=== PATIENT | female | born 1960 | race Hispanic/Latino ===

== ENCOUNTER 2018-08-28 02:51 | Inpatient (IN) | payer OTHER ==
[2018-08-28] MEDS ORDERED: ALBUTEROL 2.5 MG/3 ML NEB SOL ONE (03:34)
[2018-08-28] MEDS ORDERED: IPRATROPIUM BROM 0.5MG/2.5ML ONE (03:51)
[2018-08-28 04:18] LABS: Protime INR 1.06
[2018-08-28 04:19] LABS: MPV 10.3 fL (7.6-11.3); RBC Red Blood Cell Count 3.94 M/uL (3.86-4.86)
[2018-08-28 04:25] LABS: Absolute Lymphocytes (CBC) 2.1 K/uL (0.7-4.9); Absolute Monocytes 0.5 K/uL (0.1-1.3); Absolute Neutrophil 7.3 K/uL (1.8-8.0); Basophils % 0.9 % (0-1.3); Eosinophils % 4.1 % (0-4.4); Hematocrit 34.6 % (36.0-45.0); Lymphocytes % 19.7 % (15.3-44.8); MCV 87.8 fL (80-100); Monocytes % 4.9 % (3.3-12.3)
[2018-08-28 04:41] LABS: Albumin 3.3 g/dL (3.4-5.0); Bilirubin Direct 0.1 mg/dL (0-0.2); Bilirubin Total 0.3 mg/dL (0.2-1.0); Potassium 4.4 mmol/L (3.5-5.1); Protein, Total 7.2 g/dL (6.4-8.2)
[2018-08-28 04:43] LABS: Troponin (Emerg Dept Use Only) 0.92 ng/mL (0.0-0.045)
--- NOTE | 2018-08-28 05:37 | ER ---
Nurse's Notes [facility] Name: Rhonda Omalley Age: 58 yrs Sex: Female : 1960 Arrival Date: 08/28/2018 Time: 02:55 Bed 5 Private MD: Mike Christian Diagnosis: Systolic (congestive) heart failure;Unstable angina Presentation: 08/28 03:06 Presenting complaint: Patient states: cough and SOB x 2 days and reports she now has aa1 pain in her chest from her cough. Transition of care: patient was not received from another setting of care. Onset of symptoms was August 26, 2018. Risk Assessment: Do you want to hurt yourself or someone else? Patient reports no desire to harm self or others. Initial Sepsis Screen: Does the patient meet any 2 criteria? No. Patient's initial sepsis screen is negative. Does the patient have a suspected source of infection? Yes: Productive cough/pneumonia. Care prior to arrival: None. 03:06 Method Of Arrival: Ambulatory aa1 03:06 Acuity: FRANCIS 3 aa1 Triage Assessment: 03:12 General: Appears in no apparent distress. comfortable, Behavior is calm, cooperative, aa1 appropriate for age. 03:15 Respiratory: the patient has mild shortness of breath. aa1 Historical: - Allergies: 03:12 Latex, Natural Rubber; aa1 03:12 PENICILLINS; aa1 - Home Meds: 03:12 Novolin 70/30 [place] 30 units Sub-Q nightly [Active]; aa1 - PMHx: 03:12 Diabetes - IDDM; neuropathy; CVA; aa1 - PSHx: 03:12 Cholecystectomy; Hysterectomy; Gastric Bypass; cataract repair; aa1 - Immunization history:: Flu vaccine is not up to date. - Social history:: Smoking status: Patient/guardian denies using tobacco. - Ebola Screening: : Patient denies exposure to infectious person Patient denies travel to an Ebola-affected area in the 21 days before illness onset. Screenin:30 Abuse screen: Denies threats or abuse. Denies injuries from another. Nutritional rr5 screening: No deficits noted. Tuberculosis screening: No symptoms or risk factors identified. Fall Risk IV access (20 points). Total [place] Fall Scale indicates No Risk (0-24 pts). Assessment: 03:20 General: Appears in no apparent distress. uncomfortable, Behavior is calm, cooperative, rr5 appropriate for age. Pain: Complains of pain in chest Pain does not radiate. Pain currently is 2 out of 10 on a pain scale. Quality of pain is described as discomfort Pain began gradually. Neuro: Level of Consciousness is awake, alert, obeys commands, Oriented to person, place, time. Cardiovascular: Capillary refill < 3 seconds Patient's skin is warm and dry. Rhythm is regular. Respiratory: Airway is patent Respiratory effort is even, with nasal flaring, Respiratory pattern is tachypnea. 03:20 GI: Abdomen is round. : Reports incontinence, since stress incontinence since 2003. rr5 EENT: No signs and/or symptoms were reported regarding the EENT system. Derm: No signs and/or symptoms reported regarding the dermatologic system. Musculoskeletal: No signs and/or symptoms reported regarding the musculoskeletal system. 03:20 Respiratory: Breath sounds are clear. rr5 04:07 Reassessment: Patient appears in no apparent distress at this time. the pain went away rr5 as verbalized. Patient states feeling better. Patient states symptoms have improved. Pain: Denies pain. 04:44 Reassessment: Patient appears in no apparent distress at this time. asleep on bed rr5 comfortably. 05:30 Reassessment: laboratory report came out. explained by the ED provider that she is for rr5 admission. 06:50 Reassessment: second troponin extracted. aa1 07:31 Reassessment: Attempted to call report to floor, per unit marco Layton, receiving nurse dylon Curiel unavailable at this time. 07:40 Reassessment: Dr. Christian notified trop 1.89, repeat EKG ordered. Pt reports chest hb tightness 2-3/10, VSS. Vital Signs: 03:12 BP 139 / 73; Pulse 92; Resp 20; Temp 98.8; Pulse Ox 95% on R/A; Weight 90.72 kg (R); aa1 Height 5 ft. 2 in. (157.48 cm); Pain 2/10; 03:30 BP 139 / 73; Pulse 88; Resp 21; Pulse Ox 94% on 2 lpm NC; Pain 2/10; rr5 04:08 BP 116 / 62; Pulse 92; Resp 19; Pulse Ox 98% on 2 lpm NC; rr5 05:00 BP 127 / 79; Pulse 94; Resp 18; Pulse Ox 99% on 2 lpm NC; rr5 06:00 BP 135 / 75; Pulse 88; Resp 17; Pulse Ox 99% on 2 lpm NC; rr5 06:54 BP 132 / 78; Pulse 84; Resp 17; Pulse Ox 98% on 2 lpm NC; rr5 07:30 BP 123 / 76; Pulse 89; Resp 17; Pulse Ox 99% on 2 lpm NC; Pain 2/10; hb 03:12 Body Mass Index 36.58 (90.72 kg, 157.48 cm) aa1 ED Course: 02:55 Patient arrived in ED. es 02:56 Mike Christian MD is Private Physician. es 03:08 Triage completed. aa1 03:12 Arm band placed on right wrist. Patient placed. aa1 03:14 Yariel Marte, CASANDRA is Primary Nurse. rr5 03:16 Harrison Todd MD is Attending Physician. gs 03:30 Patient has correct armband on for positive identification. Bed in low position. Call rr5 light in reach. Side rails up X 1. residential monitor on. Pulse ox on. NIBP on. 03:30 Inserted saline lock: 20 gauge in right forearm, using aseptic technique. Blood rr5 collected. 03:33 X-ray completed. Portable x-ray completed in exam room. Patient tolerated procedure kw well. 03:34 XRAY Chest (1 view) In Process Unspecified. EDMS 04:43 Notified ED physician of a critical lab result(s). trop 0.92. ak1 05:36 Mike Christian MD is Hospitalizing Provider. gs 06:51 No provider procedures requiring assistance completed. Patient admitted, IV remains in aa1 place. intact. 07:28 Notified ED physician of a critical lab result(s). Troponin 1.89. sg 07:54 EKG done, by animal husbandry technician. reviewed by Gildardo Frank MD. at1 Administered Medications: 03:48 Drug: AtroVENT Aerosol 0.5 mg Route: Inhalation; rr5 05:49 Follow up: Response: No adverse reaction; Marked relief of symptoms rr5 03:48 Drug: Albuterol 2.5 mg Route: Inhalation; rr5 05:49 Follow up: Response: No adverse reaction; Marked relief of symptoms rr5 05:40 Drug: Lasix 20 mg Route: IVP; Site: right forearm; rr5 06:52 Follow up: Response: No adverse reaction rr5 07:30 Drug: Coreg 6.25 mg Route: PO; hb 07:30 Drug: Lasix 40 mg Route: IVP; Site: right forearm; hb Intake: 06:40 post lasix rr5 Output: 06:40 Urine: 200ml (Voided); Total: 200ml. rr5 06:40 post lasix rr5 Outcome: 05:37 Decision to Hospitalize by Provider. 08:17 Patient left the ED. hb Signatures: Dispatcher [employer] EDAren Mccord RN RN sg Belia Bruce RN RN aa1 Violet Molina Kimberlee kw Gonzales, Amanda, credit control clerk EKG Tat1 Linn Dukes RN RN ak1 Tyra Ashby RN RN Harrison Todd MD MD Yariel Marte RN RN rr5
--- NOTE | 2018-08-28 05:37 | EDPHYS ---
Physician Documentation [facility] Name: Rhonda Omalley Age: 58 yrs Sex: Female : 1960 Arrival Date: 08/28/2018 Time: 02:55 Bed 5 Private MD: Mike Christian ED Physician Harrison Todd HPI: 08/28 05:30 This 58 yrs old Female presents to ER via Ambulatory with complaints of Chest gs Congestion, Breathing Difficulty, Chest Pain, Cough. 05:30 The patient has shortness of breath at rest. Onset: The symptoms/episode began/occurred gs 2 day(s) ago, and became persistent. Duration: The symptoms are continuous. The patient's shortness of breath is aggravated by exertion. Associated signs and symptoms: Pertinent positives: chest pain, non-productive cough. Severity of symptoms: At their worst the symptoms were moderate in the emergency department the symptoms are unchanged. The patient has not experienced similar symptoms in the past. The patient has not recently seen a physician. Historical: - Allergies: 03:12 Latex, Natural Rubber; aa1 03:12 PENICILLINS; aa1 - Home Meds: 03:12 Novolin 70/30 [place] 30 units Sub-Q nightly [Active]; aa1 - PMHx: 03:12 Diabetes - IDDM; neuropathy; CVA; aa1 - PSHx: 03:12 Cholecystectomy; Hysterectomy; Gastric Bypass; cataract repair; aa1 - Immunization history:: Flu vaccine is not up to date. - Social history:: Smoking status: Patient/guardian denies using tobacco. - Ebola Screening: : Patient denies exposure to infectious person Patient denies travel to an Ebola-affected area in the 21 days before illness onset. ROS: 05:30 All other systems are negative. gs Exam: 05:30 Head/Face: Normocephalic, atraumatic. Eyes: Pupils equal round and reactive to light, gs extra-ocular motions intact. Lids and lashes normal. Conjunctiva and sclera are non-icteric and not injected. Cornea within normal limits. Periorbital areas with no swelling, redness, or edema. ENT: Nares patent. No nasal discharge, no septal abnormalities noted. Tympanic membranes are normal and external auditory canals are clear. Oropharynx with no redness, swelling, or masses, exudates, or evidence of obstruction, uvula midline. Mucous membranes moist. Neck: Trachea midline, no thyromegaly or masses palpated, and no cervical lymphadenopathy. Supple, full range of motion without nuchal rigidity, or vertebral point tenderness. No Meningismus. Chest/axilla: Normal chest wall appearance and motion. Nontender with no deformity. No lesions are appreciated. 05:30 Abdomen/GI: Soft, non-tender, with normal bowel sounds. No distension or tympany. No guarding or rebound. No evidence of tenderness throughout. Back: No spinal tenderness. No costovertebral tenderness. Full range of motion. Skin: Warm, dry with normal turgor. Normal color with no rashes, no lesions, and no evidence of cellulitis. MS/ Extremity: Pulses equal, no cyanosis. Neurovascular intact. Full, normal range of motion. Neuro: Awake and alert, GCS 15, oriented to person, place, time, and situation. Cranial nerves II-XII grossly intact. Motor strength 5/5 in all extremities. Sensory grossly intact. Cerebellar exam normal. Normal gait. 05:30 Constitutional: The patient appears alert, awake. 05:30 Constitutional: The patient appears uncomfortable. 05:30 Cardiovascular: Rate: normal, Rhythm: regular, Pulses: no pulse deficits are appreciated. 05:30 ECG was reviewed by the Attending Physician. 05:30 Respiratory: the patient does not display signs of respiratory distress, Respirations: tachypnea, Breath sounds: rales, are located in both bases. Vital Signs: 03:12 BP 139 / 73; Pulse 92; Resp 20; Temp 98.8; Pulse Ox 95% on R/A; Weight 90.72 kg (R); aa1 Height 5 ft. 2 in. (157.48 cm); Pain 2/10; 03:30 BP 139 / 73; Pulse 88; Resp 21; Pulse Ox 94% on 2 lpm NC; Pain 2/10; rr5 04:08 BP 116 / 62; Pulse 92; Resp 19; Pulse Ox 98% on 2 lpm NC; rr5 05:00 BP 127 / 79; Pulse 94; Resp 18; Pulse Ox 99% on 2 lpm NC; rr5 06:00 BP 135 / 75; Pulse 88; Resp 17; Pulse Ox 99% on 2 lpm NC; rr5 06:54 BP 132 / 78; Pulse 84; Resp 17; Pulse Ox 98% on 2 lpm NC; rr5 07:30 BP 123 / 76; Pulse 89; Resp 17; Pulse Ox 99% on 2 lpm NC; Pain 2/10; hb 03:12 Body Mass Index 36.58 (90.72 kg, 157.48 cm) aa1 MDM: 03:27 Patient medically screened. 05:30 Differential diagnosis: CHF exacerbation, Chronic Obstructive Pulmonary Disease gs Myocardial Infarction pneumonia. Data reviewed: vital signs, nurses notes. Counseling: I had a detailed discussion with the patient and/or guardian regarding: the historical points, exam findings, and any diagnostic results supporting the discharge/admit diagnosis, the need for further work-up and treatment in the hospital. 08/28 03:16 Order name: Basic Metabolic Panel; Complete Time: 04:58 08/28 03:16 Order name: CBC with Diff; Complete Time: 04:40 08/28 03:16 Order name: LFT's; Complete Time: 04:58 08/28 03:16 Order name: Magnesium; Complete Time: 04:58 08/28 03:16 Order name: NT PRO-BNP; Complete Time: 04:58 08/28 03:16 Order name: PT-INR; Complete Time: 04:40 08/28 03:16 Order name: Troponin (emerg Dept Use Only); Complete Time: 04:58 08/28 03:16 Order name: Flu; Complete Time: 04:58 08/28 05:47 Order name: Basic Metabolic Panel EDAZ 08/28 05:47 Order name: Basic Metabolic Panel EDAZ 08/28 05:47 Order name: NT PRO-BNP EDAZ 08/28 05:47 Order name: NT PRO-BNP EDAZ 08/28 05:47 Order name: Troponin I EDAZ 08/28 05:47 Order name: Troponin I; Complete Time: 07:44 EDAZ 08/28 03:16 Order name: XRAY Chest (1 view) 08/28 03:16 Order name: EKG; Complete Time: 03:18 08/28 03:16 Order name: Cardiac monitoring; Complete Time: 03:48 08/28 03:16 Order name: EKG - Nurse/Tech; Complete Time: 03:48 08/28 05:47 Order name: Consistent Carb (ADA) 1800 Teofilo EDAZ 08/28 05:47 Order name: Echo with Doppler EDMS 08/28 05:47 Order name: Troponin I EDMS 08/28 05:48 Order name: CBC with Automated Diff EDMS 08/28 05:48 Order name: CBC with Automated Diff EDMS 08/28 06:48 Order name: Urine Dipstick--Ancillary (enter results) ar5 08/28 07:14 Order name: Urine Dipstick-Ancillary; Complete Time: 07:44 EDMS 08/28 03:16 Order name: IV Saline Lock; Complete Time: 03:48 gs 08/28 03:16 Order name: Labs collected and sent; Complete Time: 03:48 gs 08/28 03:16 Order name: O2 Per Protocol; Complete Time: 03:48 gs 08/28 03:16 Order name: O2 Sat Monitoring; Complete Time: 03:49 gs EC:30 Rate is 91 beats/min. Rhythm is regular. AR interval is normal. QRS interval is normal. gs T waves are Inverted. Clinical impression: NSR w/ Non-specific ST/T Changes. Interpreted by me. Administered Medications: 03:48 Drug: AtroVENT Aerosol 0.5 mg Route: Inhalation; rr5 05:49 Follow up: Response: No adverse reaction; Marked relief of symptoms rr5 03:48 Drug: Albuterol 2.5 mg Route: Inhalation; rr5 05:49 Follow up: Response: No adverse reaction; Marked relief of symptoms rr5 05:40 Drug: Lasix 20 mg Route: IVP; Site: right forearm; rr5 06:52 Follow up: Response: No adverse reaction rr5 07:30 Drug: Coreg 6.25 mg Route: PO; hb 07:30 Drug: Lasix 40 mg Route: IVP; Site: right forearm; hb Disposition: 05:30 Critical Care:. gs Disposition: 08/28/18 05:37 Hospitalization ordered by Mike Christian for Inpatient Admission. Preliminary diagnosis are Systolic (congestive) heart failure, Unstable angina. - Bed requested for Telemetry/MedSurg (Inpatient). - Status is Inpatient Admission. hb - Condition is Stable. - Problem is new. - Symptoms have improved. UTI on Admission? No Critical care time excluding procedures: 05:30 Critical care time: Bedside Care: 10 minutes, Consultation: 10 minutes, Family gs Intervention: 10 minutes. Total time: 30 minutes Signatures: Dispatcher [employer] EDMS Jennifer Lee RN CASANDRA Belia Bruce, RN RN aa1 Gildardo Frank MD MD [facility] Tyra Ashby RN RN Harrison Todd MD MD Yariel Marte RN RN rr5 Corrections: (The following items were deleted from the chart) 06:14 05:37 Hospitalization Ordered by Mike Christian MD for Inpatient Admission. Preliminary diagnosis is Systolic (congestive) heart failure; Unstable angina. Bed requested for Telemetry/MedSurg (Inpatient). Status is Inpatient Admission. Condition is Stable. Problem is new. Symptoms have improved. UTI on Admission? No. gs 08:17 06:14 08/28/2018 05:37 Hospitalization Ordered by Mike Christian MD for Inpatient Admission. Preliminary diagnosis is Systolic (congestive) heart failure; Unstable angina. Bed requested for Telemetry/MedSurg (Inpatient). Status is Inpatient Admission. Condition is Stable. Problem is new. Symptoms have improved. UTI on Admission? No.
[2018-08-28] MEDS ORDERED: FUROSEMIDE 20 MG/ 2ML VIAL ONE (05:40)
[2018-08-28] MEDS ORDERED: IPRATROPIUM BROM 0.5MG/2.5ML NEB PRN (05:42)
[2018-08-28] MEDS ORDERED: ACETAMINOPHEN 500 MG TAB PO PRN (05:42)
[2018-08-28] MEDS ORDERED: ALBUTEROL 2.5 MG/3 ML NEB SOL NEB PRN (05:42)
[2018-08-28] MEDS ORDERED: D50W 25 GM/50 ML SYRINGE IV PRN (05:43)
[2018-08-28] MEDS ORDERED: GLUCAGON 1 MG/VIAL IM PRN (05:43)
[2018-08-28 07:14] LABS: Urine Blood NEGATIVE (NEG); Urine Glucose TRACE (NEG); Urine Protein NEGATIVE (NEG); Urine Specific Gravity 1.015 (1.005-1.030)
[2018-08-28] MEDS ORDERED: CARVEDILOL 6.25 MG TAB ONE (07:33)
[2018-08-28] MEDS ORDERED: FUROSEMIDE 40 MG/4 ML VIAL ONE (07:33)
--- NOTE | 2018-08-28 08:16 | RAD REPORT ---
EXAM DESCRIPTION: RAD - Chest Single View - 08/28/2018 3:36 am CLINICAL HISTORY: SOB Chest pain. COMPARISON: Chest Single View dated 04/29/2016 FINDINGS: Portable technique limits examination quality. Mild to moderate bilateral pulmonary opacities are present most likely representing pulmonary edema o r interstitial pneumonia. The heart is upper limit normal size. No displaced fractures.
--- NOTE | 2018-08-28 08:27 | EKG ---
Test Date: 2018-08-28 Test Time: 03:08:45 Tenter Frame Operator: CARLI MEASUREMENT RESULTS: Intervals: Rate: 91 MD: 158 QRSD: 66 QT: 362 QTc: 445 [place]: P: 42 MD: 158 QRS: 16 T: 55 INTERPRETIVE STATEMENTS: Normal sinus rhythm Low voltage QRS Cannot rule out Anterior infarct, age undetermined Non specific T abnormality Abnormal ECG Compared to ECG 04/29/2016 23:54:48 Low QRS voltage now present Myocardial infarct finding now present Electronically Signed On 08-28-18 08:27:06 ZOOLOGY PROFESSOR by Hadley Vera
--- NOTE | 2018-08-28 08:27 | EKG ---
Test Date: 2018-08-28 Test Time: 07:52:43 Blast Furnace Supervisor: DIANE MEASUREMENT RESULTS: Intervals: Rate: 88 TN: 164 QRSD: 66 QT: 352 QTc: 425 [place]: P: 49 TN: 164 QRS: 24 T: 76 INTERPRETIVE STATEMENTS: Normal sinus rhythm Possible Left atrial enlargement Low voltage QRS Cannot rule out Anterior infarct, age undetermined Non specific T abnormality Abnormal ECG Compared to ECG 08/28/2018 03:08:45 No significant changes Electronically Signed On 08-28-18 08:26:38 PRODUCT APPLICATIONS ENGINEER by Hadley Vera
[2018-08-28] MEDS: FUROSEMIDE 20 MG/ 2ML VIAL IV SCH ×2 (09:30→17:15)
[2018-08-28] MEDS: ENOXAPARIN 100 MG/ML SYR SQ SCH ×2 (09:31→22:01)
[2018-08-28] MEDS: ASPIRIN EC 81 MG TAB PO SCH (09:31)
[2018-08-28] MEDS: INSULIN -REGULAR HUMAN 50 UNIT/0.5 ML ML SQ SCH ×5 (09:31→22:02)
[2018-08-28 12:42] VITALS: BMI 36.6
[2018-08-28] MEDS ORDERED: INFLUENZA VACCINE (for 3y+) 0.5 ML DOSE IMVAC ONE (13:00)
--- NOTE | 2018-08-28 13:46 | CON ---
Date of Consultation: 08/28/2018 Reason For Consultation: New onset congestive heart failure and [id number] myocardial infarcti on. History Of Present Illness: Ms. Omalley is a 58-year-old [place] woman who has a history o f diabetes, gastric bypass, noncompliant; had a TIA in 2016, was seen by Dr. eBrnabe then. She had at that time aortic sclerosis on her echocardiography. She had a negative carotid Doppler. She come s in with some nonspecific ST-T wave changes, minor T-wave inversion laterally, questionable ST eleva tion in lead F. Troponin was 0.92. BNP of 879, was complaining of chest pressure and had been cough ing for about for about 4 or 5 days. Had PND, orthopnea, pedal edema. No palpitation and no syncope . She is feeling better from the chest pain standpoint, but still cannot lie flat secondary to short ness of breath. Her present Lasix dose is 20 mg IV twice a day. Past Medical History: As stated above. Allergies: SHE IS ALLERGIC TO PENICILLIN AND LATEX. Review of Systems: Negative. Social History: Negative for tobacco, drugs, or alcohol. Family History: Positive for heart disease. Medications: At home include aspirin, multiple vitamins, and insulin. Physical Examination: Vital Signs: Stable. She was in a sinus rhythm. She had 97% O2 saturations on nasal cannula. HEENT: Negative. Neck: Supple without any lymphadenopathy or thyromegaly. She had 3 cm JVD to the angle of the jaw. Chest: Revealed bilateral rales. No wheezing. Cardiac Exam: Revealed a regular rhythm and rate with S4 gallops. No murmurs or rubs. Abdomen: Benign. Extremities: Revealed 2+ edema. Diagnostic Data: As stated earlier. Impression And Plan: 1.New-onset congestive heart failure, most likely diastolic. 2.Jrs-AH-rknxalkng myocardial infarction. 3.Diabetes. 4.Family history. 5.History of obesity status post gastric bypass. 6.History of transient ischemic attack in the past. 7.Noncompliance. The patient needs to be on inhalers. I will increase her IV Lasix to 40 b.i.d. Continue Lovenox. S tart carvedilol. Get an echocardiogram today. Diurese her more aggressively. When she is able to l ie flat, we will perform a heart catheterization on her. This was discussed with her and her mom, an d Dr. Christian and the nurses and . The patient was still in the emergency room and she is to be transferred to the fourth floor soon. CLAUDIO Voice ID: [id number] Report ID: [id number]
--- NOTE | 2018-08-28 16:25 | ECHO ---
HEIGHT: 5 ft 2 in WEIGHT: 200 lb 0.054 oz DATE OF STUDY: 08/28/[address]: Harrison Todd MD 2-DIMENSIONAL: YES M.MODE: YES DOPPLER: YES COLOR FLOW: YES TDS: NO PORTABLE: NO DEFINITY: NO BUBBLE STUDY: NO DIAGNOSIS: CONGESTIVE HEART FAILURE CARDIAC HISTORY: CATHERIZATION: NO SURGERY: NO PROSTHETIC VALVE: NO PACEMAKER: NO MEASUREMENTS (cm) DIASTOLIC (NORMALS) SYSTOLIC (NORMALS) IVSd 1.0 (0.6-1.2) LA Diam 3.6 (1.9-4.0) LVEF 52% LVIDd 4.4 (3.5-5.7) LVIDs 3.3 (2.0-3.5) %FS 27% LVPWd 1.1 (0.6-1.2) Ao Diam 3.2 (2.0-3.7) 2 DIMENSIONAL ASSESSMENT: RIGHT ATRIUM: NORMAL LEFT ATRIUM: NORMAL RIGHT VENTRICLE: NORMAL LEFT VENTRICLE: NORMAL TRICUSPID VALVE: NORMAL MITRAL VALVE: NORMAL PULMONIC VALVE: NORMAL AORTIC VALVE: SCLEROSIS PERICARDIAL EFFUSION: NONE AORTIC ROOT: NORMAL LEFT VENTRICULAR WALL MOTION: NORMAL EJECTION FRACTION. DECREASED LEFT VENTRICULAR COMPLIANCE. DOPPLER/COLOR FLOW: NORMAL. COMMENTS: NORMAL LEFT VENTRICULAR SIZE AND FUNCTION. DECREASED LEFT VENTRICULAR COMPLIANCE. AORTIC SCLEROSIS. NO EFFUSION. TECHNOLOGIST: SOLA BOBBY
[2018-08-28] MEDS: TRAMADOL HCL 50 MG TAB PO PRN (17:15)
[2018-08-28 19:41] LABS: Urine Appearance CLEAR; Urine Bilirubin NEGATIVE (NEG); Urine Blood NEGATIVE (NEG); Urine Color YELLOW; Urine Glucose TRACE (NEG); Urine Protein NEGATIVE (NEG)
[2018-08-28 19:58] LABS: Urine Microscopic Reflex NO UMIC
[2018-08-29 05:30] LABS: Absolute Lymphocytes (CBC) 2.2 K/uL (0.7-4.9); Absolute Monocytes 0.6 K/uL (0.1-1.3); Absolute Neutrophil 4.6 K/uL (1.8-8.0); Basophils % 0.8 % (0-1.3); Eosinophils % 6.2 % (0-4.4); Hematocrit 33.3 % (36.0-45.0); Lymphocytes % 27.6 % (15.3-44.8); MCH 30.6 pg (27.0-35.0); MCV 87.2 fL (80-100); MPV 9.9 fL (7.6-11.3); Monocytes % 7.4 % (3.3-12.3); RBC Red Blood Cell Count 3.82 M/uL (3.86-4.86)
[2018-08-29] MEDS: INSULIN -REGULAR HUMAN 50 UNIT/0.5 ML ML SQ SCH ×4 (09:18→21:26)
[2018-08-29] MEDS: ASPIRIN EC 81 MG TAB PO SCH (09:20)
[2018-08-29] MEDS: ENOXAPARIN 100 MG/ML SYR SQ SCH ×2 (09:20→21:27)
[2018-08-29] MEDS: FUROSEMIDE 20 MG/ 2ML VIAL IV SCH ×2 (09:20→17:36)
--- NOTE | 2018-08-29 17:36 | PN ---
Date of Progress Note: 08/28/2018 The patient states she is still short of breath, perhaps not as much as she stated when she came in. Chest discomfort is no longer present. An echo did reveal normal ejection fraction. Cardiology dis cussed the case and probable combination of CHF and an anginal symptoms, and plan is to do a catheter ization in a few days. HR/MODL Voice ID: [id number] Report ID: [id number]
--- NOTE | 2018-08-29 19:15 | PN ---
Date of Progress Note: 08/29/2018 The patient states she feels better. She had been up walking around. However, she still does feel s hort of breath. Discussion of DNR was held. The possibility of DNI was also discussed since this wi ll let us know as the decision at a later time, stability as such, she probably will be catheterized on Friday. HR/MODL Voice ID: [id number] Report ID: [id number]
--- NOTE | 2018-08-30 02:16 | HP ---
Date of Admission: 08/28/2018 Chief Complaint: Chest pain. History Of Present Illness: Patient dates her illness back approximately 3 weeks when she thought sh e had sinus and bronchial infection. This improved somewhat until the day of admission when she noti isaias some increasing shortness of breath, associated with some chest pain, which had some radiation in to her arm. She presented to the emergency room at this time, the possibility of CHF and CAD were co nsidered, and she was admitted for further care. Past Medical History: Patient has a long history of insulin-dependent diabetes under fair control. Patient is not very diet compliant nor exercise compliant. Family History: Diabetes, CAD. Social History: Nonsmoker and nondrinker. Physical Examination: General: Patient is a moderately obese elderly female, in mild respiratory distress. Vital Signs: Stable vital signs. HEENT: Normocephalic. Pupils are equal and reactive to light and accommodation. Fundi negative. E NT negative. Neck: Trachea midline. Thyroid not palpable. Chest: Bilateral rales, adequate air entry and movement bilaterally. No use of accessory muscles to breathe. Cardiovascular: PMI in midclavicular line. Heart sounds normal. Peripheral pulses present and equa l bilaterally. Abdomen: No organomegaly. Bowel sounds present. Extremities: +1 pitting edema bilaterally. Good tone and movement bilaterally. Reflexes physiologi c. Rectal: Deferred. Pelvic: Deferred. Impression: Congestive heart failure; chest pain; possible angina; noninsulin-dependent diabetes, fa ir control. Plan: Patient will be admitted, to be diuresed. Cardiological evaluation will be done. Depending o n the results, may require catheterization. HR/MODL Voice ID: [id number]
[2018-08-30] MEDS: ASPIRIN EC 81 MG TAB PO SCH (08:19)
[2018-08-30] MEDS: INSULIN -REGULAR HUMAN 50 UNIT/0.5 ML ML SQ SCH ×4 (08:19→21:19)
[2018-08-30] MEDS: FUROSEMIDE 20 MG/ 2ML VIAL IV SCH ×2 (08:20→18:06)
[2018-08-30] MEDS: ENOXAPARIN 100 MG/ML SYR SQ SCH (08:20)
[2018-08-31] MEDS ORDERED: NA CHLORIDE 0.9% 1,000 ML ONE (05:30)
--- NOTE | 2018-08-31 05:59 | PN ---
Date of Progress Note: 08/29/2018 Ms. Omalley was admitted to Dr. Christian's service on 08/28/2018 with new-onset congestive heart fa ilure, elevated troponin, chest tightness, and dyspnea on exertion. Echocardiography showed a normal ejection fraction with decreased left ventricular compliance. The patient is not having any more ch est pain, but she has dyspnea on minimal exertion. Telemetry has not shown any significant arrhythmi as. Her chest sounds clear. Her cough is resolved. We will plan a heart catheterization for 2017 to define her coronary anatomy. She understands the risks and the benefits of the procedure and she agrees to proceed. DAYANARA/BRIANNA Voice ID: [id number] Report ID: [id number]
--- NOTE | 2018-08-31 06:11 | PN ---
Date of Progress Note: 08/30/2018 Ms. Omalley came in approximately 48 hours ago with new-onset chest pain, dyspnea on exertion, eleni vated troponin, cough. Her cough has resolved. Remains dyspneic with minimal exertion. Echocardiog dayana showed decreased left ventricular compliance with normal ejection fraction. Telemetry has show n occasional PVCs. The plan is for a heart catheterization on 08/31/2018. She understands the risk and the benefits of the procedure and agreed to proceed. Ms. Omalley needs to be on aspirin, low- dose beta-charisse, statin in addition to her Lasix and ARABELLA inhibitors. DAYANARA/BRIANNA Voice ID: [id number] Report ID: [id number]
[2018-08-31] MEDS: ASPIRIN EC 81 MG TAB PO SCH (06:22)
[2018-08-31] MEDS: INSULIN -REGULAR HUMAN 50 UNIT/0.5 ML ML SQ SCH ×4 (07:30→21:57)
[2018-08-31] MEDS: FUROSEMIDE 20 MG/ 2ML VIAL IV SCH (08:35)
[2018-08-31] MEDS ORDERED: HEPA 1000U/500MLS 2,000 UNIT/1,000 ML BAG IV ONE (08:36)
[2018-08-31] MEDS ORDERED: HEPARIN 5000 UNIT/ML 1 ML VIAL ONE (12:21)
[2018-08-31] MEDS ORDERED: FENTANYL CITR 100 MCG/2 ML ONE ×2 (12:21→12:59)
[2018-08-31] MEDS ORDERED: MIDAZOLAM HCL 2 MG/2 ML INJ ONE ×2 (12:21→12:35)
[2018-08-31] MEDS ORDERED: ATROPINE SULF 1 MG/10 ML SYR IV ONE (12:22)
[2018-08-31] MEDS ORDERED: NITROGLYCERIN 100 MCG/ML SYR (for cath lab use only) IV ONE (12:22)
[2018-08-31] MEDS ORDERED: NICARDIPINE HCL 25 MG/10 ML IV ONE (12:22)
[2018-08-31] MEDS ORDERED: NA CHLORIDE 0.9% 50 ML ONE ×2 (12:22→13:44)
[2018-08-31] MEDS ORDERED: FLUMAZENIL 0.1 MG/ML (5 mL VIAL) IV ONE (12:36)
[2018-08-31] MEDS ORDERED: PRASUGREL (EFFIENT) 10 MG TAB PO ONE ×2 (15:00)
[2018-08-31] MEDS ORDERED: ACETAMINOPHEN 325 MG TABLET PO PRN (15:06)
[2018-08-31] MEDS ORDERED: NITROGLYCERIN 0.4 MG/TAB SL PRN (15:10)
[2018-08-31] MEDS ORDERED: NA CHLORIDE 0.9% 1,000 ML IV SCH (16:00)
[2018-08-31] MEDS ORDERED: INSULIN -REGULAR HUMAN 50 UNIT/0.5 ML ML ONE (16:55)
[2018-08-31] MEDS: TRAMADOL HCL 50 MG TAB PO PRN (21:53)
--- NOTE | 2018-09-01 01:29 | OP ---
Surgeon: Hadley Vera MD Procedures: Left heart catheterization; coronary angiography; percutaneous coronary intervention of a mid left anterior descending artery and obtuse marginal coronary arteries, both were successful. Procedure Findings: The patient's ejection fraction is depressed with what looks like an old anteroa pical KY. EF in the 30s. The LAD had a 99% stenosis in the midportion. Obtuse marginal was subtota lly occluded. There were thrombus and dissection and heavily calcified lesion. After stenting, the LAD lesion had 0% stenosis and the circumflex lesion had about a 10% stenosis. Her stent was probabl y slightly proximal to the most severe portion. We could not advance a stent beyond where we did and we found it acceptable. Acceptable angiographic result. Balloon angioplasty was done of the most s evere lesion just distal to the stent and there was 10% residual stenosis. She was free of chest shane n the whole time we did the procedure. Procedure In Detail: The patient had evidence of a non-ST elevation KY. She was brought to the [facility] catheterization laboratory technician in a fasting state, sedated with Versed and fentanyl, and prepared and draped. Right ra dial approach was used. We anesthetized the skin over the artery with 1% lidocaine, entered it with a 21-gauge needle, threaded a 0.021 inch guidewire into the artery and place a 6-Polish Terumo sheath . We used a TIG catheter to angiogram the arteries and left ventricle. We then used an exchange wir e and placed an Ikari 3.5, left with side holes as a guide catheter. It gave adequate support. The LAD was pre-dilated with a 2.5 x 15 Emerge balloon, stented with a 3.0 x 16 Synergy stent to 14 atmos pheres. The obtuse marginal artery was cannulated with a Kojo wire balloon with a 2.0 x 15 Emerge balloon. We placed a 2.5 x 16 stent as far as we could go, balloon just distal to it. Had an adequa te angiographic result. We attempted to place a stent just beyond the first stent. It was unsuccess ful, but the angiographic result was good. At the end of the procedure, the arteriotomy was closed w ith a TR band. The patient had Angiomax during the procedure. During the angiogram, she received a radial cocktail consisting of nicardipine, heparin, nitroglycerin. We withdrew the guide catheter ov er a J-wire to keep it straight and minimize trauma. She had mild symptoms of radial and brachial ar rojas spasm. At the end of the procedure, no complications. Estimated Blood Loss: 100 cc. Braiding Operator: Marce Boucher. FELISA/BRIANNA Voice ID: [id number] Report ID: [id number]
[2018-09-01 04:07] LABS: Hematocrit 31.2 % (36.0-45.0); MCH 29.8 pg (27.0-35.0); MCV 86.3 fL (80-100); MPV 9.4 fL (7.6-11.3); RBC Red Blood Cell Count 3.62 M/uL (3.86-4.86)
[2018-09-01] MEDS: INSULIN -REGULAR HUMAN 50 UNIT/0.5 ML ML SQ SCH ×3 (08:09→16:30)
[2018-09-01] MEDS: ASPIRIN EC 81 MG TAB PO SCH (08:10)
[2018-09-01] MEDS ORDERED: ONDANSETRON 4 MG/2 ML VIAL IV PRN (08:29)
[2018-09-01] MEDS ORDERED: CLOPIDOGREL 75 MG TABLET PO SCH (09:00)
--- NOTE | 2018-09-01 16:27 | PN ---
Date of Progress Note: 08/31/2018 Progress note on 08/31. The patient states she feels considerably better. She now walks without being short of breath. Medina mike, the catheterization showed significant blockage 99% LAD with a stent insertion and the patient's symptoms were secondary to this with resulting myocardial infarct. Sugars are also difficult to con trol; however, this may be a stress response Progress note on 09/01. The patient states she is nauseated, thinking possibly was after the medication. However, the Zofran improved her symptoms. [place] well enough to be discharged. Continue on her cardiac medicine with th e addition of Zofran. To follow up with me in 1 week and Cardiology in 2. HR/MODL Voice ID: [id number] Report ID: [id number]
[2018-09-01 17:41] VITALS: O2SAT 96
[2018-09-01 18:20] VITALS: BP 112/62; TEMP 98.5
--- NOTE | 2018-09-02 12:49 | PN ---
Date of Progress Note: 09/01/2018 Ms. Omalley had come in with a subendocardial MO and new-onset congestive heart failure. It was t hought she had decreased left ventricular compliance on echocardiography with a normal ejection fract ion. Heart catheterization was done yesterday. Dr. Vera thought the anteroapical wall was rather hypokinetic. She underwent a stent of the LAD and OM. This was uneventful. No blood loss. No comp lications. Overnight, her entry site appeared to be normal. No hematoma. She did not have any more chest pain or telemetry changes. She can go home today. She will need another echocardiogram in 3 months. We will probably recheck a Lexiscan in a year. She needs a carotid Doppler done soon as an outpatient. She needs to be on aspirin, Plavix, Lasix, metoprolol, Lipitor, and an ARABELLA inhibitor. I will discuss the case further with Dr. Christian. DAYANARA/BRIANNA Voice ID: [id number] Report ID: [id number]
== END 2018-09-01 17:45 | disposition home or self-care (01) | DRG 246 ==
LOC: ER 02:51 → ERHOLD 05:41 → 4TH 07:57
PROVIDERS: ADMIT Family Medicine; ATTEND Family Medicine
PROC: 027135Z Dilation of Coronary Artery, Two Arteries with Two Drug-eluting Intraluminal Devices, Percutaneous Approach (ICD-10-PCS; principal; 2018-08-31)
PROC: 4A023N7 Measurement of Cardiac Sampling and Pressure, Left Heart, Percutaneous Approach (ICD-10-PCS; 2018-08-31)
PROC: B211YZZ Fluoroscopy of Multiple Coronary Arteries using Other Contrast (ICD-10-PCS; 2018-08-31)
PROC: B215YZZ Fluoroscopy of Left Heart using Other Contrast (ICD-10-PCS; 2018-08-31)
DX: I21.4 Non-ST elevation (NSTEMI) myocardial infarction (principal); I50.31 Acute diastolic (congestive) heart failure; Z88.0 Allergy status to penicillin; Z91.040 Latex allergy status; E11.9 Type 2 diabetes mellitus without complications; Z98.84 Bariatric surgery status; Z86.73 Personal history of transient ischemic attack (TIA), and cerebral infarction without residual deficits; Z91.11 Patient's noncompliance with dietary regimen; Z79.4 Long term (current) use of insulin
CPT/HCPCS: 36415; 71045; 80048; 80076; 81003; 82962; 83735; 83880; 84484; 85025; 85027; 85347; 85610; 87070; 87205; 87804; 92928; 93005; 93306; 93458; 96374; 99285; C1725; C1893; J0583; J1644; J1650; J1940; J2250; J2405; J3010; J7030

== ENCOUNTER 2019-06-27 13:03 | Emergency (ER) | payer BC, OTHER ==
[2019-06-27] MEDS ORDERED: dexAMETHasone 10 MG/ML VIAL ONE (13:39)
[2019-06-27] MEDS ORDERED: MEPERIDINE HCL 25 MG/0.5 ML ONE (13:39)
[2019-06-27] MEDS ORDERED: NA CHLORIDE 0.9% 1,000 ML ONE (13:39)
[2019-06-27] MEDS ORDERED: ONDANSETRON 4 MG/2 ML VIAL ONE (13:39)
[2019-06-27 13:58] LABS: Absolute Lymphocytes (CBC) 1.7 K/uL (0.7-4.9); Basophils % 0.9 % (0-1.3); Hematocrit 34.3 % (36.0-45.0); Lymphocytes % 17.8 % (15.3-44.8); MPV 9.3 fL (7.6-11.3); RBC Red Blood Cell Count 4.28 M/uL (3.86-4.86)
[2019-06-27 14:08] LABS: Potassium 4.2 mmol/L (3.5-5.1)
--- NOTE | 2019-06-27 14:25 | RAD REPORT ---
EXAM DESCRIPTION: CT - Head Brain Wo Cont - 06/27/2019 1:54 pm CLINICAL HISTORY: Headache COMPARISON: April 2016 CT head TECHNIQUE: Axial 5 mm thick images of the head were obtained without IV contrast. All CT scans are performed using dose optimization technique as appropriate and may include automated exposure control or mA/KV adjustment according to patient size. FINDINGS: No intracranial hemorrhage, mass, edema or shift of mid-line structures. No acute infarcti on changes seen. No abnormal extra-axial fluid collections. Ventricles are normal. Mastoid air cells and visualized portions of the paranasal sinuses are clear. No acute bony findings. IMPRESSION: Negative non-contrast CT head examination. No significant change from comparison.
--- NOTE | 2019-06-27 15:09 | RAD REPORT ---
EXAM DESCRIPTION: CT - Head angio - 06/27/2019 2:45 pm CLINICAL HISTORY: HEADACHE TECHNIQUE: During dynamic enhancement using nonionic IV contrast, axial 1 millimeter thick images of the head were obtained. Sagittal and axial reconstruction images were generated using MIP technique and reviewed. All CT scans are performed using dose optimization technique as appropriate and may include automated exposure control or mA/KV adjustment according to patient size. COMPARISON: CT head June 27 FINDINGS: No aneurysm or vascular malformation identified. Major venous sinuses are patent. No named branch occlusion seen. Atherosclerotic calcifications narrow the distal aspect of each inter nal carotid artery and the petrous portion of the right internal carotid artery. Left M1 MCA branch s hows long segment luminal narrowing. No vasculitis findings. IMPRESSION: No aneurysm or vascular malformation. Atherosclerotic changes are present without named branch occlusion or significant degree of luminal n arrowing identified.
--- NOTE | 2019-06-27 16:33 | ER ---
Nurse's Notes [facility] Name: Rhonda Omalley Age: 59 yrs Sex: Female : 1960 Arrival Date: 06/27/2019 Time: 13:05 Bed 27 Private MD: Mike Christian Diagnosis: Headache Presentation: 06/27 13:12 Presenting complaint: Patient states: Headache that started at 12:30, along with aj1 nausea. States the headache is worse if she moves her head. Denies history of migraines. Transition of care: patient was not received from another setting of care. Onset of symptoms was June 27, 2019 at 12:30. Risk Assessment: Do you want to hurt yourself or someone else? Patient reports no desire to harm self or others. Initial Sepsis Screen: Does the patient meet any 2 criteria? No. Patient's initial sepsis screen is negative. Does the patient have a suspected source of infection? No. Patient's initial sepsis screen is negative. Care prior to arrival: None. 13:12 Method Of Arrival: Wheelchair aj1 13:12 Acuity: FRANCIS 3 aj1 Triage Assessment: 13:17 General: Appears in no apparent distress. uncomfortable, Behavior is calm, cooperative, aj1 appropriate for age. Pain: Complains of pain in top of head and right eye Pain currently is 10 out of 10 on a pain scale. Neuro: Level of Consciousness is awake, alert, obeys commands. Cardiovascular: Patient's skin is warm and dry. Respiratory: Airway is patent Respiratory effort is even, unlabored, Respiratory pattern is regular, symmetrical. GI: Reports nausea, vomiting. Historical: - Allergies: 13:17 Latex, Natural Rubber; aj1 13:17 PENICILLINS; aj1 - Home Meds: 13:17 Novolin 70/30 [place] 30 units Sub-Q nightly [Active]; aj1 - PMHx: 13:17 CVA; Diabetes - IDDM; neuropathy; Myocardial infarction; aj1 - Immunization history:: Flu vaccine is not up to date. - Social history:: Smoking status: Patient/guardian denies using tobacco. - Ebola Screening: : Patient denies travel to an Ebola-affected area in the 21 days before illness onset. - Family history:: not pertinent. - Hospitalizations: : No recent hospitalization is reported. Screenin:33 Abuse screen: Denies threats or abuse. Denies injuries from another. Nutritional mg2 screening: No deficits noted. Tuberculosis screening: No symptoms or risk factors identified. Fall Risk IV access (20 points). Gait- Weak (10 pts.). Assessment: 13:35 General: Appears in no apparent distress. uncomfortable, Behavior is calm, cooperative. mg2 Pain: Complains of pain in right jainism Pain does not radiate. Pain currently is 8 out of 10 on a pain scale. Quality of pain is described as aching, Pain began gradually, Is intermittent. Neuro: Level of Consciousness is awake, alert, obeys commands, Oriented to person, place, time, situation. Neuro: Reports headache in right temporal area and back of the neck. Cardiovascular: Capillary refill < 3 seconds Patient's skin is warm and dry. Respiratory: Airway is patent Respiratory effort is even, unlabored, Respiratory pattern is regular, symmetrical. GI: Reports nausea. : No signs and/or symptoms were reported regarding the genitourinary system. EENT: Reports blurred vision. Derm: Skin is intact, is healthy with good turgor, Skin is pink, warm \T\ dry. normal. Musculoskeletal: Circulation, motion, and sensation intact. Capillary refill < 3 seconds. 13:54 Reassessment: patient sent to ct via stretcher. mg2 14:38 Reassessment: patient sent to ct scan . mg2 15:32 Reassessment: Patient appears in no apparent distress at this time. Patient states mg2 feeling better. Vital Signs: 13:17 BP 147 / 72; Pulse 79; Resp 18; Temp 97.0; Pulse Ox 100% on R/A; Weight 86.18 kg (R); aj1 Height 5 ft. 2 in. (157.48 cm) (R); Pain 10/10; 13:37 BP 164 / 86; Pulse 74; Resp 18; Pulse Ox 97% on R/A; mg2 15:33 BP 143 / 74; Pulse 78; Resp 18; Pulse Ox 100% on R/A; mg2 16:40 BP 144 / 70; Pulse 75; Resp 18; Temp 98.0; Pulse Ox 100% on R/A; Pain 0/10; mg2 13:17 Body Mass Index 34.75 (86.18 kg, 157.48 cm) aj1 Clarence Coma Score: 16:25 Eye Response: spontaneous(4). Verbal Response: oriented(5). Motor Response: obeys rn commands(6). Total: 15. ED Course: 13:05 Patient arrived in ED. ag5 13:06 Mike Christian MD is Private Physician. ag5 13:16 Triage completed. aj1 13:17 Arm band placed on Patient placed in an exam room. aj1 13:22 David Driver, RN is Primary Nurse. mg2 13:25 Braxton Wilkerson MD is Attending Physician. rn 13:33 No provider procedures requiring assistance completed. Inserted saline lock: 20 gauge mg2 in right antecubital area, using aseptic technique. Blood collected. 13:36 Patient has correct armband on for positive identification. Pulse ox on. NIBP on. Door mg2 closed. 13:54 CT completed. Patient tolerated procedure well. Patient moved back from CT. mw3 13:54 CT Head Brain wo Cont In Process Unspecified. EDMS 14:45 CT Head Angio In Process Unspecified. EDMS 14:45 CT completed. Patient tolerated procedure well. Patient moved back from CT. bq 16:31 Mary Can MD is Referral Physician. rn 16:31 Francois Bernabe MD is Referral Physician. rn 16:41 IV discontinued, intact, bleeding controlled, No redness/swelling at site. Pressure mg2 dressing applied. Administered Medications: 13:48 Drug: Demerol 25 mg Route: IVP; Site: right antecubital; mg2 15:33 Follow up: Response: No adverse reaction; Marked relief of symptoms mg2 13:48 Drug: Zofran 4 mg Route: IVP; Site: right antecubital; mg2 15:32 Follow up: Response: No adverse reaction; Marked relief of symptoms mg2 13:48 Drug: NS 0.9% 1000 ml Route: IV; Rate: 1000 ml; Site: right antecubital; mg2 15:32 Follow up: Response: No adverse reaction; IV Status: Completed infusion; IV Intake: mg2 1000ml 13:48 Drug: Decadron - Dexamethasone 10 mg Route: IVP; Site: right antecubital; mg2 15:32 Follow up: Response: No adverse reaction; Marked relief of symptoms mg2 Intake: 15:32 IV: 1000ml; Total: 1000ml. mg2 Outcome: 16:32 Discharge ordered by . rn 16:41 Discharged to home ambulatory, with family. mg2 16:41 Condition: stable 16:41 Discharge instructions given to patient, family, Instructed on discharge instructions, follow up and referral plans. medication usage, Demonstrated understanding of instructions, follow-up care, medications, Prescriptions given X 4. 16:48 Patient left the ED. mg2 Signatures: Dispatcher [employer] EDKaycee Neumann RN RN aj1 [place] Quick Roman, MD MD rn Gardose, Michele, RN RN mg2 [place] mw3 Roxana Fernandez 5
--- NOTE | 2019-06-27 16:33 | EDPHYS ---
Physician Documentation [facility] Name: Rhonda Omalley Age: 59 yrs Sex: Female : 1960 Arrival Date: 06/27/2019 Time: 13:05 Bed 27 Private MD: Mike Christian ED Physician Braxton Wilkerson HPI: 06/27 15:49 This 59 yrs old Female presents to ER via Wheelchair with complaints of rn Nausea/Vomiting, Headache, Blurred Vision. 15:49 The patient complains of pain to the top of head and neck. The patient describes the rn headache as aching, throbbing. Onset: The symptoms/episode began/occurred just prior to arrival. Associated signs and symptoms: Pertinent positives: nausea, blurred vision, Pertinent negatives: altered mental status, fever, neck stiffness, rash. Severity of symptoms: At its worst the pain was moderate, in the emergency department the pain is unchanged. The symptoms are alleviated by nothing. the symptoms are aggravated by nothing. The patient has not experienced similar symptoms in the past. Reports at latter day, sudden onset of headache, no hx of migraines, no trauma. 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 Reports pain in neck and top of head, assoc with intermittent blurred vision, light sensitivity, and nausea. Reports head hurts more when moves head/neck. No fever. Reports poor vision at baseline and sees Dr. Can. Has appt with Dr. Can coming up.. Historical: - Allergies: 13:17 Latex, Natural Rubber; aj1 13:17 PENICILLINS; aj1 - Home Meds: 13:17 Novolin 70/30 [place] 30 units Sub-Q nightly [Active]; aj1 - PMHx: 13:17 CVA; Diabetes - IDDM; neuropathy; Myocardial infarction; aj1 - Immunization history:: Flu vaccine is not up to date. - Social history:: Smoking status: Patient/guardian denies using tobacco. - Ebola Screening: : Patient denies travel to an Ebola-affected area in the 21 days before illness onset. - Family history:: not pertinent. - Hospitalizations: : No recent hospitalization is reported. ROS: 15:49 Constitutional: Negative for fever, chills, and weight loss, Eyes: Negative for injury, rn pain, redness, and discharge, + blurred vision Neck: Negative for injury, and swelling, Cardiovascular: Negative for chest pain, palpitations, and edema, Respiratory: Negative for shortness of breath, cough, wheezing, and pleuritic chest pain, Abdomen/GI: Negative for abdominal pain, diarrhea, and constipation, MS/Extremity: Negative for injury and deformity, Skin: Negative for injury, rash, and discoloration, Neuro: Negative for weakness, numbness, tingling, and seizure. Exam: 15:49 Constitutional: This is a well developed, well nourished patient who is awake, alert, rn and in no acute distress. Wearing sunglasses Head/Face: Normocephalic, atraumatic. Eyes: Pupils reactive and equal, + light sensitivity ENT: MMM Neck: Trachea midline, no cervical LAD, + increased pain with movement of head Cardiovascular: Regular rate and rhythm. No pulse deficits. Respiratory: No increased work of breathing, no retractions or nasal flaring. Abdomen/GI: soft, non-tender Skin: Warm, dry, no rashes MS/ Extremity: Pulses equal, no cyanosis. Neurovascular intact. Full, normal range of motion. Equal circumference. Neuro: Awake and alert, GCS 15, oriented to person, place, time, and situation. Cranial nerves II-XII grossly intact. Motor strength 5/5 in all extremities. Sensory grossly intact. Cerebellar exam normal. Vital Signs: 13:17 BP 147 / 72; Pulse 79; Resp 18; Temp 97.0; Pulse Ox 100% on R/A; Weight 86.18 kg (R); aj1 Height 5 ft. 2 in. (157.48 cm) (R); Pain 10/10; 13:37 BP 164 / 86; Pulse 74; Resp 18; Pulse Ox 97% on R/A; mg2 15:33 BP 143 / 74; Pulse 78; Resp 18; Pulse Ox 100% on R/A; mg2 16:40 BP 144 / 70; Pulse 75; Resp 18; Temp 98.0; Pulse Ox 100% on R/A; Pain 0/10; mg2 13:17 Body Mass Index 34.75 (86.18 kg, 157.48 cm) aj1 [place] Coma Score: 16:25 Eye Response: spontaneous(4). Verbal Response: oriented(5). Motor Response: obeys rn commands(6). Total: 15. MDM: 13:25 Patient medically screened. rn 16:25 Differential diagnosis: hypertensive headache, intracerebral hemorrhage, migraine, rn neoplasm, subarachnoid bleed, temporal arteritis, tension headache, vasomotor headache. Data reviewed: vital signs, nurses notes, lab test result(s), radiologic studies, CT scan, and as a result, I will discharge patient. Counseling: I had a detailed discussion with the patient and/or guardian regarding: the historical points, exam findings, and any diagnostic results supporting the discharge/admit diagnosis, lab results, radiology results, the need for outpatient follow up, to return to the emergency department if symptoms worsen or persist or if there are any questions or concerns that arise at home. Response to treatment: the patient's symptoms have markedly improved after treatment, and as a result, I will discharge patient. Special discussion: I discussed with the patient/guardian in detail that at this point there is no indication for admission to the hospital. It is understood, however, that if the symptoms persist or worsen the patient needs to return immediately for re-evaluation. Based on the history and exam findings, there is no indication for further emergent testing or inpatient evaluation. I discussed with the patient/guardian the need to see the neurologist for further evaluation of the symptoms. I discussed with the patient/guardian the need to see the opthamologist for further evaluation of the symptoms. ED course: ESR with mild elevation, CT head and CTA no acute findings and no signs of vasculitis. IMproved symptoms, normal neuro exam. After pain meds, patient reports resolution of blurred vision and photosensitivity, reports majority of pain located at base of skull and hurts with movement. Told her needs to f/u with ophthalmology given intermittent blurred vision, as well as neurology for new onset headaches. Will prescribe pain meds, steroids, and muscle relaxer. Urged patient to f/u with specialists within the week and return precautions given and understood. . 06/27 13:35 Order name: CBC with Diff; Complete Time: 14:12 rn 06/27 13:35 Order name: Basic Metabolic Panel; Complete Time: 14:12 rn 06/27 13:35 Order name: CT Head Brain wo Cont; Complete Time: 14:47 rn 06/27 13:35 Order name: ESR; Complete Time: 14:12 rn 06/27 14:14 Order name: CT Head Angio; Complete Time: 15:12 rn 06/27 13:35 Order name: IV Start; Complete Time: 13:37 rn Administered Medications: 13:48 Drug: Demerol 25 mg Route: IVP; Site: right antecubital; mg2 15:33 Follow up: Response: No adverse reaction; Marked relief of symptoms mg2 13:48 Drug: Zofran 4 mg Route: IVP; Site: right antecubital; mg2 15:32 Follow up: Response: No adverse reaction; Marked relief of symptoms mg2 13:48 Drug: NS 0.9% 1000 ml Route: IV; Rate: 1000 ml; Site: right antecubital; mg2 15:32 Follow up: Response: No adverse reaction; IV Status: Completed infusion; IV Intake: mg2 1000ml 13:48 Drug: Decadron - Dexamethasone 10 mg Route: IVP; Site: right antecubital; mg2 15:32 Follow up: Response: No adverse reaction; Marked relief of symptoms mg2 Disposition: 06/27/19 16:32 Discharged to Home. Impression: Headache. - Condition is Stable. - Discharge Instructions: General Headache Without Cause, Hypertension. - Prescriptions for Prednisone 20 mg Oral Tablet - take 3 tablet by ORAL route once daily for 5 days; 15 tablet. Tylenol- Codeine #3 300-30 mg Oral Tablet - take 2 tablets by ORAL route every 6 hours As needed; 15 tablet. Cyclobenzaprine 10 mg Oral Tablet - take 1 tablet by ORAL route every 8 hours As needed; 15 tablet. Zofran ODT 4 mg Oral tablet,disintegrating - place 1 tablet by TRANSLINGUAL route every 8 hours; 20 tablet. - Medication Reconciliation Form, Thank You Letter, Antibiotic Education, Prescription Opioid Use form. - Follow up: Mary Can MD; When: 2 - 3 days; Reason: Further diagnostic work-up, Recheck today's complaints, Re-evaluation by your physician. Follow up: Francois Bernabe MD; When: 2 - 3 days; Reason: Recheck today's complaints, Re-evaluation by your physician. - Problem is new. - Symptoms have improved. Signatures: Dispatcher [employer] EDKaycee Neumann RN RN aj1 Braxton Wilkerson MD MD rn Gardose, Michele, RN RN mg2 Corrections: (The following items were deleted from the chart) 16:48 16:32 06/27/2019 16:32 Discharged to Home. Impression: Headache. Condition is Stable. mg2 Forms are Medication Reconciliation Form, Thank You Letter, Antibiotic Education, Prescription Opioid Use. Follow up: Mary Can; When: 2 - 3 days; Reason: Further diagnostic work-up, Recheck today's complaints, Re-evaluation by your physician. Follow up: Francois Bernabe; When: 2 - 3 days; Reason: Recheck today's complaints, Re-evaluation by your physician. Problem is new. Symptoms have improved. rn
[2019-06-27 18:02] VITALS: O2SAT 100
[2019-06-27 18:04] VITALS: BP 144/70; TEMP 98
== END 2019-06-27 16:48 | disposition home or self-care (01) ==
LOC: ER 13:03
DX: R51 Headache (principal); E11.40 Type 2 diabetes mellitus with diabetic neuropathy, unspecified; I25.2 Old myocardial infarction; Z79.4 Long term (current) use of insulin; Z88.0 Allergy status to penicillin; Z91.040 Latex allergy status; Z91.048 Other nonmedicinal substance allergy status
CPT/HCPCS: 96361; 85025; 80048; 36415; 85652; 70450; 70496; 96375; 96374; 99284; Q9967; J1100; J2175; J7030; J2405

== ENCOUNTER 2024-08-27 12:10 | Day surgery (SDC) | payer OTHER ==
[2024-08-25 09:17] LABS: Absolute Basophils 0.1 K/uL (0-0.5); Absolute Eosinophils 0.3 K/uL (0-0.5); Absolute Lymphocytes (CBC) 1.3 K/uL (0.7-4.9); Absolute Monocytes 0.4 K/uL (0.1-1.3); Absolute Neutrophil 7.5 K/uL (1.8-8.0); Basophils % 0.6 % (0-1.3); Eosinophils % 2.9 % (0-4.4); Hematocrit 28.9 % (36.0-45.0); Hemoglobin 9.4 g/dL (12.0-15.0); Lymphocytes % 13.3 % (15.3-44.8); MCH 24.4 pg (27.0-35.0); MCHC 32.6 g/dL (32.0-36.0); MCV 74.9 fL (80-100); MPV 8.2 fL (7.6-11.3); Monocytes % 3.8 % (3.3-12.3); Neutrophils % 79.4 % (41.7-73.7); Nucleated Red Blood Cells % 0.1 % (0-0); Platelets 513 thou/uL (152-406); RBC Red Blood Cell Count 3.87 M/uL (3.86-4.86); Red Cell Distribution Width 16.3 % (12.1-15.2)
[2024-08-25 09:28] LABS: Anion Gap 6.3 mEq/L (5.0-15.0); Potassium 4.3 mEq/L (3.5-5.1)
[2024-08-25 09:54] LABS: PT Prothrombin Time 12.5 SECONDS (9.4-12.5); PTT, Activated Partial Thromb 30.2 SECONDS (24.3-36.9); Protime INR 1.12
[2024-08-27] MEDS ORDERED: NA CHLORIDE 0.9% 500 ML ONE (12:16)
[2024-08-27] MEDS ORDERED: VERAPAMIL HCL 10 MG/4 ML VIAL IV ONE (13:44)
[2024-08-27] MEDS ORDERED: HEPARIN 10,000 UNIT/10 ML VIAL IV ONE (13:44)
[2024-08-27] MEDS ORDERED: LIDOCAINE 1% 20 ML MDV ONE (13:44)
[2024-08-27] MEDS ORDERED: MIDAZOLAM HCL 2 MG/2 ML INJ ONE (13:44)
[2024-08-27] MEDS ORDERED: HEPA 1000U/500MLS 2,000 UNIT/1,000 ML BAG IV ONE (13:44)
[2024-08-27] MEDS ORDERED: CLOPIDOGREL 75 MG TABLET ONE (13:45)
[2024-08-27] MEDS ORDERED: ATROPINE SULF 1 MG/10 ML SYR IV ONE (13:45)
[2024-08-27] MEDS ORDERED: FENTANYL CITR 100 MCG/2 ML ONE (13:45)
[2024-08-27] MEDS ORDERED: TICAGRELOR 90 MG TABLET PO ONE (13:45)
[2024-08-27] MEDS ORDERED: ASPIRIN 325 MG TAB ONE (13:45)
[2024-08-27] MEDS ORDERED: HEPARIN 5000 UNIT/ML 1 ML VIAL ONE (13:45)
[2024-08-27 15:55] VITALS: TEMP 97.2
[2024-08-27] MEDS ORDERED: ACETAMINOPHEN 500 MG TAB ONE (16:42)
[2024-08-27 18:05] VITALS: BP 140/64; O2SAT 95
--- NOTE | 2024-08-28 01:31 | OP ---
Date of Procedure: 08/27/2024 Surgeon: YAMILKA CRISTINA Procedure Performed: 1.Coronary angiogram. 2.Left heart catheterization. 3.Right heart catheterization. Indication: Evaluation of aortic valve stenosis and unstable angina. Access: 1.Right radial artery 6-H[place]ian closed with TR band. 2.Right IJ 7-Haitian closed with manual pressure. Complications: None. Bleeding: Less than 50 mL. Anesthesia: Total sedation time was 1 hour. Description Of Procedure: After risks, benefits, and alternatives were explained, the patient agreed to procedure and signed informed consent. The patient was brought into cardiac catheterization [facility], prepped and draped in sterile fashion, then I accessed right radial artery using pediatric mi cropuncture kit and placed 6-H[place]ian slender sheath and then I accessed right IJ using micropuncture k it and ultrasound guidance, and placed a 7-H[place]ian [place] sheath and then took a 7-[place]aitian balloon-ti pped [place] catheter through the IJ access into the right atrium, right ventricle, pulmonary artery and wedge. We obtained waveform and pressures and then obtained cardiac output by thermodilution method . Subsequently removed the [place] catheter and then took a [place] catheter aortic root across the ao rtic valve and did simultaneous pressure measurements between the LV and the aorta and pullback did n ot record any gradient, then exchanged for a 5-[place]ian [place] 4 catheter, engaged left main, took stand cesar views and then the RCA, took standard views and removed the catheter and the sheath, placed TR ba nd with good hemostasis. The IJ sheath was removed. Manual pressure was used for closure with good hemostasis. Findings: 1.Left main is normal. 2.LAD; proximal diffuse 70% and then there is focal 95% stenosis before the stent. Then, the LAD be comes normal. 3.Left circumflex has proximal 20%, then distal 50% stenosis. 4.RCA has distal 90% stenosis before the bifurcation. The PDA has 80% and the PLB has 70% stenosis. The LVEDP was 35 mmHg. Right Heart Catheterization Numbers: RA pressure was 21/19, mean of 16. RV pressure 60/9, mean of 1 9. PA pressure was 64/28, mean of 43. Pulmonary wedge pressure was 29 and the cardiac catheter outp ut average was 4.15 L/minute. Mean gradient across aortic valve was 29 mmHg and aortic valve area wa s 0.77 cm2. Conclusion: 1.Severe multivessel coronary artery disease. 2.Severe low-flow low gradient aortic valve stenosis. Recommendation: Transfer for a bypass surgery plus aortic valve replacement. SR/MODL Voice ID: [id number] Report ID: [id number]
--- NOTE | 2024-09-03 16:28 | EKG ---
Test Date: 2024-08-25 Test Time: 09:43:33 Small Package And Bundle Sorter Clerk: YADY MEASUREMENT RESULTS: Intervals: Rate: 87 NH: 168 QRSD: 80 QT: 382 QTc: 459 [place]: P: 58 NH: 168 QRS: 43 T: 113 INTERPRETIVE STATEMENTS: Normal sinus rhythm Cannot rule out Anterior infarct, age undetermined Abnormal ECG Compared to ECG 08/28/2018 07:52:43 T-wave abnormality no longer present Myocardial infarct finding still present Electronically Signed On 09-03-24 16:11:30 [employer] by Edu Olivo
== END 2024-08-27 18:07 | disposition short-term general hospital (02) ==
LOC: CCL 12:10
PROVIDERS: ATTEND Internal Medicine
DX: I25.110 Atherosclerotic heart disease of native coronary artery with unstable angina pectoris (principal); I35.0 Nonrheumatic aortic (valve) stenosis; I73.9 Peripheral vascular disease, unspecified; E11.9 Type 2 diabetes mellitus without complications; Z95.5 Presence of coronary angioplasty implant and graft; Z87.891 Personal history of nicotine dependence; Z79.4 Long term (current) use of insulin; Z79.899 Other long term (current) drug therapy; Z88.0 Allergy status to penicillin; Z91.040 Latex allergy status; Z82.49 Family history of ischemic heart disease and other diseases of the circulatory system
CPT/HCPCS: 36415; 76937; 80048; 82947; 85025; 85610; 85730; 93005; 93460; 99152; C1893; J0461; J1644; J2003; J2250; J3010; J7040; Q9966

== ENCOUNTER 2024-09-10 16:31 | Inpatient (IN) | payer OTHER ==
--- OUTSIDE RECORDS SUMMARY | 2024-09-11 09:58 | XMS REPORT | Continuity of Care Document ---
Author Name Unknown Address [address] [facility]. [address] [place] [address] [facility] thconnect Address [address] [facility] [address] [place] [address] Care Team Providers Care Lead Teacher Name Role Phone Mike Christian MD Primary Care Physician Poppy Hernandez Attending Clinician BOBBI Frazier Attending Clinician Bobbi Rolle DPM Attending Clinician [phone] Lis Cardona MA Attending Clinician Clinton Diaz MD Attending Clinician [facility] WOLF Attending Clinician Unavailable Poppy Hernandez Admitting Clinician Obey lopez Payers Payer Name Policy Type Policy Number Effective Date Expirati on Date Source [employer] MEDICARE ADVANTAGE Medicare [id number] 2023 00:00:00 Problems Condition Name Condition Details Condition Category Status Onset Date Resolution Date Last Treatment Date Treating Clinician Comments Source No known active problems No known active problems Disease [facility] Allergies, Adverse Reactions, Alerts Allergy Name Allergy Type Status Severity Reaction(s) Onset Date Inactive Date Treating Clinician Comments Source Penicill ins DA Active SV HIVES 2023-09 00:00: 00 [facility] latex DA Active MO DERMATITIS HIVES 2023-09 2 00:00: 00 [facility] Latex Propensi ty to adverse reaction s Active 2023-09 0 00:00: 00 Lorri Javed Epic Penicill in G Propensi ty to adverse reaction s Active 2023-09 0 00:00: 00 Lorri Javed Epic Latex Propensi ty to adverse reaction s Active Hives 2020-09 0 00:00: 00 [facility] Penicill ins Propensi ty to adverse reaction s Active Hives 2020-09 00:00: 00 [facility] PENICILL INS Drug Class Active Hives 2020-09 00:00: 00 [facility] LATEX DRUG INGREDI Active Hives 2020-09 00:00: 00 [facility] NO KNOWN ALLERGIE S Drug Class Active [facility] Social History Social Habit Start Date Stop Date Quantity Comments Source [facility]ION [facility] Gender identity Olu rose Javed [facility] Sexual orientation [facility] Exposure to SARS-CoV-2 (event) Not sure [facility] Sex Assigned At 1960 00:00:00 1960 00:00:00 [facility] Smoking Status Start Date Stop Date Source Tobacco smoking consumption unknown [facility] Medications Ordered Medication Name Filled Medication Name Start Date Stop Date Current Medication? Ordering Clinician Indication Dosage Frequency Signature (SIG) Comments Components Source HYDROcodone -acetaminop hen (NORCO) 10-325 mg tablet 1 tablet 2020-09 10:45: 00 07-22 09:45 :00 No 1{tbl} 1 tablet, Oral, ONCE NOW, 1 dose, On 07/22/21 at 0545, Routine [facility] doxycycline hyclate 100 mg capsule 2020-09 00:00: 00 Yes [id number] 100mg Take 1 capsule by mouth 2 (two) times daily. [facility] HYDROcodone -acetaminop hen (NORCO) 10-325 mg tablet 2020-09 00:00: 00 07-30 05:59 :00 No [id number] 1{tbl} Take 1 tablet by mouth every 6 (six) hours as needed for Pain (scale 7-10) for up to 7 days. Indication s: acute pain [facility] Vital Signs Vital Name Observation Time Observation Value Comments S ource Systolic blood pressure 2021-07-22 10:00:00 154 mm[Hg] [facility] Diastolic blood pressure 2021-07-22 10:00:00 78 mm[Hg] [facility] Heart rate 2021-07-22 10:00:00 73 /min [facility] Respiratory rate 2021-07-22 10:00:00 18 /min [facility] Oxygen saturation in Arterial blood by Pulse oximetry 2021-07-22 10:00:00 94 /min [facility] Body temperature 2021-07-22 08:31:[address] 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 NOTICE OF PRIVACY PRACTICES 2021-07-22 08:43:23 Doctor Unassigned, [place] [facility] CONSENT/REFUSAL FOR DIAGNOSIS AND TREATMENT 2021-07-22 08:22:55 Doctor Unassigned, [place] [facility] Encounters Start Date/Time End Date/Time Encounter Type Admission Type Attending [facility] Facility Care Department Encounter ID Source 2024-08-27 19:35:00 2024-09-10 19:30:00 Inpatient EM Poppy Hernandez [facility]ACL INTE [id number] [facility] 2024-08-04 10:07:45 2024-08-04 10:52:29 Outpatient Elective SELBOBBI BOO EOUT [id number] [facility] 2024-08-04 09:50:00 2024-08-04 10:52:29 Office Visit Bobbi [facility] 1..840.114 [id number] [facility] 2024-07-07 00:00:00 2024-07-07 14:48:56 Telephone Lis Cardona Natalie [facility] 1..840.114 [id number] [facility] 2024-07-07 10:09:32 2024-07-07 10:58:16 Outpatient Elective BOBBI MARTINEZ EOUT [id number] [facility] 2024-07-07 10:00:00 2024-07-07 10:58:16 Consult Bobbi [facility] 1..840.114 [id number] Lorri Yung 2021-07-22 03:27:00 2021-07-22 05:43:00 Emergency Clinton Wolf [facility] [id number] [facility] 2021-07-22 03:27:00 2021-07-22 05:43:00 Emergency X CL[facility]ON WOLF [facility] ERT [id number] [facility] Results Test Description Test Time Test Comments Results Result Co mments Source GLUCOSE [id number] 12:24:00* Test Item Value Reference Range Interpretation Comme nts GLUCOSE BEDSIDE (test code = GLUBED) 139 MG/DL 70-110 H Performed by cer tified cinder crusher operator at [facility] GLUCOSE [id number] 10:13:00* Test Item Value Reference Range Interpretation Comme nts GLUCOSE BEDSIDE (test code = GLUBED) 169 MG/DL 70-110 H Performed by cer tified cinder crusher operator at [facility] GLUCOSE [id number] 07:52:00* Test Item Value Reference Range Interpretation Comme nts GLUCOSE BEDSIDE (test code = GLUBED) 90 MG/DL 70-110 N Performed by cer tified cinder crusher operator at [facility] BASIC METABOLIC [id number] 07:47:00* Test Item Value Reference Range Interpretation Comme nts SODIUM (test code = NA) 135 mEq/L 134-147 N POTASSIUM (test code = K) 4.2 mEq/L 3.4-5.0 N CHLORIDE (test code = CL) 103 mEq/L 100-108 N CARBON DIOXIDE (test code = CO2) 26 mEq/l 21-33 N ANION GAP (test code = GAP) 10 0-20 N GLUCOSE (test code = GLU) 91 mg/dL 77-141 BLOOD UREA NITROGEN (test code = BUN) 16 mg/dL 7-25 N GLOMERULAR FILTRATION RATE (test code = GFR) 72.3 80-90 L The Glomerular Filtration Rate is a calculated parameterbased on serum Creatinine, patient age and sex. GFR valuesless than 60 mL/min/1.73 square meters are indicative ofChronic Kidney Disease. Values less than 15 mL/min/1.73square meters indicate Kidney failure. The calculation forGFR is based on the CKD-EPI (202) calculation. This formulais race indifferent and is the recommended formula for GFRby the National Kidney Foundation for Adults.The GFR will not calculate if the sex is unknown or if thepatient's age is <18 years. CREATININE (test code = CREAT) 0.9 mg/dL 0.6-1.3 N CALCIUM (test code = CA) 8.2 mg/dL 8.0-10.5 N [id number] 07:47:00* Test Item Value Reference Range Interpretation Comme nts MAGNESIUM (test code = MAG) 2.49 mg/dL 1.6-2.6 N CBC W/AUTO [id number] 07:29:00* Test Item Value Reference Range Interpretation Comme nts WHITE BLOOD CELL (test code = WBC) 9.6 x10 3/uL 4.5-11.0 N RED BLOOD CELL (test code = RBC) 3.39 x10 6/uL 3.54-5.02 L HEMOGLOBIN (test code = HGB) 8.0 g/dL 11.0-15.0 L HEMATOCRIT (test code = HCT) 27.6 % 33.0-45.0 L MEAN CELL VOLUME (test code = MCV) 81.4 fL 81.0-99.0 MEAN CELL HGB (test code = MCH) 23.6 pg 27.0-33.0 L MEAN CELL HGB CONCETRATION (test code = MCHC) 29.0 g/dL 33.0-37.0 L RED CELL DISTRIBUTION WIDTH CV (test code = RDW) 17.5 % 11.5-14.5 H RED CELL DISTRIBUTION WIDTH SD (test code = RDW-SD) 51.2 fL 37.0-54.0 N PLATELET COUNT (test code = PLT) 762 x10 3/uL 150-400 H MEAN PLATELET VOLUME (test c ode = MPV) 8.9 fL 7.0-9.0 N NEUTROPHIL % (test code = NT%) 69.0 % 56.0-77.0 N IMMATURE GRANULOCYTE % (test code = IG%) 0.2 % 0.0-2.0 N LYMPHOCYTE % (test code = LY%) 15.4 % 14.0-32.0 N MONOCYTE % (test code = MO%) 5.9 % 4.8-9.0 N EOSINOPHIL % (test code = EO%) 8.8 % 0.3-3.7 H BASOPHIL % (test code = BA%) 0.7 % 0.0-2.0 N NUCLEATED RBC % (test code = NRBC%) 0.2 % 0-0 H NEUTROPHIL # (test code = NT#) 6.62 x10 3/uL 2.0-7.6 N IMMATURE GRANULOCYTE # (test code = IG#) 0.02 x10 3/uL 0.00-0.03 N LYMPHOCYTE # (test code = LY#) 1.48 x10 3/uL 1.0-3.8 N MONOCYTE # (test code = MO#) 0.57 x10 3/uL 0.1-0.8 N EOSINOPHIL # (test code = EO#) 0.85 x10 3/uL 0.0-0.2 H BASOPHIL # (test code = BA#) 0.07 x10 3/uL 0.0-0.2 N NUCLEATED RBC # (test code = NRBC#) 0.02 x10 3/uL 0.0-0.1 N GLUCOSE [id number] 20:18:00* Test Item Value Reference Range Interpretation Comme nts GLUCOSE BEDSIDE (test code = GLUBED) 180 MG/DL 70-110 H Performed by cer tified cinder crusher operator at [facility] GLUCOSE [id number] 17:42:00* Test Item Value Reference Range Interpretation Comme nts GLUCOSE BEDSIDE (test code = GLUBED) 145 MG/DL 70-110 H Performed by cer tified cinder crusher operator at [facility] GLUCOSE [id number] 11:47:00* Test Item Value Reference Range Interpretation Comme nts GLUCOSE BEDSIDE (test code = GLUBED) 132 MG/DL 70-110 H Performed by cer tified cinder crusher operator at [facility] BASIC METABOLIC [id number] 03:43:00* Test Item Value Reference Range Interpretation Comme nts SODIUM (test code = NA) 136 mEq/L 134-147 N POTASSIUM (test code = K) 4.2 mEq/L 3.4-5.0 N CHLORIDE (test code = CL) 100 mEq/L 100-108 N CARBON DIOXIDE (test code = CO2) 27 mEq/l 21-33 N ANION GAP (test code = GAP) 13 0-20 N GLUCOSE (test code = GLU) 159 mg/dL 77-141 H BLOOD UREA NITROGEN (test code = BUN) 21 mg/dL 7-25 N GLOMERULAR FILTRATION RATE (test code = GFR) 72.3 80-90 L The Glomerular Filtration Rate is a calculated parameterbased on serum Creatinine, patient age and sex. GFR valuesless than 60 mL/min/1.73 square meters are indicative ofChronic Kidney Disease. Values less than 15 mL/min/1.73square meters indicate Kidney failure. The calculation forGFR is based on the CKD-EPI (202) calculation. This formulais race indifferent and is the recommended formula for GFRby the National Kidney Foundation for Adults.The GFR will not calculate if the sex is unknown or if thepatient's age is <18 years. CREATININE (test code = CREAT) 0.9 mg/dL 0.6-1.3 N CALCIUM (test code = CA) 8.1 mg/dL 8.0-10.5 N [id number] 03:43:00* Test Item Value Reference Range Interpretation Comme nts MAGNESIUM (test code = MAG) 2.53 mg/dL 1.6-2.6 N CBC W/AUTO [id number] 03:26:00* Test Item Value Reference Range Interpretation Comme nts WHITE BLOOD CELL (test code = WBC) 9.7 x10 3/uL 4.5-11.0 N RED BLOOD CELL (test code = RBC) 3.24 x10 6/uL 3.54-5.02 L HEMOGLOBIN (test code = HGB) 7.7 g/dL 11.0-15.0 L HEMATOCRIT (test code = HCT) 25.3 % 33.0-45.0 L MEAN CELL VOLUME (test code = MCV) 78.1 fL 81.0-99.0 L MEAN CELL HGB (test code = MCH) 23.8 pg 27.0-33.0 L MEAN CELL HGB CONCETRATION (test code = MCHC) 30.4 g/dL 33.0-37.0 L RED CELL DISTRIBUTION WIDTH CV (test code = RDW) 17.3 % 11.5-14.5 H RED CELL DISTRIBUTION WIDTH SD (test code = RDW-SD) 48.3 fL 37.0-54.0 N PLATELET COUNT (test code = PLT) 731 x10 3/uL 150-400 H MEAN PLATELET VOLUME (test c ode = MPV) 8.8 fL 7.0-9.0 N NEUTROPHIL % (test code = NT%) 67.5 % 56.0-77.0 N IMMATURE GRANULOCYTE % (test code = IG%) 0.5 % 0.0-2.0 N LYMPHOCYTE % (test code = LY%) 14.4 % 14.0-32.0 N MONOCYTE % (test code = MO%) 7.1 % 4.8-9.0 N EOSINOPHIL % (test code = EO%) 9.9 % 0.3-3.7 H BASOPHIL % (test code = BA%) 0.6 % 0.0-2.0 N NUCLEATED RBC % (test code = NRBC%) 0.3 % 0-0 H NEUTROPHIL # (test code = NT#) 6.52 x10 3/uL 2.0-7.6 N IMMATURE GRANULOCYTE # (test code = IG#) 0.05 x10 3/uL 0.00-0.03 H LYMPHOCYTE # (test code = LY#) 1.39 x10 3/uL 1.0-3.8 N MONOCYTE # (test code = MO#) 0.69 x10 3/uL 0.1-0.8 N EOSINOPHIL # (test code = EO#) 0.96 x10 3/uL 0.0-0.2 H BASOPHIL # (test code = BA#) 0.06 x10 3/uL 0.0-0.2 N NUCLEATED RBC # (test code = NRBC#) 0.03 x10 3/uL 0.0-0.1 N GLUCOSE [id number] 20:56:00* Test Item Value Reference Range Interpretation Comme [facility] GLUCOSE BEDSIDE (test code = GLUBED) 176 MG/DL 70-110 H Performed by cer tified cinder crusher operator at [facility] GLUCOSE [id number] 16:42:00* Test Item Value Reference Range Interpretation Comme nts GLUCOSE BEDSIDE (test code = GLUBED) 175 MG/DL 70-110 H Performed by cer tified cinder crusher operator at [facility] GLUCOSE [id number] 12:34:00* Test Item Value Reference Range Interpretation Comme nts GLUCOSE BEDSIDE (test code = GLUBED) 155 MG/DL 70-110 H Performed by cer tified cinder crusher operator at [facility] GLUCOSE [id number] 08:36:00* Test Item Value Reference Range Interpretation Comme nts GLUCOSE BEDSIDE (test code = GLUBED) 84 MG/DL 70-110 N Performed by [facility] tified cinder crusher operator at [facility] BASIC METABOLIC [id number] 02:51:00* Test Item Value Reference Range Interpretation Comme nts SODIUM (test code = NA) 136 mEq/L 134-147 N POTASSIUM (test code = K) 3.8 mEq/L 3.4-5.0 N CHLORIDE (test code = CL) 101 mEq/L 100-108 N CARBON DIOXIDE (test code = CO2) 30 mEq/l 21-33 N ANION GAP (test code = GAP) 9 0-20 N GLUCOSE (test code = GLU) 104 mg/dL 77-141 N BLOOD UREA NITROGEN (test code = BUN) 24 mg/dL 7-25 N GLOMERULAR FILTRATION RATE (test code = GFR) 72.3 80-90 L The Glomerular Filtration Rate is a calculated parameterbased on serum Creatinine, patient age and sex. GFR valuesless than 60 mL/min/1.73 square meters are indicative ofChronic Kidney Disease. Values less than 15 mL/min/1.73square meters indicate Kidney failure. The calculation forGFR is based on the CKD-EPI (202) calculation. This formulais race indifferent and is the recommended formula for GFRby the National Kidney Foundation for Adults.The GFR will not calculate if the sex is unknown or if thepatient's age is <18 years. CREATININE (test code = CREAT) 0.9 mg/dL 0.6-1.3 N CALCIUM (test code = CA) 8.3 mg/dL 8.0-10.5 N [id number] 02:51:00* Test Item Value Reference Range Interpretation Comme nts MAGNESIUM (test code = MAG) 2.17 mg/dL 1.6-2.6 N CBC W/AUTO [id number] 02:40:00* Test Item Value Reference Range Interpretation Comme nts WHITE BLOOD CELL (test code = WBC) 10.7 x10 3/uL 4.5-11.0 N RED BLOOD CELL (test code = RBC) 3.17 x10 6/uL 3.54-5.02 L HEMOGLOBIN (test code = HGB) 7.6 g/dL 11.0-15.0 L HEMATOCRIT (test code = HCT) 24.9 % 33.0-45.0 L MEAN CELL VOLUME (test code = MCV) 78.5 fL 81.0-99.0 L MEAN CELL HGB (test code = MCH) 24.0 pg 27.0-33.0 L MEAN CELL HGB CONCETRATION (test code = MCHC) 30.5 g/dL 33.0-37.0 L RED CELL DISTRIBUTION WIDTH CV (test code = RDW) 17.2 % 11.5-14.5 H RED CELL DISTRIBUTION WIDTH SD (test code = RDW-SD) 48.4 fL 37.0-54.0 N PLATELET COUNT (test code = PLT) 680 x10 3/uL 150-400 H MEAN PLATELET VOLUME (test c ode = MPV) 8.9 fL 7.0-9.0 N NEUTROPHIL % (test code = NT%) 74.0 % 56.0-77.0 N IMMATURE GRANULOCYTE % (test code = IG%) 0.8 % 0.0-2.0 N LYMPHOCYTE % (test code = LY%) 11.0 % 14.0-32.0 L MONOCYTE % (test code = MO%) 5.1 % 4.8-9.0 N EOSINOPHIL % (test code = EO%) 8.6 % 0.3-3.7 H BASOPHIL % (test code = BA%) 0.5 % 0.0-2.0 N NUCLEATED RBC % (test code = NRBC%) 0.3 % 0-0 H NEUTROPHIL # (test code = NT#) 7.90 x10 3/uL 2.0-7.6 H IMMATURE GRANULOCYTE # (test code = IG#) 0.09 x10 3/uL 0.00-0.03 H LYMPHOCYTE # (test code = LY#) 1.18 x10 3/uL 1.0-3.8 N MONOCYTE # (test code = MO#) 0.55 x10 3/uL 0.1-0.8 N EOSINOPHIL # (test code = EO#) 0.92 x10 3/uL 0.0-0.2 H BASOPHIL # (test code = BA#) 0.05 x10 3/uL 0.0-0.2 N NUCLEATED RBC # (test code = NRBC#) 0.03 x10 3/uL 0.0-0.1 N GLUCOSE [id number] 20:07:00* Test Item Value Reference Range Interpretation Comme nts GLUCOSE BEDSIDE (test code = GLUBED) 211 MG/DL 70-110 H Performed by cer tified cinder crusher operator at [facility] GLUCOSE [id number] 16:52:00* Test Item Value Reference Range Interpretation Comme nts GLUCOSE BEDSIDE (test code = GLUBED) 179 MG/DL 70-110 H Performed by cer tified cinder crusher operator at [facility] GLUCOSE [id number] 12:33:00* Test Item Value Reference Range Interpretation Comme nts GLUCOSE BEDSIDE (test code = GLUBED) 150 MG/DL 70-110 H Performed by cer tified cinder crusher operator at [facility] GLUCOSE [id number] 09:29:00* Test Item Value Reference Range Interpretation Comme nts GLUCOSE BEDSIDE (test code = GLUBED) 196 MG/DL 70-110 H Performed by cer tified cinder crusher operator at [facility] GLUCOSE [id number] 07:51:00* Test Item Value Reference Range Interpretation Comme nts GLUCOSE BEDSIDE (test code = GLUBED) 98 MG/DL 70-110 N Performed by cer tified cinder crusher operator at [facility] BASIC METABOLIC [id number] 03:19:00* Test Item Value Reference Range Interpretation Comme nts SODIUM (test code = NA) 137 mEq/L 134-147 N POTASSIUM (test code = K) 4.0 mEq/L 3.4-5.0 N CHLORIDE (test code = CL) 100 mEq/L 100-108 N CARBON DIOXIDE (test code = CO2) 30 mEq/l 21-33 N ANION GAP (test code = GAP) 11 0-20 N GLUCOSE (test code = GLU) 110 mg/dL 77-141 BLOOD UREA NITROGEN (test code = BUN) 26 mg/dL 7-25 H GLOMERULAR FILTRATION RATE (test code = GFR) 72.3 80-90 L The Glomerular Filtration Rate is a calculated parameterbased on serum Creatinine, patient age and sex. GFR valuesless than 60 mL/min/1.73 square meters are indicative ofChronic Kidney Disease. Values less than 15 mL/min/1.73square meters indicate Kidney failure. The calculation forGFR is based on the CKD-EPI (202) calculation. This formulais race indifferent and is the recommended formula for GFRby the National Kidney Foundation for Adults.The GFR will not calculate if the sex is unknown or if thepatient's age is <18 years. CREATININE (test code = CREAT) 0.9 mg/dL 0.6-1.3 N CALCIUM (test code = CA) 7.9 mg/dL 8.0-10.5 L [id number] 03:19:00* Test Item Value Reference Range Interpretation Comme nts MAGNESIUM (test code = MAG) 2.20 mg/dL 1.6-2.6 N CBC W/AUTO [id number] 02:58:00* Test Item Value Reference Range Interpretation Comme nts WHITE BLOOD CELL (test code = WBC) 13.6 x10 3/uL 4.5-11.0 H RED BLOOD CELL (test code = RBC) 3.39 x10 6/uL 3.54-5.02 L HEMOGLOBIN (test code = HGB) 8.1 g/dL 11.0-15.0 L HEMATOCRIT (test code = HCT) 27.5 % 33.0-45.0 L MEAN CELL VOLUME (test code = MCV) 81.1 fL 81.0-99.0 N MEAN CELL HGB (test code = MCH) 23.9 pg 27.0-33.0 L MEAN CELL HGB CONCETRATION (test code = MCHC) 29.5 g/dL 33.0-37.0 L RED CELL DISTRIBUTION WIDTH CV (test code = RDW) 16.9 % 11.5-14.5 H RED CELL DISTRIBUTION WIDTH SD (test code = RDW-SD) 48.7 fL 37.0-54.0 N PLATELET COUNT (test code = PLT) 679 x10 3/uL 150-400 H MEAN PLATELET VOLUME (test c ode = MPV) 9.2 fL 7.0-9.0 H NEUTROPHIL % (test code = NT%) 72.3 % 56.0-77.0 N IMMATURE GRANULOCYTE % (test code = IG%) 0.8 % 0.0-2.0 N LYMPHOCYTE % (test code = LY%) 11.9 % 14.0-32.0 L MONOCYTE % (test code = MO%) 7.0 % 4.8-9.0 N EOSINOPHIL % (test code = EO%) 7.7 % 0.3-3.7 H BASOPHIL % (test code = BA%) 0.3 % 0.0-2.0 N NUCLEATED RBC % (test code = NRBC%) 0.4 % 0-0 H NEUTROPHIL # (test code = NT#) 9.86 x10 3/uL 2.0-7.6 H IMMATURE GRANULOCYTE # (test code = IG#) 0.11 x10 3/uL 0.00-0.03 H LYMPHOCYTE # (test code = LY#) 1.62 x10 3/uL 1.0-3.8 N MONOCYTE # (test code = MO#) 0.96 x10 3/uL 0.1-0.8 H EOSINOPHIL # (test code = EO#) 1.05 x10 3/uL 0.0-0.2 H BASOPHIL # (test code = BA#) 0.04 x10 3/uL 0.0-0.2 N NUCLEATED RBC # (test code = NRBC#) 0.06 x10 3/uL 0.0-0.1 N GLUCOSE [id number] 20:05:00* Test Item Value Reference Range Interpretation Comme nts GLUCOSE BEDSIDE (test code = GLUBED) 193 MG/DL 70-110 H Performed by cer tified cinder crusher operator at [facility] BASIC METABOLIC [id number] 18:40:00* Test Item Value Reference Range Interpretation Comme nts SODIUM (test code = NA) 135 mEq/L 134-147 N POTASSIUM (test code = K) 4.4 mEq/L 3.4-5.0 N CHLORIDE (test code = CL) 99 mEq/L 100-108 L CARBON DIOXIDE (test code = CO2) 29 mEq/l 21-33 N ANION GAP (test code = GAP) 11 0-20 N GLUCOSE (test code = GLU) 210 mg/dL 77-141 H BLOOD UREA NITROGEN (test code = BUN) 30 mg/dL 7-25 H GLOMERULAR FILTRATION RATE (test code = GFR) 63.7 80-90 L The Glomerular Filtration Rate is a calculated parameterbased on serum Creatinine, patient age and sex. GFR valuesless than 60 mL/min/1.73 square meters are indicative ofChronic Kidney Disease. Values less than 15 mL/min/1.73square meters indicate Kidney failure. The calculation forGFR is based on the CKD-EPI (2020) calculation. This formulais race indifferent and is the recommended formula for GFRby the National Kidney Foundation for Adults.The GFR will not calculate if the sex is unknown or if thepatient's age is <18 years. CREATININE (test code = CREAT) 1.0 mg/dL 0.6-1.3 N CALCIUM (test code = CA) 8.1 mg/dL 8.0-10.5 N [id number] 18:40:00* Test Item Value Reference Range Interpretation Comme [facility] MAGNESIUM (test code = MAG) 2.16 mg/dL 1.6-2.6 GLUCOSE [id number] 17:11:00* Test Item Value Reference Range Interpretation Comme [facility] GLUCOSE BEDSIDE (test code = GLUBED) 191 MG/DL 70-110 H Performed by cer [employer] cinder crusher operator at [facility] GLUCOSE [id number] 11:56:00* Test Item Value Reference Range Interpretation Comme nts GLUCOSE BEDSIDE (test code = GLUBED) 177 MG/DL 70-110 H Performed by [employer] cinder crusher operator at [facility] GLUCOSE [id number] 07:30:00* Test Item Value Reference Range Interpretation Comme [facility] GLUCOSE BEDSIDE (test code = GLUBED) 117 MG/DL 70-110 H Performed by [employer] cinder crusher operator at [facility] BASIC METABOLIC [id number] 04:11:00* Test Item Value Reference Range Interpretation Comme nts SODIUM (test code = NA) 136 mEq/L 134-147 N POTASSIUM (test code = K) 3.8 mEq/L 3.4-5.0 N CHLORIDE (test code = CL) 100 mEq/L 100-108 N CARBON DIOXIDE (test code = CO2) 30 mEq/l 21-33 N ANION GAP (test code = GAP) 10 0-20 N GLUCOSE (test code = GLU) 155 mg/dL 77-141 H BLOOD UREA NITROGEN (test code = BUN) 29 mg/dL 7-25 H GLOMERULAR FILTRATION RATE (test code = GFR) 72.3 80-90 L The Glomerular Filtration Rate is a calculated parameterbased on serum Creatinine, patient age and sex. GFR valuesless than 60 mL/min/1.73 square meters are indicative ofChronic Kidney Disease. Values less than 15 mL/min/1.73square meters indicate Kidney failure. The calculation forGFR is based on the CKD-EPI (2020) calculation. This formulais race indifferent and is the recommended formula for GFRby the National Kidney Foundation for Adults.The GFR will not calculate if the sex is unknown or if thepatient's age is <18 years. CREATININE (test code = CREAT) 0.9 mg/dL 0.6-1.3 N CALCIUM (test code = CA) 8.1 mg/dL 8.0-10.5 N [id number] 04:11:00* Test Item Value Reference Range Interpretation Comme nts MAGNESIUM (test code = MAG) 3.51 mg/dL 1.6-2.6 H CBC W/AUTO [id number] 03:47:00* Test Item Value Reference Range Interpretation Comme nts WHITE BLOOD CELL (test code = WBC) 13.9 x10 3/uL 4.5-11.0 H RED BLOOD CELL (test code = RBC) 3.23 x10 6/uL 3.54-5.02 L HEMOGLOBIN (test code = HGB) 7.6 g/dL 11.0-15.0 L HEMATOCRIT (test code = HCT) 26.2 % 33.0-45.0 L MEAN CELL VOLUME (test code = MCV) 81.1 fL 81.0-99.0 MEAN CELL HGB (test code = MCH) 23.5 pg 27.0-33.0 L MEAN CELL HGB CONCETRATION (test code = MCHC) 29.0 g/dL 33.0-37.0 L RED CELL DISTRIBUTION WIDTH CV (test code = RDW) 16.8 % 11.5-14.5 H RED CELL DISTRIBUTION WIDTH SD (test code = RDW-SD) 48.5 fL 37.0-54.0 N PLATELET COUNT (test code = PLT) 585 x10 3/uL 150-400 H MEAN PLATELET VOLUME (test code = MPV) 9.5 fL 7.0-9.0 H NEUTROPHIL % (test code = NT%) 74.0 % 56.0-77.0 N IMMATURE GRANULOCYTE % (test code = IG%) 1.2 % 0.0-2.0 N LYMPHOCYTE % (test code = LY%) 12.1 % 14.0-32.0 L MONOCYTE % (test code = MO%) 5.6 % 4.8-9.0 N EOSINOPHIL % (test code = EO%) 6.7 % 0.3-3.7 H BASOPHIL % (test code = BA%) 0.4 % 0.0-2.0 N NUCLEATED RBC % (test code = NRBC%) 0.4 % 0-0 H NEUTROPHIL # (test code = NT#) 10.30 x10 3/uL 2.0-7.6 H IMMATURE GRANULOCYTE # (test code = IG#) 0.16 x10 3/uL 0.00-0.03 H LYMPHOCYTE # (test code = LY#) 1.68 x10 3/uL 1.0-3.8 N MONOCYTE # (test code = MO#) 0.78 x10 3/uL 0.1-0.8 N EOSINOPHIL # (test code = EO#) 0.93 x10 3/uL 0.0-0.2 H BASOPHIL # (test code = BA#) 0.06 x10 3/uL 0.0-0.2 N NUCLEATED RBC # (test code = NRBC#) 0.05 x10 3/uL 0.0-0.1 N GLUCOSE [id number] 20:32:00* Test Item Value Reference Range Interpretation Comme nts GLUCOSE BEDSIDE (test code = GLUBED) 234 MG/DL 70-110 H Performed by cer emekaied cinder crusher operator at [facility] BASIC METABOLIC [id number] 16:43:00* Test Item Value Reference Range Interpretation Comme nts SODIUM (test code = NA) 135 mEq/L 134-147 N POTASSIUM (test code = K) 3.9 mEq/L 3.4-5.0 N CHLORIDE (test code = CL) 99 mEq/L 100-108 L CARBON DIOXIDE (test code = CO2) 29 mEq/l 21-33 N ANION GAP (test code = GAP) 11 0-20 N GLUCOSE (test code = GLU) 170 mg/dL 77-141 H BLOOD UREA NITROGEN (test code = BUN) 33 mg/dL 7-25 H GLOMERULAR FILTRATION RATE (test code = GFR) 56.8 80-90 L The Glomerular Filtration Rate is a calculated parameterbased on serum Creatinine, patient age and sex. GFR valuesless than 60 mL/min/1.73 square meters are indicative ofChronic Kidney Disease. Values less than 15 mL/min/1.73square meters indicate Kidney failure. The calculation forGFR is based on the CKD-EPI (2020) calculation. This formulais race indifferent and is the recommended formula for GFRby the National Kidney Foundation for Adults.The GFR will not calculate if the sex is unknown or if thepatient's age is <18 years. CREATININE (test code = CREAT) 1.1 mg/dL 0.6-1.3 N CALCIUM (test code = CA) 8.0 mg/dL 8.0-10.5 N [id number] 16:43:00* Test Item Value Reference Range Interpretation Comme nts MAGNESIUM (test code = MAG) 2.29 mg/dL 1.6-2.6 N GLUCOSE [id number] 16:42:00* Test Item Value Reference Range Interpretation Comme nts GLUCOSE BEDSIDE (test code = GLUBED) 159 MG/DL 70-110 H Performed by cer tified cinder crusher operator at [facility] GLUCOSE [id number] 11:59:00* Test Item Value Reference Range Interpretation Comme nts GLUCOSE BEDSIDE (test code = GLUBED) 151 MG/DL 70-110 H Performed by mChron cinder crusher operator at [facility] GLUCOSE [id number] 08:16:00* Test Item Value Reference Range Interpretation Comme nts GLUCOSE BEDSIDE (test code = GLUBED) 106 MG/DL 70-110 N Performed by New Net Technologiesied cinder crusher operator at [facility] GLUCOSE [id number] 07:00:00* Test Item Value Reference Range Interpretation Comme nts GLUCOSE BEDSIDE (test code = GLUBED) 95 MG/DL 70-110 N Performed by mChron cinder crusher operator at [facility] BASIC METABOLIC [id number] 04:34:00* Test Item Value Reference Range Interpretation Comme nts SODIUM (test code = NA) 135 mEq/L 134-147 N POTASSIUM (test code = K) 4.0 mEq/L 3.4-5.0 N CHLORIDE (test code = CL) 101 mEq/L 100-108 N CARBON DIOXIDE (test code = CO2) 25 mEq/l 21-33 N ANION GAP (test code = GAP) 13 0-20 N GLUCOSE (test code = GLU) 103 mg/dL 77-141 BLOOD UREA NITROGEN (test code = BUN) 34 mg/dL 7-25 H GLOMERULAR FILTRATION RATE (test code = GFR) 63.7 80-90 L The Glomerular Filtration Rate is a calculated parameterbased on serum Creatinine, patient age and sex. GFR valuesless than 60 mL/min/1.73 square meters are indicative ofChronic Kidney Disease. Values less than 15 mL/min/1.73square meters indicate Kidney failure. The calculation forGFR is based on the CKD-EPI (2020) calculation. This formulais race indifferent and is the recommended formula for GFRby the National Kidney Foundation for Adults.The GFR will not calculate if the sex is unknown or if thepatient's age is <18 years. CREATININE (test code = CREAT) 1.0 mg/dL 0.6-1.3 N CALCIUM (test code = CA) 8.3 mg/dL 8.0-10.5 N [id number] 04:34:00* Test Item Value Reference Range Interpretation Comme nts MAGNESIUM (test code = MAG) 2.45 mg/dL 1.6-2.6 N CBC W/AUTO [id number] 04:13:00* Test Item Value Reference Range Interpretation Comme nts WHITE BLOOD CELL (test code = WBC) 11.4 x10 3/uL 4.5-11.0 H RED BLOOD CELL (test code = RBC) 3.09 x10 6/uL 3.54-5.02 L HEMOGLOBIN (test code = HGB) 7.3 g/dL 11.0-15.0 L HEMATOCRIT (test code = HCT) 24.1 % 33.0-45.0 L MEAN CELL VOLUME (test code = MCV) 78.0 fL 81.0-99.0 L MEAN CELL HGB (test code = MCH) 23.6 pg 27.0-33.0 L MEAN CELL HGB CONCETRATION (test code = MCHC) 30.3 g/dL 33.0-37.0 L RED CELL DISTRIBUTION WIDTH CV (test code = RDW) 16.8 % 11.5-14.5 H RED CELL DISTRIBUTION WIDTH SD (test code = RDW-SD) 47.3 fL 37.0-54.0 N PLATELET COUNT (test code = PLT) 479 x10 3/uL 150-400 H MEAN PLATELET VOLUME (test c ode = MPV) 9.5 fL 7.0-9.0 H NEUTROPHIL % (test code = NT%) 72.3 % 56.0-77.0 N IMMATURE GRANULOCYTE % (test code = IG%) 0.8 % 0.0-2.0 N LYMPHOCYTE % (test code = LY%) 13.8 % 14.0-32.0 L MONOCYTE % (test code = MO%) 7.1 % 4.8-9.0 N EOSINOPHIL % (test code = EO%) 5.5 % 0.3-3.7 H BASOPHIL % (test code = BA%) 0.5 % 0.0-2.0 N NUCLEATED RBC % (test code = NRBC%) 1.0 % 0-0 H NEUTROPHIL # (test code = NT#) 8.27 x10 3/uL 2.0-7.6 H IMMATURE GRANULOCYTE # (test code = IG#) 0.09 x10 3/uL 0.00-0.03 H LYMPHOCYTE # (test code = LY#) 1.58 x10 3/uL 1.0-3.8 N MONOCYTE # (test code = MO#) 0.81 x10 3/uL 0.1-0.8 H EOSINOPHIL # (test code = EO#) 0.63 x10 3/uL 0.0-0.2 H BASOPHIL # (test code = BA#) 0.06 x10 3/uL 0.0-0.2 N NUCLEATED RBC # (test code = NRBC#) 0.11 x10 3/uL 0.0-0.1 H GLUCOSE [id number] 00:14:00* Test Item Value Reference Range Interpretation Comme nts GLUCOSE BEDSIDE (test code = GLUBED) 123 MG/DL 70-110 H Performed by patience garces cinder crusher operator at [facility] BASIC METABOLIC [id number] 19:02:00* Test Item Value Reference Range Interpretation Comme nts SODIUM (test code = NA) 135 mEq/L 134-147 N POTASSIUM (test code = K) 3.7 mEq/L 3.4-5.0 N CHLORIDE (test code = CL) 99 mEq/L 100-108 L CARBON DIOXIDE (test code = CO2) 26 mEq/l 21-33 N ANION GAP (test code = GAP) 14 0-20 N GLUCOSE (test code = GLU) 149 mg/dL 77-141 H BLOOD UREA NITROGEN (test code = BUN) 37 mg/dL 7-25 H GLOMERULAR FILTRATION RATE (test code = GFR) 56.8 80-90 L The Glomerular Filtration Rate is a calculated parameterbased on serum Creatinine, patient age and sex. GFR valuesless than 60 mL/min/1.73 square meters are indicative ofChronic Kidney Disease. Values less than 15 mL/min/1.73square meters indicate Kidney failure. The calculation forGFR is based on the CKD-EPI (2020) calculation. This formulais race indifferent and is the recommended formula for GFRby the National Kidney Foundation for Adults.The GFR will not calculate if the sex is unknown or if thepatient's age is <18 years. CREATININE (test code = CREAT) 1.1 mg/dL 0.6-1.3 N CALCIUM (test code = CA) 8.2 mg/dL 8.0-10.5 N [id number] 19:02:00* Test Item Value Reference Range Interpretation Comme nts MAGNESIUM (test code = MAG) 2.33 mg/dL 1.6-2.6 N GLUCOSE [id number] 17:32:00* Test Item Value Reference Range Interpretation Comme nts GLUCOSE BEDSIDE (test code = GLUBED) 147 MG/DL 70-110 H Performed by cer tified cinder crusher operator at [facility] GLUCOSE [id number] 14:31:00* Test Item Value Reference Range Interpretation Comme nts GLUCOSE BEDSIDE (test code = GLUBED) 231 MG/DL 70-110 H Performed by cer tified cinder crusher operator at [facility] GLUCOSE [id number] 08:01:00* Test Item Value Reference Range Interpretation Comme nts GLUCOSE BEDSIDE (test code = GLUBED) 97 MG/DL 70-110 N Performed by cer tified cinder crusher operator at [facility] BASIC METABOLIC [id number] 07:17:00* Test Item Value Reference Range Interpretation Comme nts SODIUM (test code = NA/ABG) 136 mmol/L 134-147 N POTASSIUM (test code = K/ABG) 4.1 mmol/L 3.4-5.0 N CHLORIDE (test code = CL/ABG) 101 mmol/L 100-108 N CREATININE ABG (test code = CREAABG) 1.1 mg/dL 0.6-1.3 N POC IONIZED CALCIUM (test co de = POCCA) 1.16 MMOL/L 1.12-1.32 N POC GLUCOSE (test code = POCGLU) 102 MG/DL 70-110 N HEMOGLOBIN [id number] 07:17:00* Test Item Value Reference Range Interpretation Comme nts HEMOGLOBIN ABG (test code = HGB/ABG) 9.2 G/DL 11.0-15.0 L [id number] 07:17:00* Test Item Value Reference Range Interpretation Comme nts HEMATOCRIT (test code = HCT/ABG) 27 % 33-45 L POC LACTIC [id number] 07:17:00* Test Item Value Reference Range Interpretation Comme nts POC LACTIC ACID (test code = POCLAC) 0.7 mmol/l 0.9-1.7 L POC VENOUS BLOOD [id number] 07:17:00* Test Item Value Reference Range Interpretation Comme nts YESSY'S TEST (test code = ALLENS) N/A POC VENOUS BLOOD GAS PH (test code = POCPHV) 7.415 7.33-7.45 N POC VENOUS BLOOD GAS PCO2 (test code = VGACHS0X) 40.2 mmHg 43-47 L POC VENOUS BLOOD GAS PO2 (test code = KCAPO0P) 22.3 mmHG 10-50 N POC TCO2 VENOUS (test code = VBDQFU4K) 27.0 22-29 N POC HCO3 VENOUS (test code = XZZPTJ4R) 25.7 MMOL/L 22-27 N POC BASE EXCESS VENOUS (test code = POCBEV) 1.2 MMOL/L See_Comment N [Automated MobiTV[employer] ge] The system which generated this result transmitted reference range: 0-+/-4. The reference range was not used to interpret this result as normal/abnormal. POC O2 SATURATION VENOUS (test code = UHRH0ZY) 39.0 % 60-80 L VENOUS BLOOD GAS DELIVERY (test code = DELV) Room Air VENOUS BLOOD GAS TEMP (test code = TEMPV) 98 F VENOUS BLOOD GAS SITE (test code = SITEV) PA BASIC METABOLIC [id number] 03:23:00* Test Item Value Reference Range Interpretation Comme nts SODIUM (test code = NA) 135 mEq/L 134-147 N POTASSIUM (test code = K) 4.0 mEq/L 3.4-5.0 N CHLORIDE (test code = CL) 101 mEq/L 100-108 N CARBON DIOXIDE (test code = CO2) 24 mEq/l 21-33 N ANION GAP (test code = GAP) 14 0-20 N GLUCOSE (test code = GLU) 103 mg/dL 77-141 BLOOD UREA NITROGEN (test code = BUN) 33 mg/dL 7-25 H GLOMERULAR FILTRATION RATE (test code = GFR) 63.7 80-90 L The Glomerular Filtration Rate is a calculated parameterbased on serum Creatinine, patient age and sex. GFR valuesless than 60 mL/min/1.73 square meters are indicative ofChronic Kidney Disease. Values less than 15 mL/min/1.73square meters indicate Kidney failure. The calculation forGFR is based on the CKD-EPI (2020) calculation. This formulais race indifferent and is the recommended formula for GFRby the National Kidney Foundation for Adults.The GFR will not calculate if the sex is unknown or if thepatient's age is <18 years. CREATININE (test code = CREAT) 1.0 mg/dL 0.6-1.3 N CALCIUM (test code = CA) 8.3 mg/dL 8.0-10.5 N [id number] 03:23:00* Test Item Value Reference Range Interpretation Comme nts MAGNESIUM (test code = MAG) 2.42 mg/dL 1.6-2.6 N CBC W/AUTO [id number] 03:18:00* Test Item Value Reference Range Interpretation Comme nts WHITE BLOOD CELL (test code = WBC) 12.4 x10 3/uL 4.5-11.0 H RED BLOOD CELL (test code = RBC) 3.11 x10 6/uL 3.54-5.02 L HEMOGLOBIN (test code = HGB) 7.5 g/dL 11.0-15.0 L HEMATOCRIT (test code = HCT) 25.0 % 33.0-45.0 L MEAN CELL VOLUME (test code = MCV) 80.4 fL 81.0-99.0 L MEAN CELL HGB (test code = MCH) 24.1 pg 27.0-33.0 L MEAN CELL HGB CONCETRATION (test code = MCHC) 30.0 g/dL 33.0-37.0 L RED CELL DISTRIBUTION WIDTH CV (test code = RDW) 16.7 % 11.5-14.5 H RED CELL DISTRIBUTION WIDTH SD (test code = RDW-SD) 48.0 fL 37.0-54.0 N PLATELET COUNT (test code = PLT) 411 x10 3/uL 150-400 H MEAN PLATELET VOLUME (test c ode = MPV) 9.8 fL 7.0-9.0 H NEUTROPHIL % (test code = NT%) 70.4 % 56.0-77.0 N IMMATURE GRANULOCYTE % (test code = IG%) 0.8 % 0.0-2.0 N LYMPHOCYTE % (test code = LY%) 15.4 % 14.0-32.0 N MONOCYTE % (test code = MO%) 8.5 % 4.8-9.0 N EOSINOPHIL % (test code = EO%) 4.5 % 0.3-3.7 H BASOPHIL % (test code = BA%) 0.4 % 0.0-2.0 N NUCLEATED RBC % (test code = NRBC%) 1.0 % 0-0 H NEUTROPHIL # (test code = NT#) 8.74 x10 3/uL 2.0-7.6 H IMMATURE GRANULOCYTE # (test code = IG#) 0.10 x10 3/uL 0.00-0.03 H LYMPHOCYTE # (test code = LY#) 1.91 x10 3/uL 1.0-3.8 N MONOCYTE # (test code = MO#) 1.06 x10 3/uL 0.1-0.8 H EOSINOPHIL # (test code = EO#) 0.56 x10 3/uL 0.0-0.2 H BASOPHIL # (test code = BA#) 0.05 x10 3/uL 0.0-0.2 N NUCLEATED RBC # (test code = NRBC#) 0.13 x10 3/uL 0.0-0.1 H GLUCOSE [id number] 02:06:00* Test Item Value Reference Range Interpretation Comme nts GLUCOSE BEDSIDE (test code = GLUBED) 55 MG/DL 70-110 L Performed by cer tified cinder crusher operator at [facility] GLUCOSE [id number] 20:11:00* Test Item Value Reference Range Interpretation Comme nts GLUCOSE BEDSIDE (test code = GLUBED) 131 MG/DL 70-110 H Performed by cer tified cinder crusher operator at [facility] GLUCOSE [id number] 18:28:00* Test Item Value Reference Range Interpretation Comme nts GLUCOSE BEDSIDE (test code = GLUBED) 156 MG/DL 70-110 H Performed by cer tified cinder crusher operator at [facility] BASIC METABOLIC [id number] 12:52:00* Test Item Value Reference Range Interpretation Comme nts SODIUM (test code = NA) 135 mEq/L 134-147 N POTASSIUM (test code = K) 3.8 mEq/L 3.4-5.0 N CHLORIDE (test code = CL) 100 mEq/L 100-108 N CARBON DIOXIDE (test code = CO2) 26 mEq/l 21-33 N ANION GAP (test code = GAP) 13 0-20 N GLUCOSE (test code = GLU) 166 mg/dL 77-141 H BLOOD UREA NITROGEN (test code = BUN) 35 mg/dL 7-25 H GLOMERULAR FILTRATION RATE (test code = GFR) 63.7 80-90 L The Glomerular Filtration Rate is a calculated parameterbased on serum Creatinine, patient age and sex. GFR valuesless than 60 mL/min/1.73 square meters are indicative ofChronic Kidney Disease. Values less than 15 mL/min/1.73square meters indicate Kidney failure. The calculation forGFR is based on the CKD-EPI (202) calculation. This formulais race indifferent and is the recommended formula for GFRby the National Kidney Foundation for Adults.The GFR will not calculate if the sex is unknown or if thepatient's age is <18 years. CREATININE (test code = CREAT) 1.0 mg/dL 0.6-1.3 N CALCIUM (test code = CA) 7.8 mg/dL 8.0-10.5 L [id number] 12:52:00* Test Item Value Reference Range Interpretation Comme nts MAGNESIUM (test code = MAG) 2.37 mg/dL 1.6-2.6 N [id number] 12:49:00* Test Item Value Reference Range Interpretation Comme nts SURGICAL (test code = SR) -----RUN DATE: 09/03/24 [facility] - LAB PAGE 1 RUN TIME: 1249 Specimen Inquiry RUN USER: INTERFACE -----PATIENT: RAYSA GILLIAM LOC: [facility] U #: [id number] AGE/SX: 64/F ROOM: [facility] [place] RE08/27/24REG DR: Poppy Hernandez MD : 64 BED: 1 DIS: STATUS: ADM IN TLOC: ----- SPEC #: [id number] RECD: 08/31/24 STATUS: CASEY REQ #: [id number] DWAINE: 08/30/24- SUBM DR: Poppy Hernandez MD ENTERED: 08/31/24-1044 SP TYPE: SURGICAL OTHR DR: Rosa Covington MD, Nehme X MD Hyder, Shahistha MDORDERED: [id number], [id number], [id number], ANATOMIC SPEC COPIES TO: Rosa Covington MD [address] [id number] Rachna Hall MD [address] [place] [address] Poppy Hernandez MD [address] [place] [address] Brooke Gonzáles MD PROCEDURES: [id number] (09/03/24-1231) [id number] (08/31/24-1044) [id number] (08/31/24) TISSUES: A. ATRIUM - LEFT ATRIAL APPENDAGE B. AORTIC VALVE - LEAFLETS CLINICAL HISTORY SAME FINAL DIAGNOSIS #1. Heart, left atrial appendage, excision: -Cardiac tissue with mild ischemic-type changes. #2. Aortic valve leaflets, excision: -Calcifications and myxoid degeneration. CONTINUED ON NEXT PAGE -----RUN DATE: 09/03/24 [facility] - LAB PAGE 2 RUN TIME: 1249 Specimen Inquiry RUN USER: INTERFACE -----SPEC #: [id number] PATIENT: RAYSA GILLIAM #[id number] (Continued) GROSS DESCRIPTION 1. Received in formalin labeled "left atrial appendage" is a 4 x 2.2 x 1.4 cm aguilar-redatrial appendage. The specimen is serially sectioned and no gross lesions are identified. Social Service Assistant sections are submitted in cassette A. 2. Received in formalin labeled "aortic valve leaflets" is a 2.8 x 2.5 x 0.3 cm irregularto crescent shaped yellow-aguilar white valvular tissues with multiple fenestrations measuringup to 0.3 cm. The specimen is serially sectioned to reveal calcifications measuring up to0.8 cm in thickness. Social Service Assistant sections are submitted in cassette B, followingdecalcification. Technical component performed at [facility],[address] [place] [address], [place] [address] Unless gross only, the diagnosis is based upon microscopic examination.Immunohistochemis try: This test was developed and its performance characteristicsdetermined by this laboratory. It has not been approved nor does it need approvalby the [place] FDA. Appropriate positive and negative controls are reviewed and judgedto be acceptable for performedimmunohistochemistry and/or special stains. This laboratoryis certified under the Clinical Laboratory Improvement Amendments (CLIA-88) as qualified toperform high complexity clinical laboratory testing. MICROSCOPIC DESCRIPTION A microscopic examination was performed. CLINICAL INFORMATION CAD, AORTIC VALVE STENOSIS Signed SIGNATURE ON FILE Balbir Lipscomb 09/03/24 1249 ----- END OF REPORT GLUCOSE [id number] 12:31:00* Test Item Value Reference Range Interpretation Comme nts GLUCOSE BEDSIDE (test code = GLUBED) 146 MG/DL 70-110 H Performed by cer tified cinder crusher operator at [facility] GLUCOSE [id number] 09:52:00* Test Item Value Reference Range Interpretation Comme nts GLUCOSE BEDSIDE (test code = GLUBED) 219 MG/DL 70-110 H Performed by cer tified cinder crusher operator at [facility] BASIC METABOLIC [id number] 09:41:00* Test Item Value Reference Range Interpretation Comme nts SODIUM (test code = NA/ABG) 134 mmol/L 134-147 N POTASSIUM (test code = K/ABG) 4.5 mmol/L 3.4-5.0 N CHLORIDE (test code = CL/ABG) 98 mmol/L 100-108 L CREATININE ABG (test code = CREAABG) 1.4 mg/dL 0.6-1.3 H POC IONIZED CALCIUM (test co de = POCCA) 1.12 MMOL/L 1.12-1.32 N POC GLUCOSE (test code = POCGLU) 221 MG/DL 70-110 H HEMOGLOBIN [id number] 09:41:00* Test Item Value Reference Range Interpretation Comme [facility] HEMOGLOBIN ABG (test code = HGB/ABG) 8.0 G/DL 11.0-15.0 L [id number] 09:41:00* Test Item Value Reference Range Interpretation Comme nts HEMATOCRIT (test code = HCT/ABG) 24 % 33-45 L POC LACTIC [id number] 09:41:00* Test Item Value Reference Range Interpretation Comme nts POC LACTIC ACID (test code = POCLAC) 2.5 mmol/l 0.9-1.7 H POC VENOUS BLOOD [id number] 09:41:00* Test Item Value Reference Range Interpretation Comme nts POC VENOUS BLOOD GAS PH (test code = POCPHV) 7.397 7.33-7.45 N POC VENOUS BLOOD GAS PCO2 (test code = SZDNJZ4H) 40.2 mmHg 43-47 L POC VENOUS BLOOD GAS PO2 (test code = XXENT3M) 19.5 mmHG 10-50 N POC TCO2 VENOUS (test code = AMEXCR2Q) 26.0 22-29 N POC HCO3 VENOUS (test code = HDRXRO5X) 24.7 MMOL/L 22-27 N POC BASE EXCESS VENOUS (test code = POCBEV) -0.1 MMOL/L See_Comment L [Automated messa ge] The system which generated this result transmitted reference range: 0-+/-4. The reference range was not used to interpret this result as normal/abnormal. POC O2 SATURATION VENOUS (test code = FBMB7WV) 30.5 % 60-80 L VENOUS BLOOD GAS DELIVERY (test code = DELV) Cannula VENOUS BLOOD GAS TEMP (test code = TEMPV) 97.8 F VENOUS BLOOD GAS SITE (test code = SITEV) [facility] POC ARTERIAL BLOOD [id number] 07:17:00* Test Item Value Reference Range Interpretation Comme nts POC ARTERIAL BLOOD GAS PH (test code = POCPHA) 7.458 7.35-7.45 H POC ARTERIAL BLOOD GAS PCO2 (test code = NTEMRR4X) 32.9 mmHg 35.0-45 L POC TCO2 ARTERIAL (test code = POCTCO2) 24.3 22-29 N POC ARTERIAL BLOOD GAS PO2 (test code = LVLCO9T) 60.7 mmHg 80-100.0 L POC HCO3 ARTERIAL (test code = GDRSXF6C) 23.3 MMOL/L 22.0-26.0 N POC BASE EXCESS (test code = POCBEA) -0.6 MMOL/L See_Comment L [Automated messa ge] The system which generated this result transmitted reference range: 0-+/-4. The reference range was not used to interpret this result as normal/abnormal. POC O2 SATURATION (test code = POCO2S) 92.4 % 90-100 N ABG DELIVERY (test code = BENY) Room Air ABG TEMPERATURE (test code = TEMPA) 98 F ABG SITE (test code = SITEA) Art Line YESSY'S TEST (test code = ALLENS) N/A BASIC METABOLIC [id number] 07:17:00* Test Item Value Reference Range Interpretation Comme nts SODIUM (test code = NA/ABG) 137 mmol/L 134-147 N POTASSIUM (test code = K/ABG) 3.6 mmol/L 3.4-5.0 N CHLORIDE (test code = CL/ABG) 102 mmol/L 100-108 N CREATININE ABG (test code = CREAABG) 0.9 mg/dL 0.6-1.3 N POC IONIZED CALCIUM (test co de = POCCA) 1.14 MMOL/L 1.12-1.32 N POC GLUCOSE (test code = POCGLU) 110 MG/DL 70-110 N HEMOGLOBIN [id number] 07:17:00* Test Item Value Reference Range Interpretation Comme nts HEMOGLOBIN ABG (test code = HGB/ABG) 9.4 G/DL 11.0-15.0 L [id number] 07:17:00* Test Item Value Reference Range Interpretation Comme nts HEMATOCRIT (test code = HCT/ABG) 28 % 33-45 L POC LACTIC [id number] 07:17:00* Test Item Value Reference Range Interpretation Comme nts POC LACTIC ACID (test code = POCLAC) 0.8 mmol/l 0.9-1.7 L BASIC METABOLIC [id number] 04:37:00* Test Item Value Reference Range Interpretation Comme nts SODIUM (test code = NA) 137 mEq/L 134-147 N POTASSIUM (test code = K) 3.7 mEq/L 3.4-5.0 N CHLORIDE (test code = CL) 101 mEq/L 100-108 N CARBON DIOXIDE (test code = CO2) 27 mEq/l 21-33 N ANION GAP (test code = GAP) 13 0-20 N GLUCOSE (test code = GLU) 91 mg/dL 77-141 N BLOOD UREA NITROGEN (test code = BUN) 32 mg/dL 7-25 H GLOMERULAR FILTRATION RATE (test code = GFR) 72.3 80-90 L The Glomerular Filtration Rate is a calculated parameterbased on serum Creatinine, patient age and sex. GFR valuesless than 60 mL/min/1.73 square meters are indicative ofChronic Kidney Disease. Values less than 15 mL/min/1.73square meters indicate Kidney failure. The calculation forGFR is based on the CKD-EPI (202) calculation. This formulais race indifferent and is the recommended formula for GFRby the National Kidney Foundation for Adults.The GFR will not calculate if the sex is unknown or if thepatient's age is <18 years. CREATININE (test code = CREAT) 0.9 mg/dL 0.6-1.3 N CALCIUM (test code = CA) 8.5 mg/dL 8.0-10.5 N [id number] 04:37:00* Test Item Value Reference Range Interpretation Comme nts MAGNESIUM (test code = MAG) 2.48 mg/dL 1.6-2.6 N CBC W/AUTO [id number] 04:22:00* Test Item Value Reference Range Interpretation Comme nts WHITE BLOOD CELL (test code = WBC) 15.0 x10 3/uL 4.5-11.0 H RED BLOOD CELL (test code = RBC) 3.05 x10 6/uL 3.54-5.02 L HEMOGLOBIN (test code = HGB) 7.3 g/dL 11.0-15.0 L HEMATOCRIT (test code = HCT) 23.2 % 33.0-45.0 L MEAN CELL VOLUME (test code = MCV) 76.1 fL 81.0-99.0 L MEAN CELL HGB (test code = MCH) 23.9 pg 27.0-33.0 L MEAN CELL HGB CONCETRATION (test code = MCHC) 31.5 g/dL 33.0-37.0 L RED CELL DISTRIBUTION WIDTH CV (test code = RDW) 16.5 % 11.5-14.5 H RED CELL DISTRIBUTION WIDTH SD (test code = RDW-SD) 45.1 fL 37.0-54.0 N PLATELET COUNT (test code = PLT) 333 x10 3/uL 150-400 N MEAN PLATELET VOLUME (test code = MPV) 9.8 fL 7.0-9.0 H NEUTROPHIL % (test code = NT%) 80.1 % 56.0-77.0 H IMMATURE GRANULOCYTE % (test code = IG%) 0.7 % 0.0-2.0 N LYMPHOCYTE % (test code = LY%) 9.4 % 14.0-32.0 L MONOCYTE % (test code = MO%) 5.9 % 4.8-9.0 N EOSINOPHIL % (test code = EO%) 3.5 % 0.3-3.7 N BASOPHIL % (test code = BA%) 0.4 % 0.0-2.0 N NUCLEATED RBC % (test code = NRBC%) 0.2 % 0-0 H NEUTROPHIL # (test code = NT#) 12.06 x10 3/uL 2.0-7.6 H IMMATURE GRANULOCYTE # (test code = IG#) 0.10 x10 3/uL 0.00-0.03 H LYMPHOCYTE # (test code = LY#) 1.42 x10 3/uL 1.0-3.8 N MONOCYTE # (test code = MO#) 0.88 x10 3/uL 0.1-0.8 H EOSINOPHIL # (test code = EO#) 0.52 x10 3/uL 0.0-0.2 H BASOPHIL # (test code = BA#) 0.06 x10 3/uL 0.0-0.2 N NUCLEATED RBC # (test code = NRBC#) 0.03 x10 3/uL 0.0-0.1 N GLUCOSE [id number] 04:20:00* Test Item Value Reference Range Interpretation Comme nts GLUCOSE BEDSIDE (test code = GLUBED) 88 MG/DL 70-110 N Performed by cer tified cinder crusher operator at [facility] BASIC METABOLIC [id number] 00:23:00* Test Item Value Reference Range Interpretation Comme nts SODIUM (test code = NA) 137 mEq/L 134-147 N POTASSIUM (test code = K) 4.2 mEq/L 3.4-5.0 N CHLORIDE (test code = CL) 102 mEq/L 100-108 N CARBON DIOXIDE (test code = CO2) 27 mEq/l 21-33 N ANION GAP (test code = GAP) 13 0-20 N GLUCOSE (test code = GLU) 116 mg/dL 77-141 N BLOOD UREA NITROGEN (test code = BUN) 35 mg/dL 7-25 H GLOMERULAR FILTRATION RATE (test code = GFR) 63.7 80-90 L The Glomerular Filtration Rate is a calculated parameterbased on serum Creatinine, patient age and sex. GFR valuesless than 60 mL/min/1.73 square meters are indicative ofChronic Kidney Disease. Values less than 15 mL/min/1.73square meters indicate Kidney failure. The calculation forGFR is based on the CKD-EPI (202) calculation. This formulais race indifferent and is the recommended formula for GFRby the National Kidney Foundation for Adults.The GFR will not calculate if the sex is unknown or if thepatient's age is <18 years. CREATININE (test code = CREAT) 1.0 mg/dL 0.6-1.3 N CALCIUM (test code = CA) 8.4 mg/dL 8.0-10.5 N [id number] 00:23:00* Test Item Value Reference Range Interpretation Comme nts MAGNESIUM (test code = MAG) 2.30 mg/dL 1.6-2.6 N POC ARTERIAL BLOOD [id number] 20:33:00* Test Item Value Reference Range Interpretation Comme nts POC ARTERIAL BLOOD GAS PH (test code = POCPHA) 7.498 7.35-7.45 H POC ARTERIAL BLOOD GAS PCO2 (test code = RZWBNR1Z) 32.9 mmHg 35.0-45 L POC TCO2 ARTERIAL (test code = POCTCO2) 26.6 22-29 N POC ARTERIAL BLOOD GAS PO2 (test code = HGFGR3B) 64.4 mmHg 80-100.0 L POC HCO3 ARTERIAL (test code = ABGTBP5I) 25.6 MMOL/L 22.0-26.0 N POC BASE EXCESS (test code = POCBEA) 2.4 MMOL/L See_Comment N [Automated messa ge] The system which generated this result transmitted reference range: 0-+/-4. The reference range was not used to interpret this result as normal/abnormal. POC O2 SATURATION (test code = POCO2S) 94.2 % 90-100 N ABG DELIVERY (test code = BENY) Room Air ABG TEMPERATURE (test code = TEMPA) 98 F ABG SITE (test code = SITEA) Art Line YESSY'S TEST (test code = ALLENS) N/A BASIC METABOLIC [id number] 20:33:00* Test Item Value Reference Range Interpretation Comme nts SODIUM (test code = NA/ABG) 133 mmol/L 134-147 L POTASSIUM (test code = K/ABG) 4.0 mmol/L 3.4-5.0 N CHLORIDE (test code = CL/ABG) 100 mmol/L 100-108 N CREATININE ABG (test code = CREAABG) 0.9 mg/dL 0.6-1.3 N POC IONIZED CALCIUM (test co de = POCCA) 1.08 MMOL/L 1.12-1.32 L POC GLUCOSE (test code = POCGLU) 169 MG/DL 70-110 H HEMOGLOBIN [id number] 20:33:00* Test Item Value Reference Range Interpretation Comme nts HEMOGLOBIN ABG (test code = HGB/ABG) 9.0 G/DL 11.0-15.0 L [id number] 20:33:00* Test Item Value Reference Range Interpretation Comme nts HEMATOCRIT (test code = HCT/ABG) 27 % 33-45 L POC LACTIC [id number] 20:33:00* Test Item Value Reference Range Interpretation Comme nts POC LACTIC ACID (test code = POCLAC) 0.9 mmol/l 0.9-1.7 N BASIC METABOLIC [id number] 17:48:00* Test Item Value Reference Range Interpretation Comme nts SODIUM (test code = NA) 135 mEq/L 134-147 N POTASSIUM (test code = K) 3.8 mEq/L 3.4-5.0 N CHLORIDE (test code = CL) 100 mEq/L 100-108 N CARBON DIOXIDE (test code = CO2) 28 mEq/l 21-33 N ANION GAP (test code = GAP) 11 0-20 N GLUCOSE (test code = GLU) 122 mg/dL 77-141 N BLOOD UREA NITROGEN (test code = BUN) 36 mg/dL 7-25 H GLOMERULAR FILTRATION RATE (test code = GFR) 56.8 80-90 L The Glomerular Filtration Rate is a calculated parameterbased on serum Creatinine, patient age and sex. GFR valuesless than 60 mL/min/1.73 square meters are indicative ofChronic Kidney Disease. Values less than 15 mL/min/1.73square meters indicate Kidney failure. The calculation forGFR is based on the CKD-EPI (2020) calculation. This formulais race indifferent and is the recommended formula for GFRby the National Kidney Foundation for Adults.The GFR will not calculate if the sex is unknown or if thepatient's age is <18 years. CREATININE (test code = CREAT) 1.1 mg/dL 0.6-1.3 N CALCIUM (test code = CA) 8.4 mg/dL 8.0-10.5 N [id number] 17:48:00* Test Item Value Reference Range Interpretation Comme nts MAGNESIUM (test code = MAG) 2.32 mg/dL 1.6-2.6 N CBC W/AUTO [id number] 17:36:00* Test Item Value Reference Range Interpretation Comme nts WHITE BLOOD CELL (test code = WBC) 16.7 x10 3/uL 4.5-11.0 H RED BLOOD CELL (test code = RBC) 3.09 x10 6/uL 3.54-5.02 L HEMOGLOBIN (test code = HGB) 7.5 g/dL 11.0-15.0 L HEMATOCRIT (test code = HCT) 23.9 % 33.0-45.0 L MEAN CELL VOLUME (test code = MCV) 77.3 fL 81.0-99.0 L MEAN CELL HGB (test code = MCH) 24.3 pg 27.0-33.0 L MEAN CELL HGB CONCETRATION (test code = MCHC) 31.4 g/dL 33.0-37.0 L RED CELL DISTRIBUTION WIDTH CV (test code = RDW) 16.6 % 11.5-14.5 H RED CELL DISTRIBUTION WIDTH SD (test code = RDW-SD) 46.0 fL 37.0-54.0 N PLATELET COUNT (test code = PLT) 307 x10 3/uL 150-400 N MEAN PLATELET VOLUME (test code = MPV) 9.9 fL 7.0-9.0 H NEUTROPHIL % (test code = NT%) 82.0 % 56.0-77.0 H IMMATURE GRANULOCYTE % (test code = IG%) 1.0 % 0.0-2.0 N LYMPHOCYTE % (test code = LY%) 9.3 % 14.0-32.0 L MONOCYTE % (test code = MO%) 5.2 % 4.8-9.0 N EOSINOPHIL % (test code = EO%) 2.2 % 0.3-3.7 N BASOPHIL % (test code = BA%) 0.3 % 0.0-2.0 N NUCLEATED RBC % (test code = NRBC%) 0.2 % 0-0 H NEUTROPHIL # (test code = NT#) 13.69 x10 3/uL 2.0-7.6 H IMMATURE GRANULOCYTE # (test code = IG#) 0.16 x10 3/uL 0.00-0.03 H LYMPHOCYTE # (test code = LY#) 1.56 x10 3/uL 1.0-3.8 N MONOCYTE # (test code = MO#) 0.86 x10 3/uL 0.1-0.8 H EOSINOPHIL # (test code = EO#) 0.37 x10 3/uL 0.0-0.2 H BASOPHIL # (test code = BA#) 0.05 x10 3/uL 0.0-0.2 N NUCLEATED RBC # (test code = NRBC#) 0.03 x10 3/uL 0.0-0.1 N BASIC METABOLIC [id number] 17:33:00* Test Item Value Reference Range Interpretation Comme nts SODIUM (test code = NA/ABG) 137 mmol/L 134-147 N POTASSIUM (test code = K/ABG) 3.7 mmol/L 3.4-5.0 N CHLORIDE (test code = CL/ABG) 99 mmol/L 100-108 L CREATININE ABG (test code = CREAABG) 1.0 mg/dL 0.6-1.3 N POC IONIZED CALCIUM (test co de = POCCA) 1.12 MMOL/L 1.12-1.32 N POC GLUCOSE (test code = POCGLU) 131 MG/DL 70-110 H HEMOGLOBIN [id number] 17:33:00* Test Item Value Reference Range Interpretation Comme nts HEMOGLOBIN ABG (test code = HGB/ABG) 8.6 G/DL 11.0-15.0 L [id number] 17:33:00* Test Item Value Reference Range Interpretation Comme nts HEMATOCRIT (test code = HCT/ABG) 25 % 33-45 L POC LACTIC [id number] 17:33:00* Test Item Value Reference Range Interpretation Comme nts POC LACTIC ACID (test code = POCLAC) 1.1 mmol/l 0.9-1.7 N POC VENOUS BLOOD [id number] 17:33:00* Test Item Value Reference Range Interpretation Comme nts POC VENOUS BLOOD GAS PH (test code = POCPHV) 7.436 7.33-7.45 N POC VENOUS BLOOD GAS PCO2 (test code = WGSEGV8T) 39.7 mmHg 43-47 L POC VENOUS BLOOD GAS PO2 (test code = SKDPD3P) 21.7 mmHG 10-50 N POC TCO2 VENOUS (test code = STTZJW0W) 27.9 22-29 N POC HCO3 VENOUS (test code = UJKGYV2C) 26.7 MMOL/L 22-27 N POC BASE EXCESS VENOUS (test code = POCBEV) 2.5 MMOL/L See_Comment N [Automated messa ge] The system which generated this result transmitted reference range: 0-+/-4. The reference range was not used to interpret this result as normal/abnormal. POC O2 SATURATION VENOUS (test code = TOJA0DT) 38.6 % 60-80 L VENOUS BLOOD GAS DELIVERY (test code = DELV) Room Air VENOUS BLOOD GAS TEMP (test code = TEMPV) 97.9 F VENOUS BLOOD GAS SITE (test code = SITEV) [place] She GLUCOSE [id number] 16:37:00* Test Item Value Reference Range Interpretation Comme nts GLUCOSE BEDSIDE (test code = GLUBED) 95 MG/DL 70-110 N Performed by cer tified cinder crusher operator at [facility] POC ARTERIAL BLOOD [id number] 12:28:00* Test Item Value Reference Range Interpretation Comme nts POC ARTERIAL BLOOD GAS PH (test code = POCPHA) 7.500 7.35-7.45 H POC ARTERIAL BLOOD GAS PCO2 (test code = EGOUBY3J) 32.9 mmHg 35.0-45 L POC TCO2 ARTERIAL (test code = POCTCO2) 26.6 22-29 N POC ARTERIAL BLOOD GAS PO2 (test code = XSFGF8D) 65.8 mmHg 80-100.0 L POC HCO3 ARTERIAL (test code = GPEOHX2S) 25.6 MMOL/L 22.0-26.0 N POC BASE EXCESS (test code = POCBEA) 2.5 MMOL/L See_Comment N [Automated messa ge] The system which generated this result transmitted reference range: 0-+/-4. The reference range was not used to interpret this result as normal/abnormal. POC O2 SATURATION (test code = POCO2S) 94.5 % 90-100 N ABG DELIVERY (test code = BENY) Room Air BASIC METABOLIC [id number] 12:28:00* Test Item Value Reference Range Interpretation Comme nts SODIUM (test code = NA/ABG) 137 mmol/L 134-147 N POTASSIUM (test code = K/ABG) 3.9 mmol/L 3.4-5.0 N CHLORIDE (test code = CL/ABG) 101 mmol/L 100-108 N CREATININE ABG (test code = CREAABG) 1.0 mg/dL 0.6-1.3 N POC IONIZED CALCIUM (test co de = POCCA) 1.13 MMOL/L 1.12-1.32 N POC GLUCOSE (test code = POCGLU) 104 MG/DL 70-110 N HEMOGLOBIN [id number] 12:28:00* Test Item Value Reference Range Interpretation Comme nts HEMOGLOBIN ABG (test code = HGB/ABG) 8.4 G/DL 11.0-15.0 L [id number] 12:28:00* Test Item Value Reference Range Interpretation Comme nts HEMATOCRIT (test code = HCT/ABG) 25 % 33-45 L POC LACTIC [id number] 12:28:00* Test Item Value Reference Range Interpretation Comme nts POC LACTIC ACID (test code = POCLAC) 1.1 mmol/l 0.9-1.7 N BASIC METABOLIC [id number] 12:12:00* Test Item Value Reference Range Interpretation Comme nts SODIUM (test code = NA) 134 mEq/L 134-147 N POTASSIUM (test code = K) 3.8 mEq/L 3.4-5.0 N CHLORIDE (test code = CL) 104 mEq/L 100-108 N CARBON DIOXIDE (test code = CO2) 26 mEq/l 21-33 N ANION GAP (test code = GAP) 7 0-20 N GLUCOSE (test code = GLU) 111 mg/dL 77-141 N BLOOD UREA NITROGEN (test code = BUN) 34 mg/dL 7-25 H GLOMERULAR FILTRATION RATE (test code = GFR) 63.7 80-90 L The Glomerular Filtration Rate is a calculated parameterbased on serum Creatinine, patient age and sex. GFR valuesless than 60 mL/min/1.73 square meters are indicative ofChronic Kidney Disease. Values less than 15 mL/min/1.73square meters indicate Kidney failure. The calculation forGFR is based on the CKD-EPI (202) calculation. This formulais race indifferent and is the recommended formula for GFRby the National Kidney Foundation for Adults.The GFR will not calculate if the sex is unknown or if thepatient's age is <18 years. CREATININE (test code = CREAT) 1.0 mg/dL 0.6-1.3 N CALCIUM (test code = CA) 8.1 mg/dL 8.0-10.5 N [id number] 12:12:00* Test Item Value Reference Range Interpretation Comme nts MAGNESIUM (test code = MAG) 2.37 mg/dL 1.6-2.6 N BASIC METABOLIC [id number] 09:07:00* Test Item Value Reference Range Interpretation Comme nts SODIUM (test code = NA/ABG) 137 mmol/L 134-147 N POTASSIUM (test code = K/ABG) 4.3 mmol/L 3.4-5.0 N CHLORIDE (test code = CL/ABG) 99 mmol/L 100-108 L CREATININE ABG (test code = CREAABG) 1.1 mg/dL 0.6-1.3 N POC IONIZED CALCIUM (test co de = POCCA) 1.18 MMOL/L 1.12-1.32 N POC GLUCOSE (test code = POCGLU) 142 MG/DL 70-110 H HEMOGLOBIN [id number] 09:07:00* Test Item Value Reference Range Interpretation Comme nts HEMOGLOBIN ABG (test code = HGB/ABG) 8.9 G/DL 11.0-15.0 L [id number] 09:07:00* Test Item Value Reference Range Interpretation Comme nts HEMATOCRIT (test code = HCT/ABG) 26 % 33-45 L POC LACTIC [id number] 09:07:00* Test Item Value Reference Range Interpretation Comme nts POC LACTIC ACID (test code = POCLAC) 2.1 mmol/l 0.9-1.7 H POC VENOUS BLOOD [id number] 09:07:00* Test Item Value Reference Range Interpretation Comme nts POC VENOUS BLOOD GAS PH (test code = POCPHV) 7.399 7.33-7.45 N POC VENOUS BLOOD GAS PCO2 (test code = VEXSMI0D) 43.5 mmHg 43-47 N POC VENOUS BLOOD GAS PO2 (test code = KJBDW8C) 22.3 mmHG 10-50 N POC TCO2 VENOUS (test code = KSYPBC0I) 28.2 22-29 N POC HCO3 VENOUS (test code = CKLOJS4M) 26.9 MMOL/L 22-27 N POC BASE EXCESS VENOUS (test code = POCBEV) 2.0 MMOL/L See_Comment N [Automated messa ge] The system which generated this result transmitted reference range: 0-+/-4. The reference range was not used to interpret this result as normal/abnormal. POC O2 SATURATION VENOUS (test code = HFWF1AL) 37.6 % 60-80 L VENOUS BLOOD GAS FIO2 (test code = FIO2V) 28 % VENOUS BLOOD GAS DELIVERY (test code = DELV) Cannula VENOUS BLOOD GAS SITE (test code = SITEV) [place] She GLUCOSE [id number] 08:33:00* Test Item Value Reference Range Interpretation Comme nts GLUCOSE BEDSIDE (test code = GLUBED) 139 MG/DL 70-110 H Performed by cer dez cinder crusher operator at [facility] BASIC METABOLIC [id number] 05:39:00* Test Item Value Reference Range Interpretation Comme nts SODIUM (test code = NA) 135 mEq/L 134-147 N POTASSIUM (test code = K) 3.7 mEq/L 3.4-5.0 N CHLORIDE (test code = CL) 104 mEq/L 100-108 N CARBON DIOXIDE (test code = CO2) 29 mEq/l 21-33 N ANION GAP (test code = GAP) 6 0-20 N GLUCOSE (test code = GLU) 120 mg/dL 77-141 N BLOOD UREA NITROGEN (test code = BUN) 32 mg/dL 7-25 H GLOMERULAR FILTRATION RATE (test code = GFR) 72.3 80-90 L The Glomerular Filtration Rate is a calculated parameterbased on serum Creatinine, patient age and sex. GFR valuesless than 60 mL/min/1.73 square meters are indicative ofChronic Kidney Disease. Values less than 15 mL/min/1.73square meters indicate Kidney failure. The calculation forGFR is based on the CKD-EPI (202) calculation. This formulais race indifferent and is the recommended formula for GFRby the National Kidney Foundation for Adults.The GFR will not calculate if the sex is unknown or if thepatient's age is <18 years. CREATININE (test code = CREAT) 0.9 mg/dL 0.6-1.3 N CALCIUM (test code = CA) 8.1 mg/dL 8.0-10.5 N HEPATIC FUNCTION [id number] 05:39:00* Test Item Value Reference Range Interpretation Comme nts TOTAL PROTEIN (test code = PROT) 6.4 g/dL 6.4-8.2 N ALBUMIN (test code = ALB) 3.10 g/dL 3.4-5.0 L BILIRUBIN TOTAL (test code = BILT) 0.60 mg/dL 0.0-1.0 BILIRUBIN DIRECT (test code = BILD) 0.30 MG/DL 0.1-0.3 BILIRUBIN INDIRECT (test cod e = BILIND) 0.30 MG/DL SGOT/AST (test code = AST) 26 IUnit/L 8-34 N SGPT/ALT (test code = ALT) 22 IUnit/L 10-49 N ALKALINE PHOSPHATASE TOTAL ( test code = ALKP) 83 IUnit/L 20-125 N [id number] 05:39:00* Test Item Value Reference Range Interpretation Comme nts MAGNESIUM (test code = MAG) 2.49 mg/dL 1.6-2.6 N CBC W/AUTO [id number] 05:22:00* Test Item Value Reference Range Interpretation Comme nts WHITE BLOOD CELL (test code = WBC) 16.8 x10 3/uL 4.5-11.0 H RED BLOOD CELL (test code = RBC) 3.20 x10 6/uL 3.54-5.02 L HEMOGLOBIN (test code = HGB) 7.7 g/dL 11.0-15.0 L HEMATOCRIT (test code = HCT) 25.2 % 33.0-45.0 L MEAN CELL VOLUME (test code = MCV) 78.8 fL 81.0-99.0 L MEAN CELL HGB (test code = MCH) 24.1 pg 27.0-33.0 L MEAN CELL HGB CONCETRATION (test code = MCHC) 30.6 g/dL 33.0-37.0 L RED CELL DISTRIBUTION WIDTH CV (test code = RDW) 16.2 % 11.5-14.5 H RED CELL DISTRIBUTION WIDTH SD (test code = RDW-SD) 46.6 fL 37.0-54.0 N PLATELET COUNT (test code = PLT) 280 x10 3/uL 150-400 N MEAN PLATELET VOLUME (test code = MPV) 10.2 fL 7.0-9.0 H NEUTROPHIL % (test code = NT%) 84.8 % 56.0-77.0 H IMMATURE GRANULOCYTE % (test code = IG%) 0.9 % 0.0-2.0 N LYMPHOCYTE % (test code = LY%) 7.7 % 14.0-32.0 L MONOCYTE % (test code = MO%) 5.1 % 4.8-9.0 N EOSINOPHIL % (test code = EO%) 1.1 % 0.3-3.7 N BASOPHIL % (test code = BA%) 0.4 % 0.0-2.0 N NUCLEATED RBC % (test code = NRBC%) 0.0 % 0-0 N NEUTROPHIL # (test code = NT#) 14.21 x10 3/uL 2.0-7.6 H IMMATURE GRANULOCYTE # (test code = IG#) 0.15 x10 3/uL 0.00-0.03 H LYMPHOCYTE # (test code = LY#) 1.29 x10 3/uL 1.0-3.8 N MONOCYTE # (test code = MO#) 0.86 x10 3/uL 0.1-0.8 H EOSINOPHIL # (test code = EO#) 0.19 x10 3/uL 0.0-0.2 N BASOPHIL # (test code = BA#) 0.06 x10 3/uL 0.0-0.2 N NUCLEATED RBC # (test code = NRBC#) 0.00 x10 3/uL 0.0-0.1 N POC ARTERIAL BLOOD [id number] 05:12:00* Test Item Value Reference Range Interpretation Comme nts POC ARTERIAL BLOOD GAS PH (test code = POCPHA) 7.465 7.35-7.45 H POC ARTERIAL BLOOD GAS PCO2 (test code = ICGWPC2E) 33.9 mmHg 35.0-45 L POC TCO2 ARTERIAL (test code = POCTCO2) 25.4 22-29 N POC ARTERIAL BLOOD GAS PO2 (test code = KHNJT6Q) 88.3 mmHg 80-100.0 N POC HCO3 ARTERIAL (test code = PNBHHW6O) 24.4 MMOL/L 22.0-26.0 N POC BASE EXCESS (test code = POCBEA) 0.6 MMOL/L See_Comment N [Automated messa ge] The system which generated this result transmitted reference range: 0-+/-4. The reference range was not used to interpret this result as normal/abnormal. POC O2 SATURATION (test code = POCO2S) 97.4 % 90-100 N ABG DELIVERY (test code = BENY) Cannula ABG TEMPERATURE (test code = TEMPA) 98 F ABG SITE (test code = SITEA) Art Line YESSY'S TEST (test code = ALLENS) Negative BASIC METABOLIC [id number] 05:12:00* Test Item Value Reference Range Interpretation Comme nts SODIUM (test code = NA/ABG) 137 mmol/L 134-147 N POTASSIUM (test code = K/ABG) 3.7 mmol/L 3.4-5.0 N CHLORIDE (test code = CL/ABG) 100 mmol/L 100-108 N CREATININE ABG (test code = CREAABG) 0.9 mg/dL 0.6-1.3 N POC IONIZED CALCIUM (test co de = POCCA) 1.13 MMOL/L 1.12-1.32 N POC GLUCOSE (test code = POCGLU) 127 MG/DL 70-110 H HEMOGLOBIN [id number] 05:12:00* Test Item Value Reference Range Interpretation Comme nts HEMOGLOBIN ABG (test code = HGB/ABG) 9.0 G/DL 11.0-15.0 L [id number] 05:12:00* Test Item Value Reference Range Interpretation Comme nts HEMATOCRIT (test code = HCT/ABG) 26 % 33-45 L POC LACTIC [id number] 05:12:00* Test Item Value Reference Range Interpretation Comme nts POC LACTIC ACID (test code = POCLAC) 0.9 mmol/l 0.9-1.7 N BASIC METABOLIC [id number] 00:51:00* Test Item Value Reference Range Interpretation Comme nts SODIUM (test code = NA) 135 mEq/L 134-147 N POTASSIUM (test code = K) 3.9 mEq/L 3.4-5.0 N CHLORIDE (test code = CL) 101 mEq/L 100-108 N CARBON DIOXIDE (test code = CO2) 28 mEq/l 21-33 N ANION GAP (test code = GAP) 10 0-20 N GLUCOSE (test code = GLU) 150 mg/dL 77-141 H BLOOD UREA NITROGEN (test code = BUN) 33 mg/dL 7-25 H GLOMERULAR FILTRATION RATE (test code = GFR) 63.7 80-90 L The Glomerular Filtration Rate is a calculated parameterbased on serum Creatinine, patient age and sex. GFR valuesless than 60 mL/min/1.73 square meters are indicative ofChronic Kidney Disease. Values less than 15 mL/min/1.73square meters indicate Kidney failure. The calculation forGFR is based on the CKD-EPI (2020) calculation. This formulais race indifferent and is the recommended formula for GFRby the National Kidney Foundation for Adults.The GFR will not calculate if the sex is unknown or if thepatient's age is <18 years. CREATININE (test code = CREAT) 1.0 mg/dL 0.6-1.3 N CALCIUM (test code = CA) 8.4 mg/dL 8.0-10.5 N [id number] 00:51:00* Test Item Value Reference Range Interpretation Comme nts MAGNESIUM (test code = MAG) 2.44 mg/dL 1.6-2.6 N CALCIUM [id number] 00:51:00* Test Item Value Reference Range Interpretation Comme nts CALCIUM IONIZED (test code = KYLE) 1.10 MMOL/L 1.09-1.30 N GLUCOSE [id number] 18:07:00* Test Item Value Reference Range Interpretation Comme nts GLUCOSE BEDSIDE (test code = GLUBED) 160 MG/DL 70-110 H Performed by cer tified cinder crusher operator at [facility] [id number] 16:43:00* Test Item Value Reference Range Interpretation Comme nts SODIUM (test code = NA/ABG) 138 mmol/L 134-147 N POTASSIUM (test code = K/ABG) 4.5 mmol/L 3.4-5.0 N CHLORIDE (test code = CL/ABG) 101 mmol/L 100-108 N CREATININE ABG (test code = CREAABG) 1.0 mg/dL 0.6-1.3 N POC IONIZED CALCIUM (test co de = POCCA) 1.16 MMOL/L 1.12-1.32 N POC GLUCOSE (test code = POCGLU) 166 MG/DL 70-110 H HEMOGLOBIN [id number] 16:43:00* Test Item Value Reference Range Interpretation Comme nts HEMOGLOBIN ABG (test code = HGB/ABG) 8.3 G/DL 11.0-15.0 L [id number] 16:43:00* Test Item Value Reference Range Interpretation Comme nts HEMATOCRIT (test code = HCT/ABG) 25 % 33-45 L POC LACTIC [id number] 16:43:00* Test Item Value Reference Range Interpretation Comme nts POC LACTIC ACID (test code = POCLAC) 1.4 mmol/l 0.9-1.7 N POC VENOUS BLOOD [id number] 16:43:00* Test Item Value Reference Range Interpretation Comme nts POC VENOUS BLOOD GAS PH (test code = POCPHV) 7.430 7.33-7.45 N POC VENOUS BLOOD GAS PCO2 (test code = TSDKIA2L) 38.3 mmHg 43-47 L POC VENOUS BLOOD GAS PO2 (test code = NZDJY4C) 22.1 mmHG 10-50 N POC TCO2 VENOUS (test code = AARTQD6O) 26.6 22-29 N POC HCO3 VENOUS (test code = EJNTAJ9C) 25.5 MMOL/L 22-27 N POC BASE EXCESS VENOUS (test code = POCBEV) 1.1 MMOL/L See_Comment N [Automated messa ge] The system which generated this result transmitted reference range: 0-+/-4. The reference range was not used to interpret this result as normal/abnormal. POC O2 SATURATION VENOUS (test code = GGBY3BL) 39.6 % 60-80 L VENOUS BLOOD GAS FIO2 (test code = FIO2V) 36 % VENOUS BLOOD GAS DELIVERY (test code = DELV) Cannula VENOUS BLOOD GAS SITE (test code = SITEV) [place] [facility] GLUCOSE [id number] 16:28:00* Test Item Value Reference Range Interpretation Comme nts GLUCOSE BEDSIDE (test code = GLUBED) 152 MG/DL 70-110 H Performed by cer tified cinder crusher operator at [facility] [employer] [id number] 15:20:00* Test Item Value Reference Range Interpretation Comme nts SODIUM (test code = NA) 139 mEq/L 134-147 N POTASSIUM (test code = K) 4.6 mEq/L 3.4-5.0 N CHLORIDE (test code = CL) 104 mEq/L 100-108 N CARBON DIOXIDE (test code = CO2) 23 mEq/l 21-33 N ANION GAP (test code = GAP) 16 0-20 N GLUCOSE (test code = GLU) 147 mg/dL 77-141 H BLOOD UREA NITROGEN (test code = BUN) 31 mg/dL 7-25 H GLOMERULAR FILTRATION RATE (test code = GFR) 63.7 80-90 L The Glomerular Filtration Rate is a calculated parameterbased on serum Creatinine, patient age and sex. GFR valuesless than 60 mL/min/1.73 square meters are indicative ofChronic Kidney Disease. Values less than 15 mL/min/1.73square meters indicate Kidney failure. The calculation forGFR is based on the CKD-EPI (2020) calculation. This formulais race indifferent and is the recommended formula for GFRby the National Kidney Foundation for Adults.The GFR will not calculate if the sex is unknown or if thepatient's age is <18 years. CREATININE (test code = CREAT) 1.0 mg/dL 0.6-1.3 N CALCIUM (test code = CA) 8.2 mg/dL 8.0-10.5 N [id number] 15:20:00* Test Item Value Reference Range Interpretation Comme nts MAGNESIUM (test code = MAG) 1.98 mg/dL 1.6-2.6 N GLUCOSE [id number] 12:14:00* Test Item Value Reference Range Interpretation Comme nts GLUCOSE BEDSIDE (test code = GLUBED) 159 MG/DL 70-110 H Performed by cer tified cinder crusher operator at [facility] GLUCOSE [id number] 10:17:00* Test Item Value Reference Range Interpretation Comme nts GLUCOSE BEDSIDE (test code = GLUBED) 229 MG/DL 70-110 H Performed by cer tified cinder crusher operator at [facility] GLUCOSE [id number] 09:02:00* Test Item Value Reference Range Interpretation Comme nts GLUCOSE BEDSIDE (test code = GLUBED) 275 MG/DL 70-110 H Performed by cer tified cinder crusher operator at [facility] BASIC METABOLIC [id number] 06:28:00* Test Item Value Reference Range Interpretation Comme nts SODIUM (test code = NA/ABG) 141 mmol/L 134-147 N POTASSIUM (test code = K/ABG) 4.4 mmol/L 3.4-5.0 N CHLORIDE (test code = CL/ABG) 110 mmol/L 100-108 H CREATININE ABG (test code = CREAABG) 0.8 mg/dL 0.6-1.3 N POC IONIZED CALCIUM (test co de = POCCA) 1.05 MMOL/L 1.12-1.32 L POC GLUCOSE (test code = POCGLU) 115 MG/DL 70-110 H HEMOGLOBIN [id number] 06:28:00* Test Item Value Reference Range Interpretation Comme nts HEMOGLOBIN ABG (test code = HGB/ABG) 8.7 G/DL 11.0-15.0 L [id number] 06:28:00* Test Item Value Reference Range Interpretation Comme nts HEMATOCRIT (test code = HCT/ABG) 26 % 33-45 L POC LACTIC [id number] 06:28:00* Test Item Value Reference Range Interpretation Comme nts POC LACTIC ACID (test code = POCLAC) 0.7 mmol/l 0.9-1.7 L POC VENOUS BLOOD [id number] 06:28:00* Test Item Value Reference Range Interpretation Comme nts YESSY'S TEST (test code = ALLENS) N/A POC VENOUS BLOOD GAS PH (test code = POCPHV) 7.417 7.33-7.45 N POC VENOUS BLOOD GAS PCO2 (test code = YIMANE6E) 38.2 mmHg 43-47 L POC VENOUS BLOOD GAS PO2 (test code = JMRAS9F) 24.7 mmHG 10-50 N POC TCO2 VENOUS (test code = VNJQGQ5I) 25.8 22-29 N POC HCO3 VENOUS (test code = EKWPSZ6X) 24.6 MMOL/L 22-27 N POC BASE EXCESS VENOUS (test code = POCBEV) 0.1 MMOL/L See_Comment N [Automated messa ge] The system which generated this result transmitted reference range: 0-+/-4. The reference range was not used to interpret this result as normal/abnormal. POC O2 SATURATION VENOUS (test code = WXSI5TW) 45.9 % 60-80 L VENOUS BLOOD GAS DELIVERY (test code = DELV) Cannula VENOUS BLOOD GAS TEMP (test code = TEMPV) 98 F VENOUS BLOOD GAS SITE (test code = SITEV) PA POC ARTERIAL BLOOD [id number] 06:15:00* Test Item Value Reference Range Interpretation Comme nts POC ARTERIAL BLOOD GAS PH (test code = POCPHA) 7.501 7.35-7.45 HH POC ARTERIAL BLOOD GAS PCO2 (test code = EAJIVV6Y) 26.5 mmHg 35.0-45 LL POC TCO2 ARTERIAL (test code = POCTCO2) 21.5 22-29 L POC ARTERIAL BLOOD GAS PO2 (test code = NVAHH0A) 78.2 mmHg 80-100.0 L POC HCO3 ARTERIAL (test code = NZFBUB8T) 20.7 MMOL/L 22.0-26.0 L POC BASE EXCESS (test code = POCBEA) -2.5 MMOL/L See_Comment L [Automated messa ge] The system which generated this result transmitted reference range: 0-+/-4. The reference range was not used to interpret this result as normal/abnormal. POC O2 SATURATION (test code = POCO2S) 96.8 % 90-100 N ABG DELIVERY (test code = BENY) Cannula ABG TEMPERATURE (test code = TEMPA) 98 F ABG SITE (test code = SITEA) Art Line YESSY'S TEST (test code = ALLENS) N/A BASIC METABOLIC [id number] 06:15:00* Test Item Value Reference Range Interpretation Comme nts SODIUM (test code = NA/ABG) 142 mmol/L 134-147 N POTASSIUM (test code = K/ABG) 4.2 mmol/L 3.4-5.0 N CHLORIDE (test code = CL/ABG) 109 mmol/L 100-108 H CREATININE ABG (test code = CREAABG) 0.8 mg/dL 0.6-1.3 N POC IONIZED CALCIUM (test co de = POCCA) 1.00 MMOL/L 1.12-1.32 L POC GLUCOSE (test code = POCGLU) 108 MG/DL 70-110 N HEMOGLOBIN [id number] 06:15:00* Test Item Value Reference Range Interpretation Comme nts HEMOGLOBIN ABG (test code = HGB/ABG) 8.9 G/DL 11.0-15.0 L [id number] 06:15:00* Test Item Value Reference Range Interpretation Comme nts HEMATOCRIT (test code = HCT/ABG) 26 % 33-45 L POC LACTIC [id number] 06:15:00* Test Item Value Reference Range Interpretation Comme nts POC LACTIC ACID (test code = POCLAC) 0.8 mmol/l 0.9-1.7 L BASIC METABOLIC [id number] 03:21:00* Test Item Value Reference Range Interpretation Comme nts SODIUM (test code = NA) 140 mEq/L 134-147 N POTASSIUM (test code = K) 4.4 mEq/L 3.4-5.0 N CHLORIDE (test code = CL) 111 mEq/L 100-108 H CARBON DIOXIDE (test code = CO2) 25 mEq/l 21-33 N ANION GAP (test code = GAP) 8 0-20 N GLUCOSE (test code = GLU) 116 mg/dL 77-141 BLOOD UREA NITROGEN (test code = BUN) 28 mg/dL 7-25 H GLOMERULAR FILTRATION RATE (test code = GFR) 63.7 80-90 L The Glomerular Filtration Rate is a calculated parameterbased on serum Creatinine, patient age and sex. GFR valuesless than 60 mL/min/1.73 square meters are indicative ofChronic Kidney Disease. Values less than 15 mL/min/1.73square meters indicate Kidney failure. The calculation forGFR is based on the CKD-EPI (2020) calculation. This formulais race indifferent and is the recommended formula for GFRby the National Kidney Foundation for Adults.The GFR will not calculate if the sex is unknown or if thepatient's age is <18 years. CREATININE (test code = CREAT) 1.0 mg/dL 0.6-1.3 N CALCIUM (test code = CA) 8.6 mg/dL 8.0-10.5 N COMMENTS: POD #1HEPATIC FUNCTION [id number] 03:21:00* Test Item Value Reference Range Interpretation Comme nts TOTAL PROTEIN (test code = PROT) 6.2 g/dL 6.4-8.2 L ALBUMIN (test code = ALB) 3.40 g/dL 3.4-5.0 N BILIRUBIN TOTAL (test code = BILT) 1.30 mg/dL 0.0-1.0 H BILIRUBIN DIRECT (test code = BILD) 0.70 MG/DL 0.1-0.3 H BILIRUBIN INDIRECT (test cod e = BILIND) 0.60 MG/DL SGOT/AST (test code = AST) 38 IUnit/L 8-34 H SGPT/ALT (test code = ALT) 22 IUnit/L 10-49 N ALKALINE PHOSPHATASE TOTAL ( test code = ALKP) 71 IUnit/L 20-125 N COMMENTS: POD #[id number] 03:21:00* Test Item Value Reference Range Interpretation Comme nts MAGNESIUM (test code = MAG) 2.26 mg/dL 1.6-2.6 N COMMENTS: POD #1CBC W/AUTO [id number] 02:30:00* Test Item Value Reference Range Interpretation Comme nts WHITE BLOOD CELL (test code = WBC) 15.4 x10 3/uL 4.5-11.0 H RED BLOOD CELL (test code = RBC) 3.15 x10 6/uL 3.54-5.02 L HEMOGLOBIN (test code = HGB) 7.5 g/dL 11.0-15.0 L HEMATOCRIT (test code = HCT) 24.2 % 33.0-45.0 L MEAN CELL VOLUME (test code = MCV) 76.8 fL 81.0-99.0 L MEAN CELL HGB (test code = MCH) 23.8 pg 27.0-33.0 L MEAN CELL HGB CONCETRATION (test code = MCHC) 31.0 g/dL 33.0-37.0 L RED CELL DISTRIBUTION WIDTH CV (test code = RDW) 16.0 % 11.5-14.5 H RED CELL DISTRIBUTION WIDTH SD (test code = RDW-SD) 44.2 fL 37.0-54.0 N PLATELET COUNT (test code = PLT) 223 x10 3/uL 150-400 N MEAN PLATELET VOLUME (test code = MPV) 10.5 fL 7.0-9.0 H NEUTROPHIL % (test code = NT%) 85.2 % 56.0-77.0 H IMMATURE GRANULOCYTE % (test code = IG%) 0.5 % 0.0-2.0 N LYMPHOCYTE % (test code = LY%) 7.7 % 14.0-32.0 L MONOCYTE % (test code = MO%) 6.2 % 4.8-9.0 N EOSINOPHIL % (test code = EO%) 0.1 % 0.3-3.7 L BASOPHIL % (test code = BA%) 0.3 % 0.0-2.0 N NUCLEATED RBC % (test code = NRBC%) 0.0 % 0-0 N NEUTROPHIL # (test code = NT#) 13.08 x10 3/uL 2.0-7.6 H IMMATURE GRANULOCYTE # (test code = IG#) 0.08 x10 3/uL 0.00-0.03 H LYMPHOCYTE # (test code = LY#) 1.19 x10 3/uL 1.0-3.8 N MONOCYTE # (test code = MO#) 0.96 x10 3/uL 0.1-0.8 H EOSINOPHIL # (test code = EO#) 0.01 x10 3/uL 0.0-0.2 N BASOPHIL # (test code = BA#) 0.05 x10 3/uL 0.0-0.2 N NUCLEATED RBC # (test code = NRBC#) 0.00 x10 3/uL 0.0-0.1 N POC ARTERIAL BLOOD [id number] 02:15:00* Test Item Value Reference Range Interpretation Comme nts POC ARTERIAL BLOOD GAS PH (test code = POCPHA) 7.453 7.35-7.45 H POC ARTERIAL BLOOD GAS PCO2 (test code = MUQOVL0J) 35.8 mmHg 35.0-45 N POC TCO2 ARTERIAL (test code = POCTCO2) 26.1 22-29 N POC ARTERIAL BLOOD GAS PO2 (test code = OUQWE6V) 71.4 mmHg 80-100.0 L POC HCO3 ARTERIAL (test code = WJRDPE5V) 25.0 MMOL/L 22.0-26.0 N POC BASE EXCESS (test code = POCBEA) 1.1 MMOL/L See_Comment N [Automated messa ge] The system which generated this result transmitted reference range: 0-+/-4. The reference range was not used to interpret this result as normal/abnormal. POC O2 SATURATION (test code = POCO2S) 95.0 % 90-100 N ABG DELIVERY (test code = BENY) Cannula ABG TEMPERATURE (test code = TEMPA) 98.6 F ABG SITE (test code = SITEA) Art Line YESSY'S TEST (test code = ALLENS) N/A BASIC METABOLIC [id number] 02:15:00* Test Item Value Reference Range Interpretation Comme nts SODIUM (test code = NA/ABG) 140 mmol/L 134-147 N POTASSIUM (test code = K/ABG) 4.3 mmol/L 3.4-5.0 N CHLORIDE (test code = CL/ABG) 108 mmol/L 100-108 N CREATININE ABG (test code = CREAABG) 1.0 mg/dL 0.6-1.3 N POC IONIZED CALCIUM (test co de = POCCA) 1.15 MMOL/L 1.12-1.32 N POC GLUCOSE (test code = POCGLU) 117 MG/DL 70-110 H HEMOGLOBIN [id number] 02:15:00* Test Item Value Reference Range Interpretation Comme nts HEMOGLOBIN ABG (test code = HGB/ABG) 8.9 G/DL 11.0-15.0 L [id number] 02:15:00* Test Item Value Reference Range Interpretation Comme nts HEMATOCRIT (test code = HCT/ABG) 26 % 33-45 L POC LACTIC [id number] 02:15:00* Test Item Value Reference Range Interpretation Comme nts POC LACTIC ACID (test code = POCLAC) 1.1 mmol/l 0.9-1.7 N GLUCOSE [id number] 20:18:00* Test Item Value Reference Range Interpretation Comme nts GLUCOSE BEDSIDE (test code = GLUBED) 125 MG/DL 70-110 H Performed by cer tified cinder crusher operator at [facility] HGB [id number] 18:52:00* Test Item Value Reference Range Interpretation Comme nts HEMOGLOBIN (test code = HGB) 6.7 g/dL 11.0-15.0 L HEMATOCRIT (test code = HCT) 22.7 % 33.0-45.0 L POC ARTERIAL BLOOD [id number] 18:18:00* Test Item Value Reference Range Interpretation Comme nts POC ARTERIAL BLOOD GAS PH (test code = POCPHA) 7.434 7.35-7.45 N POC ARTERIAL BLOOD GAS PCO2 (test code = GPOVSW8K) 38.7 mmHg 35.0-45 N POC TCO2 ARTERIAL (test code = POCTCO2) 27.1 22-29 N POC ARTERIAL BLOOD GAS PO2 (test code = OZEBV2F) 110.9 mmHg 80-100.0 H POC HCO3 ARTERIAL (test code = KLSGTD0B) 25.9 MMOL/L 22.0-26.0 N POC BASE EXCESS (test code = POCBEA) 1.7 MMOL/L See_Comment N [Automated messa ge] The system which generated this result transmitted reference range: 0-+/-4. The reference range was not used to interpret this result as normal/abnormal. POC O2 SATURATION (test code = POCO2S) 98.5 % 90-100 N ABG DELIVERY (test code = BENY) Cannula ABG TEMPERATURE (test code = TEMPA) 99 F ABG SITE (test code = SITEA) Art Line YESSY'S TEST (test code = ALLENS) N/A BASIC METABOLIC [id number] 18:18:00* Test Item Value Reference Range Interpretation Comme nts SODIUM (test code = NA/ABG) 141 mmol/L 134-147 N POTASSIUM (test code = K/ABG) 4.5 mmol/L 3.4-5.0 N CHLORIDE (test code = CL/ABG) 105 mmol/L 100-108 N CREATININE ABG (test code = CREAABG) 1.3 mg/dL 0.6-1.3 N POC IONIZED CALCIUM (test co de = POCCA) 1.19 MMOL/L 1.12-1.32 N POC GLUCOSE (test code = POCGLU) 190 MG/DL 70-110 H HEMOGLOBIN [id number] 18:18:00* Test Item Value Reference Range Interpretation Comme nts HEMOGLOBIN ABG (test code = HGB/ABG) 7.1 G/DL 11.0-15.0 L [id number] 18:18:00* Test Item Value Reference Range Interpretation Comme nts HEMATOCRIT (test code = HCT/ABG) 21 % 33-45 L POC LACTIC [id number] 18:18:00* Test Item Value Reference Range Interpretation Comme nts POC LACTIC ACID (test code = POCLAC) 1.3 mmol/l 0.9-1.7 N GLUCOSE [id number] 18:15:00* Test Item Value Reference Range Interpretation Comme [facility] GLUCOSE BEDSIDE (test code = GLUBED) 158 MG/DL 70-110 H Performed by cer tified cinder crusher operator at [facility] GLUCOSE [id number] 16:25:00* Test Item Value Reference Range Interpretation Comme [facility] GLUCOSE BEDSIDE (test code = GLUBED) 225 MG/DL 70-110 H Performed by cer tified cinder crusher operator at [facility] BASIC METABOLIC [id number] 16:07:00* Test Item Value Reference Range Interpretation Comme [facility] SODIUM (test code = NA) 141 mEq/L 134-147 N POTASSIUM (test code = K) 4.6 mEq/L 3.4-5.0 N CHLORIDE (test code = CL) 109 mEq/L 100-108 H CARBON DIOXIDE (test code = CO2) 25 mEq/l 21-33 N ANION GAP (test code = GAP) 11 0-20 N GLUCOSE (test code = GLU) 220 mg/dL 77-141 H BLOOD UREA NITROGEN (test code = BUN) 26 mg/dL 7-25 H GLOMERULAR FILTRATION RATE (test code = GFR) 56.8 80-90 L The Glomerular Filtration Rate is a calculated parameterbased on serum Creatinine, patient age and sex. GFR valuesless than 60 mL/min/1.73 square meters are indicative ofChronic Kidney Disease. Values less than 15 mL/min/1.73square meters indicate Kidney failure. The calculation forGFR is based on the CKD-EPI (2020) calculation. This formulais race indifferent and is the recommended formula for GFRby the National Kidney Foundation for Adults.The GFR will not calculate if the sex is unknown or if thepatient's age is <18 years. CREATININE (test code = CREAT) 1.1 mg/dL 0.6-1.3 N CALCIUM (test code = CA) 8.6 mg/dL 8.0-10.5 N POC ARTERIAL BLOOD [id number] 15:12:00* Test Item Value Reference Range Interpretation Comme [facility] POC ARTERIAL BLOOD GAS PH (test code = POCPHA) 7.410 7.35-7.45 N POC ARTERIAL BLOOD GAS PCO2 (test code = LYUORD3Q) 36.7 mmHg 35.0-45 N POC TCO2 ARTERIAL (test code = POCTCO2) 24.4 22-29 N POC ARTERIAL BLOOD GAS PO2 (test code = QJIZA4O) 75.2 mmHg 80-100.0 L POC HCO3 ARTERIAL (test code = XZYIDV3E) 23.3 MMOL/L 22.0-26.0 N POC BASE EXCESS (test code = POCBEA) -1.4 MMOL/L See_Comment L [Automated messa ge] The system which generated this result transmitted reference range: 0-+/-4. The reference range was not used to interpret this result as normal/abnormal. POC O2 SATURATION (test code = POCO2S) 95.1 % 90-100 N ABG DELIVERY (test code = BENY) Cannula ABG TEMPERATURE (test code = TEMPA) 99 F ABG SITE (test code = SITEA) Art Line YESSY'S TEST (test code = ALLENS) N/A BASIC METABOLIC [id number] 15:12:00* Test Item Value Reference Range Interpretation Comme nts SODIUM (test code = NA/ABG) 140 mmol/L 134-147 N POTASSIUM (test code = K/ABG) 4.5 mmol/L 3.4-5.0 N CHLORIDE (test code = CL/ABG) 108 mmol/L 100-108 N CREATININE ABG (test code = CREAABG) 1.1 mg/dL 0.6-1.3 N POC IONIZED CALCIUM (test co de = POCCA) 1.17 MMOL/L 1.12-1.32 N POC GLUCOSE (test code = POCGLU) 237 MG/DL 70-110 H HEMOGLOBIN [id number] 15:12:00* Test Item Value Reference Range Interpretation Comme nts HEMOGLOBIN ABG (test code = HGB/ABG) 7.1 G/DL 11.0-15.0 L [id number] 15:12:00* Test Item Value Reference Range Interpretation Comme nts HEMATOCRIT (test code = HCT/ABG) 21 % 33-45 L POC LACTIC [id number] 15:12:00* Test Item Value Reference Range Interpretation Comme nts POC LACTIC ACID (test code = POCLAC) 0.9 mmol/l 0.9-1.7 N GLUCOSE [id number] 13:42:00* Test Item Value Reference Range Interpretation Comme nts GLUCOSE BEDSIDE (test code = GLUBED) 271 MG/DL 70-110 H Performed by cer dez cinder crusher operator at [facility] BASIC METABOLIC [id number] 12:09:00* Test Item Value Reference Range Interpretation Comme nts SODIUM (test code = NA/ABG) 142 mmol/L 134-147 N POTASSIUM (test code = K/ABG) 4.7 mmol/L 3.4-5.0 N CHLORIDE (test code = CL/ABG) 109 mmol/L 100-108 H CREATININE ABG (test code = CREAABG) 1.1 mg/dL 0.6-1.3 N POC IONIZED CALCIUM (test co de = POCCA) 1.18 MMOL/L 1.12-1.32 N POC GLUCOSE (test code = POCGLU) 196 MG/DL 70-110 H HEMOGLOBIN [id number] 12:09:00* Test Item Value Reference Range Interpretation Comme nts HEMOGLOBIN ABG (test code = HGB/ABG) 8.5 G/DL 11.0-15.0 L [id number] 12:09:00* Test Item Value Reference Range Interpretation Comme nts HEMATOCRIT (test code = HCT/ABG) 25 % 33-45 L POC LACTIC [id number] 12:09:00* Test Item Value Reference Range Interpretation Comme nts POC LACTIC ACID (test code = POCLAC) 1.5 mmol/l 0.9-1.7 N POC VENOUS BLOOD [id number] 12:09:00* Test Item Value Reference Range Interpretation Comme nts YESSY'S TEST (test code = ALLENS) N/A POC VENOUS BLOOD GAS PH (test code = POCPHV) 7.353 7.33-7.45 N POC VENOUS BLOOD GAS PCO2 (test code = FFXHXW6C) 40.8 mmHg 43-47 L POC VENOUS BLOOD GAS PO2 (test code = ZTSCC0H) 30.0 mmHG 10-50 N POC TCO2 VENOUS (test code = FAROCN0C) 23.9 22-29 N POC HCO3 VENOUS (test code = HPFSEI2G) 22.7 MMOL/L 22-27 N POC BASE EXCESS VENOUS (test code = POCBEV) -2.9 MMOL/L See_Comment L [Automated messa ge] The system which generated this result transmitted reference range: 0-+/-4. The reference range was not used to interpret this result as normal/abnormal. POC O2 SATURATION VENOUS (test code = BQDG8UQ) 54.4 % 60-80 L VENOUS BLOOD GAS FIO2 (test code = FIO2V) 50 % VENOUS BLOOD GAS DELIVERY (test code = DELV) [facility] [place]. BLOOD GAS RESP. RATE (test code = RRV) 16 /min VENOUS BLOOD GAS PEEP (test code = PEEPV) 8 cmH2O PRESSURE SUPPORT (test code = PSV) 16 cmH2O VENOUS BLOOD GAS TEMP (test code = TEMPV) 98.4 F VENOUS BLOOD GAS SITE (test code = SITEV) [place] BASIC METABOLIC [id number] 11:52:00* Test Item Value Reference Range Interpretation Comme nts SODIUM (test code = NA/ABG) 141 mmol/L 134-147 N POTASSIUM (test code = K/ABG) 4.7 mmol/L 3.4-5.0 N CHLORIDE (test code = CL/ABG) 109 mmol/L 100-108 H CREATININE ABG (test code = CREAABG) 1.2 mg/dL 0.6-1.3 N POC IONIZED CALCIUM (test co de = POCCA) 1.14 MMOL/L 1.12-1.32 N POC GLUCOSE (test code = POCGLU) 187 MG/DL 70-110 H HEMOGLOBIN [id number] 11:52:00* Test Item Value Reference Range Interpretation Comme nts HEMOGLOBIN ABG (test code = HGB/ABG) 7.1 G/DL 11.0-15.0 L [id number] 11:52:00* Test Item Value Reference Range Interpretation Comme nts HEMATOCRIT (test code = HCT/ABG) 21 % 33-45 L POC LACTIC [id number] 11:52:00* Test Item Value Reference Range Interpretation Comme nts POC LACTIC ACID (test code = POCLAC) 1.6 mmol/l 0.9-1.7 N POC VENOUS BLOOD [id number] 11:52:00* Test Item Value Reference Range Interpretation Comme nts YESSY'S TEST (test code = ALLENS) N/A POC VENOUS BLOOD GAS PH (test code = POCPHV) 7.386 7.33-7.45 N POC VENOUS BLOOD GAS PCO2 (test code = PXOFXO6O) 35.8 mmHg 43-47 L POC VENOUS BLOOD GAS PO2 (test code = PONCK2S) 76.7 mmHG 10-50 H POC TCO2 VENOUS (test code = UVJZSU5R) 22.6 22-29 N POC HCO3 VENOUS (test code = LOCFYX0A) 21.5 MMOL/L 22-27 L POC BASE EXCESS VENOUS (test code = POCBEV) -3.5 MMOL/L See_Comment L [Automated messa ge] The system which generated this result transmitted reference range: 0-+/-4. The reference range was not used to interpret this result as normal/abnormal. POC O2 SATURATION VENOUS (test code = XDIJ3CO) 95.1 % 60-80 H VENOUS BLOOD GAS FIO2 (test code = FIO2V) 50 % VENOUS BLOOD GAS DELIVERY (test code = DELV) [facility] [place]. BLOOD GAS RESP. RATE (test code = RRV) 16 /min VENOUS BLOOD GAS PEEP (test code = PEEPV) 8 cmH2O PRESSURE SUPPORT (test code = PSV) 14 cmH2O VENOUS BLOOD GAS TEMP (test code = TEMPV) 98 F VENOUS BLOOD GAS SITE (test code = SITEV) [facility] BASIC METABOLIC [id number] 11:49:00* Test Item Value Reference Range Interpretation Comme nts SODIUM (test code = NA) 140 mEq/L 134-147 N POTASSIUM (test code = K) 5.4 mEq/L 3.4-5.0 H CHLORIDE (test code = CL) 110 mEq/L 100-108 H CARBON DIOXIDE (test code = CO2) 21 mEq/l 21-33 N ANION GAP (test code = GAP) 14 0-20 N GLUCOSE (test code = GLU) 185 mg/dL 77-141 H BLOOD UREA NITROGEN (test code = BUN) 23 mg/dL 7-25 N GLOMERULAR FILTRATION RATE (test code = GFR) 46.5 80-90 L The Glomerular Filtration Rate is a calculated parameterbased on serum Creatinine, patient age and sex. GFR valuesless than 60 mL/min/1.73 square meters are indicative ofChronic Kidney Disease. Values less than 15 mL/min/1.73square meters indicate Kidney failure. The calculation forGFR is based on the CKD-EPI (202) calculation. This formulais race indifferent and is the recommended formula for GFRby the National Kidney Foundation for Adults.The GFR will not calculate if the sex is unknown or if thepatient's age is <18 years. CREATININE (test code = CREAT) 1.3 mg/dL 0.6-1.3 N CALCIUM (test code = CA) 8.8 mg/dL 8.0-10.5 N [id number] 11:49:00* Test Item Value Reference Range Interpretation Comme nts MAGNESIUM (test code = MAG) 2.24 mg/dL 1.6-2.6 N GLUCOSE [id number] 11:11:00* Test Item Value Reference Range Interpretation Comme nts GLUCOSE BEDSIDE (test code = GLUBED) 167 MG/DL 70-110 H Performed by cer tified cinder crusher operator at [facility] GLUCOSE [id number] 11:11:00* Test Item Value Reference Range Interpretation Comme nts GLUCOSE BEDSIDE (test code = GLUBED) 124 MG/DL 70-110 H Performed by [facility] tified cinder crusher operator at [facility] POC ARTERIAL BLOOD [id number] 10:54:00* Test Item Value Reference Range Interpretation Comme nts POC ARTERIAL BLOOD GAS PH (test code = POCPHA) 7.343 7.35-7.45 L POC ARTERIAL BLOOD GAS PCO2 (test code = HTSYWV8V) 37.6 mmHg 35.0-45 N POC TCO2 ARTERIAL (test code = POCTCO2) 21.6 22-29 L POC ARTERIAL BLOOD GAS PO2 (test code = WJRLR0I) 64.6 mmHg 80-100.0 L POC HCO3 ARTERIAL (test code = WGGEKY5T) 20.4 MMOL/L 22.0-26.0 L POC BASE EXCESS (test code = POCBEA) -5.3 MMOL/L See_Comment L [Automated messa ge] The system which generated this result transmitted reference range: 0-+/-4. The reference range was not used to interpret this result as normal/abnormal. POC O2 SATURATION (test code = POCO2S) 91.2 % 90-100 N ABG DELIVERY (test code = BENY) Cannula ABG TEMPERATURE (test code = TEMPA) 96.8 F ABG SITE (test code = SITEA) Art Line YESSY'S TEST (test code = ALLENS) N/A BASIC METABOLIC [id number] 10:54:00* Test Item Value Reference Range Interpretation Comme nts SODIUM (test code = NA/ABG) 141 mmol/L 134-147 N POTASSIUM (test code = K/ABG) 5.5 mmol/L 3.4-5.0 H CHLORIDE (test code = CL/ABG) 109 mmol/L 100-108 H CREATININE ABG (test code = CREAABG) 1.3 mg/dL 0.6-1.3 N POC IONIZED CALCIUM (test co de = POCCA) 1.21 MMOL/L 1.12-1.32 N POC GLUCOSE (test code = POCGLU) 201 MG/DL 70-110 H HEMOGLOBIN [id number] 10:54:00* Test Item Value Reference Range Interpretation Comme nts HEMOGLOBIN ABG (test code = HGB/ABG) 7.5 G/DL 11.0-15.0 L [id number] 10:54:00* Test Item Value Reference Range Interpretation Comme nts HEMATOCRIT (test code = HCT/ABG) 22 % 33-45 L POC LACTIC [id number] 10:54:00* Test Item Value Reference Range Interpretation Comme nts POC LACTIC ACID (test code = POCLAC) 4.2 mmol/l 0.9-1.7 HH POC ARTERIAL BLOOD [id number] 10:38:00* Test Item Value Reference Range Interpretation Comme nts POC ARTERIAL BLOOD GAS PH (test code = POCPHA) 7.341 7.35-7.45 L POC ARTERIAL BLOOD GAS PCO2 (test code = LCQCVQ0G) 34.4 mmHg 35.0-45 L POC TCO2 ARTERIAL (test code = POCTCO2) 19.7 22-29 L POC ARTERIAL BLOOD GAS PO2 (test code = KBUMD6G) 124.9 mmHg 80-100.0 H POC HCO3 ARTERIAL (test code = FZRWGS0M) 18.6 MMOL/L 22.0-26.0 L POC BASE EXCESS (test code = POCBEA) -7.1 MMOL/L See_Comment L [Automated messa ge] The system which generated this result transmitted reference range: 0-+/-4. The reference range was not used to interpret this result as normal/abnormal. POC O2 SATURATION (test code = POCO2S) 98.7 % 90-100 N ABG DELIVERY (test code = BENY) Cannula ABG TEMPERATURE (test code = TEMPA) 99.3 F ABG SITE (test code = SITEA) Art Line YESSY'S TEST (test code = ALLENS) N/A BASIC METABOLIC [id number] 10:38:00* Test Item Value Reference Range Interpretation Comme nts SODIUM (test code = NA/ABG) 138 mmol/L 134-147 N POTASSIUM (test code = K/ABG) 6.4 mmol/L 3.4-5.0 HH CHLORIDE (test code = CL/ABG) 110 mmol/L 100-108 H CREATININE ABG (test code = CREAABG) 1.4 mg/dL 0.6-1.3 H POC IONIZED CALCIUM (test co de = POCCA) 1.13 MMOL/L 1.12-1.32 N POC GLUCOSE (test code = POCGLU) 236 MG/DL 70-110 H HEMOGLOBIN [id number] 10:38:00* Test Item Value Reference Range Interpretation Comme nts HEMOGLOBIN ABG (test code = HGB/ABG) 7.7 G/DL 11.0-15.0 L [id number] 10:38:00* Test Item Value Reference Range Interpretation Comme nts HEMATOCRIT (test code = HCT/ABG) 23 % 33-45 L POC LACTIC [id number] 10:38:00* Test Item Value Reference Range Interpretation Comme nts POC LACTIC ACID (test code = POCLAC) 2.6 mmol/l 0.9-1.7 H BASIC METABOLIC [id number] 09:53:00* Test Item Value Reference Range Interpretation Comme nts SODIUM (test code = NA) 138 mEq/L 134-147 N POTASSIUM (test code = K) 6.4 mEq/L 3.4-5.0 HH Critical result called to Taiwo DUNLAP.LCG at 0952 08/31/24Nurse read back result and tech confirmed it's correct? YES CHLORIDE (test code = CL) 113 mEq/L 100-108 H CARBON DIOXIDE (test code = CO2) 21 mEq/l 21-33 N ANION GAP (test code = GAP) 10 0-20 N GLUCOSE (test code = GLU) 127 mg/dL 77-141 N BLOOD UREA NITROGEN (test code = BUN) 21 mg/dL 7-25 N GLOMERULAR FILTRATION RATE (test code = GFR) 46.5 80-90 L The Glomerular Filtration Rate is a calculated parameterbased on serum Creatinine, patient age and sex. GFR valuesless than 60 mL/min/1.73 square meters are indicative ofChronic Kidney Disease. Values less than 15 mL/min/1.73square meters indicate Kidney failure. The calculation forGFR is based on the CKD-EPI (202) calculation. This formulais race indifferent and is the recommended formula for GFRby the National Kidney Foundation for Adults.The GFR will not calculate if the sex is unknown or if thepatient's age is <18 years. CREATININE (test code = CREAT) 1.3 mg/dL 0.6-1.3 N CALCIUM (test code = CA) 8.1 mg/dL 8.0-10.5 N POC ARTERIAL BLOOD [id number] 09:02:00* Test Item Value Reference Range Interpretation Comme nts POC ARTERIAL BLOOD GAS PH (test code = POCPHA) 7.351 7.35-7.45 N POC ARTERIAL BLOOD GAS PCO2 (test code = GRVZAE0F) 33.5 mmHg 35.0-45 L POC TCO2 ARTERIAL (test code = POCTCO2) 19.6 22-29 L POC ARTERIAL BLOOD GAS PO2 (test code = FNYHY4C) 152.3 mmHg 80-100.0 H POC HCO3 ARTERIAL (test code = OAXORY6K) 18.5 MMOL/L 22.0-26.0 L POC BASE EXCESS (test code = POCBEA) -7.1 MMOL/L See_Comment L [Automated message] The system which generated this result transmitted reference range: 0-+/-4. The reference range was not used to interpret this result as normal/abnormal. POC O2 SATURATION (test code = POCO2S) 99.3 % 90-100 N FIO2 (test code = FIO2A) 60 % PaO2/FiO2 (test code = [id number]) 253.83 mm/Hg ABG DELIVERY (test code = BENY) Cannula ABG SITE (test code = SITEA) Art Line YESSY'S TEST (test code = ALLENS) Positive BASIC METABOLIC [id number] 09:02:00* Test Item Value Reference Range Interpretation Comme nts SODIUM (test code = NA/ABG) 142 mmol/L 134-147 N POTASSIUM (test code = K/ABG) 5.7 mmol/L 3.4-5.0 H CHLORIDE (test code = CL/ABG) 113 mmol/L 100-108 H CREATININE ABG (test code = CREAABG) 1.2 mg/dL 0.6-1.3 N POC IONIZED CALCIUM (test co de = POCCA) 1.08 MMOL/L 1.12-1.32 L POC GLUCOSE (test code = POCGLU) 148 MG/DL 70-110 H HEMOGLOBIN [id number] 09:02:00* Test Item Value Reference Range Interpretation Comme nts HEMOGLOBIN ABG (test code = HGB/ABG) 7.4 G/DL 11.0-15.0 L [id number] 09:02:00* Test Item Value Reference Range Interpretation Comme nts HEMATOCRIT (test code = HCT/ABG) 22 % 33-45 L POC LACTIC [id number] 09:02:00* Test Item Value Reference Range Interpretation Comme nts POC LACTIC ACID (test code = POCLAC) 1.5 mmol/l 0.9-1.7 N POC ARTERIAL BLOOD [id number] 07:39:00* Test Item Value Reference Range Interpretation Comme nts POC ARTERIAL BLOOD GAS PH (test code = POCPHA) 7.325 7.35-7.45 L POC ARTERIAL BLOOD GAS PCO2 (test code = XNMJTA8L) 46.5 mmHg 35.0-45 H POC TCO2 ARTERIAL (test code = POCTCO2) 25.7 22-29 N POC ARTERIAL BLOOD GAS PO2 (test code = WWBRJ9C) 24.2 mmHg 80-100.0 LL POC HCO3 ARTERIAL (test code = HDDQNS6T) 24.3 MMOL/L 22.0-26.0 N POC BASE EXCESS (test code = POCBEA) -1.7 MMOL/L See_Comment L [Automated messa ge] The system which generated this result transmitted reference range: 0-+/-4. The reference range was not used to interpret this result as normal/abnormal. POC O2 SATURATION (test code = POCO2S) 38.2 % 90-100 L ABG DELIVERY (test code = BENY) Cannula ABG TEMPERATURE (test code = TEMPA) 99 F ABG SITE (test code = SITEA) Art Line YESSY'S TEST (test code = ALLENS) N/A BASIC METABOLIC [id number] 07:39:00* Test Item Value Reference Range Interpretation Comme nts SODIUM (test code = NA/ABG) 142 mmol/L 134-147 N POTASSIUM (test code = K/ABG) 5.5 mmol/L 3.4-5.0 H CHLORIDE (test code = CL/ABG) 110 mmol/L 100-108 H CREATININE ABG (test code = CREAABG) 1.0 mg/dL 0.6-1.3 N POC IONIZED CALCIUM (test co de = POCCA) 1.22 MMOL/L 1.12-1.32 N POC GLUCOSE (test code = POCGLU) 89 MG/DL 70-110 N HEMOGLOBIN [id number] 07:39:00* Test Item Value Reference Range Interpretation Comme nts HEMOGLOBIN ABG (test code = HGB/ABG) 8.9 G/DL 11.0-15.0 L [id number] 07:39:00* Test Item Value Reference Range Interpretation Comme nts HEMATOCRIT (test code = HCT/ABG) 26 % 33-45 L POC LACTIC [id number] 07:39:00* Test Item Value Reference Range Interpretation Comme nts POC LACTIC ACID (test code = POCLAC) 1.2 mmol/l 0.9-1.7 N POC ARTERIAL BLOOD [id number] 06:51:00* Test Item Value Reference Range Interpretation Comme nts POC ARTERIAL BLOOD GAS PH (test code = POCPHA) 7.384 7.35-7.45 N POC ARTERIAL BLOOD GAS PCO2 (test code = ULDQIC5B) 35.0 mmHg 35.0-45 N POC TCO2 ARTERIAL (test code = POCTCO2) 21.9 22-29 L POC ARTERIAL BLOOD GAS PO2 (test code = QRNHX7D) 130.3 mmHg 80-100.0 H POC HCO3 ARTERIAL (test code = ZTTLLW7R) 20.9 MMOL/L 22.0-26.0 L POC BASE EXCESS (test code = POCBEA) -4.2 MMOL/L See_Comment L [Automated messa ge] The system which generated this result transmitted reference range: 0-+/-4. The reference range was not used to interpret this result as normal/abnormal. POC O2 SATURATION (test code = POCO2S) 98.9 % 90-100 N ABG DELIVERY (test code = BENY) Cannula ABG TEMPERATURE (test code = TEMPA) 98 F ABG SITE (test code = SITEA) Art Line YESSY'S TEST (test code = ALLENS) N/A BASIC METABOLIC [id number] 06:51:00* Test Item Value Reference Range Interpretation Comme nts SODIUM (test code = NA/ABG) 141 mmol/L 134-147 N POTASSIUM (test code = K/ABG) 5.0 mmol/L 3.4-5.0 N CHLORIDE (test code = CL/ABG) 112 mmol/L 100-108 H CREATININE ABG (test code = CREAABG) 1.0 mg/dL 0.6-1.3 N POC IONIZED CALCIUM (test co de = POCCA) 1.14 MMOL/L 1.12-1.32 N POC GLUCOSE (test code = POCGLU) 94 MG/DL 70-110 N HEMOGLOBIN [id number] 06:51:00* Test Item Value Reference Range Interpretation Comme nts HEMOGLOBIN ABG (test code = HGB/ABG) 8.7 G/DL 11.0-15.0 L [id number] 06:51:00* Test Item Value Reference Range Interpretation Comme nts HEMATOCRIT (test code = HCT/ABG) 26 % 33-45 L POC LACTIC [id number] 06:51:00* Test Item Value Reference Range Interpretation Comme nts POC LACTIC ACID (test code = POCLAC) 1.3 mmol/l 0.9-1.7 N BASIC METABOLIC [id number] 04:41:00* Test Item Value Reference Range Interpretation Comme nts SODIUM (test code = NA/ABG) 140 mmol/L 134-147 N POTASSIUM (test code = K/ABG) 4.6 mmol/L 3.4-5.0 N CHLORIDE (test code = CL/ABG) 111 mmol/L 100-108 H CREATININE ABG (test code = CREAABG) 0.8 mg/dL 0.6-1.3 N POC IONIZED CALCIUM (test co de = POCCA) 1.08 MMOL/L 1.12-1.32 L POC GLUCOSE (test code = POCGLU) 169 MG/DL 70-110 H HEMOGLOBIN [id number] 04:41:00* Test Item Value Reference Range Interpretation Comme nts HEMOGLOBIN ABG (test code = HGB/ABG) 6.7 G/DL 11.0-15.0 L [id number] 04:41:00* Test Item Value Reference Range Interpretation Comme nts HEMATOCRIT (test code = HCT/ABG) 20 % 33-45 L POC LACTIC [id number] 04:41:00* Test Item Value Reference Range Interpretation Comme nts POC LACTIC ACID (test code = POCLAC) 1.5 mmol/l 0.9-1.7 N POC VENOUS BLOOD [id number] 04:41:00* Test Item Value Reference Range Interpretation Comme nts YESSY'S TEST (test code = ALLENS) N/A POC VENOUS BLOOD GAS PH (test code = POCPHV) 7.285 7.33-7.45 L POC VENOUS BLOOD GAS PCO2 (test code = VSVXNQ7Z) 37.9 mmHg 43-47 L POC VENOUS BLOOD GAS PO2 (test code = RJLHG0G) 28.7 mmHG 10-50 N POC TCO2 VENOUS (test code = TEDNSX2F) 19.1 22-29 L POC HCO3 VENOUS (test code = HFWARW0X) 18.0 MMOL/L 22-27 L POC BASE EXCESS VENOUS (test code = POCBEV) -8.7 MMOL/L See_Comment L [Automated messa ge] The system which generated this result transmitted reference range: 0-+/-4. The reference range was not used to interpret this result as normal/abnormal. POC O2 SATURATION VENOUS (test code = ZCPD2UA) 47.0 % 60-80 L VENOUS BLOOD GAS DELIVERY (test code = DELV) Cannula VENOUS BLOOD GAS TEMP (test code = TEMPV) 98.8 F VENOUS BLOOD GAS SITE (test code = SITEV) PA BASIC METABOLIC [id number] 03:05:00* Test Item Value Reference Range Interpretation Comme nts SODIUM (test code = NA) 141 mEq/L 134-147 N POTASSIUM (test code = K) 5.4 mEq/L 3.4-5.0 H CHLORIDE (test code = CL) 114 mEq/L 100-108 H CARBON DIOXIDE (test code = CO2) 23 mEq/l 21-33 N ANION GAP (test code = GAP) 9 0-20 N GLUCOSE (test code = GLU) 135 mg/dL 77-141 BLOOD UREA NITROGEN (test code = BUN) 17 mg/dL 7-25 N GLOMERULAR FILTRATION RATE (test code = GFR) 72.3 80-90 L The Glomerular Filtration Rate is a calculated parameterbased on serum Creatinine, patient age and sex. GFR valuesless than 60 mL/min/1.73 square meters are indicative ofChronic Kidney Disease. Values less than 15 mL/min/1.73square meters indicate Kidney failure. The calculation forGFR is based on the CKD-EPI (2020) calculation. This formulais race indifferent and is the recommended formula for GFRby the National Kidney Foundation for Adults.The GFR will not calculate if the sex is unknown or if thepatient's age is <18 years. CREATININE (test code = CREAT) 0.9 mg/dL 0.6-1.3 N CALCIUM (test code = CA) 8.1 mg/dL 8.0-10.5 N COMMENTS: POD #1HEPATIC FUNCTION [id number] 03:05:00* Test Item Value Reference Range Interpretation Comme nts TOTAL PROTEIN (test code = PROT) 5.8 g/dL 6.4-8.2 L ALBUMIN (test code = ALB) 3.10 g/dL 3.4-5.0 L BILIRUBIN TOTAL (test code = BILT) 0.40 mg/dL 0.0-1.0 N BILIRUBIN DIRECT (test code = BILD) 0.20 MG/DL 0.1-0.3 N BILIRUBIN INDIRECT (test cod e = BILIND) 0.20 MG/DL SGOT/AST (test code = AST) 60 IUnit/L 8-34 H SGPT/ALT (test code = ALT) 16 IUnit/L 10-49 N ALKALINE PHOSPHATASE TOTAL ( test code = ALKP) 74 IUnit/L 20-125 N COMMENTS: POD #[id number] 03:05:00* Test Item Value Reference Range Interpretation Comme nts MAGNESIUM (test code = MAG) 2.37 mg/dL 1.6-2.6 N COMMENTS: POD #1CBC W/AUTO [id number] 02:29:00* Test Item Value Reference Range Interpretation Comme nts WHITE BLOOD CELL (test code = WBC) 19.7 x10 3/uL 4.5-11.0 H RED BLOOD CELL (test code = RBC) 3.08 x10 6/uL 3.54-5.02 L HEMOGLOBIN (test code = HGB) 7.4 g/dL 11.0-15.0 L HEMATOCRIT (test code = HCT) 23.8 % 33.0-45.0 L MEAN CELL VOLUME (test code = MCV) 77.3 fL 81.0-99.0 L MEAN CELL HGB (test code = MCH) 24.0 pg 27.0-33.0 L MEAN CELL HGB CONCETRATION (test code = MCHC) 31.1 g/dL 33.0-37.0 L RED CELL DISTRIBUTION WIDTH CV (test code = RDW) 16.0 % 11.5-14.5 H RED CELL DISTRIBUTION WIDTH SD (test code = RDW-SD) 44.6 fL 37.0-54.0 N PLATELET COUNT (test code = PLT) 283 x10 3/uL 150-400 N MEAN PLATELET VOLUME (test code = MPV) 9.7 fL 7.0-9.0 H NEUTROPHIL % (test code = NT%) 90.1 % 56.0-77.0 H IMMATURE GRANULOCYTE % (test code = IG%) 0.8 % 0.0-2.0 N LYMPHOCYTE % (test code = LY%) 3.9 % 14.0-32.0 L MONOCYTE % (test code = MO%) 5.1 % 4.8-9.0 N EOSINOPHIL % (test code = EO%) 0.0 % 0.3-3.7 L BASOPHIL % (test code = BA%) 0.1 % 0.0-2.0 N NUCLEATED RBC % (test code = NRBC%) 0.0 % 0-0 N NEUTROPHIL # (test code = NT#) 17.73 x10 3/uL 2.0-7.6 H IMMATURE GRANULOCYTE # (test code = IG#) 0.15 x10 3/uL 0.00-0.03 H LYMPHOCYTE # (test code = LY#) 0.77 x10 3/uL 1.0-3.8 L MONOCYTE # (test code = MO#) 1.01 x10 3/uL 0.1-0.8 H EOSINOPHIL # (test code = EO#) 0.00 x10 3/uL 0.0-0.2 N BASOPHIL # (test code = BA#) 0.02 x10 3/uL 0.0-0.2 N NUCLEATED RBC # (test code = NRBC#) 0.00 x10 3/uL 0.0-0.1 N POC ARTERIAL BLOOD [id number] 02:19:00* Test Item Value Reference Range Interpretation Comme nts POC ARTERIAL BLOOD GAS PH (test code = POCPHA) 7.349 7.35-7.45 L POC ARTERIAL BLOOD GAS PCO2 (test code = MYKEGF8A) 39.9 mmHg 35.0-45 N POC TCO2 ARTERIAL (test code = POCTCO2) 23.3 22-29 N POC ARTERIAL BLOOD GAS PO2 (test code = QYKWP2C) 81.9 mmHg 80-100.0 N POC HCO3 ARTERIAL (test code = NXSNVS8Q) 22.1 MMOL/L 22.0-26.0 N POC BASE EXCESS (test code = POCBEA) -3.6 MMOL/L See_Comment L [Automated messa ge] The system which generated this result transmitted reference range: 0-+/-4. The reference range was not used to interpret this result as normal/abnormal. POC O2 SATURATION (test code = POCO2S) 95.6 % 90-100 N ABG DELIVERY (test code = BENY) Cannula ABG TEMPERATURE (test code = TEMPA) 98 F ABG SITE (test code = SITEA) Art Line YESSY'S TEST (test code = ALLENS) N/A BASIC METABOLIC [id number] 02:19:00* Test Item Value Reference Range Interpretation Comme nts SODIUM (test code = NA/ABG) 141 mmol/L 134-147 N POTASSIUM (test code = K/ABG) 5.5 mmol/L 3.4-5.0 H CHLORIDE (test code = CL/ABG) 113 mmol/L 100-108 H CREATININE ABG (test code = CREAABG) 0.9 mg/dL 0.6-1.3 N POC IONIZED CALCIUM (test co de = POCCA) 1.15 MMOL/L 1.12-1.32 N POC GLUCOSE (test code = POCGLU) 142 MG/DL 70-110 H HEMOGLOBIN [id number] 02:19:00* Test Item Value Reference Range Interpretation Comme nts HEMOGLOBIN ABG (test code = HGB/ABG) 7.6 G/DL 11.0-15.0 L [id number] 02:19:00* Test Item Value Reference Range Interpretation Comme nts HEMATOCRIT (test code = HCT/ABG) 22 % 33-45 L POC LACTIC [id number] 02:19:00* Test Item Value Reference Range Interpretation Comme nts POC LACTIC ACID (test code = POCLAC) 1.3 mmol/l 0.9-1.7 N POC ARTERIAL BLOOD [id number] 22:42:00* Test Item Value Reference Range Interpretation Comme nts POC ARTERIAL BLOOD GAS PH (test code = POCPHA) 7.282 7.35-7.45 LL POC ARTERIAL BLOOD GAS PCO2 (test code = GJOQHP3Y) 47.1 mmHg 35.0-45 H POC TCO2 ARTERIAL (test code = POCTCO2) 23.8 22-29 N POC ARTERIAL BLOOD GAS PO2 (test code = SWTUK8W) 97.7 mmHg 80-100.0 N POC HCO3 ARTERIAL (test code = RDMGLZ0J) 22.4 MMOL/L 22.0-26.0 N POC BASE EXCESS (test code = POCBEA) -4.4 MMOL/L See_Comment L [Automated messa ge] The system which generated this result transmitted reference range: 0-+/-4. The reference range was not used to interpret this result as normal/abnormal. POC O2 SATURATION (test code = POCO2S) 96.8 % 90-100 N ABG DELIVERY (test code = BENY) Cannula ABG TEMPERATURE (test code = TEMPA) 97.8 F ABG SITE (test code = SITEA) Art Line YESSY'S TEST (test code = ALLENS) N/A BASIC METABOLIC [id number] 22:42:00* Test Item Value Reference Range Interpretation Comme nts SODIUM (test code = NA/ABG) 143 mmol/L 134-147 N POTASSIUM (test code = K/ABG) 4.6 mmol/L 3.4-5.0 N CHLORIDE (test code = CL/ABG) 112 mmol/L 100-108 H CREATININE ABG (test code = CREAABG) 0.7 mg/dL 0.6-1.3 N POC IONIZED CALCIUM (test co de = POCCA) 1.20 MMOL/L 1.12-1.32 N POC GLUCOSE (test code = POCGLU) 130 MG/DL 70-110 H HEMOGLOBIN [id number] 22:42:00* Test Item Value Reference Range Interpretation Comme nts HEMOGLOBIN ABG (test code = HGB/ABG) 7.7 G/DL 11.0-15.0 L [id number] 22:42:00* Test Item Value Reference Range Interpretation Comme nts HEMATOCRIT (test code = HCT/ABG) 23 % 33-45 L POC LACTIC [id number] 22:42:00* Test Item Value Reference Range Interpretation Comme nts POC LACTIC ACID (test code = POCLAC) 1.6 mmol/l 0.9-1.7 N BASIC METABOLIC [id number] 21:35:00* Test Item Value Reference Range Interpretation Comme nts SODIUM (test code = NA/ABG) 142 mmol/L 134-147 N POTASSIUM (test code = K/ABG) 4.7 mmol/L 3.4-5.0 N CHLORIDE (test code = CL/ABG) 111 mmol/L 100-108 H CREATININE ABG (test code = CREAABG) 0.7 mg/dL 0.6-1.3 N POC IONIZED CALCIUM (test co de = POCCA) 1.18 MMOL/L 1.12-1.32 N POC GLUCOSE (test code = POCGLU) 123 MG/DL 70-110 H HEMOGLOBIN [id number] 21:35:00* Test Item Value Reference Range Interpretation Comme nts HEMOGLOBIN ABG (test code = HGB/ABG) 8.1 G/DL 11.0-15.0 L [id number] 21:35:00* Test Item Value Reference Range Interpretation Comme nts HEMATOCRIT (test code = HCT/ABG) 24 % 33-45 L POC LACTIC [id number] 21:35:00* Test Item Value Reference Range Interpretation Comme nts POC LACTIC ACID (test code = POCLAC) 1.8 mmol/l 0.9-1.7 H POC VENOUS BLOOD [id number] 21:35:00* Test Item Value Reference Range Interpretation Comme nts YESSY'S TEST (test code = ALLENS) N/A POC VENOUS BLOOD GAS PH (test code = POCPHV) 7.328 7.33-7.45 L POC VENOUS BLOOD GAS PCO2 (test code = PLRUJK6L) 43.6 mmHg 43-47 N POC VENOUS BLOOD GAS PO2 (test code = NHYIT2X) 26.2 mmHG 10-50 N POC TCO2 VENOUS (test code = QMUGCA6T) 24.4 22-29 N POC HCO3 VENOUS (test code = AHJIXB5S) 23.0 MMOL/L 22-27 N POC BASE EXCESS VENOUS (test code = POCBEV) -3.0 MMOL/L See_Comment L [Automated messa ge] The system which generated this result transmitted reference range: 0-+/-4. The reference range was not used to interpret this result as normal/abnormal. POC O2 SATURATION VENOUS (test code = JPUT5OW) 45.2 % 60-80 L VENOUS BLOOD GAS DELIVERY (test code = DELV) Cannula VENOUS BLOOD GAS TEMP (test code = TEMPV) 97.8 F VENOUS BLOOD GAS SITE (test code = SITEV) parlin GLUCOSE [id number] 20:22:00* Test Item Value Reference Range Interpretation Comme nts GLUCOSE BEDSIDE (test code = GLUBED) 112 MG/DL 70-110 H Performed by cer tified cinder crusher operator at [facility] GLUCOSE [id number] 18:47:00* Test Item Value Reference Range Interpretation Comme nts GLUCOSE BEDSIDE (test code = GLUBED) 148 MG/DL 70-110 H Performed by cer tified cinder crusher operator at [facility] GLUCOSE [id number] 18:47:00* Test Item Value Reference Range Interpretation Comme nts GLUCOSE BEDSIDE (test code = GLUBED) 162 MG/DL 70-110 H Performed by cer tified cinder crusher operator at [facility] POC ARTERIAL BLOOD [id number] 18:36:00* Test Item Value Reference Range Interpretation Comme nts POC ARTERIAL BLOOD GAS PH (test code = POCPHA) 7.328 7.35-7.45 L POC ARTERIAL BLOOD GAS PCO2 (test code = GLIFSU9F) 39.8 mmHg 35.0-45 N POC TCO2 ARTERIAL (test code = POCTCO2) 22.1 22-29 N POC ARTERIAL BLOOD GAS PO2 (test code = ANQYX1M) 109.9 mmHg 80-100.0 H POC HCO3 ARTERIAL (test code = OYYRXK7P) 20.9 MMOL/L 22.0-26.0 L POC BASE EXCESS (test code = POCBEA) -5.1 MMOL/L See_Comment L [Automated messa ge] The system which generated this result transmitted reference range: 0-+/-4. The reference range was not used to interpret this result as normal/abnormal. POC O2 SATURATION (test code = POCO2S) 97.9 % 90-100 N FIO2 (test code = FIO2A) 50 % PaO2/FiO2 (test code = YFT3HGI8) 219.80 mm/Hg ABG DELIVERY (test code = BENY) BiPAP ABG PEEP (test code = PEEPA) 8 cmH2O ABG TEMPERATURE (test code = TEMPA) 97.2 F ABG SITE (test code = SITEA) Art Line BASIC METABOLIC [id number] 18:36:00* Test Item Value Reference Range Interpretation Comme nts SODIUM (test code = NA/ABG) 146 mmol/L 134-147 N POTASSIUM (test code = K/ABG) 3.5 mmol/L 3.4-5.0 N CHLORIDE (test code = CL/ABG) 111 mmol/L 100-108 H CREATININE ABG (test code = CREAABG) 0.7 mg/dL 0.6-1.3 N POC IONIZED CALCIUM (test co de = POCCA) 1.17 MMOL/L 1.12-1.32 N POC GLUCOSE (test code = POCGLU) 153 MG/DL 70-110 H HEMOGLOBIN [id number] 18:36:00* Test Item Value Reference Range Interpretation Comme nts HEMOGLOBIN ABG (test code = HGB/ABG) 10.0 G/DL 11.0-15.0 L [id number] 18:36:00* Test Item Value Reference Range Interpretation Comme nts HEMATOCRIT (test code = HCT/ABG) 29 % 33-45 L POC LACTIC [id number] 18:36:00* Test Item Value Reference Range Interpretation Comme nts POC LACTIC ACID (test code = POCLAC) 3.1 mmol/l 0.9-1.7 H BASIC METABOLIC [id number] 18:02:00* Test Item Value Reference Range Interpretation Comme nts SODIUM (test code = NA) 141 mEq/L 134-147 N POTASSIUM (test code = K) 3.6 mEq/L 3.4-5.0 N CHLORIDE (test code = CL) 112 mEq/L 100-108 H CARBON DIOXIDE (test code = CO2) 20 mEq/l 21-33 L ANION GAP (test code = GAP) 13 0-20 N GLUCOSE (test code = GLU) 271 mg/dL 77-141 H BLOOD UREA NITROGEN (test code = BUN) 13 mg/dL 7-25 N GLOMERULAR FILTRATION RATE (test code = GFR) 72.3 80-90 L The Glomerular Filtration Rate is a calculated parameterbased on serum Creatinine, patient age and sex. GFR valuesless than 60 mL/min/1.73 square meters are indicative ofChronic Kidney Disease. Values less than 15 mL/min/1.73square meters indicate Kidney failure. The calculation forGFR is based on the CKD-EPI (2020) calculation. This formulais race indifferent and is the recommended formula for GFRby the National Kidney Foundation for Adults.The GFR will not calculate if the sex is unknown or if thepatient's age is <18 years. CREATININE (test code = CREAT) 0.9 mg/dL 0.6-1.3 N CALCIUM (test code = CA) 8.6 mg/dL 8.0-10.5 N COMMENTS: On arrivalComment: On [id number] 18:02:00* Test Item Value Reference Range Interpretation Comme nts MAGNESIUM (test code = MAG) 3.04 mg/dL 1.6-2.6 H COMMENTS: On arrivalComment: On arrivalPO ARTERIAL BLOOD [id number] 17:51:00 * Test Item Value Reference Range Interpretation Comme nts POC ARTERIAL BLOOD GAS PH (test code = POCPHA) 7.313 7.35-7.45 L POC ARTERIAL BLOOD GAS PCO2 (test code = FWDZRO7V) 43.7 mmHg 35.0-45 N POC TCO2 ARTERIAL (test code = POCTCO2) 23.5 22-29 N POC ARTERIAL BLOOD GAS PO2 (test code = MWWKE9S) 101.3 mmHg 80-100.0 H POC HCO3 ARTERIAL (test code = [id number]) 22.2 MMOL/L 22.0-26.0 N POC BASE EXCESS (test code = POCBEA) -4.0 MMOL/L See_Comment L [Automated message] The system which generated this result transmitted reference range: 0-+/-4. The reference range was not used to interpret this result as normal/abnormal. POC O2 SATURATION (test code = POCO2S) 97.2 % 90-100 N FIO2 (test code = FIO2A) 50 % PaO2/FiO2 (test code = [id number]) 202.60 mm/Hg ABG DELIVERY (test code = BENY) BiPAP ABG VENT MODE (test code = MODEA) PC/PS ABG VENT RESP RATE (test code = RRA) 16 /MIN ABG PEEP (test code = PEEPA) 8 cmH2O ABG PRESSURE SUPPORT (test code = PSABG) 14 cmH2O ABG SITE (test code = SITEA) Art Line BASIC METABOLIC [id number] 17:51:00* Test Item Value Reference Range Interpretation Comme nts SODIUM (test code = NA/ABG) 145 mmol/L 134-147 N POTASSIUM (test code = K/ABG) 3.2 mmol/L 3.4-5.0 L CHLORIDE (test code = CL/ABG) 110 mmol/L 100-108 H CREATININE ABG (test code = CREAABG) 0.8 mg/dL 0.6-1.3 N POC IONIZED CALCIUM (test co de = POCCA) 1.22 MMOL/L 1.12-1.32 N POC GLUCOSE (test code = POCGLU) 224 MG/DL 70-110 H HEMOGLOBIN [id number] 17:51:00* Test Item Value Reference Range Interpretation Comme nts HEMOGLOBIN ABG (test code = HGB/ABG) 8.9 G/DL 11.0-15.0 L [id number] 17:51:00* Test Item Value Reference Range Interpretation Comme nts HEMATOCRIT (test code = HCT/ABG) 26 % 33-45 L POC LACTIC [id number] 17:51:00* Test Item Value Reference Range Interpretation Comme nts POC LACTIC ACID (test code = POCLAC) 4.0 mmol/l 0.9-1.7 H CBC W/AUTO [id number] 16:19:00* Test Item Value Reference Range Interpretation Comme nts WHITE BLOOD CELL (test code = WBC) 31.7 x10 3/uL 4.5-11.0 H RED BLOOD CELL (test code = RBC) 3.57 x10 6/uL 3.54-5.02 N HEMOGLOBIN (test code = HGB) 8.5 g/dL 11.0-15.0 L HEMATOCRIT (test code = HCT) 29.2 % 33.0-45.0 L MEAN CELL VOLUME (test code = MCV) 81.8 fL 81.0-99.0 N MEAN CELL HGB (test code = MCH) 23.8 pg 27.0-33.0 L MEAN CELL HGB CONCETRATION (test code = MCHC) 29.1 g/dL 33.0-37.0 L RED CELL DISTRIBUTION WIDTH CV (test code = RDW) 15.8 % 11.5-14.5 H RED CELL DISTRIBUTION WIDTH SD (test code = RDW-SD) 47.5 fL 37.0-54.0 N PLATELET COUNT (test code = PLT) 323 x10 3/uL 150-400 N MEAN PLATELET VOLUME (test code = MPV) 9.9 fL 7.0-9.0 H NEUTROPHIL % (test code = NT%) 82.8 % 56.0-77.0 H IMMATURE GRANULOCYTE % (test code = IG%) 4.3 % 0.0-2.0 H LYMPHOCYTE % (test code = LY%) 11.4 % 14.0-32.0 L MONOCYTE % (test code = MO%) 0.8 % 4.8-9.0 L EOSINOPHIL % (test code = EO%) 0.4 % 0.3-3.7 N BASOPHIL % (test code = BA%) 0.3 % 0.0-2.0 N NUCLEATED RBC % (test code = NRBC%) 0.1 % 0-0 H NEUTROPHIL # (test code = NT#) 26.25 x10 3/uL 2.0-7.6 H IMMATURE GRANULOCYTE # (test code = IG#) 1.35 x10 3/uL 0.00-0.03 H LYMPHOCYTE # (test code = LY#) 3.61 x10 3/uL 1.0-3.8 N MONOCYTE # (test code = MO#) 0.26 x10 3/uL 0.1-0.8 N EOSINOPHIL # (test code = EO#) 0.12 x10 3/uL 0.0-0.2 N BASOPHIL # (test code = BA#) 0.08 x10 3/uL 0.0-0.2 N NUCLEATED RBC # (test code = NRBC#) 0.02 x10 3/uL 0.0-0.1 N MANUAL DIFF REQUIRED (test code = MDIFF) NO SLIDE REVIEW ED, CONSISTENT WITH AUTO DIFF. [facility] [id number] 16:01:00* Test Item Value Reference Range Interpretation Comme nts POC ARTERIAL BLOOD GAS PH (test code = POCPHA) 7.290 7.35-7.45 LL POC ARTERIAL BLOOD GAS PCO2 (test code = GQFESS3Y) 41.4 mmHg 35.0-45 N POC TCO2 ARTERIAL (test code = POCTCO2) 21.2 22-29 L POC ARTERIAL BLOOD GAS PO2 (test code = ERNMK5W) 127.7 mmHg 80-100.0 H POC HCO3 ARTERIAL (test code = AQAHBT0K) 19.9 MMOL/L 22.0-26.0 L POC BASE EXCESS (test code = POCBEA) -6.7 MMOL/L See_Comment L [Automated messa ge] The system which generated this result transmitted reference range: 0-+/-4. The reference range was not used to interpret this result as normal/abnormal. POC O2 SATURATION (test code = POCO2S) 98.5 % 90-100 N FIO2 (test code = FIO2A) 60 % PaO2/FiO2 (test code = MTU0HDO2) 212.83 mm/Hg ABG DELIVERY (test code = BENY) Adult Vent ABG VENT MODE (test code = MODEA) CPAP/PS ABG PEEP (test code = PEEPA) 8 cmH2O ABG PRESSURE SUPPORT (test code = PSABG) 10 cmH2O ABG TEMPERATURE (test code = TEMPA) 97.3 F ABG SITE (test code = SITEA) Art Line BASIC METABOLIC [id number] 16:01:00* Test Item Value Reference Range Interpretation Comme nts SODIUM (test code = NA/ABG) 146 mmol/L 134-147 N POTASSIUM (test code = K/ABG) 3.3 mmol/L 3.4-5.0 L CHLORIDE (test code = CL/ABG) 111 mmol/L 100-108 H CREATININE ABG (test code = CREAABG) 0.8 mg/dL 0.6-1.3 N POC IONIZED CALCIUM (test co de = POCCA) 1.25 MMOL/L 1.12-1.32 N POC GLUCOSE (test code = POCGLU) 230 MG/DL 70-110 H HEMOGLOBIN [id number] 16:01:00* Test Item Value Reference Range Interpretation Comme nts HEMOGLOBIN ABG (test code = HGB/ABG) 9.4 G/DL 11.0-15.0 L [id number] 16:01:00* Test Item Value Reference Range Interpretation Comme nts HEMATOCRIT (test code = HCT/ABG) 28 % 33-45 L POC LACTIC [id number] 16:01:00* Test Item Value Reference Range Interpretation Comme nts POC LACTIC ACID (test code = POCLAC) 3.8 mmol/l 0.9-1.7 H BASIC METABOLIC [id number] 15:34:00* Test Item Value Reference Range Interpretation Comme nts SODIUM (test code = NA/ABG) 144 mmol/L 134-147 N POTASSIUM (test code = K/ABG) 3.5 mmol/L 3.4-5.0 N CHLORIDE (test code = CL/ABG) 110 mmol/L 100-108 H CREATININE ABG (test code = CREAABG) 0.8 mg/dL 0.6-1.3 N POC IONIZED CALCIUM (test co de = POCCA) 1.29 MMOL/L 1.12-1.32 N POC GLUCOSE (test code = POCGLU) 249 MG/DL 70-110 H HEMOGLOBIN [id number] 15:34:00* Test Item Value Reference Range Interpretation Comme nts HEMOGLOBIN ABG (test code = HGB/ABG) 8.8 G/DL 11.0-15.0 L [id number] 15:34:00* Test Item Value Reference Range Interpretation Comme nts HEMATOCRIT (test code = HCT/ABG) 26 % 33-45 L POC LACTIC [id number] 15:34:00* Test Item Value Reference Range Interpretation Comme nts POC LACTIC ACID (test code = POCLAC) 3.8 mmol/l 0.9-1.7 H POC VENOUS BLOOD [id number] 15:34:00* Test Item Value Reference Range Interpretation Comme nts POC VENOUS BLOOD GAS PH (test code = POCPHV) 7.248 7.33-7.45 L POC VENOUS BLOOD GAS PCO2 (test code = MXQUML9W) 48.9 mmHg 43-47 H POC VENOUS BLOOD GAS PO2 (test code = LXGKO8A) 36.0 mmHG 10-50 N POC TCO2 VENOUS (test code = BZJKZS2H) 22.8 22-29 N POC HCO3 VENOUS (test code = XPRLCE1W) 21.3 MMOL/L 22-27 L POC BASE EXCESS VENOUS (test code = POCBEV) -5.9 MMOL/L See_Comment L [Automated messa ge] The system which generated this result transmitted reference range: 0-+/-4. The reference range was not used to interpret this result as normal/abnormal. POC O2 SATURATION VENOUS (test code = UCDK4LH) 59.0 % 60-80 L VENOUS BLOOD GAS FIO2 (test code = FIO2V) 60 % VENOUS BLOOD GAS DELIVERY (test code = DELV) Adult Vent VBG VENT MODE (test code = MODEV) AC VBG TIDAL VOLUME (test code = TVV) 450 ml VENOUS BLOOD GAS PEEP (test code = PEEPV) 8 cmH2O VENOUS BLOOD GAS TEMP (test code = TEMPV) 97.3 F VENOUS BLOOD GAS SITE (test code = SITEV) [place] She PROTHROMBIN [id number] 15:11:00* Test Item Value Reference Range Interpretation Comme [facility] PROTHROMBIN TIME PATIENT (test code = PTP) 15.1 SECONDS 9.3-12.9 H INTERNATIONAL NORMAL RATIO (test code = INR) 1.4 0.8-1.2 H TARGET INR BY INDICATION Indication INR1. Prophylaxis of venous thrombosis 2.0 - 3.0 (orthopedic surgery), Prophylaxis of venous thrombosis (other than high-risk surgery), Treatment of Deep Vein Thrombosis/Pulmonary Embolism, Prevention of systemic embolism - Tissue heart valves, Acute Myocardial Infarction (to prevent systemic embolism), Valvular heart disease, Atrial Fibrillation, Bileaflet mechanical valve in aortic position.2. Mechanical prosthetic valves (high risk), 2.5 - 3.5 Presence of Lupus Anticoagulant or Antiphospholipid Antibodies, Prevention of systemic embolism - Acute Myocardial Infarction (to prevent recurrent infarct). COMMENTS: On arrivalTHROMBOPLASTIN TIME [id number] 15:11:00* Test Item Value Reference Range Interpretation Comme nts THROMBOPLASTIN TIME PARTIAL (test code = PTT) 32.3 Seconds 25.0-39.5 N Therapeutic Rang e: 58.8 - 96.0 Seconds Effective 07/16/2024 COMMENTS: On arrivalPOC ARTERIAL BLOOD [id number] 14:19:00* Test Item Value Reference Range Interpretation Comme nts POC ARTERIAL BLOOD GAS PH (test code = POCPHA) 7.223 7.35-7.45 LL POC ARTERIAL BLOOD GAS PCO2 (test code = OXKVIF1W) 49.7 mmHg 35.0-45 H POC TCO2 ARTERIAL (test code = POCTCO2) 22.0 22-29 N POC ARTERIAL BLOOD GAS PO2 (test code = ZYHMO2I) 77.6 mmHg 80-100.0 L POC HCO3 ARTERIAL (test code = DRGNEZ1B) 20.5 MMOL/L 22.0-26.0 L POC BASE EXCESS (test code = POCBEA) -7.2 MMOL/L See_Comment L [Automated message] The system which generated this result transmitted reference range: 0-+/-4. The reference range was not used to interpret this result as normal/abnormal. POC O2 SATURATION (test code = POCO2S) 92.3 % 90-100 N FIO2 (test code = FIO2A) 50 % PaO2/FiO2 (test code = UDU6IAE4) 155.20 mm/Hg ABG DELIVERY (test code = BENY) Adult Vent ABG VENT MODE (test code = MODEA) AC ABG VENT RESP RATE (test code = RRA) 20 /MIN ABG TIDAL VOLUME (test code = TVA) 450 ml ABG PEEP (test code = PEEPA) 5 cmH2O ABG SITE (test code = SITEA) L Radial BASIC METABOLIC [id number] 14:19:00* Test Item Value Reference Range Interpretation Comme nts SODIUM (test code = NA/ABG) 145 mmol/L 134-147 N POTASSIUM (test code = K/ABG) 3.5 mmol/L 3.4-5.0 N CHLORIDE (test code = CL/ABG) 111 mmol/L 100-108 H CREATININE ABG (test code = CREAABG) 0.9 mg/dL 0.6-1.3 N POC IONIZED CALCIUM (test co de = POCCA) 1.30 MMOL/L 1.12-1.32 N POC GLUCOSE (test code = POCGLU) 290 MG/DL 70-110 H HEMOGLOBIN [id number] 14:19:00* Test Item Value Reference Range Interpretation Comme nts HEMOGLOBIN ABG (test code = HGB/ABG) 10.2 G/DL 11.0-15.0 L [id number] 14:19:00* Test Item Value Reference Range Interpretation Comme nts HEMATOCRIT (test code = HCT/ABG) 30 % 33-45 L POC ARTERIAL BLOOD [id number] 13:55:00* Test Item Value Reference Range Interpretation Comme nts POC ARTERIAL BLOOD GAS PH (test code = POCPHA) 7.219 7.35-7.45 LL POC ARTERIAL BLOOD GAS PCO2 (test code = BVIJIW8A) 43.0 mmHg 35.0-45 N POC TCO2 ARTERIAL (test code = POCTCO2) 18.9 22-29 L POC ARTERIAL BLOOD GAS PO2 (test code = OCADL2Y) 80.1 mmHg 80-100.0 N POC HCO3 ARTERIAL (test code = LSXPYZ9S) 17.6 MMOL/L 22.0-26.0 LL POC BASE EXCESS (test code = POCBEA) -9.6 MMOL/L See_Comment L [Automated messa ge] The system which generated this result transmitted reference range: 0-+/-4. The reference range was not used to interpret this result as normal/abnormal. POC O2 SATURATION (test code = POCO2S) 93.0 % 90-100 N BASIC METABOLIC [id number] 13:55:00* Test Item Value Reference Range Interpretation Comme nts SODIUM (test code = NA/ABG) 141 mmol/L 134-147 N POTASSIUM (test code = K/ABG) 3.6 mmol/L 3.4-5.0 N CHLORIDE (test code = CL/ABG) 113 mmol/L 100-108 H CREATININE ABG (test code = CREAABG) 0.8 mg/dL 0.6-1.3 N POC IONIZED CALCIUM (test co de = POCCA) 1.19 MMOL/L 1.12-1.32 N POC GLUCOSE (test code = POCGLU) 300 MG/DL 70-110 H HEMOGLOBIN [id number] 13:55:00* Test Item Value Reference Range Interpretation Comme nts HEMOGLOBIN ABG (test code = HGB/ABG) 8.8 G/DL 11.0-15.0 L [id number] 13:55:00* Test Item Value Reference Range Interpretation Comme nts HEMATOCRIT (test code = HCT/ABG) 26 % 33-45 L POC LACTIC [id number] 13:55:00* Test Item Value Reference Range Interpretation Comme nts POC LACTIC ACID (test code = POCLAC) 4.1 mmol/l 0.9-1.7 HH [id number] 13:46:00* Test Item Value Reference Range Interpretation Comme nts ACT-ISTAT (test code = ACTI) 129 SEC 74-137 N Performed by cer tified cinder crusher operator at [facility] POC ARTERIAL BLOOD [id number] 13:39:00* Test Item Value Reference Range Interpretation Comme nts POC ARTERIAL BLOOD GAS PH (test code = POCPHA) 7.219 7.35-7.45 LL POC ARTERIAL BLOOD GAS PCO2 (test code = TXZORM1Z) 39.3 mmHg 35.0-45 N POC TCO2 ARTERIAL (test code = POCTCO2) 17.3 22-29 L POC ARTERIAL BLOOD GAS PO2 (test code = AEFLB3B) 60.5 mmHg 80-100.0 L POC HCO3 ARTERIAL (test code = MHTQQG2N) 16.1 MMOL/L 22.0-26.0 LL POC BASE EXCESS (test code = POCBEA) -10.7 MMOL/L See_Comment L [Automated message] The system which generated this result transmitted reference range: 0-+/-4. The reference range was not used to interpret this result as normal/abnormal. POC O2 SATURATION (test code = POCO2S) 85.6 % 90-100 L BASIC METABOLIC [id number] 13:39:00* Test Item Value Reference Range Interpretation Comme nts SODIUM (test code = NA/ABG) 141 mmol/L 134-147 N POTASSIUM (test code = K/ABG) 3.6 mmol/L 3.4-5.0 N CHLORIDE (test code = CL/ABG) 113 mmol/L 100-108 H CREATININE ABG (test code = CREAABG) 0.8 mg/dL 0.6-1.3 N POC IONIZED CALCIUM (test co de = POCCA) 1.22 MMOL/L 1.12-1.32 N POC GLUCOSE (test code = POCGLU) 322 MG/DL 70-110 H HEMOGLOBIN [id number] 13:39:00* Test Item Value Reference Range Interpretation Comme nts HEMOGLOBIN ABG (test code = HGB/ABG) 6.5 G/DL 11.0-15.0 L [id number] 13:39:00* Test Item Value Reference Range Interpretation Comme nts HEMATOCRIT (test code = HCT/ABG) 19 % 33-45 L POC LACTIC [id number] 13:39:00* Test Item Value Reference Range Interpretation Comme nts POC LACTIC ACID (test code = POCLAC) 5.1 mmol/l 0.9-1.7 HH [id number] 12:46:00* Test Item Value Reference Range Interpretation Comme nts ACT-ISTAT (test code = ACTI) 504 SEC 74-137 H Performed by cer tified cinder crusher operator at [facility] POC ARTERIAL BLOOD [id number] 12:35:00* Test Item Value Reference Range Interpretation Comme nts POC ARTERIAL BLOOD GAS PH (test code = POCPHA) 7.394 7.35-7.45 N POC ARTERIAL BLOOD GAS PCO2 (test code = IBOXVL2I) 41.2 mmHg 35.0-45 N POC TCO2 ARTERIAL (test code = POCTCO2) 26.4 22-29 N POC ARTERIAL BLOOD GAS PO2 (test code = EIEKV7M) 366.5 mmHg 80-100.0 HH POC HCO3 ARTERIAL (test code = GABXTR4X) 25.2 MMOL/L 22.0-26.0 N POC BASE EXCESS (test code = POCBEA) 0.2 MMOL/L See_Comment N [Automated messa ge] The system which generated this result transmitted reference range: 0-+/-4. The reference range was not used to interpret this result as normal/abnormal. POC O2 SATURATION (test code = POCO2S) 100.0 % 90-100 N BASIC METABOLIC [id number] 12:35:00* Test Item Value Reference Range Interpretation Comme nts SODIUM (test code = NA/ABG) 139 mmol/L 134-147 N POTASSIUM (test code = K/ABG) 4.7 mmol/L 3.4-5.0 N CHLORIDE (test code = CL/ABG) 104 mmol/L 100-108 N CREATININE ABG (test code = CREAABG) 0.9 mg/dL 0.6-1.3 N POC IONIZED CALCIUM (test co de = POCCA) 1.10 MMOL/L 1.12-1.32 L POC GLUCOSE (test code = POCGLU) 179 MG/DL 70-110 H HEMOGLOBIN [id number] 12:35:00* Test Item Value Reference Range Interpretation Comme nts HEMOGLOBIN ABG (test code = HGB/ABG) 7.1 G/DL 11.0-15.0 L [id number] 12:35:00* Test Item Value Reference Range Interpretation Comme nts HEMATOCRIT (test code = HCT/ABG) 21 % 33-45 L POC LACTIC [id number] 12:35:00* Test Item Value Reference Range Interpretation Comme nts POC LACTIC ACID (test code = POCLAC) 1.2 mmol/l 0.9-1.7 N [id number] 12:15:00* Test Item Value Reference Range Interpretation Comme nts ACT-ISTAT (test code = ACTI) 579 SEC 74-137 H Performed by cer tified cinder crusher operator at [facility] POC ARTERIAL BLOOD [id number] 12:02:00* Test Item Value Reference Range Interpretation Comme nts POC ARTERIAL BLOOD GAS PH (test code = POCPHA) 7.428 7.35-7.45 N POC ARTERIAL BLOOD GAS PCO2 (test code = RQWMUC6P) 36.7 mmHg 35.0-45 N POC TCO2 ARTERIAL (test code = POCTCO2) 25.4 22-29 N POC ARTERIAL BLOOD GAS PO2 (test code = GRFMC5L) 359.2 mmHg 80-100.0 HH POC HCO3 ARTERIAL (test code = WBKTAP5I) 24.2 MMOL/L 22.0-26.0 N POC BASE EXCESS (test code = POCBEA) -0.1 MMOL/L See_Comment L [Automated messa ge] The system which generated this result transmitted reference range: 0-+/-4. The reference range was not used to interpret this result as normal/abnormal. POC O2 SATURATION (test code = POCO2S) 100.0 % 90-100 N BASIC METABOLIC [id number] 12:02:00* Test Item Value Reference Range Interpretation Comme nts SODIUM (test code = NA/ABG) 140 mmol/L 134-147 N POTASSIUM (test code = K/ABG) 5.1 mmol/L 3.4-5.0 H CHLORIDE (test code = CL/ABG) 107 mmol/L 100-108 N CREATININE ABG (test code = CREAABG) 0.9 mg/dL 0.6-1.3 N POC IONIZED CALCIUM (test co de = POCCA) 1.09 MMOL/L 1.12-1.32 L POC GLUCOSE (test code = POCGLU) 161 MG/DL 70-110 H HEMOGLOBIN [id number] 12:02:00* Test Item Value Reference Range Interpretation Comme nts HEMOGLOBIN ABG (test code = HGB/ABG) 7.2 G/DL 11.0-15.0 L [id number] 12:02:00* Test Item Value Reference Range Interpretation Comme nts HEMATOCRIT (test code = HCT/ABG) 21 % 33-45 L POC LACTIC [id number] 12:02:00* Test Item Value Reference Range Interpretation Comme nts POC LACTIC ACID (test code = POCLAC) < 0.3 mmol/l 0.9-1.7 L [id number] 11:38:00* Test Item Value Reference Range Interpretation Comme nts ACT-ISTAT (test code = ACTI) 700 SEC 74-137 H Performed by cer tified cinder crusher operator at [facility] POC ARTERIAL BLOOD [id number] 11:22:00* Test Item Value Reference Range Interpretation Comme nts POC ARTERIAL BLOOD GAS PH (test code = POCPHA) 7.439 7.35-7.45 N POC ARTERIAL BLOOD GAS PCO2 (test code = STXMAS2Z) 36.2 mmHg 35.0-45 N POC TCO2 ARTERIAL (test code = POCTCO2) 25.6 22-29 N POC ARTERIAL BLOOD GAS PO2 (test code = ZXYNX1F) 351.2 mmHg 80-100.0 HH POC HCO3 ARTERIAL (test code = HHRUGL8I) 24.5 MMOL/L 22.0-26.0 N POC BASE EXCESS (test code = POCBEA) 0.4 MMOL/L See_Comment N [Automated messa ge] The system which generated this result transmitted reference range: 0-+/-4. The reference range was not used to interpret this result as normal/abnormal. POC O2 SATURATION (test code = POCO2S) 100.0 % 90-100 N BASIC METABOLIC [id number] 11:22:00* Test Item Value Reference Range Interpretation Comme nts SODIUM (test code = NA/ABG) 141 mmol/L 134-147 N POTASSIUM (test code = K/ABG) 4.7 mmol/L 3.4-5.0 N CHLORIDE (test code = CL/ABG) 106 mmol/L 100-108 N CREATININE ABG (test code = CREAABG) 0.9 mg/dL 0.6-1.3 N POC IONIZED CALCIUM (test co de = POCCA) 1.07 MMOL/L 1.12-1.32 L POC GLUCOSE (test code = POCGLU) 179 MG/DL 70-110 H HEMOGLOBIN [id number] 11:22:00* Test Item Value Reference Range Interpretation Comme nts HEMOGLOBIN ABG (test code = HGB/ABG) 7.6 G/DL 11.0-15.0 L [id number] 11:22:00* Test Item Value Reference Range Interpretation Comme nts HEMATOCRIT (test code = HCT/ABG) 22 % 33-45 L POC LACTIC [id number] 11:22:00* Test Item Value Reference Range Interpretation Comme nts POC LACTIC ACID (test code = POCLAC) 0.9 mmol/l 0.9-1.7 N [id number] 11:05:00* Test Item Value Reference Range Interpretation Comme nts ACT-ISTAT (test code = ACTI) 510 SEC 74-137 H Performed by cer tified cinder crusher operator at [facility] POC ARTERIAL BLOOD [id number] 10:54:00* Test Item Value Reference Range Interpretation Comme nts POC ARTERIAL BLOOD GAS PH (test code = POCPHA) 7.390 7.35-7.45 N POC ARTERIAL BLOOD GAS PCO2 (test code = LIWEQQ1X) 41.5 mmHg 35.0-45 N POC TCO2 ARTERIAL (test code = POCTCO2) 26.4 22-29 N POC ARTERIAL BLOOD GAS PO2 (test code = UOEEW4G) 522.2 mmHg 80-100.0 HH POC HCO3 ARTERIAL (test code = IJYVNE3F) 25.1 MMOL/L 22.0-26.0 N POC BASE EXCESS (test code = POCBEA) 0.1 MMOL/L See_Comment N [Automated messa ge] The system which generated this result transmitted reference range: 0-+/-4. The reference range was not used to interpret this result as normal/abnormal. POC O2 SATURATION (test code = POCO2S) 100.0 % 90-100 N BASIC METABOLIC [id number] 10:54:00* Test Item Value Reference Range Interpretation Comme nts SODIUM (test code = NA/ABG) 140 mmol/L 134-147 N POTASSIUM (test code = K/ABG) 5.3 mmol/L 3.4-5.0 H CHLORIDE (test code = CL/ABG) 106 mmol/L 100-108 N CREATININE ABG (test code = CREAABG) 1.0 mg/dL 0.6-1.3 N POC IONIZED CALCIUM (test co de = POCCA) 1.07 MMOL/L 1.12-1.32 L POC GLUCOSE (test code = POCGLU) 196 MG/DL 70-110 H HEMOGLOBIN [id number] 10:54:00* Test Item Value Reference Range Interpretation Comme nts HEMOGLOBIN ABG (test code = HGB/ABG) 7.7 G/DL 11.0-15.0 L [id number] 10:54:00* Test Item Value Reference Range Interpretation Comme nts HEMATOCRIT (test code = HCT/ABG) 23 % 33-45 L POC LACTIC [id number] 10:54:00* Test Item Value Reference Range Interpretation Comme nts POC LACTIC ACID (test code = POCLAC) 1.1 mmol/l 0.9-1.7 N [id number] 10:14:00* Test Item Value Reference Range Interpretation Comme nts ACT-ISTAT (test code = ACTI) 590 SEC 74-137 H Performed by cer tified cinder crusher operator at [facility] POC ARTERIAL BLOOD [id number] 10:05:00* Test Item Value Reference Range Interpretation Comme nts POC ARTERIAL BLOOD GAS PH (test code = POCPHA) 7.357 7.35-7.45 N POC ARTERIAL BLOOD GAS PCO2 (test code = BHRACJ3Y) 36.3 mmHg 35.0-45 N POC TCO2 ARTERIAL (test code = POCTCO2) 21.5 22-29 L POC ARTERIAL BLOOD GAS PO2 (test code = YVXMJ5S) 348.8 mmHg 80-100.0 HH POC HCO3 ARTERIAL (test code = GPAZGO7G) 20.3 MMOL/L 22.0-26.0 L POC BASE EXCESS (test code = POCBEA) -4.7 MMOL/L See_Comment L [Automated messa ge] The system which generated this result transmitted reference range: 0-+/-4. The reference range was not used to interpret this result as normal/abnormal. POC O2 SATURATION (test code = POCO2S) 99.9 % 90-100 N BASIC METABOLIC [id number] 10:05:00* Test Item Value Reference Range Interpretation Comme nts SODIUM (test code = NA/ABG) 140 mmol/L 134-147 N POTASSIUM (test code = K/ABG) 4.0 mmol/L 3.4-5.0 N CHLORIDE (test code = CL/ABG) 109 mmol/L 100-108 H CREATININE ABG (test code = CREAABG) 0.8 mg/dL 0.6-1.3 N POC IONIZED CALCIUM (test co de = POCCA) 1.06 MMOL/L 1.12-1.32 L POC GLUCOSE (test code = POCGLU) 206 MG/DL 70-110 H HEMOGLOBIN [id number] 10:05:00* Test Item Value Reference Range Interpretation Comme nts HEMOGLOBIN ABG (test code = HGB/ABG) 8.3 G/DL 11.0-15.0 L [id number] 10:05:00* Test Item Value Reference Range Interpretation Comme nts HEMATOCRIT (test code = HCT/ABG) 24 % 33-45 L POC LACTIC [id number] 10:05:00* Test Item Value Reference Range Interpretation Comme nts POC LACTIC ACID (test code = POCLAC) < 0.3 mmol/l 0.9-1.7 L [id number] 09:29:00* Test Item Value Reference Range Interpretation Comme nts ACT-ISTAT (test code = ACTI) 141 SEC 74-137 H Performed by cer tified cinder crusher operator at [facility] POC ARTERIAL BLOOD [id number] 09:22:00* Test Item Value Reference Range Interpretation Comme nts POC ARTERIAL BLOOD GAS PH (test code = POCPHA) 7.411 7.35-7.45 N POC ARTERIAL BLOOD GAS PCO2 (test code = VAOVCN8Q) 32.9 mmHg 35.0-45 L POC TCO2 ARTERIAL (test code = POCTCO2) 21.9 22-29 L POC ARTERIAL BLOOD GAS PO2 (test code = KYMSK6N) 370.6 mmHg 80-100.0 HH POC HCO3 ARTERIAL (test code = IOZCQD2I) 20.9 MMOL/L 22.0-26.0 L POC BASE EXCESS (test code = POCBEA) -3.3 MMOL/L See_Comment L [Automated messa ge] The system which generated this result transmitted reference range: 0-+/-4. The reference range was not used to interpret this result as normal/abnormal. POC O2 SATURATION (test code = POCO2S) 100.0 % 90-100 N BASIC METABOLIC [id number] 09:22:00* Test Item Value Reference Range Interpretation Comme nts SODIUM (test code = NA/ABG) 136 mmol/L 134-147 N POTASSIUM (test code = K/ABG) 3.9 mmol/L 3.4-5.0 N CHLORIDE (test code = CL/ABG) 104 mmol/L 100-108 N CREATININE ABG (test code = CREAABG) 0.7 mg/dL 0.6-1.3 N POC IONIZED CALCIUM (test co de = POCCA) 0.97 MMOL/L 1.12-1.32 L POC GLUCOSE (test code = POCGLU) 197 MG/DL 70-110 H HEMOGLOBIN [id number] 09:22:00* Test Item Value Reference Range Interpretation Comme nts HEMOGLOBIN ABG (test code = HGB/ABG) 8.3 G/DL 11.0-15.0 L [id number] 09:22:00* Test Item Value Reference Range Interpretation Comme nts HEMATOCRIT (test code = HCT/ABG) 24 % 33-45 L POC LACTIC [id number] 09:22:00* Test Item Value Reference Range Interpretation Comme nts POC LACTIC ACID (test code = POCLAC) < 0.3 mmol/l 0.9-1.7 L [id number] 09:07:00* Test Item Value Reference Range Interpretation Comme nts ACT-ISTAT (test code = ACTI) 153 SEC 74-137 H Performed by cer tified cinder crusher operator at [facility] POC ARTERIAL BLOOD [id number] 09:02:00* Test Item Value Reference Range Interpretation Comme nts POC ARTERIAL BLOOD GAS PH (test code = POCPHA) 7.333 7.35-7.45 L POC ARTERIAL BLOOD GAS PCO2 (test code = OEDYMK8S) 34.3 mmHg 35.0-45 L POC TCO2 ARTERIAL (test code = POCTCO2) 19.2 22-29 L POC ARTERIAL BLOOD GAS PO2 (test code = HPIOO6C) 305.5 mmHg 80-100.0 HH POC HCO3 ARTERIAL (test code = TKWDFQ1J) 18.2 MMOL/L 22.0-26.0 L POC BASE EXCESS (test code = POCBEA) -7.0 MMOL/L See_Comment L [Automated messa ge] The system which generated this result transmitted reference range: 0-+/-4. The reference range was not used to interpret this result as normal/abnormal. POC O2 SATURATION (test code = POCO2S) 99.9 % 90-100 N BASIC METABOLIC [id number] 09:02:00* Test Item Value Reference Range Interpretation Comme nts SODIUM (test code = NA/ABG) 145 mmol/L 134-147 N POTASSIUM (test code = K/ABG) 3.4 mmol/L 3.4-5.0 N CHLORIDE (test code = CL/ABG) 110 mmol/L 100-108 H CREATININE ABG (test code = CREAABG) 0.7 mg/dL 0.6-1.3 N POC IONIZED CALCIUM (test co de = POCCA) 1.01 MMOL/L 1.12-1.32 L POC GLUCOSE (test code = POCGLU) 198 MG/DL 70-110 H HEMOGLOBIN [id number] 09:02:00* Test Item Value Reference Range Interpretation Comme nts HEMOGLOBIN ABG (test code = HGB/ABG) 7.6 G/DL 11.0-15.0 L [id number] 09:02:00* Test Item Value Reference Range Interpretation Comme nts HEMATOCRIT (test code = HCT/ABG) 22 % 33-45 L POC LACTIC [id number] 09:02:00* Test Item Value Reference Range Interpretation Comme nts POC LACTIC ACID (test code = POCLAC) 0.8 mmol/l 0.9-1.7 L PROTHROMBIN [id number] 04:20:00* Test Item Value Reference Range Interpretation Comme [facility] PROTHROMBIN TIME PATIENT (test code = PTP) 13.3 SECONDS 9.3-12.9 H INTERNATIONAL NORMAL RATIO (test code = INR) 1.2 0.8-1.2 N TARGET INR BY INDICATION Indication INR1. Prophylaxis of venous thrombosis 2.0 - 3.0 (orthopedic surgery), Prophylaxis of venous thrombosis (other than high-risk surgery), Treatment of Deep Vein Thrombosis/Pulmonary Embolism, Prevention of systemic embolism - Tissue heart valves, Acute Myocardial Infarction (to prevent systemic embolism), Valvular heart disease, Atrial Fibrillation, [place] mechanical valve in aortic position.2. Mechanical prosthetic valves (high risk), 2.5 - 3.5 Presence of Lupus Anticoagulant or Antiphospholipid Antibodies, Prevention of systemic embolism - Acute Myocardial Infarction (to prevent recurrent infarct). THROMBOPLASTIN TIME [id number] 04:20:00* Test Item Value Reference Range Interpretation Comme [facility] THROMBOPLASTIN TIME PARTIAL (test code = PTT) 32.4 Seconds 25.0-39.5 N Therapeutic Rang e: 58.8 - 96.0 Seconds Effective 07/16/2024 [id number] 03:57:00* Test Item Value Reference Range Interpretation Comme nts MAGNESIUM (test code = MAG) 1.88 mg/dL 1.6-2.6 N COMPREHENSIVE METABOLIC [id number] 03:40:00* Test Item Value Reference Range Interpretation Comme nts SODIUM (test code = NA) 139 mEq/L 134-147 N POTASSIUM (test code = K) 3.7 mEq/L 3.4-5.0 N CHLORIDE (test code = CL) 108 mEq/L 100-108 N CARBON DIOXIDE (test code = CO2) 28 mEq/l 21-33 N ANION GAP (test code = GAP) 7 0-20 N GLUCOSE (test code = GLU) 111 mg/dL 77-141 BLOOD UREA NITROGEN (test code = BUN) 12 mg/dL 7-25 N GLOMERULAR FILTRATION RATE (test code = GFR) 83.3 80-90 N The Glomerular Filtration Rate is a calculated parameterbased on serum Creatinine, patient age and sex. GFR valuesless than 60 mL/min/1.73 square meters are indicative ofChronic Kidney Disease. Values less than 15 mL/min/1.73square meters indicate Kidney failure. The calculation forGFR is based on the CKD-EPI (2020) calculation. This formulais race indifferent and is the recommended formula for GFRby the National Kidney Foundation for Adults.The GFR will not calculate if the sex is unknown or if thepatient's age is <18 years. CREATININE (test code = CREAT) 0.8 mg/dL 0.6-1.3 N TOTAL PROTEIN (test code = PROT) 8.0 g/dL 6.4-8.2 ALBUMIN (test code = ALB) 3.40 g/dL 3.4-5.0 N CALCIUM (test code = CA) 9.3 mg/dL 8.0-10.5 N BILIRUBIN TOTAL (test code = BILT) 0.60 mg/dL 0.0-1.0 N SGOT/AST (test code = AST) 14 IUnit/L 8-34 N SGPT/ALT (test code = ALT) 11 IUnit/L 10-49 N ALKALINE PHOSPHATASE TOTAL (test code = ALKP) 126 IUnit/L 20-125 H CBC W/AUTO [id number] 03:25:00* Test Item Value Reference Range Interpretation Comme nts WHITE BLOOD CELL (test code = WBC) 10.1 x10 3/uL 4.5-11.0 N RED BLOOD CELL (test code = RBC) 4.07 x10 6/uL 3.54-5.02 N HEMOGLOBIN (test code = HGB) 9.4 g/dL 11.0-15.0 L HEMATOCRIT (test code = HCT) 32.4 % 33.0-45.0 L MEAN CELL VOLUME (test code = MCV) 79.6 fL 81.0-99.0 L MEAN CELL HGB (test code = MCH) 23.1 pg 27.0-33.0 L MEAN CELL HGB CONCETRATION (test code = MCHC) 29.0 g/dL 33.0-37.0 L RED CELL DISTRIBUTION WIDTH CV (test code = RDW) 15.8 % 11.5-14.5 H RED CELL DISTRIBUTION WIDTH SD (test code = RDW-SD) 45.1 fL 37.0-54.0 N PLATELET COUNT (test code = PLT) 564 x10 3/uL 150-400 H MEAN PLATELET VOLUME (test c ode = MPV) 9.8 fL 7.0-9.0 H NEUTROPHIL % (test code = NT%) 72.0 % 56.0-77.0 N IMMATURE GRANULOCYTE % (test code = IG%) 0.4 % 0.0-2.0 N LYMPHOCYTE % (test code = LY%) 18.3 % 14.0-32.0 N MONOCYTE % (test code = MO%) 5.2 % 4.8-9.0 N EOSINOPHIL % (test code = EO%) 3.6 % 0.3-3.7 N BASOPHIL % (test code = BA%) 0.5 % 0.0-2.0 N NUCLEATED RBC % (test code = NRBC%) 0.0 % 0-0 N NEUTROPHIL # (test code = NT#) 7.30 x10 3/uL 2.0-7.6 N IMMATURE GRANULOCYTE # (test code = IG#) 0.04 x10 3/uL 0.00-0.03 H LYMPHOCYTE # (test code = LY#) 1.86 x10 3/uL 1.0-3.8 N MONOCYTE # (test code = MO#) 0.53 x10 3/uL 0.1-0.8 N EOSINOPHIL # (test code = EO#) 0.36 x10 3/uL 0.0-0.2 H BASOPHIL # (test code = BA#) 0.05 x10 3/uL 0.0-0.2 N NUCLEATED RBC # (test code = NRBC#) 0.00 x10 3/uL 0.0-0.1 N SERUM [id number] 21:51:00* Test Item Value Reference Range Interpretation Comme nts SERUM IRON (test code = IRON) 16 mcg/dL 35-150 L VITAMIN [id number] 21:51:00* Test Item Value Reference Range Interpretation Comme nts VITAMIN B12 (test code = VITB12) 376 pg/mL 193-986 N FOLIC [id number] 21:51:00* Test Item Value Reference Range Interpretation Comme nts FOLIC ACID (test code = FOL) 11.9 ng/mL 3.1-17.5 N GLUCOSE [id number] 21:21:00* Test Item Value Reference Range Interpretation Comme nts GLUCOSE BEDSIDE (test code = GLUBED) 255 MG/DL 70-110 H Performed by cer tified cinder crusher operator at [facility] GLUCOSE [id number] 18:52:00* Test Item Value Reference Range Interpretation Comme nts GLUCOSE BEDSIDE (test code = GLUBED) 146 MG/DL 70-110 H Performed by [employer] tified cinder crusher operator at [facility] GLUCOSE [id number] 12:39:00* Test Item Value Reference Range Interpretation Comme nts GLUCOSE BEDSIDE (test code = GLUBED) 174 MG/DL 70-110 H Performed by [employer] tified cinder crusher operator at [facility] GLUCOSE [id number] 08:54:00* Test Item Value Reference Range Interpretation Comme nts GLUCOSE BEDSIDE (test code = GLUBED) 72 MG/DL 70-110 N Performed by [employer] cinder crusher operator at [facility] BASIC METABOLIC [id number] 05:32:00* Test Item Value Reference Range Interpretation Comme nts SODIUM (test code = NA) 140 mEq/L 134-147 N POTASSIUM (test code = K) 3.9 mEq/L 3.4-5.0 N CHLORIDE (test code = CL) 108 mEq/L 100-108 N CARBON DIOXIDE (test code = CO2) 26 mEq/l 21-33 N ANION GAP (test code = GAP) 10 0-20 N GLUCOSE (test code = GLU) 78 mg/dL 77-141 N BLOOD UREA NITROGEN (test code = BUN) 12 mg/dL 7-25 N GLOMERULAR FILTRATION RATE (test code = GFR) 97.7 80-90 H The Glomerular Filtration Rate is a calculated parameterbased on serum Creatinine, patient age and sex. GFR valuesless than 60 mL/min/1.73 square meters are indicative ofChronic Kidney Disease. Values less than 15 mL/min/1.73square meters indicate Kidney failure. The calculation forGFR is based on the CKD-EPI (2020) calculation. This formulais race indifferent and is the recommended formula for GFRby the National Kidney Foundation for Adults.The GFR will not calculate if the sex is unknown or if thepatient's age is <18 years. CREATININE (test code = CREAT) 0.7 mg/dL 0.6-1.3 N CALCIUM (test code = CA) 8.9 mg/dL 8.0-10.5 N [id number] 05:32:00* Test Item Value Reference Range Interpretation Comme nts MAGNESIUM (test code = MAG) 1.96 mg/dL 1.6-2.6 N CBC W/AUTO [id number] 04:58:00* Test Item Value Reference Range Interpretation Comme nts WHITE BLOOD CELL (test code = WBC) 8.5 x10 3/uL 4.5-11.0 N RED BLOOD CELL (test code = RBC) 3.76 x10 6/uL 3.54-5.02 N HEMOGLOBIN (test code = HGB) 8.8 g/dL 11.0-15.0 L HEMATOCRIT (test code = HCT) 30.2 % 33.0-45.0 L MEAN CELL VOLUME (test code = MCV) 80.3 fL 81.0-99.0 L MEAN CELL HGB (test code = MCH) 23.4 pg 27.0-33.0 L MEAN CELL HGB CONCETRATION (test code = MCHC) 29.1 g/dL 33.0-37.0 L RED CELL DISTRIBUTION WIDTH CV (test code = RDW) 15.6 % 11.5-14.5 H RED CELL DISTRIBUTION WIDTH SD (test code = RDW-SD) 45.2 fL 37.0-54.0 N PLATELET COUNT (test code = PLT) 521 x10 3/uL 150-400 H MEAN PLATELET VOLUME (test c ode = MPV) 10.1 fL 7.0-9.0 H NEUTROPHIL % (test code = NT%) 68.9 % 56.0-77.0 N IMMATURE GRANULOCYTE % (test code = IG%) 0.5 % 0.0-2.0 N LYMPHOCYTE % (test code = LY%) 19.8 % 14.0-32.0 N MONOCYTE % (test code = MO%) 5.7 % 4.8-9.0 N EOSINOPHIL % (test code = EO%) 4.6 % 0.3-3.7 H BASOPHIL % (test code = BA%) 0.5 % 0.0-2.0 N NUCLEATED RBC % (test code = NRBC%) 0.0 % 0-0 N NEUTROPHIL # (test code = NT#) 5.89 x10 3/uL 2.0-7.6 N IMMATURE GRANULOCYTE # (test code = IG#) 0.04 x10 3/uL 0.00-0.03 H LYMPHOCYTE # (test code = LY#) 1.69 x10 3/uL 1.0-3.8 N MONOCYTE # (test code = MO#) 0.49 x10 3/uL 0.1-0.8 N EOSINOPHIL # (test code = EO#) 0.39 x10 3/uL 0.0-0.2 H BASOPHIL # (test code = BA#) 0.04 x10 3/uL 0.0-0.2 N NUCLEATED RBC # (test code = NRBC#) 0.00 x10 3/uL 0.0-0.1 N GLUCOSE [id number] 21:16:00* Test Item Value Reference Range Interpretation Comme nts GLUCOSE BEDSIDE (test code = GLUBED) 175 MG/DL 70-110 H Performed by cer tified cinder crusher operator at [facility] GLUCOSE [id number] 18:11:00* Test Item Value Reference Range Interpretation Comme nts GLUCOSE BEDSIDE (test code = GLUBED) 169 MG/DL 70-110 H Performed by cer tified cinder crusher operator at [facility] GLUCOSE [id number] 13:41:00* Test Item Value Reference Range Interpretation Comme nts GLUCOSE BEDSIDE (test code = GLUBED) 175 MG/DL 70-110 H Performed by cer tified cinder crusher operator at [facility] GLUCOSE [id number] 08:46:00* Test Item Value Reference Range Interpretation Comme nts GLUCOSE BEDSIDE (test code = GLUBED) 151 MG/DL 70-110 H Performed by cer tified cinder crusher operator at [facility] BASIC METABOLIC [id number] 06:17:00* Test Item Value Reference Range Interpretation Comme nts SODIUM (test code = NA) 141 mEq/L 134-147 N POTASSIUM (test code = K) 3.8 mEq/L 3.4-5.0 N CHLORIDE (test code = CL) 108 mEq/L 100-108 N CARBON DIOXIDE (test code = CO2) 25 mEq/l 21-33 N ANION GAP (test code = GAP) 12 0-20 N GLUCOSE (test code = GLU) 81 mg/dL 77-141 BLOOD UREA NITROGEN (test code = BUN) 13 mg/dL 7-25 N GLOMERULAR FILTRATION RATE (test code = GFR) 97.7 80-90 H The Glomerular Filtration Rate is a calculated parameterbased on serum Creatinine, patient age and sex. GFR valuesless than 60 mL/min/1.73 square meters are indicative ofChronic Kidney Disease. Values less than 15 mL/min/1.73square meters indicate Kidney failure. The calculation forGFR is based on the CKD-EPI (2020) calculation. This formulais race indifferent and is the recommended formula for GFRby the National Kidney Foundation for Adults.The GFR will not calculate if the sex is unknown or if thepatient's age is <18 years. CREATININE (test code = CREAT) 0.7 mg/dL 0.6-1.3 N CALCIUM (test code = CA) 8.8 mg/dL 8.0-10.5 N [id number] 06:17:00* Test Item Value Reference Range Interpretation Comme nts MAGNESIUM (test code = MAG) 1.91 mg/dL 1.6-2.6 N CBC W/AUTO [id number] 06:13:00* Test Item Value Reference Range Interpretation Comme nts WHITE BLOOD CELL (test code = WBC) 8.3 x10 3/uL 4.5-11.0 N RED BLOOD CELL (test code = RBC) 3.49 x10 6/uL 3.54-5.02 L HEMOGLOBIN (test code = HGB) 8.4 g/dL 11.0-15.0 L HEMATOCRIT (test code = HCT) 28.3 % 33.0-45.0 L MEAN CELL VOLUME (test code = MCV) 81.1 fL 81.0-99.0 N MEAN CELL HGB (test code = MCH) 24.1 pg 27.0-33.0 L MEAN CELL HGB CONCETRATION (test code = MCHC) 29.7 g/dL 33.0-37.0 L RED CELL DISTRIBUTION WIDTH CV (test code = RDW) 15.8 % 11.5-14.5 H RED CELL DISTRIBUTION WIDTH SD (test code = RDW-SD) 46.2 fL 37.0-54.0 N PLATELET COUNT (test code = PLT) 496 x10 3/uL 150-400 H MEAN PLATELET VOLUME (test c ode = MPV) 10.5 fL 7.0-9.0 H NEUTROPHIL % (test code = NT%) 73.6 % 56.0-77.0 N IMMATURE GRANULOCYTE % (test code = IG%) 0.4 % 0.0-2.0 N LYMPHOCYTE % (test code = LY%) 15.2 % 14.0-32.0 N MONOCYTE % (test code = MO%) 6.4 % 4.8-9.0 N EOSINOPHIL % (test code = EO%) 3.8 % 0.3-3.7 H BASOPHIL % (test code = BA%) 0.6 % 0.0-2.0 N NUCLEATED RBC % (test code = NRBC%) 0.0 % 0-0 N NEUTROPHIL # (test code = NT#) 6.13 x10 3/uL 2.0-7.6 N IMMATURE GRANULOCYTE # (test code = IG#) 0.03 x10 3/uL 0.00-0.03 N LYMPHOCYTE # (test code = LY#) 1.27 x10 3/uL 1.0-3.8 N MONOCYTE # (test code = MO#) 0.53 x10 3/uL 0.1-0.8 N EOSINOPHIL # (test code = EO#) 0.32 x10 3/uL 0.0-0.2 H BASOPHIL # (test code = BA#) 0.05 x10 3/uL 0.0-0.2 N NUCLEATED RBC # (test code = NRBC#) 0.00 x10 3/uL 0.0-0.1 N UA RFLX MICR CULT IF [id number] 00:15:00* Test Item Value Reference Range Interpretation Comme nts UA COLOR (test code = COLU) YELLOW YEL/STRAW UA APPEARANCE (test code = APPU) CLEAR CLEAR UA GLUCOSE DIPSTICK (test co de = DGLUU) 1+ NEGATIVE A UA BILIRUBIN DIPSTICK (test code = BILU) NEGATIVE NEGATIVE UA KETONE DIPSTICK (test cod e = KETU) NEGATIVE NEGATIVE UA SPECIFIC GRAVITY (test co de = SGU) 1.036 1.005-1.030 H UA BLOOD DIPSTICK (test code = GARRETT) NEGATIVE NEGATIVE UA PH DIPSTICK (test code = JOHNNIE) 5.0 5.0-7.0 N UA PROTEIN DIPSTICK (test co de = PROU) NEGATIVE NEGATIVE UA UROBILINIOGEN DIPSTICK (test code = URO) 2.0 mg/dL 0.2-1.0 A UA NITRITE DIPSTICK (test co de = SURESH) NEGATIVE NEGATIVE UA LEUKOCYTE ESTERASE DIPSTI CK (test code = LEUU) NEGATIVE NEGATIVE UA WBC (test code = WBCU) 0-3 WBC/HPF 0-3 UA RBC (test code = RBCU) 0-3 RBC/HPF 0-3 UA WBC NO REFLEX (test code = WBCUCL) 0-3 WBC/HPF 0-3 UA BACTERIA (test code = BACU) NONE SEEN /HPF NONE SEEN UA SQUAMOUS CELLS (test code = SQU) 0-5 /HPF NONE SEEN Indication for culture: Flank Pain Dysuria/FrequencySpecimen Description: CLEAN CATCHB-TYPE NATRIURETIC [id number] 23:01:00* Test Item Value Reference Range Interpretation Comme nts B-TYPE NATRIURETIC PEPTIDE ( test code = BNP) 221.0 PG/ML 0-100 H COMPREHENSIVE METABOLIC [id number] 22:47:00* Test Item Value Reference Range Interpretation Comme nts SODIUM (test code = NA) 139 mEq/L 134-147 N POTASSIUM (test code = K) 3.9 mEq/L 3.4-5.0 N CHLORIDE (test code = CL) 108 mEq/L 100-108 N CARBON DIOXIDE (test code = CO2) 24 mEq/l 21-33 N ANION GAP (test code = GAP) 11 0-20 N GLUCOSE (test code = GLU) 180 mg/dL 77-141 H BLOOD UREA NITROGEN (test code = BUN) 15 mg/dL 7-25 N GLOMERULAR FILTRATION RATE (test code = GFR) 83.3 80-90 N The Glomerular Filtration Rate is a calculated parameterbased on serum Creatinine, patient age and sex. GFR valuesless than 60 mL/min/1.73 square meters are indicative ofChronic Kidney Disease. Values less than 15 mL/min/1.73square meters indicate Kidney failure. The calculation forGFR is based on the CKD-EPI (2020) calculation. This formulais race indifferent and is the recommended formula for GFRby the National Kidney Foundation for Adults.The GFR will not calculate if the sex is unknown or if thepatient's age is <18 years. CREATININE (test code = CREAT) 0.8 mg/dL 0.6-1.3 N TOTAL PROTEIN (test code = PROT) 6.9 g/dL 6.4-8.2 N ALBUMIN (test code = ALB) 2.90 g/dL 3.4-5.0 L CALCIUM (test code = CA) 8.6 mg/dL 8.0-10.5 N BILIRUBIN TOTAL (test code = BILT) 0.40 mg/dL 0.0-1.0 N SGOT/AST (test code = AST) 17 IUnit/L 8-34 N SGPT/ALT (test code = ALT) 15 IUnit/L 10-49 N ALKALINE PHOSPHATASE TOTAL (test code = ALKP) 115 IUnit/L 20-125 N LIPID PROFILE (CORONARY RISK)[id number] 22:47:00* Test Item Value Reference Range Interpretation Comme nts TRIGLYCERIDES (test code = TRIG) 82 mg/dL 40-150 N CHOLESTEROL (test code = CHOL) 89 mg/dL <200 CHOLESTEROL/HDL RATIO (test code = CHOLHDL) 2.98 RATIO 3.27-4.44 L RISK ASSOCIATED WITH CHOL/HDL RATIOS: RISK MALE FEMALE1/2 AVERAGE 3.43 3.27AVERAGE 4.97 4.442X AVERAGE 9.55 7.053X AVERAGE 23.39 11.04 NOTE THAT THE REFERENCE VALUE IS RELATEDTO RISK LEVELS RECOMMENDED BY THE NATL.HEART, LUNG, AND BLOOD INST. HDL CHOLESTEROL (test code = HDL) 29.9 MG/DL 40-60 L HDL Interpreta tion < 40.0 mg/dL Low (undesirable, high risk)> 60.0 mg/dL High (desirable, low risk) Reference interval for healthy adults was established by theNational Cholesterol Education Program (NCEP). LIPOPROTEIN LDL (test code = LDL) 43.0 mg/dL 0-100 N <100 UBEDUMZ12 0-129 NEAR OPTIMAL/ABOVE [id number] HIGH>PG=346 VERY HIGH*Guidelines provided by the National Cholesterol EducationProgram Adult Treatment Panel III [id number] 22:29:00* Test Item Value Reference Range Interpretation Comme nts HGBA1C% (test code = HGBA1C%) 8.0 %A1C 4.8-6.0 H PROTHROMBIN [id number] 22:29:00* Test Item Value Reference Range Interpretation Comme nts PROTHROMBIN TIME PATIENT (test code = PTP) 13.9 SECONDS 9.3-12.9 H INTERNATIONAL NORMAL RATIO (test code = INR) 1.2 0.8-1.2 N TARGET INR BY INDICATION Indication INR1. Prophylaxis of venous thrombosis 2.0 - 3.0 (orthopedic surgery), Prophylaxis of venous thrombosis (other than high-risk surgery), Treatment of Deep Vein Thrombosis/Pulmonary Embolism, Prevention of systemic embolism - Tissue heart valves, Acute Myocardial Infarction (to prevent systemic embolism), Valvular heart disease, Atrial Fibrillation, Bileaflet mechanical valve in aortic position.2. Mechanical prosthetic valves (high risk), 2.5 - 3.5 Presence of Lupus Anticoagulant or Antiphospholipid Antibodies, Prevention of systemic embolism - Acute Myocardial Infarction (to prevent recurrent infarct). THROMBOPLASTIN TIME [id number] 22:29:00* Test Item Value Reference Range Interpretation Comme nts THROMBOPLASTIN TIME PARTIAL (test code = PTT) 30.8 Seconds 25.0-39.5 N Therapeutic Rang e: 58.8 - 96.0 Seconds Effective 07/16/2024 CBC W/AUTO [id number] 22:10:00* Test Item Value Reference Range Interpretation Comme nts WHITE BLOOD CELL (test code = WBC) 9.2 x10 3/uL 4.5-11.0 N RED BLOOD CELL (test code = RBC) 3.41 x10 6/uL 3.54-5.02 L HEMOGLOBIN (test code = HGB) 8.0 g/dL 11.0-15.0 L HEMATOCRIT (test code = HCT) 27.3 % 33.0-45.0 L MEAN CELL VOLUME (test code = MCV) 80.1 fL 81.0-99.0 L MEAN CELL HGB (test code = MCH) 23.5 pg 27.0-33.0 L MEAN CELL HGB CONCETRATION (test code = MCHC) 29.3 g/dL 33.0-37.0 L RED CELL DISTRIBUTION WIDTH CV (test code = RDW) 15.8 % 11.5-14.5 H RED CELL DISTRIBUTION WIDTH SD (test code = RDW-SD) 45.6 fL 37.0-54.0 N PLATELET COUNT (test code = PLT) 477 x10 3/uL 150-400 H MEAN PLATELET VOLUME (test c ode = MPV) 10.3 fL 7.0-9.0 H NEUTROPHIL % (test code = NT%) 72.1 % 56.0-77.0 N IMMATURE GRANULOCYTE % (test code = IG%) 0.5 % 0.0-2.0 N LYMPHOCYTE % (test code = LY%) 18.3 % 14.0-32.0 N MONOCYTE % (test code = MO%) 5.2 % 4.8-9.0 N EOSINOPHIL % (test code = EO%) 3.4 % 0.3-3.7 N BASOPHIL % (test code = BA%) 0.5 % 0.0-2.0 N NUCLEATED RBC % (test code = NRBC%) 0.0 % 0-0 N NEUTROPHIL # (test code = NT#) 6.60 x10 3/uL 2.0-7.6 N IMMATURE GRANULOCYTE # (test code = IG#) 0.05 x10 3/uL 0.00-0.03 H LYMPHOCYTE # (test code = LY#) 1.68 x10 3/uL 1.0-3.8 N MONOCYTE # (test code = MO#) 0.48 x10 3/uL 0.1-0.8 N EOSINOPHIL # (test code = EO#) 0.31 x10 3/uL 0.0-0.2 H BASOPHIL # (test code = BA#) 0.05 x10 3/uL 0.0-0.2 N NUCLEATED RBC # (test code = NRBC#) 0.00 x10 3/uL 0.0-0.1 N GLUCOSE [id number] 21:07:00* Test Item Value Reference Range Interpretation Comme nts GLUCOSE BEDSIDE (test code = GLUBED) 204 MG/DL 70-110 H Performed by [employer] cinder crusher operator at [facility]
[2024-09-11 10:01] VITALS: BMI 39.4
[2024-09-11] MEDS ORDERED: SENOSIDES 8.6 MG TAB PO PRN (10:22)
[2024-09-11] MEDS ORDERED: D10W 125 ML IV PRN (10:25)
[2024-09-11] MEDS ORDERED: GLUCAGON 1 MG/VIAL IM PRN (10:25)
[2024-09-11] MEDS: INSULIN REGULAR (HUMAN) 100 UNIT/ML SQ SCH (11:30)
[2024-09-11] MEDS: ACETAMINOPHEN 500 MG TAB PO PRN (15:46)
[2024-09-11 15:56] LABS: Specific Gravity 1.008 (1.005-1.030); Sqamous Epithelial <5 /HPF (None Seen); Urine Bacteria <20 /HPF (<20); Urine Bilirubin NEGATIVE (Negative); Urine Blood Negative (Negative); Urine Clarity Clear (Clear); Urine Color Colorless (Yellow); Urine Culture Reflex Order NOT NEEDED; Urine Glucose 4+ (Over) (Negative); Urine Ketones NEGATIVE (Negative); Urine Micro Reflex YN NO BILL MICROSCOPIC; Urine Nitrite NEGATIVE (Negative); Urine Protein NEGATIVE (Negative); Urine RBC <5 /HPF (None Seen); Urine Urobilinogen Normal (Normal); Urine WBC <5 /HPF (<5); Urine pH 6.5 (5.0-7.0)
[2024-09-11] MEDS ORDERED: TRAZODONE 50 MG TABLET PO PRN (19:14)
[2024-09-11] MEDS: GUAIFENESIN 600 MG SA TAB PO SCH (20:46)
[2024-09-11] MEDS: ATORVASTATIN 40 MG TAB PO SCH (20:46)
[2024-09-11] MEDS: GABAPENTIN 300 MG CAP PO SCH (20:46)
[2024-09-11] MEDS: [UNRECOGNIZED DRUG - OTHER] SQ SCH (20:46)
[2024-09-11] MEDS: AMIODARONE HCL 200 MG TAB PO SCH (20:47)
[2024-09-11] MEDS: MELATONIN 3 MG TABLET PO PRN (20:47)
--- NOTE | 2024-09-11 22:38 | HP ---
Date of Admission: 09/11/2024 Time: 7 p.m. Chief Complaint: "I had open heart surgery." History Of Present Illness: Ms. Omalley is a 64-year-old patient with history of coronary artery disease, prior left anterior descending and circumflex bypass in 2017, transient ischemic attack in 2016, brittle diabetes mellitus. She had a Isamar-en-Y gastric bypass and has left eye blindness with CHF, who presented to [facility] with worsening shortness of breath and bilateral lower extremity edema. Her left heart catheterization identified multivessel coronary artery disease and severe aortic valve stenosis. Echocardiogram on 08/28 revealed moderately reduced systolic function, ejection fraction 44%. She had grade 2 diastolic dysfunction, moderate to severe again aortic valve stenosis. She was transferred to [facility] for higher level of care and coronary artery bypass grafting. She underwent the coronary artery bypass grafting x4 and aortic valve replacement on 06/03/2024. The right leg was used for vein harvesting. Postoperatively, heart rate and blood pressure addressed with amiodarone 200 mg twice daily, dyslipidemia with atorvastatin 40 mg daily, Plavix 75 mg daily, and aspirin 81 mg daily for dual-antiplatelet therapy. Heart rate controlled as well with metoprolol. She was seen by the Physical Therapy Service, Occupational Therapy Service and was found to be with her cardiac precautions functioning well below her prior level of functioning. She requires min assist for bed mobilization with sternal precautions only. She was able to take 3 steps, difficulty with upper and lower body dressing, donning and doffing footwear, taking care of her activities of daily living. Prior to her worsening edema and shortness of breath, she was independent, mobilizing without an assistive device, although she did have the shortness of breath and fatigue with exertion. Currently, she requires ongoing medical management of her brittle diabetes, fluid management with Lasix for lower extremity edema, and possible transfusion as she may have had significant blood loss during surgery. Hemoglobin will be followed. Hemoglobin is currently 8, hematocrit 27.6. Platelets reactively elevated at 762 and required repeat evaluation to avoid further worsening and medical decline. Since she is functioning well below her prior level and she does have the need for multiple medical issues to be addressed, she is determined to be an appropriate candidate for inpatient rehabilitation and is now admitted to the unit for physical and occupational therapy along with managing her multiple comorbid conditions. Past Medical History: Coronary artery disease. She has had prior LAD and circumflex bypass in 2017, now 4-vessel cardiac bypass, transient ischemic attack, diabetes mellitus type 2, Isamar-en-Y bypass for weight loss, left eye blindness. X-ray/imaging: Chest x-ray on 09/07 shows slightly decreased central venous prominence. Allergies: LATEX, NATURAL RUBBER, AND PENICILLIN. Current Medications: Tylenol 500 mg every 4 hours as needed, Cordarone 200 mg twice daily, aspirin 81 mg daily, Lipitor 40 mg at bedtime, Plavix 75 mg daily, vitamin B12 500 mcg daily, ferrous sulfate 325 mg daily, Lasix 20 mg daily, gabapentin 300 mg twice daily, melatonin 3 mg at bedtime, metoprolol 25 mg daily, Protonix 40 mg daily, Senokot S 17.2 mg daily, Aldactone 25 mg daily, and trazodone 50 mg at night for insomnia. Family History: Noncontributory. Social History: The patient has two sons very involved in her care. She was in a single family home. No alcohol, tobacco, or IV drug use. Review of Systems: Left eye blindness with detached retina, neuropathic pain, swelling in the lower extremities and that is from diabetes. She has difficulty with sleep and has insomnia since surgery. Denies any issues of bowel movement. Mild shortness of breath. Otherwise, negative on a 10-point system review. Current Level Of Functioning: Currently needs min assist with a rolling walker just to ambulate around 3 feet. She is independent with eating; setup assistance for grooming; moderate assistance for bathing, upper body dressing, and lower body dressing; toileting at supervision; wheelchair transfer supervision; toilet transfers supervision and she was later on able to ambulate a little bit greater distance of 100 feet with contact guard. Moderate assistance for stairs. She has clear comprehension and expression. Physical Examination: Vital Signs: Blood pressure 123/59, pulse 66, respiratory rate 18, temperature 98.0, oxygen saturation 94%. Weight 216 pounds. Height 5 feet 2 inches, BMI 39.5. General: Ms. Omalley is lying in bed. Her son and family at bedside. HEENT: She appears normocephalic, atraumatic. Sclerae are anicteric. Oropharynx moist. Neck: Supple. Chest: Clear. Her median sternotomy incision has good hemostasis. Good position. No drainage noted. Extremities: Her right and left lower extremity show [id number] edema in the right and mild edema in the left. Vein harvest site has good hemostasis. She is able to move the legs equally well and symmetric. Arms are symmetric and diffuse weakness noted in the upper and lower extremities. Laboratory Studies: Blood sugars ranged from 148 to 174. Otherwise, white blood cell count 9.6, hemoglobin 8.0, hematocrit 27.6, platelets 762. Potassium is 4.2, BUN 16, creatinine 0.9, calcium 8.2, magnesium 2.49. Rehab And Medical Assessment And Plan: Ms. Rhonda Omalley is admitted to the inpatient rehabilitation unit with impairment category 14, cardiac. Her impairment group code is 09, cardiac. Her etiologic diagnosis is severe aortic valve stenosis and she is status post 4-vessel coronary artery bypass grafting and aortic valve replacement. Additional comorbidities; right heart failure, pulmonary edema, cardiomegaly. In addition to diabetes mellitus, she has median sternotomy related pain, hypertension, leg edema, insomnia. Plan: She will have physical and occupational therapy 3 hours a day, 5 of 7 days. Continue Cordarone 200 mg twice daily and metoprolol 25 mg daily for blood pressure control. Lasix 20 mg daily and Aldactone 25 mg daily for fluid management. Aspirin 81 mg daily and Plavix 75 mg daily for stroke risk reduction. Lipitor 40 mg at bedtime for dyslipidemia. Vitamin B12 500 mcg daily and ferrous sulfate 325 mg daily for anemia. Gabapentin 300 mg twice daily for neuropathic pain. Melatonin 3 mg and trazodone 50 mg at bedtime for insomnia. Protonix 40 mg daily for GE reflux. Senokot S 17.2 mg daily for constipation. Lovenox 40 mg subcutaneously daily for DVT prophylaxis. Comorbidities That Are Impacting Rehabilitation: She has bilateral lower extremity edema, worse on the right where her cardiac bypass vein harvesting was done. Will elevate the right leg and perform flexion-extension exercises when sitting and in bed. Rehab Specific Plan: Ms. Omalley will have physical and occupational therapy for 3 hours, 5 of 7 days. Physical therapy to help her with her mobilization both with rolling walker and wheelchair and a single prong cane if possible. Also work on steps. Occupational therapy to work on her activities of daily living, dressing upper and lower body, ability to transfer into bed, chair, toilet, and shower and perform those activities. Ms. Omalley has a good understanding of the process of admission to the inpatient rehabilitation facility and how she will benefit from physical, occupational, and speech therapy. She will have 24 hours a day, 7 days a week skilled rehabilitation and nursing, daily physician evaluation and management, and geriatric social work professor evaluation and management for discharge planning, home equipment, and continuing therapy along with physician followup. If need be, additional help from the Hospitalist Service and Cardiology Service will be sought. Barriers To Discharge: She is at significant risk of worsening lower extremity swelling and right lower extremity infection at her graft donor sight. Furthermore, her median sternotomy wound is also at risk of infection. She is at risk of pneumonia and will have an aggressive incentive spirometry schedule. She is at risk of cardioembolic strokes which may prolong her stay or may lead her to have extended stay at a correction. I Length Of Stay: About 10 days. Disposition: Expected to be home where she will continue therapy via Home Health. Prognosis: Good. Code Status: Full code. Rehab Specific Goals: 1. She will become independent with upper and lower body dressing, donning and doffing footwear. 2. Independent with all activities of daily living. 3. Independently mobilize at least 250 feet with a rolling walker and wheelchair and go up and down 10 steps with bilateral handrails. 4. Independently be able to express herself, comprehend speech, and to work with her judgment, memory, processing in terms of her cognitive functioning towards a modified independence level. The above goals were reviewed with Ms. Omalley and she is in agreement. By signing this document, I acknowledge I performed a full physical examination on Ms. Omalley no later than 24 hours after her admission to the inpatient rehabilitation facility and determined that she is able to tolerate the above course of treatment at an intensive level for a reasonable period of time. A detailed individualized plan of care for her will be completed by hospital day 4 based on the preadmission screen, history and physical, and therapy evaluations. DOMINIC Voice ID: [id number] SAIRA
[2024-09-12 05:07] LABS: Absolute Basophils 0.1 K/uL (0-0.5); Absolute Lymphocytes (CBC) 1.1 K/uL (0.7-4.9); Absolute Monocytes 0.7 K/uL (0.1-1.3); Basophils % 0.8 % (0-1.3); Eosinophils % 7.9 % (0-4.4); Hematocrit 24.9 % (36.0-45.0); Hemoglobin 7.8 g/dL (12.0-15.0); Lymphocytes % 8.6 % (15.3-44.8); MCH 24.2 pg (27.0-35.0); MCHC 31.5 g/dL (32.0-36.0); MCV 76.7 fL (80-100); MPV 6.9 fL (7.6-11.3); Monocytes % 5.6 % (3.3-12.3); Neutrophils % 77.1 % (41.7-73.7); Platelets 823 thou/uL (152-406); RBC Red Blood Cell Count 3.24 M/uL (3.86-4.86); Red Cell Distribution Width 17.7 % (12.1-15.2)
[2024-09-12] MEDS: METOPROLOL XL 25 MG TAB PO SCH (05:13)
[2024-09-12 05:33] LABS: Albumin 2.7 g/dL (3.4-5.0); Anion Gap 6.3 mEq/L (5.0-15.0); Magnesium 2.6 mg/dL (1.6-2.4); Potassium 5.3 mEq/L (3.5-5.1); Prealbumin 13.2 mg/dL (20-40)
[2024-09-12] MEDS: PANTOPRAZOLE 40MG TABLET PO SCH (07:06)
[2024-09-12] MEDS: [UNRECOGNIZED DRUG - OTHER] SQ SCH (08:00)
[2024-09-12] MEDS ORDERED: AMIODARONE HCL 200 MG TAB PO SCH (08:00)
[2024-09-12] MEDS: FARXIGA 5 MG PO SCH (08:00)
[2024-09-12] MEDS: FUROSEMIDE 40 MG TABLET PO SCH (08:00)
[2024-09-12] MEDS: ASPIRIN 81 MG CHEWABLE TABLET PO SCH (08:46)
[2024-09-12] MEDS: FERROUS SULFATE 325 MG TAB PO SCH (08:46)
[2024-09-12] MEDS: CLOPIDOGREL 75 MG TABLET PO SCH (08:46)
[2024-09-12] MEDS: CYANOCOBALAMIN 1,000 MCG TAB PO SCH (08:48)
[2024-09-12] MEDS: SPIRONOLACTONE 25 MG TABLET PO SCH ×2 (08:52→09:46)
[2024-09-12] MEDS ORDERED: [UNRECOGNIZED DRUG - OTHER] SQ SCH (09:40)
[2024-09-12] MEDS: FUROSEMIDE 20 MG TABLET PO SCH (09:56)
[2024-09-12] MEDS ORDERED: INSULIN GLARGINE 100 UNIT/ML SQ SCH (10:15)
[2024-09-12] MEDS: INSULIN GLARGINE SQ SCH (10:27)
--- NOTE | 2024-09-12 20:59 | RAD REPORT ---
EXAMINATION: US RIGHT UPPER EXTREMITY VENOUS DOPPLER CLINICAL INDICATION: r/o dvt rt arm RIGHT TECHNIQUE: Complete bilateral duplex sonography of the RIGHT upper extremity veins was performed. The examination included compression for vein patency, color Doppler imaging and flow augmentation in response to distal compression of the internal jugular, brachiocephalic, subclavian, axillary, brachi al, radial, ulnar, cephalic and basilic veins. COMPARISON: No prior exam. FINDINGS: Duplex sonography testing of the veins of the RIGHT upper extremity was performed.Thrombus is present in the cephalic vein. No additional DVT seen. IMPRESSION: Positive for cephalic vein thrombus.
[2024-09-13 06:43] LABS: Anion Gap 7.5 mEq/L (5.0-15.0); Magnesium 2.5 mg/dL (1.6-2.4); Potassium 4.5 mEq/L (3.5-5.1)
[2024-09-13] MEDS: APIXABAN 5 MG TABLET PO SCH (08:09)
[2024-09-13] MEDS: FE SULF/FA/VIT B COMP & C TAB PO SCH (08:09)
--- NOTE | 2024-09-13 14:21 | RAD REPORT ---
Procedure: Chest Single View HISTORY: Cough COMPARISON: April 2024 FINDINGS: Mild left lung opacities. Heart is moderately enlarged. Prominence of the mediastinum. There may be a small left pleural effusion.. Post surgical changes involve the chest IMPRESSION: Mild left lung opacities may represent unilateral pulmonary edema or pneumonia Prominence of the mediastinum probably is vascular. However, PA and lateral chest series is recommend ed.
[2024-09-13] MEDS ORDERED: ALBUTEROL 2.5 MG/3 ML NEB SOL NEB PRN (14:52)
[2024-09-13] MEDS: GLUCERNA SHAKE 237 ML CAN PO SCH (20:00)
[2024-09-13] MEDS: AMIODARONE HCL 200 MG TAB PO SCH (20:16)
--- NOTE | 2024-09-13 23:14 | PN ---
Date of Progress Note: 09/13/2024 Time Of Service: 1:20 p.m. Subjective: While eating next to the window where the sun was coming in and it is pretty hot, Ms. Reno did report feeling dizzy. She said that she felt as though she was swirling around in her h ead. Her blood pressure was a systolic around 110, but the heart rate was down to 37. Chart review noted that she did receive beta-charisse this morning and amiodarone. Beta-charisse was discontinued a t this point. She was put back in bed, and there was increase in blood pressure and heart rate. Mos t recent heart rate was around 42 or 43. She had an EKG done that shows sinus bradycardia and heart rate now was 39, and even today around 8 in the morning was 58. Hold parameters were put for all of her antihypertensive medications and diuretics. Objective: Again, some mild dizziness in head. She did work with Therapy in bed. She did not have any significant nausea, vomiting, myalgias, arthralgias, or rash. Her median sternotomy surgical sit e, where there was a 4-vessel cardiac bypass, shows good hemostasis. She did have edema in the lower extremities and has now thigh-high SUZY hose on board. Physical Examination: Vital Signs: Blood pressure 111/66, pulse ranged 39 to 58, respiratory rate 16 to 20, temperature 97 .6, oxygen saturation 97%. General: Ms. Omalley is resting in bed. She is improving. No significant distress. No fevers, chills, nausea, vomiting. Neurological: She has, in terms of cranial nerves, no focal deficits. Median sternotomy site has go od hemostasis. Extremities: The right leg vein harvest site has good hemostasis. Mild edema. Laboratory Data: It is noted that she did have Doppler study of the right arm due to swelling. The study did show deep vein thrombus in the right upper extremity in the cephalic vein. No additional D VTs seen. A chest x-ray was done earlier today as she was having episodes of lightheadedness. The s tudy showed mild left lung opacity, may represent unilateral pulmonary edema or pneumonia. Prominenc e of mediastinum, probably is vascular otherwise noted. AP and lateral chest series may be recommend ed. The patient does have incentive spirometry put on board. She had nebulizer treatment added. We will repeat chest x-ray. If the patient is able to withstand, the PA and lateral will be done tomor row. Medications: Tylenol 500 mg every 4 hours as needed, albuterol nebulizer 2.5 mg every 6 hours as nee ded, amiodarone 100 mg twice daily with hold parameters if systolic less than 130 and pulse less than 55, Eliquis 5 mg twice daily for DVT in the right arm, aspirin 81 mg daily, Lipitor 40 mg at bedtime , vitamin B12 for energy 1000 mcg daily, Glucerna Shake 237 mL twice daily for malnutrition, ferrous sulfate 325 mg daily for anemia, Lasix 20 mg daily for CHF, gabapentin 300 mg twice daily. She has g uaifenesin for cough suppression, melatonin 3 mg at bedtime for insomnia, HemocytePlus 1 tablet daily for iron-deficiency anemia, Senokot again at night for her constipation, spironolactone for fluid ma nagement, and trazodone for insomnia. Laboratory Studies: Aside from mentioned, the blood sugars did range from 135 to 310. Magnesium 2.5 , calcium 8.6. Sodium, potassium, chloride all normal. BUN 21, creatinine 0.89. Progress Made With Physical And Occupational Therapy: Today, completed multiple umg-ur-bjnxf transfe rs and syvsv-gl-bqmjz transfers with contact guard assistance, needed frequent cuing. Rlz-qb-jbnplf transfers, minimum to moderate assistance. Was able to scoot up in bed with moderate assistance twic e. Wheelchair mobilization, 5 feet twice, was stopped due to shortness of breath and chest tightness . Again, EKG done. Cardiology actually is consulted and will be on board tomorrow. She did cover 1 25 feet twice with contact guard assistance using a rolling walker. With occupational therapy, the p atient is noted to have some issues with shallow breathing, was encouraged deep breathing and did hav e head of bed up to 45 degrees. She did left upper extremity exercise with a 1-pound dumbbell for biceps core, chest press, shoulder flexion. These were done on unilateral side maintaining sternal precautions. Rehab And Medical Assessment/plan: Ms. Omalley is a 64-year-old patient in the rehabilitation [facility] with 4-vessel coronary artery bypass grafting. She has decreased mobility; decreased physical func tioning; severe aortic stenosis, status post aortic valve replacement. She has right heart failure; pulmonary edema; cardiomegaly; diabetes mellitus; hypertension; edema; insomnia; and more recent epis ode of severe bradycardia, which is sinus. She does have on board now hold parameters for the calciu m channel charisse and beta-charisse along with the diuretics. Cardiology Service has been consulted t o provide further assistance for patient management. Otherwise, in terms of plan, she will continue with physical and occupational therapy 3 hours a day, 5 of 7 days. We will continue with medication management as noted. List of medicines has been noted above. Daily weights and I's and O's also followed. MARY/BRIANNA Voice ID: [id number] Report ID: [id number]
[2024-09-14 05:52] LABS: Absolute Basophils 0.1 K/uL (0-0.5); Absolute Eosinophils 0.8 K/uL (0-0.5); Absolute Lymphocytes (CBC) 1.5 K/uL (0.7-4.9); Absolute Monocytes 0.5 K/uL (0.1-1.3); Absolute Neutrophil 6.5 K/uL (1.8-8.0); Basophils % 1.1 % (0-1.3); Hematocrit 25.1 % (36.0-45.0); Hemoglobin 7.8 g/dL (12.0-15.0); Lymphocytes % 16.1 % (15.3-44.8); MCH 23.7 pg (27.0-35.0); MCV 76.3 fL (80-100); MPV 7.2 fL (7.6-11.3); Monocytes % 5.7 % (3.3-12.3); Neutrophils % 69.1 % (41.7-73.7); Platelets 835 thou/uL (152-406); RBC Red Blood Cell Count 3.29 M/uL (3.86-4.86); Red Cell Distribution Width 18.2 % (12.1-15.2)
[2024-09-14 06:04] LABS: Anion Gap 7.7 mEq/L (5.0-15.0); Magnesium 2.5 mg/dL (1.6-2.4); Potassium 4.7 mEq/L (3.5-5.1)
[2024-09-14] MEDS: PANTOPRAZOLE 40MG TABLET PO SCH (07:29)
[2024-09-14] MEDS: DOCUSATE NA 100 MG CAP PO SCH (09:05)
[2024-09-14] MEDS: CYANOCOBALAMIN 1,000 MCG TAB PO SCH (09:06)
[2024-09-14] MEDS: FARXIGA 5 MG PO SCH (09:10)
--- NOTE | 2024-09-14 22:26 | PN ---
Date of Progress Note: 09/14/2024 Time Of Service: 1:35 p.m. Subjective: Ms. Omalley is doing much better today. Pulse is much better. Blood pressure much b johnathan controlled. Yesterday, she had significantly low blood pressure when beta-charisse was given an d amiodarone as well. Beta-charisse has been discontinued and again doing much better, ambulating a _ unit with just 1 stop for rest. Objective: No fevers, chills, nausea, vomiting. No significant myalgias, arthralgias, rash. No psy chiatric issues. Physical Examination: Vital Signs: Blood pressure 116/60, pulse 64, respiratory rate of 16, temperature 97.1, oxygen satur ation 98%. General: Again, Ms. Omalley is doing very well. Chest: Median sternotomy site has good hemostasis. Extremities: She has some tightness she says across the muscles, but no significant pain in the righ t lower extremity vein harvest site. Mild edema noted there that is improving. She did try SUZY hose , but that it kind of bit into her thigh area, as it had a rolled effect at the top. She is working hard on elevating the legs and doing extension and flexion exercises or dorsiflexion and plantarflexi on of the feet to reduce swelling in the lower extremities. Otherwise, on examination again, good he mostasis at the surgical site of the right foot and the chest. Laboratory Studies: White blood cell count 9.4, down from 12.9 on and neutrophils are 69.1. He moglobin 7.8, platelets 835, which is reactive. Sodium 132, potassium 4.7, chloride 107, carbon diox acacia 26, BUN 22, creatinine 0.93. Glucose ranged from 121 to 168. Calcium 8.7, magnesium 2.5. Beta- natriuretic peptide 2773. X-ray/imaging: Chest x-ray done yesterday shows mild left lung opacities may represent unilateral pu lmonary edema or pneumonia. Prominent mediastinum is probably vascular. Note, she is receiving jadon ntive spirometry to help with the clearance. Medications: As she did have issues of constipation, she has Colace 100 mg twice daily on board. In addition, Protonix 40 mg daily for her reflux. Continue trazodone, Aldactone, Senokot, HemocytePlus , melatonin, insulin sliding scale. She has guaifenesin to suppress cough, gabapentin 300 mg twice d aily, Lasix 20 mg daily, ferrous sulfate 325 mg daily, Glucerna for malnutrition, Lipitor for dyslipi demia, vitamin B12 for energy, aspirin 81 mg daily for stroke risk reduction, Eliquis 5 mg twice vicenta y for DVT that is in her right arm, and the amiodarone 100 mg twice daily. She has nebulizer treatme nt also on board and Tylenol for pain. Progress Made With Physical And Occupational Therapy: Today, with occupational therapy, she was able to do at supervision level ofi-my-vehhx transfer, practiced 5 times, did very well. Also did toe tapping, heel raising exercises. Blood pressure was around 137/64, pulse of 65 and did not report any issues such as dizziness or head, which she said was yesterday. Also, she ambu lated 80 feet, 50 feet, 70 feet with contact guard assistance using a rolling walker and propel a whe elchair 250 feet with contact guard assistance and 1 standing break. Again, blood pressures maintain ed good numbers 120/59, pulse 59 and 127/58, pulse 62 during the day and those were morning and after noon sessions respectively. Assessment: Ms. Omalley is a 64-year-old patient in the rehabilitation unit with 4-vessel coronar y artery bypass grafting, right foot harvest area. She had an episode of more extended bradycardia y esterday that is now resolved, doing very well with therapy, very happy so far. Multiple comorbid is sues as noted above have been addressed adequately with medication changes. Plan: 1.She will continue with physical and occupational therapy 3 hours a day, 5 of 7 days. 2.Continue with the current list of medications addressing her comorbid conditions. Comorbidities Impacting Rehabilitation: At this point, her edema in the right lower extremity is the re. She has a DVT in the right arm and she will be on prolonged Eliquis 5 mg twice daily and she dayton l require a recheck to see clearance of the clot in several weeks from [address] MARY/BRIANNA Voice ID: [id number] Report ID: [id number]
[2024-09-15] MEDS: [UNRECOGNIZED DRUG - OTHER] SQ SCH (07:15)
[2024-09-16 06:22] LABS: Absolute Eosinophils 0.8 K/uL (0-0.5); Absolute Lymphocytes (CBC) 1.2 K/uL (0.7-4.9); Absolute Monocytes 0.4 K/uL (0.1-1.3); Absolute Neutrophil 5.1 K/uL (1.8-8.0); Basophils % 0.6 % (0-1.3); Eosinophils % 10.1 % (0-4.4); Hematocrit 24.2 % (36.0-45.0); Hemoglobin 7.9 g/dL (12.0-15.0); Lymphocytes % 15.5 % (15.3-44.8); MCH 24.8 pg (27.0-35.0); MCHC 32.6 g/dL (32.0-36.0); MCV 76.3 fL (80-100); Monocytes % 5.3 % (3.3-12.3); Neutrophils % 68.5 % (41.7-73.7); Nucleated Red Blood Cells % 0.1 % (0-0); Platelets 827 thou/uL (152-406); RBC Red Blood Cell Count 3.18 M/uL (3.86-4.86); Red Cell Distribution Width 18.5 % (12.1-15.2)
[2024-09-16 06:36] LABS: Albumin 2.6 g/dL (3.4-5.0); Anion Gap 6.3 mEq/L (5.0-15.0); Magnesium 2.2 mg/dL (1.6-2.4); Potassium 4.3 mEq/L (3.5-5.1); Prealbumin 13.3 mg/dL (20-40)
[2024-09-16] MEDS ORDERED: LIDOCAINE 4% PATCH ONE (16:04)
[2024-09-16] MEDS: LIDOCAINE 4% PATCH TOP SCH (16:12)
--- NOTE | 2024-09-16 22:02 | PN ---
Date of Progress Note: 09/16/2024 Time Of Service: 2 p.m. Subjective: Ms. Omalley is sitting in a chair beside the bed looking out the window. Denies any more episodes of the "swirling head," which was related to severe bradycardia more than 2 days ago. Blood pressures and pulse had been better managed since her beta-charisse has been discontinued. She does report some mild tightness in the left chest area. Of course, she has had the median sternotomy for 4-vessel coronary artery bypass grafting and there were some expected changes. When she uses tami th arms, she feels some twinges in the muscles of the chest. Her complaints do not necessarily inclu de anything worse in the right lower extremity, where the vein harvest site was done such that the di stal part around the ankle may show some mild pain. She does have a deep vein thrombus in the right cephalic vein, but that is not causing pain or any significant swelling and the arm has a wrap. Objective: No fevers, chills, myalgias, arthralgias. No rash. No psychiatric issues. No gastroint estinal or genitourinary complaints. Physical Examination: Vital Signs: Blood pressure 140/73, pulse of 64, respiratory rate 18, temperature 97.4, oxygen satur ation 94%. General: Ms. Omalley is sitting in a chair, legs elevated. HEENT: She is normocephalic, atraumatic. Sclerae are anicteric. Her median sternotomy surgical sit e has good hemostasis and no drainage. Obviously, no signs of any infection. Extremities: The right arm again has a wrap. She is keeping it elevated and the lower extremity whe re the vein harvesting was done on the right side some mild edema, but no change or worsening there. No pain on palpation of the calf region. Good hemostasis at the surgical sites, where the vein was harvested. Laboratory Studies: White blood cell count 7.4, hemoglobin 7.9, platelets 827. Sodium 138, potassiu m 4.3, chloride 111, carbon dioxide 25, BUN 19, creatinine 0.75, glucose ranged from 150 to 229, calc ium 8.5, magnesium 2.2, albumin 2.6, prealbumin 13.3. Medications: Medications have been reviewed and remain unchanged. She does have a lidocaine patch o n the right leg, where she has a pain at the vein harvest site. Progress Made With Physical And Occupational Therapy: With physical therapy today, she did supine-to -sit transfers independently. She did multiple liexe-tr-tamdz transfers independently without an ass istive device and she ambulated without an assistive device 250 feet and 100 feet independently. Emp hasis was placed on gait stability. She ascended and descended 15 steps independently lightly touchi ng the handrails. With occupational therapy, she was able to do bathing, upper and lower body dressi ng, and footwear with the use of an assistive device. I educated again and reminded on sternal preca utions while performing activities of daily living. She again was independent with [id number] saxena sfers, room to shower, rolling walker, no rest breaks, was independent. Assessment: Ms. Omalley is a 64-year-old patient who has had 4-vessel coronary artery bypass luis tin with vein harvest done from the right leg, which shows some swelling and she has a clot in the r ight cephalic vein. She has decreased mobility, decreased physical functioning, which is improving i n addition to her constipation, insomnia, GE reflux, CHF, neuropathic pain, anemia, hypertension, and shortness of breath. Plan: She will continue with physical and occupational therapy 3 hours a day, 5 of 7 days. Her list of comorbid conditions noted above by continuing medications including Eliquis for DVT prophylaxis, amiodarone for blood pressure control and beta-blockers were discontinued and she is doing well, Desy rel for insomnia, Aldactone for fluid management that is being held with parameters, Protonix for ref lux was continued and DVT and prophylaxis in addition to treating the DVT in the right arm with Eliqu is 5 mg twice daily, and the patient actually did have requested us to how well I will continue, she was told at least several weeks before a repeat Doppler study will be done to see if the clot is resolved. In the meantime, she will continue with the Eliquis at the c urrent dosage. MARY/BRIANNA Voice ID: [id number] Report ID: [id number]
[2024-09-17] MEDS: CRANBERRY FRUIT EXTRACT 425 MG CAPSULE PO SCH (08:30)
[2024-09-17] MEDS: MULTIVITAMIN TAB PO SCH (08:32)
--- NOTE | 2024-09-17 13:48 | EKG ---
Test Date: 2024-09-13 Test Time: 13:36:58 Health Program Manager: SCOTT MEASUREMENT RESULTS: Intervals: Rate: 39 MD: QRSD: 114 QT: 468 QTc: 376 Hague: P: MD: QRS: -40 T: 84 INTERPRETIVE STATEMENTS: Junctional bradycardia Left axis deviation Septal infarct, age undetermined Abnormal ECG Compared to ECG 08/25/2024 09:43:33 Left-axis deviation now present Sinus rhythm no longer present Myocardial infarct finding still present Electronically Signed On 09-17-24 13:38:56 STEREOTYPER HELPER by Matthew Aquino
--- NOTE | 2024-09-17 14:05 | P.RH.PN ---
Estimated Length of Stay: 10 Expected Discharge Date: 09/21/24 Discharge Disposition Plan: Home Family Support: Yes Alf Goal: Mobility, Transfers, Self Care Vital Signs: Last Vital Signs Temp 98.2 F 09/17/24 07:34 Pulse 69 09/17/24 08:30 Resp 16 09/17/24 07:34 BP 116/62 09/17/24 08:30 Pulse Ox 95 09/17/24 07:34 Laboratory: Laboratory Last Values WBC 7.50 thou/uL (4.3-10.9) 09/16/24 05:19 RBC 3.18 M/uL (3.86-4.86) L 09/16/24 05:19 Hgb 7.9 g/dL (12.0-15.0) L 09/16/24 05:19 Hct 24.2 % (36.0-45.0) L 09/16/24 05:19 MCV 76.3 fL (80-100) L 09/16/24 05:19 MCH 24.8 pg (27.0-35.0) L 09/16/24 05:19 MCHC 32.6 g/dL (32.0-36.0) 09/16/24 05:19 RDW 18.5 % (12.1-15.2) H 09/16/24 05:19 Plt Count 827 thou/uL (152-406) H 09/16/24 05:19 MPV 7.0 fL (7.6-11.3) L 09/16/24 05:19 Neutrophils % 68.5 % (41.7-73.7) 09/16/24 05:19 Lymphocytes % 15.5 % (15.3-44.8) 09/16/24 05:19 Monocytes % 5.3 % (3.3-12.3) 09/16/24 05:19 Eosinophils % 10.1 % (0-4.4) H 09/16/24 05:19 Basophils % 0.6 % (0-1.3) 09/16/24 05:19 Absolute Neutrophils 5.1 K/uL (1.8-8.0) 09/16/24 05:19 Absolute Lymphocytes 1.2 K/uL (0.7-4.9) 09/16/24 05:19 Absolute Monocytes 0.4 K/uL (0.1-1.3) 09/16/24 05:19 Absolute Eosinophils 0.8 K/uL (0-0.5) H 09/16/24 05:19 Absolute Basophils 0.0 K/uL (0-0.5) 09/16/24 05:19 Sodium 138 mEq/L (136-145) 09/16/24 05:19 Potassium 4.3 mEq/L (3.5-5.1) 09/16/24 05:19 Chloride 111 mEq/L (98-107) H 09/16/24 05:19 Carbon Dioxide 25 mEq/L (21-32) 09/16/24 05:19 Anion Gap 6.3 mEq/L (5.0-15.0) 09/16/24 05:19 BUN 19 mg/dL (7-18) H 09/16/24 05:19 Creatinine 0.75 mg/dL (0.55-1.02) 09/16/24 05:19 Est GFR (CKD-EPI) 90 ml/min (=/>90) 09/16/24 05:19 Glucose 174 mg/dL (74-106) H 09/16/24 05:19 POC Glucose 200 mg/dL (65-120) H 09/17/24 12:01 Hemoglobin A1c 7.4 % (4.2-6.3) H 09/12/24 04:51 Calcium 8.5 mg/dL (8.5-10.1) 09/16/24 05:19 Magnesium 2.2 mg/dL (1.6-2.4) 09/16/24 05:19 NT-Pro-B Natriuret Pep 2773 pg/mL (<125) H 09/14/24 05:08 Albumin 2.6 g/dL (3.4-5.0) L 09/16/24 05:19 Prealbumin 13.3 mg/dL (20-40) L 09/16/24 05:19 Urine Color Colorless (Yellow) 09/11/24 15:35 Urine Clarity Clear (Clear) 09/11/24 15:35 Urine pH 6.5 (5.0-7.0) 09/11/24 15:35 Ur Specific [place] 1.008 (1.005-1.030) 09/11/24 15:35 Glucose (UA)(Auto) 4+ (over) (Negative) H 09/11/24 15:35 Urine Ketones Negative (Negative) 09/11/24 15:35 Urine Blood Negative (Negative) 09/11/24 15:35 Urine Nitrite Negative (Negative) 09/11/24 15:35 Urine Bilirubin Negative (Negative) 09/11/24 15:35 Urine Urobilinogen Normal (Normal) 09/11/24 15:35 Ur Leukocyte Esterase Negative Christine/uL (Negative) 09/11/24 15:35 Urine RBC <5 /HPF (None Seen) 09/11/24 15:35 Urine WBC <5 /HPF (<5) 09/11/24 15:35 Ur Squamous Epith Cells <5 /HPF (None Seen) 09/11/24 15:35 Urine Bacteria <20 /HPF (<20) 09/11/24 15:35 Urine Culture Reflexed Not needed 09/11/24 15:35 Urine Total Protein Negative (Negative) 09/11/24 15:35 Weight: 223 lb Wound Present: No Closed Surgical Incision Present: Yes Negative Pressure Wound Therapy Present: No Physician Update: Met 4/4 STG and 4/5 LTG. RW 250', 15 stairs with supervision to larissa. Met all OT goals and is independent. Labs reviewed and are stable. Comment: midline incision closed with dermabound, two chest tubes sites with sutures, and right leg harvest site- [employer] Summary: Patient's care plan and long-term goals have been reviewed and revised as necessary. Please see the Rehabilitation Signature page for all necessary signatures.
[2024-09-18 06:49] VITALS: BP 116/55; TEMP 97.3
== END 2024-09-18 10:30 | disposition home health service (06) | DRG 950 ==
LOC: 5TH 09-11 09:35
PROVIDERS: ADMIT Psychiatry & Neurology Neurology with Special Qualifications in Child Neurology; ATTEND Psychiatry & Neurology Neurology with Special Qualifications in Child Neurology
DX: Z48.812 Encounter for surgical aftercare following surgery on the circulatory system (principal); Z95.1 Presence of aortocoronary bypass graft; I11.0 Hypertensive heart disease with heart failure; I50.9 Heart failure, unspecified; E11.9 Type 2 diabetes mellitus without complications; H54.62 Unqualified visual loss, left eye, normal vision right eye; I25.10 Atherosclerotic heart disease of native coronary artery without angina pectoris; G47.00 Insomnia, unspecified; R00.1 Bradycardia, unspecified; K21.9 Gastro-esophageal reflux disease without esophagitis; D64.9 Anemia, unspecified; Z98.84 Bariatric surgery status; Z86.73 Personal history of transient ischemic attack (TIA), and cerebral infarction without residual deficits
CPT/HCPCS: 36415; 71045; 80048; 81001; 82040; 82947; 83036; 83735; 83880; 84134; 85025; 87077; 87086; 87088; 87186; 93005; 93971; 94010; 97110; 97112; 97116; 97161; 97165; 97530; 97542; J2003

== ENCOUNTER 2024-09-20 17:43 | Emergency (ER) | payer OTHER ==
[2024-09-20] MEDS ORDERED: OXYMETAZOLINE HCL 0.05% 15ML NAS ONE (17:48)
--- OUTSIDE RECORDS SUMMARY | 2024-09-20 17:50 | XMS REPORT | Continuity of Care Document ---
Author Name Unknown Address [address] [facility]. [address] [place] [address] [facility] Address [address] [facility] [address] [place] [address] Care Team Providers Care Transmission Repairer Name Role Phone PCP, PATIENT DOES NOT HAVE A Primary Care Physic otis Unavailable Poppy Hernandez Attending Clinician BOBBI Frazier Attending Clinician Bobbi Rolle DPM Attending Clinician [phone] Lis Cardona MA Attending Clinician Clinton Diaz MD Attending Clinician [facility] Attending Clinician Poppy Chapin Admitting Clinician Obey lopez Payers Payer Name Policy Type Policy Number Effective Date Expirati on Date Source [employer] MEDICARE ADVANTAGE Medicare [id number] 2023 00:00:00 Problems Condition Name Condition Details Condition Category Status Onset Date Resolution Date Last Treatment Date Treating Clinician Comments Source No known active problems No known active problems Disease [facility] Allergies, Adverse Reactions, Alerts Allergy Name Allergy Type Status Severity Reaction(s) Onset Date Inactive Date Treating Clinician Comments Source Penicill ins DA Active SV HIVES 2023-09 00:00: 00 [facility] latex DA Active MO DERMATITIS HIVES 2023-09 2 00:00: 00 [facility] Latex Propensi ty to adverse reaction s Active 2023-09 0 00:00: 00 Lorri Javed Epic Penicill in G Propensi ty to adverse reaction s Active 2023-09 0 00:00: 00 Lorri Javed Epic LATEX DRUG INGREDI Active Hives 2020-09 0 00:00: 00 [facility] Latex Propensi ty to adverse reaction s Active Hives 2020-09 00:00: 00 [facility] Penicill ins Propensi ty to adverse reaction s Active Hives 2020-09 00:00: 00 [facility] PENICILL INS Drug Class Active Hives 2020-09 00:00: 00 [facility] NO KNOWN ALLERGIE S Drug Class Active [facility] Social History Social Habit Start Date Stop Date Quantity Comments Source Exposure to SARS-CoV-2 (event) Not sure [facility] ASSERTION Possible [facility] Gender identity Olu rose [facility] Sexual orientation [facility] Sex Assigned At 1960 00:00:00 1960 00:00:00 [facility] Smoking Status Start Date Stop Date Source Tobacco smoking consumption unknown [facility] Medications Ordered Medication Name Filled Medication Name Start Date Stop Date Current Medication? Ordering Clinician Indication Dosage Frequency Signature (SIG) Comments Components Source HYDROcodone -acetaminop hen (NORCO) 10-325 mg tablet 1 tablet 2020-09 10:45: 00 07-22 09:45 :00 No 1{tbl} 1 tablet, Oral, ONCE NOW, 1 dose, On 07/22/21 at 0545, Routine [facility] doxycycline hyclate 100 mg capsule 2020-09 00:00: 00 Yes [id number] 100mg Take 1 capsule by mouth 2 (two) times daily. [facility] HYDROcodone -acetaminop hen (NORCO) 10-325 mg tablet 2020-09 00:00: 00 07-30 05:59 :00 No [id number] 1{tbl} Take 1 tablet by mouth every 6 (six) hours as needed for Pain (scale 7-10) for up to 7 days. Indication s: acute pain [facility] Vital Signs Vital Name Observation Time Observation Value Comments S ource Systolic blood pressure 2021-07-22 10:00:00 154 mm[Hg] [facility] Diastolic blood pressure 2021-07-22 10:00:00 78 mm[Hg] [facility] Heart rate 2021-07-22 10:00:00 73 /min [facility] Respiratory rate 2021-07-22 10:00:00 18 /min [facility] Oxygen saturation in Arterial blood by Pulse oximetry 2021-07-22 10:00:00 94 /min [facility] Body temperature 2021-07-22 08:31:00 36.61 [place] [facility] Body height 2021-07-22 08:31:00 157.5 cm [facility] Body weight 2021-07-22 08:31:00 83.915 kg [facility] BMI 2021-07-22 08:31:00 33.84 kg/m2 [facility] Procedures Procedure Date / Time Performed Performing Clinician Source REPLACEMENT OF AORTIC VALVE WITH ZOOPLASTIC, OPEN 2024-08-30 00:00:00 [facility]AA[facility].01 [facility] BYPASS 3 COR ART FROM AORTA WITH AUTOL VN, OPEN AP 2024-08-30 00:00:00 CHAAB.01 [facility] BYPASS 1 COR ART FROM L INT MAMMARY, OPEN APPROACH 2024-08-30 00:00:00 [facility].01 [facility] EXCISION OF RIGHT SAPHENOUS VEIN, PERC ENDO APPROA 2024-08-30 00:00:00 [facility]AA[facility].01 [facility] EXCISION OF LEFT ATRIAL APPENDAGE, OPEN APPROACH 2024-08-30 00:00:00 [facility]AA[facility].01 [facility] PERFORMANCE OF CARDIAC OUTPUT, CONTINUOUS 2024-08-30 00:00:00 [facility]AA[facility].01 [facility] INSERTION OF MONITORING DEVICE INTO UP ART, PERC A 2024-08-30 00:00:00 [facility]AA[facility].01 [facility] MONITORING OF ARTERIAL PRESSURE, PERIPHERAL, PERC 2024-08-30 00:00:00 [facility]AA[facility].01 [facility] MONITORING OF ARTERIAL PULSE, PERIPHERAL, PERC REBA 2024-08-30 00:00:00 [facility]AA[facility].01 [facility] INSERT INFUSION DEV IN R INT JUGULAR VEIN, PERC 2024-08-30 00:00:00 [facility]AA[facility].01 [facility] Fungal Culture Skin/Hair/Nails w/Smear 2024-07-07 00:00:00 [facility] NOTICE OF PRIVACY PRACTICES 2021-07-22 08:43:23 Doctor Unassigned, [place] CONSENT/REFUSAL FOR DIAGNOSIS AND TREATMENT 2021-07-22 08:22:55 Doctor Unassigned, [facility] Encounters Start Date/Time End Date/Time Encounter Type Admission Type Attending [facility] Care Facility Care Department Encounter ID Source 2024-08-27 19:35:00 2024-09-10 19:30:00 Inpatient Poppy Blair [facility] [id number] [facility] 2024-08-04 10:07:45 2024-08-04 10:52:29 [id number] 2024-08-04 09:50:00 2024-08-04 10:52:29 Office Visit Bobbi [facility] [id number] Lorri petersen [facility] 2024-07-07 00:00:00 2024-07-07 14:48:56 Telephone Lis Cardona Natalie [facility] [id number] Lorri Javed [facility] 2024-07-07 10:09:32 2024-07-07 10:58:16 Outpatient Elective BOBBI MARTINEZ [facility] [id number] [facility] 2024-07-07 10:00:00 2024-07-07 10:58:16 Consult Bobbi Martinez [facility] [id number] Lorri Javed [facility] 2021-07-22 03:27:00 2021-07-22 05:43:00 Emergency Clinton Wolf [facility] [id number] [facility] 2021-07-22 03:27:00 2021-07-22 05:43:00 Emergency X [facility] ERT [id number] [facility] Results Test Description Test Time Test Comments Results Result Co mments Source GLUCOSE [id number] 12:24:00* Test Item Value Reference Range Interpretation Comme nts GLUCOSE BEDSIDE (test code = GLUBED) 139 MG/DL 70-110 H Performed by cer tified pumping plant operator at [facility] GLUCOSE [id number] 10:13:00* Test Item Value Reference Range Interpretation Comme nts GLUCOSE BEDSIDE (test code = GLUBED) 169 MG/DL 70-110 H Performed by cer tifMicrola[employer] pumping plant operator at [facility] GLUCOSE [id number] 07:52:00* Test Item Value Reference Range Interpretation Comme nts GLUCOSE BEDSIDE (test code = GLUBED) 90 MG/DL 70-110 N Performed by [employer] pumping plant operator at [facility] BASIC METABOLIC [id number] 07:47:00* Test Item Value Reference Range Interpretation [...] code = CA) 8.2 mg/dL 8.0-10.5 N [id number] 07:47:00* Test Item Value Reference Range Interpretation Comme nts MAGNESIUM (test code = MAG) 2.49 mg/dL 1.6-2.6 N CBC W/AUTO [id number] 07:29:00* Test Item Value Reference Range Interpretation [...] NRBC#) 0.02 x10 3/uL 0.0-0.1 N GLUCOSE [id number] 20:18:00* Test Item Value Reference Range Interpretation Comme [facility] GLUCOSE BEDSIDE (test code = GLUBED) 180 MG/DL 70-110 H Performed by cer tified pumping plant operator at [facility] GLUCOSE [id number] 17:42:00* Test Item Value Reference Range Interpretation Comme nts GLUCOSE BEDSIDE (test code = GLUBED) 145 MG/DL 70-110 H Performed by cer tified pumping plant operator at [facility] GLUCOSE [id number] 11:47:00* Test Item Value Reference Range Interpretation Comme nts GLUCOSE BEDSIDE (test code = GLUBED) 132 MG/DL 70-110 H Performed by patience garces pumping plant operator at [facility] BASIC METABOLIC [id number] 03:43:00* Test Item Value Reference Range Interpretation [...] code = CA) 8.1 mg/dL 8.0-10.5 N [id number] 03:43:00* Test Item Value Reference Range Interpretation Comme nts MAGNESIUM (test code = MAG) 2.53 mg/dL 1.6-2.6 N CBC W/AUTO [id number] 03:26:00* Test Item Value Reference Range Interpretation [...] NRBC#) 0.03 x10 3/uL 0.0-0.1 N GLUCOSE [id number] 20:56:00* Test Item Value Reference Range Interpretation Comme nts GLUCOSE BEDSIDE (test code = GLUBED) 176 MG/DL 70-110 H Performed by cer tified pumping plant operator at [facility] GLUCOSE [id number] 16:42:00* Test Item Value Reference Range Interpretation Comme nts GLUCOSE BEDSIDE (test code = GLUBED) 175 MG/DL 70-110 H Performed by cer tified pumping plant operator at [facility] GLUCOSE [id number] 12:34:00* Test Item Value Reference Range Interpretation Comme nts GLUCOSE BEDSIDE (test code = GLUBED) 155 MG/DL 70-110 H Performed by cer tified pumping plant operator at [facility] GLUCOSE [id number] 08:36:00* Test Item Value Reference Range Interpretation Comme nts GLUCOSE BEDSIDE (test code = GLUBED) 84 MG/DL 70-110 N Performed by cer tified pumping plant operator at [facility] BASIC METABOLIC [id number] 02:51:00* Test Item Value Reference Range Interpretation [...] code = CA) 8.3 mg/dL 8.0-10.5 N [id number] 02:51:00* Test Item Value Reference Range Interpretation Comme nts MAGNESIUM (test code = MAG) 2.17 mg/dL 1.6-2.6 N CBC W/AUTO [id number] 02:40:00* Test Item Value Reference Range Interpretation [...] NRBC#) 0.03 x10 3/uL 0.0-0.1 N GLUCOSE [id number] 20:07:00* Test Item Value Reference Range Interpretation Comme nts GLUCOSE BEDSIDE (test code = GLUBED) 211 MG/DL 70-110 H Performed by cer tified pumping plant operator at [facility] GLUCOSE [id number] 16:52:00* Test Item Value Reference Range Interpretation Comme nts GLUCOSE BEDSIDE (test code = GLUBED) 179 MG/DL 70-110 H Performed by cer tified pumping plant operator at [facility] GLUCOSE [id number] 12:33:00* Test Item Value Reference Range Interpretation Comme nts GLUCOSE BEDSIDE (test code = GLUBED) 150 MG/DL 70-110 H Performed by cer tified pumping plant operator at [facility] GLUCOSE [id number] 09:29:00* Test Item Value Reference Range Interpretation Comme nts GLUCOSE BEDSIDE (test code = GLUBED) 196 MG/DL 70-110 H Performed by cer tified pumping plant operator at [facility] GLUCOSE [id number] 07:51:00* Test Item Value Reference Range Interpretation Comme nts GLUCOSE BEDSIDE (test code = GLUBED) 98 MG/DL 70-110 N Performed by [employer] pumping plant operator at [facility] BASIC METABOLIC [id number] 03:19:00* Test Item Value Reference Range Interpretation [...] code = CA) 7.9 mg/dL 8.0-10.5 L [id number] 03:19:00* Test Item Value Reference Range Interpretation Comme nts MAGNESIUM (test code = MAG) 2.20 mg/dL 1.6-2.6 N CBC W/AUTO [id number] 02:58:00* Test Item Value Reference Range Interpretation [...] NRBC#) 0.06 x10 3/uL 0.0-0.1 N GLUCOSE [id number] 20:05:00* Test Item Value Reference Range Interpretation Comme nts GLUCOSE BEDSIDE (test code = GLUBED) 193 MG/DL 70-110 H Performed by cer tified pumping plant operator at [facility] BASIC METABOLIC [id number] 18:40:00* Test Item Value Reference Range Interpretation [...] code = CA) 8.1 mg/dL 8.0-10.5 N [id number] 18:40:00* Test Item Value Reference Range Interpretation Comme nts MAGNESIUM (test code = MAG) 2.16 mg/dL 1.6-2.6 GLUCOSE [id number] 17:11:00* Test Item Value Reference Range Interpretation Comme nts GLUCOSE BEDSIDE (test code = GLUBED) 191 MG/DL 70-110 H Performed by cer tified pumping plant operator at [facility] GLUCOSE [id number] 11:56:00* Test Item Value Reference Range Interpretation Comme nts GLUCOSE BEDSIDE (test code = GLUBED) 177 MG/DL 70-110 H Performed by cer tified pumping plant operator at [facility] GLUCOSE [id number] 07:30:00* Test Item Value Reference Range Interpretation Comme nts GLUCOSE BEDSIDE (test code = GLUBED) 117 MG/DL 70-110 H Performed by [employer] tified pumping plant operator at [facility] BASIC METABOLIC [id number] 04:11:00* Test Item Value Reference Range Interpretation [...] code = CA) 8.1 mg/dL 8.0-10.5 N [id number] 04:11:00* Test Item Value Reference Range Interpretation Comme nts MAGNESIUM (test code = MAG) 3.51 mg/dL 1.6-2.6 H CBC W/AUTO [id number] 03:47:00* Test Item Value Reference Range Interpretation [...] NRBC#) 0.05 x10 3/uL 0.0-0.1 N GLUCOSE [id number] 20:32:00* Test Item Value Reference Range Interpretation Comme nts GLUCOSE BEDSIDE (test code = GLUBED) 234 MG/DL 70-110 H Performed by cer tified pumping plant operator at [facility] BASIC METABOLIC [id number] 16:43:00* Test Item Value Reference Range Interpretation [...] code = CA) 8.0 mg/dL 8.0-10.5 N [id number] 16:43:00* Test Item Value Reference Range Interpretation Comme nts MAGNESIUM (test code = MAG) 2.29 mg/dL 1.6-2.6 N GLUCOSE [id number] 16:42:00* Test Item Value Reference Range Interpretation Comme nts GLUCOSE BEDSIDE (test code = GLUBED) 159 MG/DL 70-110 H Performed by cer tified pumping plant operator at [facility] GLUCOSE [id number] 11:59:00* Test Item Value Reference Range Interpretation Comme nts GLUCOSE BEDSIDE (test code = GLUBED) 151 MG/DL 70-110 H Performed by cer tified pumping plant operator at [facility] GLUCOSE [id number] 08:16:00* Test Item Value Reference Range Interpretation Comme nts GLUCOSE BEDSIDE (test code = GLUBED) 106 MG/DL 70-110 N Performed by cer tified pumping plant operator at [facility] GLUCOSE [id number] 07:00:00* Test Item Value Reference Range Interpretation Comme nts GLUCOSE BEDSIDE (test code = GLUBED) 95 MG/DL 70-110 N Performed by cer dez pumping plant operator at [facility] BASIC METABOLIC [id number] 04:34:00* Test Item Value Reference Range Interpretation [...] code = CA) 8.3 mg/dL 8.0-10.5 N [id number] 04:34:00* Test Item Value Reference Range Interpretation Comme nts MAGNESIUM (test code = MAG) 2.45 mg/dL 1.6-2.6 N CBC W/AUTO [id number] 04:13:00* Test Item Value Reference Range Interpretation [...] NRBC#) 0.11 x10 3/uL 0.0-0.1 H GLUCOSE [id number] 00:14:00* Test Item Value Reference Range Interpretation Comme nts GLUCOSE BEDSIDE (test code = GLUBED) 123 MG/DL 70-110 H Performed by cer tified pumping plant operator at [facility] BASIC METABOLIC [id number] 19:02:00* Test Item Value Reference Range Interpretation [...] code = CA) 8.2 mg/dL 8.0-10.5 N [id number] 19:02:00* Test Item Value Reference Range Interpretation Comme nts MAGNESIUM (test code = MAG) 2.33 mg/dL 1.6-2.6 N GLUCOSE [id number] 17:32:00* Test Item Value Reference Range Interpretation Comme nts GLUCOSE BEDSIDE (test code = GLUBED) 147 MG/DL 70-110 H Performed by cer tified pumping plant operator at [facility] GLUCOSE [id number] 14:31:00* Test Item Value Reference Range Interpretation Comme nts GLUCOSE BEDSIDE (test code = GLUBED) 231 MG/DL 70-110 H Performed by [employer] pumping plant operator at [facility] GLUCOSE [id number] 08:01:00* Test Item Value Reference Range Interpretation Comme [facility] GLUCOSE BEDSIDE (test code = GLUBED) 97 MG/DL 70-110 N Performed by cer tified pumping plant operator at [facility] BASIC METABOLIC [id number] 07:17:00* Test Item Value Reference Range Interpretation [...] = POCGLU) 102 MG/DL 70-110 N HEMOGLOBIN [id number] 07:17:00* Test Item Value Reference Range Interpretation Comme [facility] HEMOGLOBIN ABG (test code = HGB/ABG) 9.2 G/DL 11.0-15.0 L [id number] 07:17:00* Test Item Value Reference Range Interpretation Comme [facility] HEMATOCRIT (test code = HCT/ABG) 27 % 33-45 L POC LACTIC [id number] 07:17:00* Test Item Value Reference Range Interpretation Comme [facility] POC LACTIC ACID (test code = POCLAC) 0.7 mmol/l 0.9-1.7 L POC VENOUS BLOOD [id number] 07:17:00* Test Item Value Reference Range Interpretation Comme [facility] YESSY'S TEST (test code = ALLENS) N/A POC VENOUS BLOOD GAS PH (test code = POCPHV) 7.415 7.33-7.45 N POC VENOUS BLOOD GAS PCO2 (test code = SOGSUA6P) 40.2 mmHg 43-47 L POC VENOUS BLOOD GAS PO2 (test code = RZEMX3U) 22.3 mmHG 10-50 N POC TCO2 VENOUS (test code = OJWZDN1Q) 27.0 22-29 N POC HCO3 VENOUS (test code = WGYLSW5T) 25.7 MMOL/L 22-27 N POC BASE EXCESS VENOUS (test code = POCBEV) 1.2 MMOL/L See_Comment N [Automated Move[employer] ge] The system which generated this result transmitted reference range: 0-+/-4. The reference range was not used to interpret this result as normal/abnormal. POC O2 SATURATION VENOUS (test code = PGXW4LI) 39.0 % 60-80 L VENOUS BLOOD GAS DELIVERY (test code = DELV) Room Air VENOUS BLOOD GAS TEMP (test code = TEMPV) 98 F VENOUS BLOOD GAS SITE (test code = SITEV) PA BASIC METABOLIC [id number] 03:23:00* Test Item Value Reference Range Interpretation [...] code = CA) 8.3 mg/dL 8.0-10.5 N [id number] 03:23:00* Test Item Value Reference Range Interpretation Comme nts MAGNESIUM (test code = MAG) 2.42 mg/dL 1.6-2.6 N CBC W/AUTO [id number] 03:18:00* Test Item Value Reference Range Interpretation [...] NRBC#) 0.13 x10 3/uL 0.0-0.1 H GLUCOSE [id number] 02:06:00* Test Item Value Reference Range Interpretation Comme nts GLUCOSE BEDSIDE (test code = GLUBED) 55 MG/DL 70-110 L Performed by cer tified pumping plant operator at [facility] GLUCOSE [id number] 20:11:00* Test Item Value Reference Range Interpretation Comme nts GLUCOSE BEDSIDE (test code = GLUBED) 131 MG/DL 70-110 H Performed by cer tified pumping plant operator at [facility] GLUCOSE [id number] 18:28:00* Test Item Value Reference Range Interpretation Comme nts GLUCOSE BEDSIDE (test code = GLUBED) 156 MG/DL 70-110 H Performed by cer tified pumping plant operator at [facility] BASIC METABOLIC [id number] 12:52:00* Test Item Value Reference Range Interpretation [...] code = CA) 7.8 mg/dL 8.0-10.5 L [id number] 12:52:00* Test Item Value Reference Range Interpretation Comme nts MAGNESIUM (test code = MAG) 2.37 mg/dL 1.6-2.6 N [id number] 12:49:00* Test Item Value Reference Range Interpretation Comme nts SURGICAL (test code = SR) --------RUN DATE: 09/03/24 [facility] PAGE 1 RUN TIME: 1249 Specimen Inquiry RUN USER: INTERFACE --------PATIENT: RAYSA GILLIAM LOC: CristinoLANETTE U #: [id number] AGE/SX: 64/F ROOM: 220 RE08/27/24[facility] DR: Poppy Hernandez MD : 64 BED: 1 DIS: STATUS: ADM IN TLOC: -------- SPEC #: [id number] RECD: 08/31/24 STATUS: CASEY RUEDA #: [id number] DWAINE: 08/30/24- SUBM DR: Poppy Hernandez MD ENTERED: 08/31/24 SP TYPE: SURGICAL OTHR DR: Rosa Covington MD, Nehme X MD Hyder, Shahistha MDORDERED: [id number], [id number], 73906, ANATOMIC SPEC COPIES TO: Rosa Covington MD [address] [place] [address] Rachna Hall MD [address] [place] [address] Poppy Hernandez MD [address] [place] [address]. [address] [place] [address] Brooke Gonzáles MD PROCEDURES: 70821 (09/03/24-1231) 93725 (08/31/24-1044) 29530 (08/31/24) TISSUES: A. ATRIUM - LEFT ATRIAL APPENDAGE B. AORTIC VALVE - LEAFLETS CLINICAL HISTORY SAME FINAL DIAGNOSIS #1. Heart, left atrial appendage, excision: -Cardiac tissue with mild ischemic-type changes. #2. Aortic valve leaflets, excision: -Calcifications and myxoid degeneration. CONTINUED ON NEXT PAGE --------RUN DATE: 09/03/24 [facility] PAGE 2 RUN TIME: 1249 Specimen Inquiry RUN USER: INTERFACE --------SPEC #: [id number] PATIENT: RAYSA GILLIAM #[id number] (Continued) GROSS DESCRIPTION 1. Received in formalin labeled "left atrial appendage" is a 4 x 2.2 x 1.4 cm aguilar-redatrial appendage. The specimen is serially sectioned and no gross lesions are identified. Cycle Manager sections are submitted in cassette A. 2. Received in formalin labeled "aortic valve leaflets" is a 2.8 x 2.5 x 0.3 cm irregularto crescent shaped yellow-aguilar white valvular tissues with multiple fenestrations measuringup to 0.3 cm. The specimen is serially sectioned to reveal calcifications measuring up to0.8 cm in thickness. Cycle Manager sections are submitted in cassette B, followingdecalcification. Technical component performed at [address], [place] [address] Unless gross only, the diagnosis is based upon microscopic examination.Immunohistochemi stry: This test was developed and its performance characteristicsdetermined by this laboratory. It has not been approved nor does it need approvalby the [place] FDA. Appropriate positive and negative controls are reviewed and judgedto be acceptable for performedimmunohistochemistr y and/or special stains. This laboratoryis certified under the Clinical Laboratory Improvement Amendments (CLIA-88) as qualified toperform high complexity clinical laboratory testing. MICROSCOPIC DESCRIPTION A microscopic examination was performed. CLINICAL INFORMATION CAD, AORTIC VALVE STENOSIS Signed SIGNATURE ON FILE Balbir Lipscomb 09/03/24 1249 -------- END OF REPORT GLUCOSE [id number] 12:31:00* Test Item Value Reference Range Interpretation Comme [facility] GLUCOSE BEDSIDE (test code = GLUBED) 146 MG/DL 70-110 H Performed by [employer] pumping plant operator at [facility] GLUCOSE [id number] 09:52:00* Test Item Value Reference Range Interpretation Comme [facility] GLUCOSE BEDSIDE (test code = GLUBED) 219 MG/DL 70-110 H Performed by [employer] pumping plant operator at [facility] BASIC METABOLIC [id number] 09:41:00* Test Item Value Reference Range Interpretation Comme [facility] SODIUM (test code = NA/ABG) 134 mmol/L 134-147 N POTASSIUM (test code = K/ABG) 4.5 mmol/L 3.4-5.0 N CHLORIDE (test code = CL/ABG) 98 mmol/L 100-108 L CREATININE ABG (test code = CREAABG) 1.4 mg/dL 0.6-1.3 H POC IONIZED CALCIUM (test co de = POCCA) 1.12 MMOL/L 1.12-1.32 N POC GLUCOSE (test code = POCGLU) 221 MG/DL 70-110 H HEMOGLOBIN [id number] 09:41:00* Test Item Value Reference Range Interpretation Comme [facility] HEMOGLOBIN ABG (test code = HGB/ABG) 8.0 G/DL 11.0-15.0 L [id number] 09:41:00* Test Item Value Reference Range Interpretation Comme [facility] HEMATOCRIT (test code = HCT/ABG) 24 % 33-45 L POC LACTIC [id number] 09:41:00* Test Item Value Reference Range Interpretation Comme [facility] POC LACTIC ACID (test code = POCLAC) 2.5 mmol/l 0.9-1.7 H POC VENOUS BLOOD [id number] 09:41:00* Test Item Value Reference Range Interpretation Comme [facility] POC VENOUS BLOOD GAS PH (test code = POCPHV) 7.397 7.33-7.45 N POC VENOUS BLOOD GAS PCO2 (test code = XMHLTX9H) 40.2 mmHg 43-47 L POC VENOUS BLOOD GAS PO2 (test code = YPHHG5B) 19.5 mmHG 10-50 N POC TCO2 VENOUS (test code = ALEJPL6R) 26.0 22-29 N POC HCO3 VENOUS (test code = HHUFJJ2J) 24.7 MMOL/L 22-27 N POC BASE EXCESS VENOUS (test code = POCBEV) -0.1 MMOL/L See_Comment L [Automated messa ge] The system which generated this result transmitted reference range: 0-+/-4. The reference range was not used to interpret this result as normal/abnormal. POC O2 SATURATION VENOUS (test code = UAVE1CY) 30.5 % 60-80 L VENOUS BLOOD GAS DELIVERY (test code = DELV) Cannula VENOUS BLOOD GAS TEMP (test code = TEMPV) 97.8 F VENOUS BLOOD GAS SITE (test code = SITEV) [facility] POC ARTERIAL BLOOD [id number] 07:17:00* Test Item Value Reference Range Interpretation Comme [facility] POC ARTERIAL BLOOD GAS PH (test code = POCPHA) 7.458 7.35-7.45 H POC ARTERIAL BLOOD GAS PCO2 (test code = ILLHXM7A) 32.9 mmHg 35.0-45 L POC TCO2 ARTERIAL (test code = POCTCO2) 24.3 22-29 N POC ARTERIAL BLOOD GAS PO2 (test code = FMEZX3T) 60.7 mmHg 80-100.0 L POC HCO3 ARTERIAL (test code = BSLQCD4N) 23.3 MMOL/L 22.0-26.0 N POC BASE EXCESS [...] (test code = ALLENS) N/A BASIC METABOLIC [id number] 07:17:00* Test Item Value Reference Range Interpretation [...] = POCGLU) 110 MG/DL 70-110 N HEMOGLOBIN [id number] 07:17:00* Test Item Value Reference Range Interpretation Comme nts HEMOGLOBIN ABG (test code = HGB/ABG) 9.4 G/DL 11.0-15.0 L [id number] 07:17:00* Test Item Value Reference Range Interpretation Comme nts HEMATOCRIT (test code = HCT/ABG) 28 % 33-45 L POC LACTIC [id number] 07:17:00* Test Item Value Reference Range Interpretation Comme nts POC LACTIC ACID (test code = POCLAC) 0.8 mmol/l 0.9-1.7 L BASIC METABOLIC [id number] 04:37:00* Test Item Value Reference Range Interpretation [...] code = CA) 8.5 mg/dL 8.0-10.5 N [id number] 04:37:00* Test Item Value Reference Range Interpretation Comme nts MAGNESIUM (test code = MAG) 2.48 mg/dL 1.6-2.6 N CBC W/AUTO [id number] 04:22:00* Test Item Value Reference Range Interpretation [...] NRBC#) 0.03 x10 3/uL 0.0-0.1 N GLUCOSE [id number] 04:20:00* Test Item Value Reference Range Interpretation Comme nts GLUCOSE BEDSIDE (test code = GLUBED) 88 MG/DL 70-110 N Performed by cer tified pumping plant operator at [facility] BASIC METABOLIC [id number] 00:23:00* Test Item Value Reference Range Interpretation [...] code = CA) 8.4 mg/dL 8.0-10.5 N [id number] 00:23:00* Test Item Value Reference Range Interpretation Comme nts MAGNESIUM (test code = MAG) 2.30 mg/dL 1.6-2.6 N POC ARTERIAL BLOOD [id number] 20:33:00* Test Item Value Reference Range Interpretation Comme nts POC ARTERIAL BLOOD GAS PH (test code = POCPHA) 7.498 7.35-7.45 H POC ARTERIAL BLOOD GAS PCO2 (test code = PZBYCE2N) 32.9 mmHg 35.0-45 L POC TCO2 ARTERIAL (test code = POCTCO2) 26.6 22-29 N POC ARTERIAL BLOOD GAS PO2 (test code = GFYLR2W) 64.4 mmHg 80-100.0 L POC HCO3 ARTERIAL (test code = RJOCMX3U) 25.6 MMOL/L 22.0-26.0 N POC BASE EXCESS [...] (test code = ALLENS) N/A BASIC METABOLIC [id number] 20:33:00* Test Item Value Reference Range Interpretation [...] = POCGLU) 169 MG/DL 70-110 H HEMOGLOBIN [id number] 20:33:00* Test Item Value Reference Range Interpretation Comme nts HEMOGLOBIN ABG (test code = HGB/ABG) 9.0 G/DL 11.0-15.0 L [id number] 20:33:00* Test Item Value Reference Range Interpretation Comme nts HEMATOCRIT (test code = HCT/ABG) 27 % 33-45 L POC LACTIC [id number] 20:33:00* Test Item Value Reference Range Interpretation Comme nts POC LACTIC ACID (test code = POCLAC) 0.9 mmol/l 0.9-1.7 N BASIC METABOLIC [id number] 17:48:00* Test Item Value Reference Range Interpretation [...] code = CA) 8.4 mg/dL 8.0-10.5 N [id number] 17:48:00* Test Item Value Reference Range Interpretation Comme nts MAGNESIUM (test code = MAG) 2.32 mg/dL 1.6-2.6 N CBC W/AUTO [id number] 17:36:00* Test Item Value Reference Range Interpretation [...] 0.03 x10 3/uL 0.0-0.1 N BASIC METABOLIC [id number] 17:33:00* Test Item Value Reference Range Interpretation [...] = POCGLU) 131 MG/DL 70-110 H HEMOGLOBIN [id number] 17:33:00* Test Item Value Reference Range Interpretation Comme nts HEMOGLOBIN ABG (test code = HGB/ABG) 8.6 G/DL 11.0-15.0 L [id number] 17:33:00* Test Item Value Reference Range Interpretation Comme nts HEMATOCRIT (test code = HCT/ABG) 25 % 33-45 L POC LACTIC [id number] 17:33:00* Test Item Value Reference Range Interpretation Comme [facility] POC LACTIC ACID (test code = POCLAC) 1.1 mmol/l 0.9-1.7 N POC VENOUS BLOOD [id number] 17:33:00* Test Item Value Reference Range Interpretation Comme [facility] POC VENOUS BLOOD GAS PH (test code = POCPHV) 7.436 7.33-7.45 N POC VENOUS BLOOD GAS PCO2 (test code = TCSHYR8L) 39.7 mmHg 43-47 L POC VENOUS BLOOD GAS PO2 (test code = KSAKX4N) 21.7 mmHG 10-50 N POC TCO2 VENOUS (test code = YOHXJT4S) 27.9 22-29 N POC HCO3 VENOUS (test code = CQWRVJ0H) 26.7 MMOL/L 22-27 N POC BASE EXCESS VENOUS (test code = POCBEV) 2.5 MMOL/L See_Comment N [Automated Moveaa ge] The system which generated this result transmitted reference range: 0-+/-4. The reference range was not used to interpret this result as normal/abnormal. POC O2 SATURATION VENOUS (test code = VXCH0KA) 38.6 % 60-80 L VENOUS BLOOD GAS DELIVERY (test code = DELV) [facility] [employer] VENOUS BLOOD GAS TEMP (test code = TEMPV) 97.9 F VENOUS BLOOD GAS SITE (test code = SITEV) [place] [facility] GLUCOSE [id number] 16:37:00* Test Item Value Reference Range Interpretation Comme [facility] GLUCOSE BEDSIDE (test code = GLUBED) 95 MG/DL 70-110 N Performed by cer tified pumping plant operator at [facility] POC ARTERIAL BLOOD [id number] 12:28:00* Test Item Value Reference Range Interpretation Comme [facility] POC ARTERIAL BLOOD GAS PH (test code = POCPHA) 7.500 7.35-7.45 H POC ARTERIAL BLOOD GAS PCO2 (test code = LFJLCK8X) 32.9 mmHg 35.0-45 L POC TCO2 ARTERIAL (test code = POCTCO2) 26.6 22-29 N POC ARTERIAL BLOOD GAS PO2 (test code = GOVTP7F) 65.8 mmHg 80-100.0 L POC HCO3 ARTERIAL (test code = ZNJTSE6T) 25.6 MMOL/L 22.0-26.0 N POC BASE EXCESS (test code = POCBEA) 2.5 MMOL/L See_Comment N [Automated messa ge] The system which generated this result transmitted reference range: 0-+/-4. The reference range was not used to interpret this result as normal/abnormal. POC O2 SATURATION (test code = POCO2S) 94.5 % 90-100 N ABG DELIVERY (test code = BENY) [employer] BASIC METABOLIC [id number] 12:28:00* Test Item Value Reference Range Interpretation [...] = POCGLU) 104 MG/DL 70-110 N HEMOGLOBIN [id number] 12:28:00* Test Item Value Reference Range Interpretation Comme nts HEMOGLOBIN ABG (test code = HGB/ABG) 8.4 G/DL 11.0-15.0 L [id number] 12:28:00* Test Item Value Reference Range Interpretation Comme nts HEMATOCRIT (test code = HCT/ABG) 25 % 33-45 L POC LACTIC [id number] 12:28:00* Test Item Value Reference Range Interpretation Comme nts POC LACTIC ACID (test code = POCLAC) 1.1 mmol/l 0.9-1.7 N BASIC METABOLIC [id number] 12:12:00* Test Item Value Reference Range Interpretation [...] code = CA) 8.1 mg/dL 8.0-10.5 N [id number] 12:12:00* Test Item Value Reference Range Interpretation Comme nts MAGNESIUM (test code = MAG) 2.37 mg/dL 1.6-2.6 N BASIC METABOLIC [id number] 09:07:00* Test Item Value Reference Range Interpretation [...] = POCGLU) 142 MG/DL 70-110 H HEMOGLOBIN [id number] 09:07:00* Test Item Value Reference Range Interpretation Comme nts HEMOGLOBIN ABG (test code = HGB/ABG) 8.9 G/DL 11.0-15.0 L [id number] 09:07:00* Test Item Value Reference Range Interpretation Comme nts HEMATOCRIT (test code = HCT/ABG) 26 % 33-45 L POC LACTIC [id number] 09:07:00* Test Item Value Reference Range Interpretation Comme nts POC LACTIC ACID (test code = POCLAC) 2.1 mmol/l 0.9-1.7 H POC VENOUS BLOOD [id number] 09:07:00* Test Item Value Reference Range Interpretation Comme nts POC VENOUS BLOOD GAS PH (test code = POCPHV) 7.399 7.33-7.45 N POC VENOUS BLOOD GAS PCO2 (test code = PYFNBY6F) 43.5 mmHg 43-47 N POC VENOUS BLOOD GAS PO2 (test code = MJASE4C) 22.3 mmHG 10-50 N POC TCO2 VENOUS (test code = AWCREA7U) 28.2 22-29 N POC HCO3 VENOUS (test code = UNWMTQ0O) 26.9 MMOL/L 22-27 N POC BASE EXCESS VENOUS (test code = POCBEV) 2.0 MMOL/L See_Comment N [Automated messa ge] The system which generated this result transmitted reference range: 0-+/-4. The reference range was not used to interpret this result as normal/abnormal. POC O2 SATURATION VENOUS (test code = TULR7HF) 37.6 % 60-80 L VENOUS BLOOD GAS FIO2 (test code = FIO2V) 28 % VENOUS BLOOD GAS DELIVERY (test code = DELV) Cannula VENOUS BLOOD GAS SITE (test code = SITEV) [place] [facility] GLUCOSE [id number] 08:33:00* Test Item Value Reference Range Interpretation Comme nts GLUCOSE BEDSIDE (test code = GLUBED) 139 MG/DL 70-110 H Performed by cer tified pumping plant operator at [facility] BASIC METABOLIC [id number] 05:39:00* Test Item Value Reference Range Interpretation [...] CA) 8.1 mg/dL 8.0-10.5 N HEPATIC FUNCTION [id number] 05:39:00* Test Item Value Reference Range Interpretation [...] code = ALKP) 83 IUnit/L 20-125 N [id number] 05:39:00* Test Item Value Reference Range Interpretation Comme nts MAGNESIUM (test code = MAG) 2.49 mg/dL 1.6-2.6 N CBC W/AUTO [id number] 05:22:00* Test Item Value Reference Range Interpretation [...] x10 3/uL 0.0-0.1 N POC ARTERIAL BLOOD [id number] 05:12:00* Test Item Value Reference Range Interpretation Comme nts POC ARTERIAL BLOOD GAS PH (test code = POCPHA) 7.465 7.35-7.45 H POC ARTERIAL BLOOD GAS PCO2 (test code = FJLETG0A) 33.9 mmHg 35.0-45 L POC TCO2 ARTERIAL (test code = POCTCO2) 25.4 22-29 N POC ARTERIAL BLOOD GAS PO2 (test code = SMVRW7A) 88.3 mmHg 80-100.0 N POC HCO3 ARTERIAL (test code = AWSJOR9Y) 24.4 MMOL/L 22.0-26.0 N POC BASE EXCESS [...] (test code = ALLENS) Negative BASIC METABOLIC [id number] 05:12:00* Test Item Value Reference Range Interpretation [...] = POCGLU) 127 MG/DL 70-110 H HEMOGLOBIN [id number] 05:12:00* Test Item Value Reference Range Interpretation Comme nts HEMOGLOBIN ABG (test code = HGB/ABG) 9.0 G/DL 11.0-15.0 L [id number] 05:12:00* Test Item Value Reference Range Interpretation Comme nts HEMATOCRIT (test code = HCT/ABG) 26 % 33-45 L POC LACTIC [id number] 05:12:00* Test Item Value Reference Range Interpretation Comme nts POC LACTIC ACID (test code = POCLAC) 0.9 mmol/l 0.9-1.7 N BASIC METABOLIC [id number] 00:51:00* Test Item Value Reference Range Interpretation [...] code = CA) 8.4 mg/dL 8.0-10.5 N [id number] 00:51:00* Test Item Value Reference Range Interpretation Comme nts MAGNESIUM (test code = MAG) 2.44 mg/dL 1.6-2.6 N CALCIUM [id number] 00:51:00* Test Item Value Reference Range Interpretation Comme nts CALCIUM IONIZED (test code = KYLE) 1.10 MMOL/L 1.09-1.30 N GLUCOSE [id number] 18:07:00* Test Item Value Reference Range Interpretation Comme nts GLUCOSE BEDSIDE (test code = GLUBED) 160 MG/DL 70-110 H Performed by cer tified pumping plant operator at [facility] BASIC METABOLIC [id number] 16:43:00* Test Item Value Reference Range Interpretation [...] = POCGLU) 166 MG/DL 70-110 H HEMOGLOBIN [id number] 16:43:00* Test Item Value Reference Range Interpretation Comme nts HEMOGLOBIN ABG (test code = HGB/ABG) 8.3 G/DL 11.0-15.0 L [id number] 16:43:00* Test Item Value Reference Range Interpretation Comme nts HEMATOCRIT (test code = HCT/ABG) 25 % 33-45 L POC LACTIC [id number] 16:43:00* Test Item Value Reference Range Interpretation Comme nts POC LACTIC ACID (test code = POCLAC) 1.4 mmol/l 0.9-1.7 N POC VENOUS BLOOD [id number] 16:43:00* Test Item Value Reference Range Interpretation Comme nts POC VENOUS BLOOD GAS PH (test code = POCPHV) 7.430 7.33-7.45 N POC VENOUS BLOOD GAS PCO2 (test code = ASDOHK4E) 38.3 mmHg 43-47 L POC VENOUS BLOOD GAS PO2 (test code = JDCZH9U) 22.1 mmHG 10-50 N POC TCO2 VENOUS (test code = UACTZR4S) 26.6 22-29 N POC HCO3 VENOUS (test code = HSGBSF9Z) 25.5 MMOL/L 22-27 N POC BASE EXCESS VENOUS (test code = POCBEV) 1.1 MMOL/L See_Comment N [Automated messa ge] The system which generated this result transmitted reference range: 0-+/-4. The reference range was not used to interpret this result as normal/abnormal. POC O2 SATURATION VENOUS (test code = BECO2MT) 39.6 % 60-80 L VENOUS BLOOD GAS FIO2 (test code = FIO2V) 36 % VENOUS BLOOD GAS DELIVERY (test code = DELV) Cannula VENOUS BLOOD GAS SITE (test code = SITEV) [place] [facility] GLUCOSE [id number] 16:28:00* Test Item Value Reference Range Interpretation Comme nts GLUCOSE BEDSIDE (test code = GLUBED) 152 MG/DL 70-110 H Performed by cer emekaied pumping plant operator at [facility] BASIC METABOLIC [id number] 15:20:00* Test Item Value Reference Range Interpretation [...] code = CA) 8.2 mg/dL 8.0-10.5 N [id number] 15:20:00* Test Item Value Reference Range Interpretation Comme nts MAGNESIUM (test code = MAG) 1.98 mg/dL 1.6-2.6 N GLUCOSE [id number] 12:14:00* Test Item Value Reference Range Interpretation Comme nts GLUCOSE BEDSIDE (test code = GLUBED) 159 MG/DL 70-110 H Performed by cer tified pumping plant operator at [facility] GLUCOSE [id number] 10:17:00* Test Item Value Reference Range Interpretation Comme nts GLUCOSE BEDSIDE (test code = GLUBED) 229 MG/DL 70-110 H Performed by cer tified pumping plant operator at [facility] GLUCOSE [id number] 09:02:00* Test Item Value Reference Range Interpretation Comme nts GLUCOSE BEDSIDE (test code = GLUBED) 275 MG/DL 70-110 H Performed by cer tified pumping plant operator at [facility] BASIC METABOLIC [id number] 06:28:00* Test Item Value Reference Range Interpretation [...] = POCGLU) 115 MG/DL 70-110 H HEMOGLOBIN [id number] 06:28:00* Test Item Value Reference Range Interpretation Comme [facility] HEMOGLOBIN ABG (test code = HGB/ABG) 8.7 G/DL 11.0-15.0 L [id number] 06:28:00* Test Item Value Reference Range Interpretation Comme nts HEMATOCRIT (test code = HCT/ABG) 26 % 33-45 L POC LACTIC [id number] 06:28:00* Test Item Value Reference Range Interpretation Comme nts POC LACTIC ACID (test code = POCLAC) 0.7 mmol/l 0.9-1.7 L POC VENOUS BLOOD [id number] 06:28:00* Test Item Value Reference Range Interpretation Comme nts YESSY'S TEST (test code = ALLENS) N/A POC VENOUS BLOOD GAS PH (test code = POCPHV) 7.417 7.33-7.45 N POC VENOUS BLOOD GAS PCO2 (test code = QXMOAB1B) 38.2 mmHg 43-47 L POC VENOUS BLOOD GAS PO2 (test code = HUQYC6Z) 24.7 mmHG 10-50 N POC TCO2 VENOUS (test code = AUZKSV5F) 25.8 22-29 N POC HCO3 VENOUS (test code = QDAYBE6I) 24.6 MMOL/L 22-27 N POC BASE EXCESS VENOUS (test code = POCBEV) 0.1 MMOL/L See_Comment N [Automated messa ge] The system which generated this result transmitted reference range: 0-+/-4. The reference range was not used to interpret this result as normal/abnormal. POC O2 SATURATION VENOUS (test code = XIZE1EG) 45.9 % 60-80 L VENOUS BLOOD GAS DELIVERY (test code = DELV) [place] VENOUS BLOOD GAS TEMP (test code = TEMPV) 98 F VENOUS BLOOD GAS SITE (test code = SITEV) [place] POC ARTERIAL BLOOD [id number] 06:15:00* Test Item Value Reference Range Interpretation Comme nts POC ARTERIAL BLOOD GAS PH (test code = POCPHA) 7.501 7.35-7.45 HH POC ARTERIAL BLOOD GAS PCO2 (test code = XIDGEC9T) 26.5 mmHg 35.0-45 LL POC TCO2 ARTERIAL (test code = POCTCO2) 21.5 22-29 L POC ARTERIAL BLOOD GAS PO2 (test code = JZLDF3J) 78.2 mmHg 80-100.0 L POC HCO3 ARTERIAL (test code = XOZVBZ5V) 20.7 MMOL/L 22.0-26.0 L POC BASE EXCESS [...] (test code = ALLENS) N/A BASIC METABOLIC [id number] 06:15:00* Test Item Value Reference Range Interpretation [...] = POCGLU) 108 MG/DL 70-110 N HEMOGLOBIN [id number] 06:15:00* Test Item Value Reference Range Interpretation Comme nts HEMOGLOBIN ABG (test code = HGB/ABG) 8.9 G/DL 11.0-15.0 L [id number] 06:15:00* Test Item Value Reference Range Interpretation Comme nts HEMATOCRIT (test code = HCT/ABG) 26 % 33-45 L POC LACTIC [id number] 06:15:00* Test Item Value Reference Range Interpretation Comme nts POC LACTIC ACID (test code = POCLAC) 0.8 mmol/l 0.9-1.7 L BASIC METABOLIC [id number] 03:21:00* Test Item Value Reference Range Interpretation [...] mg/dL 8.0-10.5 N COMMENTS: POD #1HEPATIC FUNCTION [id number] 03:21:00* Test Item Value Reference Range Interpretation [...] ALKP) 71 IUnit/L 20-125 N COMMENTS: POD #[id number] 03:21:00* Test Item Value Reference Range Interpretation Comme nts MAGNESIUM (test code = MAG) 2.26 mg/dL 1.6-2.6 N COMMENTS: POD #1CBC W/AUTO [id number] 02:30:00* Test Item Value Reference Range Interpretation [...] x10 3/uL 0.0-0.1 N POC ARTERIAL BLOOD [id number] 02:15:00* Test Item Value Reference Range Interpretation Comme nts POC ARTERIAL BLOOD GAS PH (test code = POCPHA) 7.453 7.35-7.45 H POC ARTERIAL BLOOD GAS PCO2 (test code = DEZIGG3U) 35.8 mmHg 35.0-45 N POC TCO2 ARTERIAL (test code = POCTCO2) 26.1 22-29 N POC ARTERIAL BLOOD GAS PO2 (test code = MLJUD8T) 71.4 mmHg 80-100.0 L POC HCO3 ARTERIAL (test code = UKKQDN5S) 25.0 MMOL/L 22.0-26.0 N POC BASE EXCESS [...] (test code = ALLENS) N/A BASIC METABOLIC [id number] 02:15:00* Test Item Value Reference Range Interpretation [...] = POCGLU) 117 MG/DL 70-110 H HEMOGLOBIN [id number] 02:15:00* Test Item Value Reference Range Interpretation Comme nts HEMOGLOBIN ABG (test code = HGB/ABG) 8.9 G/DL 11.0-15.0 L [id number] 02:15:00* Test Item Value Reference Range Interpretation Comme nts HEMATOCRIT (test code = HCT/ABG) 26 % 33-45 L POC LACTIC [id number] 02:15:00* Test Item Value Reference Range Interpretation Comme nts POC LACTIC ACID (test code = POCLAC) 1.1 mmol/l 0.9-1.7 N GLUCOSE [id number] 20:18:00* Test Item Value Reference Range Interpretation Comme nts GLUCOSE BEDSIDE (test code = GLUBED) 125 MG/DL 70-110 H Performed by cer tified pumping plant operator at [facility] HGB [id number] 18:52:00* Test Item Value Reference Range Interpretation Comme nts HEMOGLOBIN (test code = HGB) 6.7 g/dL 11.0-15.0 L HEMATOCRIT (test code = HCT) 22.7 % 33.0-45.0 L POC ARTERIAL BLOOD [id number] 18:18:00* Test Item Value Reference Range Interpretation Comme nts POC ARTERIAL BLOOD GAS PH (test code = POCPHA) 7.434 7.35-7.45 N POC ARTERIAL BLOOD GAS PCO2 (test code = QZAZDL4B) 38.7 mmHg 35.0-45 N POC TCO2 ARTERIAL (test code = POCTCO2) 27.1 22-29 N POC ARTERIAL BLOOD GAS PO2 (test code = FHLFZ3F) 110.9 mmHg 80-100.0 H POC HCO3 ARTERIAL (test code = SPGJIS2U) 25.9 MMOL/L 22.0-26.0 N POC BASE EXCESS [...] (test code = ALLENS) N/A BASIC METABOLIC [id number] 18:18:00* Test Item Value Reference Range Interpretation [...] = POCGLU) 190 MG/DL 70-110 H HEMOGLOBIN [id number] 18:18:00* Test Item Value Reference Range Interpretation Comme nts HEMOGLOBIN ABG (test code = HGB/ABG) 7.1 G/DL 11.0-15.0 L [id number] 18:18:00* Test Item Value Reference Range Interpretation Comme [facility] HEMATOCRIT (test code = HCT/ABG) 21 % 33-45 L POC LACTIC [id number] 18:18:00* Test Item Value Reference Range Interpretation Comme [facility] POC LACTIC ACID (test code = POCLAC) 1.3 mmol/l 0.9-1.7 N GLUCOSE [id number] 18:15:00* Test Item Value Reference Range Interpretation Comme [facility] GLUCOSE BEDSIDE (test code = GLUBED) 158 MG/DL 70-110 H Performed by cer tified pumping plant operator at [facility] GLUCOSE [id number] 16:25:00* Test Item Value Reference Range Interpretation Comme [facility] GLUCOSE BEDSIDE (test code = GLUBED) 225 MG/DL 70-110 H Performed by cer tified pumping plant operator at [facility] BASIC METABOLIC [id number] 16:07:00* Test Item Value Reference Range Interpretation Comme [facility] SODIUM (test code = NA) 141 mEq/L [...] 8.6 mg/dL 8.0-10.5 N POC ARTERIAL BLOOD [id number] 15:12:00* Test Item Value Reference Range Interpretation Comme nts POC ARTERIAL BLOOD GAS PH (test code = POCPHA) 7.410 7.35-7.45 N POC ARTERIAL BLOOD GAS PCO2 (test code = TDCVYV3S) 36.7 mmHg 35.0-45 N POC TCO2 ARTERIAL (test code = POCTCO2) 24.4 22-29 N POC ARTERIAL BLOOD GAS PO2 (test code = TXNSG5G) 75.2 mmHg 80-100.0 L POC HCO3 ARTERIAL (test code = TRRREZ9W) 23.3 MMOL/L 22.0-26.0 N POC BASE EXCESS [...] (test code = ALLENS) N/A BASIC METABOLIC [id number] 15:12:00* Test Item Value Reference Range Interpretation [...] = POCGLU) 237 MG/DL 70-110 H HEMOGLOBIN [id number] 15:12:00* Test Item Value Reference Range Interpretation Comme nts HEMOGLOBIN ABG (test code = HGB/ABG) 7.1 G/DL 11.0-15.0 L [id number] 15:12:00* Test Item Value Reference Range Interpretation Comme nts HEMATOCRIT (test code = HCT/ABG) 21 % 33-45 L POC LACTIC [id number] 15:12:00* Test Item Value Reference Range Interpretation Comme nts POC LACTIC ACID (test code = POCLAC) 0.9 mmol/l 0.9-1.7 N GLUCOSE [id number] 13:42:00* Test Item Value Reference Range Interpretation Comme nts GLUCOSE BEDSIDE (test code = GLUBED) 271 MG/DL 70-110 H Performed by cer tified pumping plant operator at [facility] BASIC METABOLIC [id number] 12:09:00* Test Item Value Reference Range Interpretation [...] = POCGLU) 196 MG/DL 70-110 H HEMOGLOBIN [id number] 12:09:00* Test Item Value Reference Range Interpretation Comme nts HEMOGLOBIN ABG (test code = HGB/ABG) 8.5 G/DL 11.0-15.0 L [id number] 12:09:00* Test Item Value Reference Range Interpretation Comme nts HEMATOCRIT (test code = HCT/ABG) 25 % 33-45 L POC LACTIC [id number] 12:09:00* Test Item Value Reference Range Interpretation Comme nts POC LACTIC ACID (test code = POCLAC) 1.5 mmol/l 0.9-1.7 N POC VENOUS BLOOD [id number] 12:09:00* Test Item Value Reference Range Interpretation Comme nts YESSY'S TEST (test code = ALLENS) N/A POC VENOUS BLOOD GAS PH (test code = POCPHV) 7.353 7.33-7.45 N POC VENOUS BLOOD GAS PCO2 (test code = FJNDMJ6F) 40.8 mmHg 43-47 L POC VENOUS BLOOD GAS PO2 (test code = KKNEX4G) 30.0 mmHG 10-50 N POC TCO2 VENOUS (test code = GKKLJB9N) 23.9 22-29 N POC HCO3 VENOUS (test code = NDALSD5X) 22.7 MMOL/L 22-27 N POC BASE EXCESS VENOUS (test code = POCBEV) -2.9 MMOL/L See_Comment L [Automated messa ge] The system which generated this result transmitted reference range: 0-+/-4. The reference range was not used to interpret this result as normal/abnormal. POC O2 SATURATION VENOUS (test code = EYRU4LO) 54.4 % 60-80 L VENOUS BLOOD GAS [...] BLOOD GAS SITE (test code = SITEV) [place] BASIC METABOLIC [id number] 11:52:00* Test Item Value Reference Range Interpretation [...] = POCGLU) 187 MG/DL 70-110 H HEMOGLOBIN [id number] 11:52:00* Test Item Value Reference Range Interpretation Comme nts HEMOGLOBIN ABG (test code = HGB/ABG) 7.1 G/DL 11.0-15.0 L [id number] 11:52:00* Test Item Value Reference Range Interpretation Comme nts HEMATOCRIT (test code = HCT/ABG) 21 % 33-45 L POC LACTIC [id number] 11:52:00* Test Item Value Reference Range Interpretation Comme nts POC LACTIC ACID (test code = POCLAC) 1.6 mmol/l 0.9-1.7 N POC VENOUS BLOOD [id number] 11:52:00* Test Item Value Reference Range Interpretation Comme nts YESSY'S TEST (test code = ALLENS) N/A POC VENOUS BLOOD GAS PH (test code = POCPHV) 7.386 7.33-7.45 N POC VENOUS BLOOD GAS PCO2 (test code = XKSOKQ8P) 35.8 mmHg 43-47 L POC VENOUS BLOOD GAS PO2 (test code = PYVPI8V) 76.7 mmHG 10-50 H POC TCO2 VENOUS (test code = YDYQVX9H) 22.6 22-29 N POC HCO3 VENOUS (test code = QSSWMI5Z) 21.5 MMOL/L 22-27 L POC BASE EXCESS VENOUS (test code = POCBEV) -3.5 MMOL/L See_Comment L [Automated messa ge] The system which generated this result transmitted reference range: 0-+/-4. The reference range was not used to interpret this result as normal/abnormal. POC O2 SATURATION VENOUS (test code = MGOU5IP) 95.1 % 60-80 H VENOUS BLOOD GAS [...] BLOOD GAS SITE (test code = SITEV) [place] [facility] BASIC METABOLIC [id number] 11:49:00* Test Item Value Reference Range Interpretation [...] code = CA) 8.8 mg/dL 8.0-10.5 N [id number] 11:49:00* Test Item Value Reference Range Interpretation Comme [facility] MAGNESIUM (test code = MAG) 2.24 mg/dL 1.6-2.6 N GLUCOSE [id number] 11:11:00* Test Item Value Reference Range Interpretation Comme nts GLUCOSE BEDSIDE (test code = GLUBED) 167 MG/DL 70-110 H Performed by cer tified pumping plant operator at [facility] GLUCOSE [id number] 11:11:00* Test Item Value Reference Range Interpretation Comme nts GLUCOSE BEDSIDE (test code = GLUBED) 124 MG/DL 70-110 H Performed by cer tified pumping plant operator at [facility] POC ARTERIAL BLOOD [id number] 10:54:00* Test Item Value Reference Range Interpretation Comme nts POC ARTERIAL BLOOD GAS PH (test code = POCPHA) 7.343 7.35-7.45 L POC ARTERIAL BLOOD GAS PCO2 (test code = RODVOR3B) 37.6 mmHg 35.0-45 N POC TCO2 ARTERIAL (test code = POCTCO2) 21.6 22-29 L POC ARTERIAL BLOOD GAS PO2 (test code = YJKII5K) 64.6 mmHg 80-100.0 L POC HCO3 ARTERIAL (test code = HDNGBD7R) 20.4 MMOL/L 22.0-26.0 L POC BASE EXCESS [...] (test code = ALLENS) N/A BASIC METABOLIC [id number] 10:54:00* Test Item Value Reference Range Interpretation [...] = POCGLU) 201 MG/DL 70-110 H HEMOGLOBIN [id number] 10:54:00* Test Item Value Reference Range Interpretation Comme nts HEMOGLOBIN ABG (test code = HGB/ABG) 7.5 G/DL 11.0-15.0 L [id number] 10:54:00* Test Item Value Reference Range Interpretation Comme nts HEMATOCRIT (test code = HCT/ABG) 22 % 33-45 L POC LACTIC [id number] 10:54:00* Test Item Value Reference Range Interpretation Comme nts POC LACTIC ACID (test code = POCLAC) 4.2 mmol/l 0.9-1.7 HH POC ARTERIAL BLOOD [id number] 10:38:00* Test Item Value Reference Range Interpretation Comme nts POC ARTERIAL BLOOD GAS PH (test code = POCPHA) 7.341 7.35-7.45 L POC ARTERIAL BLOOD GAS PCO2 (test code = LSFMWO7G) 34.4 mmHg 35.0-45 L POC TCO2 ARTERIAL (test code = POCTCO2) 19.7 22-29 L POC ARTERIAL BLOOD GAS PO2 (test code = CBSWE2U) 124.9 mmHg 80-100.0 H POC HCO3 ARTERIAL (test code = SPFMCX9B) 18.6 MMOL/L 22.0-26.0 L POC BASE EXCESS [...] (test code = ALLENS) N/A BASIC METABOLIC [id number] 10:38:00* Test Item Value Reference Range Interpretation [...] = POCGLU) 236 MG/DL 70-110 H HEMOGLOBIN [id number] 10:38:00* Test Item Value Reference Range Interpretation Comme nts HEMOGLOBIN ABG (test code = HGB/ABG) 7.7 G/DL 11.0-15.0 L [id number] 10:38:00* Test Item Value Reference Range Interpretation Comme nts HEMATOCRIT (test code = HCT/ABG) 23 % 33-45 L POC LACTIC [id number] 10:38:00* Test Item Value Reference Range Interpretation Comme nts POC LACTIC ACID (test code = POCLAC) 2.6 mmol/l 0.9-1.7 H BASIC METABOLIC [id number] 09:53:00* Test Item Value Reference Range Interpretation Comme nts SODIUM (test code = NA) 138 mEq/L 134-147 N POTASSIUM (test code = K) 6.4 mEq/L 3.4-5.0 HH Critical result called to Taiwo DUNLAPG at 0952 08/31/24Nurse read back result and [...] 8.1 mg/dL 8.0-10.5 N POC ARTERIAL BLOOD [id number] 09:02:00* Test Item Value Reference Range Interpretation Comme nts POC ARTERIAL BLOOD GAS PH (test code = POCPHA) 7.351 7.35-7.45 N POC ARTERIAL BLOOD GAS PCO2 (test code = HNWHFT6V) 33.5 mmHg 35.0-45 L POC TCO2 ARTERIAL (test code = POCTCO2) 19.6 22-29 L POC ARTERIAL BLOOD GAS PO2 (test code = QOURM4P) 152.3 mmHg 80-100.0 H POC HCO3 ARTERIAL (test code = NUOITT5N) 18.5 MMOL/L 22.0-26.0 L POC BASE EXCESS (test code = POCBEA) -7.1 MMOL/L See_Comment L [Automated message] The system which generated this result transmitted reference range: 0-+/-4. The reference range was not used to interpret this result as normal/abnormal. POC O2 SATURATION (test code = POCO2S) 99.3 % 90-100 N FIO2 (test code = FIO2A) 60 % PaO2/FiO2 (test code = OSI1XYW1) 253.83 mm/Hg ABG DELIVERY (test code = BENY) Cannula ABG SITE (test code = SITEA) Art Line YESSY'S TEST (test code = ALLENS) Positive BASIC METABOLIC [id number] 09:02:00* Test Item Value Reference Range Interpretation [...] = POCGLU) 148 MG/DL 70-110 H HEMOGLOBIN [id number] 09:02:00* Test Item Value Reference Range Interpretation Comme nts HEMOGLOBIN ABG (test code = HGB/ABG) 7.4 G/DL 11.0-15.0 L [id number] 09:02:00* Test Item Value Reference Range Interpretation Comme nts HEMATOCRIT (test code = HCT/ABG) 22 % 33-45 L POC LACTIC [id number] 09:02:00* Test Item Value Reference Range Interpretation Comme nts POC LACTIC ACID (test code = POCLAC) 1.5 mmol/l 0.9-1.7 N POC ARTERIAL BLOOD [id number] 07:39:00* Test Item Value Reference Range Interpretation Comme nts POC ARTERIAL BLOOD GAS PH (test code = POCPHA) 7.325 7.35-7.45 L POC ARTERIAL BLOOD GAS PCO2 (test code = DMLEEP1J) 46.5 mmHg 35.0-45 H POC TCO2 ARTERIAL (test code = POCTCO2) 25.7 22-29 N POC ARTERIAL BLOOD GAS PO2 (test code = ZASPV2Y) 24.2 mmHg 80-100.0 LL POC HCO3 ARTERIAL (test code = HJCYML8F) 24.3 MMOL/L 22.0-26.0 N POC BASE EXCESS [...] (test code = ALLENS) N/A BASIC METABOLIC [id number] 07:39:00* Test Item Value Reference Range Interpretation [...] = POCGLU) 89 MG/DL 70-110 N HEMOGLOBIN [id number] 07:39:00* Test Item Value Reference Range Interpretation Comme nts HEMOGLOBIN ABG (test code = HGB/ABG) 8.9 G/DL 11.0-15.0 L [id number] 07:39:00* Test Item Value Reference Range Interpretation Comme nts HEMATOCRIT (test code = HCT/ABG) 26 % 33-45 L POC LACTIC [id number] 07:39:00* Test Item Value Reference Range Interpretation Comme nts POC LACTIC ACID (test code = POCLAC) 1.2 mmol/l 0.9-1.7 N POC ARTERIAL BLOOD [id number] 06:51:00* Test Item Value Reference Range Interpretation Comme nts POC ARTERIAL BLOOD GAS PH (test code = POCPHA) 7.384 7.35-7.45 N POC ARTERIAL BLOOD GAS PCO2 (test code = WPHWIP0Y) 35.0 mmHg 35.0-45 N POC TCO2 ARTERIAL (test code = POCTCO2) 21.9 22-29 L POC ARTERIAL BLOOD GAS PO2 (test code = VIJYD0G) 130.3 mmHg 80-100.0 H POC HCO3 ARTERIAL (test code = YIDPCY4E) 20.9 MMOL/L 22.0-26.0 L POC BASE EXCESS [...] (test code = ALLENS) N/A BASIC METABOLIC [id number] 06:51:00* Test Item Value Reference Range Interpretation [...] = POCGLU) 94 MG/DL 70-110 N HEMOGLOBIN [id number] 06:51:00* Test Item Value Reference Range Interpretation Comme nts HEMOGLOBIN ABG (test code = HGB/ABG) 8.7 G/DL 11.0-15.0 L [id number] 06:51:00* Test Item Value Reference Range Interpretation Comme nts HEMATOCRIT (test code = HCT/ABG) 26 % 33-45 L POC LACTIC [id number] 06:51:00* Test Item Value Reference Range Interpretation Comme nts POC LACTIC ACID (test code = POCLAC) 1.3 mmol/l 0.9-1.7 N BASIC METABOLIC [id number] 04:41:00* Test Item Value Reference Range Interpretation [...] = POCGLU) 169 MG/DL 70-110 H HEMOGLOBIN [id number] 04:41:00* Test Item Value Reference Range Interpretation Comme nts HEMOGLOBIN ABG (test code = HGB/ABG) 6.7 G/DL 11.0-15.0 L [id number] 04:41:00* Test Item Value Reference Range Interpretation Comme nts HEMATOCRIT (test code = HCT/ABG) 20 % 33-45 L POC LACTIC [id number] 04:41:00* Test Item Value Reference Range Interpretation Comme nts POC LACTIC ACID (test code = POCLAC) 1.5 mmol/l 0.9-1.7 N POC VENOUS BLOOD [id number] 04:41:00* Test Item Value Reference Range Interpretation Comme nts YESSY'S TEST (test code = ALLENS) N/A POC VENOUS BLOOD GAS PH (test code = POCPHV) 7.285 7.33-7.45 L POC VENOUS BLOOD GAS PCO2 (test code = MXWCTY4Z) 37.9 mmHg 43-47 L POC VENOUS BLOOD GAS PO2 (test code = EVGXJ5C) 28.7 mmHG 10-50 N POC TCO2 VENOUS (test code = ZXQSWR3S) 19.1 22-29 L POC HCO3 VENOUS (test code = OEIOOJ5U) 18.0 MMOL/L 22-27 L POC BASE EXCESS VENOUS (test code = POCBEV) -8.7 MMOL/L See_Comment L [Automated Moveaa ge] The system which generated this result transmitted reference range: 0-+/-4. The reference range was not used to interpret this result as normal/abnormal. POC O2 SATURATION VENOUS (test code = FWIH2MC) 47.0 % 60-80 L VENOUS BLOOD GAS DELIVERY (test code = DELV) Cannula VENOUS BLOOD GAS TEMP (test code = TEMPV) 98.8 F VENOUS BLOOD GAS SITE (test code = SITEV) [place] BASIC METABOLIC [id number] 03:05:00* Test Item Value Reference Range Interpretation [...] mg/dL 8.0-10.5 N COMMENTS: POD #1HEPATIC FUNCTION [id number] 03:05:00* Test Item Value Reference Range Interpretation [...] ALKP) 74 IUnit/L 20-125 N COMMENTS: POD #[id number] 03:05:00* Test Item Value Reference Range Interpretation Comme nts MAGNESIUM (test code = MAG) 2.37 mg/dL 1.6-2.6 N COMMENTS: POD #1CBC W/AUTO [id number] 02:29:00* Test Item Value Reference Range Interpretation [...] x10 3/uL 0.0-0.1 N POC ARTERIAL BLOOD [id number] 02:19:00* Test Item Value Reference Range Interpretation Comme nts POC ARTERIAL BLOOD GAS PH (test code = POCPHA) 7.349 7.35-7.45 L POC ARTERIAL BLOOD GAS PCO2 (test code = WZZXLK1F) 39.9 mmHg 35.0-45 N POC TCO2 ARTERIAL (test code = POCTCO2) 23.3 22-29 N POC ARTERIAL BLOOD GAS PO2 (test code = WJJLU1S) 81.9 mmHg 80-100.0 N POC HCO3 ARTERIAL (test code = VAVLTM2L) 22.1 MMOL/L 22.0-26.0 N POC BASE EXCESS [...] (test code = ALLENS) N/A BASIC METABOLIC [id number] 02:19:00* Test Item Value Reference Range Interpretation [...] = POCGLU) 142 MG/DL 70-110 H HEMOGLOBIN [id number] 02:19:00* Test Item Value Reference Range Interpretation Comme nts HEMOGLOBIN ABG (test code = HGB/ABG) 7.6 G/DL 11.0-15.0 L [id number] 02:19:00* Test Item Value Reference Range Interpretation Comme nts HEMATOCRIT (test code = HCT/ABG) 22 % 33-45 L POC LACTIC [id number] 02:19:00* Test Item Value Reference Range Interpretation Comme nts POC LACTIC ACID (test code = POCLAC) 1.3 mmol/l 0.9-1.7 N POC ARTERIAL BLOOD [id number] 22:42:00* Test Item Value Reference Range Interpretation Comme nts POC ARTERIAL BLOOD GAS PH (test code = POCPHA) 7.282 7.35-7.45 LL POC ARTERIAL BLOOD GAS PCO2 (test code = KGPVWK7K) 47.1 mmHg 35.0-45 H POC TCO2 ARTERIAL (test code = POCTCO2) 23.8 22-29 N POC ARTERIAL BLOOD GAS PO2 (test code = TTRTL6B) 97.7 mmHg 80-100.0 N POC HCO3 ARTERIAL (test code = VTBKNE4O) 22.4 MMOL/L 22.0-26.0 N POC BASE EXCESS [...] (test code = ALLENS) N/A BASIC METABOLIC [id number] 22:42:00* Test Item Value Reference Range Interpretation [...] = POCGLU) 130 MG/DL 70-110 H HEMOGLOBIN [id number] 22:42:00* Test Item Value Reference Range Interpretation Comme nts HEMOGLOBIN ABG (test code = HGB/ABG) 7.7 G/DL 11.0-15.0 L [id number] 22:42:00* Test Item Value Reference Range Interpretation Comme nts HEMATOCRIT (test code = HCT/ABG) 23 % 33-45 L POC LACTIC [id number] 22:42:00* Test Item Value Reference Range Interpretation Comme nts POC LACTIC ACID (test code = POCLAC) 1.6 mmol/l 0.9-1.7 N BASIC METABOLIC [id number] 21:35:00* Test Item Value Reference Range Interpretation [...] = POCGLU) 123 MG/DL 70-110 H HEMOGLOBIN [id number] 21:35:00* Test Item Value Reference Range Interpretation Comme [facility] HEMOGLOBIN ABG (test code = HGB/ABG) 8.1 G/DL 11.0-15.0 L [id number] 21:35:00* Test Item Value Reference Range Interpretation Comme [facility] HEMATOCRIT (test code = HCT/ABG) 24 % 33-45 L POC LACTIC [id number] 21:35:00* Test Item Value Reference Range Interpretation Comme nts POC LACTIC ACID (test code = POCLAC) 1.8 mmol/l 0.9-1.7 H POC VENOUS BLOOD [id number] 21:35:00* Test Item Value Reference Range Interpretation Comme nts YESSY'S TEST (test code = ALLENS) N/A POC VENOUS BLOOD GAS PH (test code = POCPHV) 7.328 7.33-7.45 L POC VENOUS BLOOD GAS PCO2 (test code = QDHWSS1Y) 43.6 mmHg 43-47 N POC VENOUS BLOOD GAS PO2 (test code = EIIFT8Z) 26.2 mmHG 10-50 N POC TCO2 VENOUS (test code = ZOXHLJ6B) 24.4 22-29 N POC HCO3 VENOUS (test code = AZGLWL4I) 23.0 MMOL/L 22-27 N POC BASE EXCESS VENOUS (test code = POCBEV) -3.0 MMOL/L See_Comment L [Automated messa ge] The system which generated this result transmitted reference range: 0-+/-4. The reference range was not used to interpret this result as normal/abnormal. POC O2 SATURATION VENOUS (test code = VUMQ5AU) 45.2 % 60-80 L VENOUS BLOOD GAS DELIVERY (test code = DELV) Cannula VENOUS BLOOD GAS TEMP (test code = TEMPV) 97.8 F VENOUS BLOOD GAS SITE (test code = SITEV) [place] GLUCOSE [id number] 20:22:00* Test Item Value Reference Range Interpretation Comme [facility] GLUCOSE BEDSIDE (test code = GLUBED) 112 MG/DL 70-110 H Performed by patience garces pumping plant operator at [facility] GLUCOSE [id number] 18:47:00* Test Item Value Reference Range Interpretation Comme [facility] GLUCOSE BEDSIDE (test code = GLUBED) 148 MG/DL 70-110 H Performed by patience hendricksonied pumping plant operator at [facility] GLUCOSE [id number] 18:47:00* Test Item Value Reference Range Interpretation Comme [facility] GLUCOSE BEDSIDE (test code = GLUBED) 162 MG/DL 70-110 H Performed by cer tified pumping plant operator at [facility] POC ARTERIAL BLOOD [id number] 18:36:00* Test Item Value Reference Range Interpretation Comme nts POC ARTERIAL BLOOD GAS PH (test code = POCPHA) 7.328 7.35-7.45 L POC ARTERIAL BLOOD GAS PCO2 (test code = HNTRYR0E) 39.8 mmHg 35.0-45 N POC TCO2 ARTERIAL (test code = POCTCO2) 22.1 22-29 N POC ARTERIAL BLOOD GAS PO2 (test code = OICRI8B) 109.9 mmHg 80-100.0 H POC HCO3 ARTERIAL (test code = ZJSCEK1U) 20.9 MMOL/L 22.0-26.0 L POC BASE EXCESS (test code = POCBEA) -5.1 MMOL/L See_Comment L [Automated messa ge] The system which generated this result transmitted reference range: 0-+/-4. The reference range was not used to interpret this result as normal/abnormal. POC O2 SATURATION (test code = POCO2S) 97.9 % 90-100 N FIO2 (test code = FIO2A) 50 % PaO2/FiO2 (test code = WTZ9FFT9) 219.80 mm/Hg ABG DELIVERY (test code = BENY) BiPAP ABG PEEP (test code = PEEPA) 8 cmH2O ABG TEMPERATURE (test code = TEMPA) 97.2 F ABG SITE (test code = SITEA) Art Line BASIC METABOLIC [id number] 18:36:00* Test Item Value Reference Range Interpretation [...] = POCGLU) 153 MG/DL 70-110 H HEMOGLOBIN [id number] 18:36:00* Test Item Value Reference Range Interpretation Comme nts HEMOGLOBIN ABG (test code = HGB/ABG) 10.0 G/DL 11.0-15.0 L [id number] 18:36:00* Test Item Value Reference Range Interpretation Comme nts HEMATOCRIT (test code = HCT/ABG) 29 % 33-45 L POC LACTIC [id number] 18:36:00* Test Item Value Reference Range Interpretation Comme nts POC LACTIC ACID (test code = POCLAC) 3.1 mmol/l 0.9-1.7 H BASIC METABOLIC [id number] 18:02:00* Test Item Value Reference Range Interpretation [...] mg/dL 8.0-10.5 N COMMENTS: On arrivalComment: On [id number] 18:02:00* Test Item Value Reference Range Interpretation Comme nts MAGNESIUM (test code = MAG) 3.04 mg/dL 1.6-2.6 H COMMENTS: On arrivalComment: On arrivalPO ARTERIAL BLOOD [id number] 17:51:00 * Test Item Value Reference Range Interpretation Comme nts POC ARTERIAL BLOOD GAS PH (test code = POCPHA) 7.313 7.35-7.45 L POC ARTERIAL BLOOD GAS PCO2 (test code = ONMCQA7A) 43.7 mmHg 35.0-45 N POC TCO2 ARTERIAL (test code = POCTCO2) 23.5 22-29 N POC ARTERIAL BLOOD GAS PO2 (test code = AQHGG7G) 101.3 mmHg 80-100.0 H POC HCO3 ARTERIAL (test code = XUZSGG4F) 22.2 MMOL/L 22.0-26.0 N POC BASE EXCESS (test code = POCBEA) -4.0 MMOL/L See_Comment L [Automated message] The system which generated this result transmitted reference range: 0-+/-4. The reference range was not used to interpret this result as normal/abnormal. POC O2 SATURATION (test code = POCO2S) 97.2 % 90-100 N FIO2 (test code = FIO2A) 50 % PaO2/FiO2 (test code = HFV8FIU5) 202.60 mm/Hg ABG DELIVERY (test code = BENY) BiPAP ABG VENT MODE (test code = MODEA) PC/PS ABG VENT RESP RATE (test code = RRA) 16 /MIN ABG PEEP (test code = PEEPA) 8 cmH2O ABG PRESSURE SUPPORT (test code = PSABG) 14 cmH2O ABG SITE (test code = SITEA) Art Line BASIC METABOLIC [id number] 17:51:00* Test Item Value Reference Range Interpretation [...] = POCGLU) 224 MG/DL 70-110 H HEMOGLOBIN [id number] 17:51:00* Test Item Value Reference Range Interpretation Comme nts HEMOGLOBIN ABG (test code = HGB/ABG) 8.9 G/DL 11.0-15.0 L [id number] 17:51:00* Test Item Value Reference Range Interpretation Comme nts HEMATOCRIT (test code = HCT/ABG) 26 % 33-45 L POC LACTIC [id number] 17:51:00* Test Item Value Reference Range Interpretation Comme nts POC LACTIC ACID (test code = POCLAC) 4.0 mmol/l 0.9-1.7 H CBC W/AUTO [id number] 16:19:00* Test Item Value Reference Range Interpretation [...] ED, CONSISTENT WITH AUTO DIFF. [facility] [id number] 16:01:00* Test Item Value Reference Range Interpretation Comme nts POC ARTERIAL BLOOD GAS PH (test code = POCPHA) 7.290 7.35-7.45 LL POC ARTERIAL BLOOD GAS PCO2 (test code = TIMLCR1V) 41.4 mmHg 35.0-45 N POC TCO2 ARTERIAL (test code = POCTCO2) 21.2 22-29 L POC ARTERIAL BLOOD GAS PO2 (test code = OOSLD8W) 127.7 mmHg 80-100.0 H POC HCO3 ARTERIAL (test code = VVOGLY8X) 19.9 MMOL/L 22.0-26.0 L POC BASE EXCESS (test code = POCBEA) -6.7 MMOL/L See_Comment L [Automated messa ge] The system which generated this result transmitted reference range: 0-+/-4. The reference range was not used to interpret this result as normal/abnormal. POC O2 SATURATION (test code = POCO2S) 98.5 % 90-100 N FIO2 (test code = FIO2A) 60 % PaO2/FiO2 (test code = EFG2NCM6) 212.83 mm/Hg ABG DELIVERY (test code = BENY) Adult Vent ABG VENT MODE (test code = MODEA) CPAP/PS ABG PEEP (test code = PEEPA) 8 cmH2O ABG PRESSURE SUPPORT (test code = PSABG) 10 cmH2O ABG TEMPERATURE (test code = TEMPA) 97.3 F ABG SITE (test code = SITEA) Art Line BASIC METABOLIC [id number] 16:01:00* Test Item Value Reference Range Interpretation [...] = POCGLU) 230 MG/DL 70-110 H HEMOGLOBIN [id number] 16:01:00* Test Item Value Reference Range Interpretation Comme nts HEMOGLOBIN ABG (test code = HGB/ABG) 9.4 G/DL 11.0-15.0 L [id number] 16:01:00* Test Item Value Reference Range Interpretation Comme nts HEMATOCRIT (test code = HCT/ABG) 28 % 33-45 L POC LACTIC [id number] 16:01:00* Test Item Value Reference Range Interpretation Comme nts POC LACTIC ACID (test code = POCLAC) 3.8 mmol/l 0.9-1.7 H BASIC METABOLIC [id number] 15:34:00* Test Item Value Reference Range Interpretation [...] = POCGLU) 249 MG/DL 70-110 H HEMOGLOBIN [id number] 15:34:00* Test Item Value Reference Range Interpretation Comme nts HEMOGLOBIN ABG (test code = HGB/ABG) 8.8 G/DL 11.0-15.0 L [id number] 15:34:00* Test Item Value Reference Range Interpretation Comme nts HEMATOCRIT (test code = HCT/ABG) 26 % 33-45 L POC LACTIC [id number] 15:34:00* Test Item Value Reference Range Interpretation Comme nts POC LACTIC ACID (test code = POCLAC) 3.8 mmol/l 0.9-1.7 H POC VENOUS BLOOD [id number] 15:34:00* Test Item Value Reference Range Interpretation Comme nts POC VENOUS BLOOD GAS PH (test code = POCPHV) 7.248 7.33-7.45 L POC VENOUS BLOOD GAS PCO2 (test code = TCAIRF5O) 48.9 mmHg 43-47 H POC VENOUS BLOOD GAS PO2 (test code = SOKQG1Y) 36.0 mmHG 10-50 N POC TCO2 VENOUS (test code = OCKREY0X) 22.8 22-29 N POC HCO3 VENOUS (test code = FNUJDX7X) 21.3 MMOL/L 22-27 L POC BASE EXCESS VENOUS (test code = POCBEV) -5.9 MMOL/L See_Comment L [Automated messa ge] The system which generated this result transmitted reference range: 0-+/-4. The reference range was not used to interpret this result as normal/abnormal. POC O2 SATURATION VENOUS (test code = NZRB2WQ) 59.0 % 60-80 L VENOUS BLOOD GAS [...] BLOOD GAS SITE (test code = SITEV) [place] PROTHROMBIN [id number] 15:11:00* Test Item Value Reference Range Interpretation Comme [facility] PROTHROMBIN TIME PATIENT (test code = PTP) [...] prevent recurrent infarct). COMMENTS: On arrivalTHROMBOPLASTIN TIME [id number] 15:11:00* Test Item Value Reference Range [facility]ation [facility] (test code = PTT) 32.3 Seconds 25.0-39.5 N Therapeutic Rang e: 58.8 - 96.0 Seconds Effective 07/16/2024 [facility]: [facility] [id number] 14:19:00* Test Item Value Reference Range Interpretation Comme [facility] POC ARTERIAL BLOOD GAS PH (test code = POCPHA) 7.223 7.35-7.45 LL POC ARTERIAL BLOOD GAS PCO2 (test code = UPXGJR4S) 49.7 mmHg 35.0-45 H POC TCO2 ARTERIAL (test code = POCTCO2) 22.0 22-29 N POC ARTERIAL BLOOD GAS PO2 (test code = UNNPE0B) 77.6 mmHg 80-100.0 L POC HCO3 ARTERIAL (test code = [id number]) 20.5 MMOL/L 22.0-26.0 L POC BASE EXCESS (test code = POCBEA) -7.2 MMOL/L See_Comment L [Automated message] The system which generated this result transmitted reference range: 0-+/-4. The reference range was not used to interpret this result as normal/abnormal. POC O2 SATURATION (test code = POCO2S) 92.3 % 90-100 N FIO2 (test code = FIO2A) 50 % PaO2/FiO2 (test code = VNT2KIB3) 155.20 mm/Hg ABG DELIVERY (test code = BENY) Adult Vent ABG VENT MODE (test code = MODEA) AC ABG VENT RESP RATE (test code = RRA) 20 /MIN ABG TIDAL VOLUME (test code = TVA) 450 ml ABG PEEP (test code = PEEPA) 5 cmH2O ABG SITE (test code = SITEA) L Radial BASIC METABOLIC [id number] 14:19:00* Test Item Value Reference Range Interpretation [...] = POCGLU) 290 MG/DL 70-110 H HEMOGLOBIN [id number] 14:19:00* Test Item Value Reference Range Interpretation Comme nts HEMOGLOBIN ABG (test code = HGB/ABG) 10.2 G/DL 11.0-15.0 L [id number] 14:19:00* Test Item Value Reference Range Interpretation Comme nts HEMATOCRIT (test code = HCT/ABG) 30 % 33-45 L POC ARTERIAL BLOOD [id number] 13:55:00* Test Item Value Reference Range Interpretation Comme nts POC ARTERIAL BLOOD GAS PH (test code = POCPHA) 7.219 7.35-7.45 LL POC ARTERIAL BLOOD GAS PCO2 (test code = TRKQWN2N) 43.0 mmHg 35.0-45 N POC TCO2 ARTERIAL (test code = POCTCO2) 18.9 22-29 L POC ARTERIAL BLOOD GAS PO2 (test code = LMECE7C) 80.1 mmHg 80-100.0 N POC HCO3 ARTERIAL (test code = YSCRQZ2R) 17.6 MMOL/L 22.0-26.0 LL POC BASE EXCESS (test code = POCBEA) -9.6 MMOL/L See_Comment L [Automated messa ge] The system which generated this result transmitted reference range: 0-+/-4. The reference range was not used to interpret this result as normal/abnormal. POC O2 SATURATION (test code = POCO2S) 93.0 % 90-100 N BASIC METABOLIC [id number] 13:55:00* Test Item Value Reference Range Interpretation [...] = POCGLU) 300 MG/DL 70-110 H HEMOGLOBIN [id number] 13:55:00* Test Item Value Reference Range Interpretation Comme nts HEMOGLOBIN ABG (test code = HGB/ABG) 8.8 G/DL 11.0-15.0 L [id number] 13:55:00* Test Item Value Reference Range Interpretation Comme nts HEMATOCRIT (test code = HCT/ABG) 26 % 33-45 L POC LACTIC [id number] 13:55:00* Test Item Value Reference Range Interpretation Comme nts POC LACTIC ACID (test code = POCLAC) 4.1 mmol/l 0.9-1.7 HH [id number] 13:46:00* Test Item Value Reference Range Interpretation Comme nts ACT-ISTAT (test code = ACTI) 129 SEC 74-137 N Performed by cer tified pumping plant operator at [facility] POC ARTERIAL BLOOD [id number] 13:39:00* Test Item Value Reference Range Interpretation Comme nts POC ARTERIAL BLOOD GAS PH (test code = POCPHA) 7.219 7.35-7.45 LL POC ARTERIAL BLOOD GAS PCO2 (test code = YCIMDM0E) 39.3 mmHg 35.0-45 N POC TCO2 ARTERIAL (test code = POCTCO2) 17.3 22-29 L POC ARTERIAL BLOOD GAS PO2 (test code = CWYOM7B) 60.5 mmHg 80-100.0 L POC HCO3 ARTERIAL (test code = GNTUYE2X) 16.1 MMOL/L 22.0-26.0 LL POC BASE EXCESS (test code = POCBEA) -10.7 MMOL/L See_Comment L [Automated message] The system which generated this result transmitted reference range: 0-+/-4. The reference range was not used to interpret this result as normal/abnormal. POC O2 SATURATION (test code = POCO2S) 85.6 % 90-100 L BASIC METABOLIC [id number] 13:39:00* Test Item Value Reference Range Interpretation [...] = POCGLU) 322 MG/DL 70-110 H HEMOGLOBIN [id number] 13:39:00* Test Item Value Reference Range Interpretation Comme nts HEMOGLOBIN ABG (test code = HGB/ABG) 6.5 G/DL 11.0-15.0 L [id number] 13:39:00* Test Item Value Reference Range Interpretation Comme nts HEMATOCRIT (test code = HCT/ABG) 19 % 33-45 L POC LACTIC [id number] 13:39:00* Test Item Value Reference Range Interpretation Comme nts POC LACTIC ACID (test code = POCLAC) 5.1 mmol/l 0.9-1.7 HH [id number] 12:46:00* Test Item Value Reference Range Interpretation Comme nts ACT-ISTAT (test code = ACTI) 504 SEC 74-137 H Performed by cer tified pumping plant operator at [facility] POC ARTERIAL BLOOD [id number] 12:35:00* Test Item Value Reference Range Interpretation Comme nts POC ARTERIAL BLOOD GAS PH (test code = POCPHA) 7.394 7.35-7.45 N POC ARTERIAL BLOOD GAS PCO2 (test code = DFXUIN2G) 41.2 mmHg 35.0-45 N POC TCO2 ARTERIAL (test code = POCTCO2) 26.4 22-29 N POC ARTERIAL BLOOD GAS PO2 (test code = TQSFD9X) 366.5 mmHg 80-100.0 HH POC HCO3 ARTERIAL (test code = ZAMGNF2U) 25.2 MMOL/L 22.0-26.0 N POC BASE EXCESS (test code = POCBEA) 0.2 MMOL/L See_Comment N [Automated messa ge] The system which generated this result transmitted reference range: 0-+/-4. The reference range was not used to interpret this result as normal/abnormal. POC O2 SATURATION (test code = POCO2S) 100.0 % 90-100 N BASIC METABOLIC [id number] 12:35:00* Test Item Value Reference Range Interpretation [...] = POCGLU) 179 MG/DL 70-110 H HEMOGLOBIN [id number] 12:35:00* Test Item Value Reference Range Interpretation Comme nts HEMOGLOBIN ABG (test code = HGB/ABG) 7.1 G/DL 11.0-15.0 L [id number] 12:35:00* Test Item Value Reference Range Interpretation Comme nts HEMATOCRIT (test code = HCT/ABG) 21 % 33-45 L POC LACTIC [id number] 12:35:00* Test Item Value Reference Range Interpretation Comme nts POC LACTIC ACID (test code = POCLAC) 1.2 mmol/l 0.9-1.7 N [id number] 12:15:00* Test Item Value Reference Range Interpretation Comme nts ACT-ISTAT (test code = ACTI) 579 SEC 74-137 H Performed by cer dez pumping plant operator at [facility] POC ARTERIAL BLOOD [id number] 12:02:00* Test Item Value Reference Range Interpretation Comme nts POC ARTERIAL BLOOD GAS PH (test code = POCPHA) 7.428 7.35-7.45 N POC ARTERIAL BLOOD GAS PCO2 (test code = ATHHNS3Z) 36.7 mmHg 35.0-45 N POC TCO2 ARTERIAL (test code = POCTCO2) 25.4 22-29 N POC ARTERIAL BLOOD GAS PO2 (test code = KRNXU3Z) 359.2 mmHg 80-100.0 HH POC HCO3 ARTERIAL (test code = HEVAFX0C) 24.2 MMOL/L 22.0-26.0 N POC BASE EXCESS (test code = POCBEA) -0.1 MMOL/L See_Comment L [Automated messa ge] The system which generated this result transmitted reference range: 0-+/-4. The reference range was not used to interpret this result as normal/abnormal. POC O2 SATURATION (test code = POCO2S) 100.0 % 90-100 N BASIC METABOLIC [id number] 12:02:00* Test Item Value Reference Range Interpretation [...] = POCGLU) 161 MG/DL 70-110 H HEMOGLOBIN [id number] 12:02:00* Test Item Value Reference Range Interpretation Comme nts HEMOGLOBIN ABG (test code = HGB/ABG) 7.2 G/DL 11.0-15.0 L [id number] 12:02:00* Test Item Value Reference Range Interpretation Comme nts HEMATOCRIT (test code = HCT/ABG) 21 % 33-45 L POC LACTIC [id number] 12:02:00* Test Item Value Reference Range Interpretation Comme nts POC LACTIC ACID (test code = POCLAC) < 0.3 mmol/l 0.9-1.7 L [id number] 11:38:00* Test Item Value Reference Range Interpretation Comme nts ACT-ISTAT (test code = ACTI) 700 SEC 74-137 H Performed by cer tified pumping plant operator at [facility] POC ARTERIAL BLOOD [id number] 11:22:00* Test Item Value Reference Range Interpretation Comme nts POC ARTERIAL BLOOD GAS PH (test code = POCPHA) 7.439 7.35-7.45 N POC ARTERIAL BLOOD GAS PCO2 (test code = NTPOAA4Q) 36.2 mmHg 35.0-45 N POC TCO2 ARTERIAL (test code = POCTCO2) 25.6 22-29 N POC ARTERIAL BLOOD GAS PO2 (test code = SJZWQ4K) 351.2 mmHg 80-100.0 HH POC HCO3 ARTERIAL (test code = ARRUSV5H) 24.5 MMOL/L 22.0-26.0 N POC BASE EXCESS (test code = POCBEA) 0.4 MMOL/L See_Comment N [Automated messa ge] The system which generated this result transmitted reference range: 0-+/-4. The reference range was not used to interpret this result as normal/abnormal. POC O2 SATURATION (test code = POCO2S) 100.0 % 90-100 N BASIC METABOLIC [id number] 11:22:00* Test Item Value Reference Range Interpretation [...] = POCGLU) 179 MG/DL 70-110 H HEMOGLOBIN [id number] 11:22:00* Test Item Value Reference Range Interpretation Comme nts HEMOGLOBIN ABG (test code = HGB/ABG) 7.6 G/DL 11.0-15.0 L [id number] 11:22:00* Test Item Value Reference Range Interpretation Comme nts HEMATOCRIT (test code = HCT/ABG) 22 % 33-45 L POC LACTIC [id number] 11:22:00* Test Item Value Reference Range Interpretation Comme nts POC LACTIC ACID (test code = POCLAC) 0.9 mmol/l 0.9-1.7 N [id number] 11:05:00* Test Item Value Reference Range Interpretation Comme nts ACT-ISTAT (test code = ACTI) 510 SEC 74-137 H Performed by cer tified pumping plant operator at [facility] POC ARTERIAL BLOOD [id number] 10:54:00* Test Item Value Reference Range Interpretation Comme nts POC ARTERIAL BLOOD GAS PH (test code = POCPHA) 7.390 7.35-7.45 N POC ARTERIAL BLOOD GAS PCO2 (test code = OOYGDD6S) 41.5 mmHg 35.0-45 N POC TCO2 ARTERIAL (test code = POCTCO2) 26.4 22-29 N POC ARTERIAL BLOOD GAS PO2 (test code = DCRCG4Q) 522.2 mmHg 80-100.0 HH POC HCO3 ARTERIAL (test code = IOVIGV2Z) 25.1 MMOL/L 22.0-26.0 N POC BASE EXCESS (test code = POCBEA) 0.1 MMOL/L See_Comment N [Automated messa ge] The system which generated this result transmitted reference range: 0-+/-4. The reference range was not used to interpret this result as normal/abnormal. POC O2 SATURATION (test code = POCO2S) 100.0 % 90-100 N BASIC METABOLIC [id number] 10:54:00* Test Item Value Reference Range Interpretation [...] = POCGLU) 196 MG/DL 70-110 H HEMOGLOBIN [id number] 10:54:00* Test Item Value Reference Range Interpretation Comme nts HEMOGLOBIN ABG (test code = HGB/ABG) 7.7 G/DL 11.0-15.0 L [id number] 10:54:00* Test Item Value Reference Range Interpretation Comme nts HEMATOCRIT (test code = HCT/ABG) 23 % 33-45 L POC LACTIC [id number] 10:54:00* Test Item Value Reference Range Interpretation Comme nts POC LACTIC ACID (test code = POCLAC) 1.1 mmol/l 0.9-1.7 N [id number] 10:14:00* Test Item Value Reference Range Interpretation Comme nts ACT-ISTAT (test code = ACTI) 590 SEC 74-137 H Performed by cer tified pumping plant operator at [facility] POC ARTERIAL BLOOD [id number] 10:05:00* Test Item Value Reference Range Interpretation Comme nts POC ARTERIAL BLOOD GAS PH (test code = POCPHA) 7.357 7.35-7.45 N POC ARTERIAL BLOOD GAS PCO2 (test code = PJAWPG5R) 36.3 mmHg 35.0-45 N POC TCO2 ARTERIAL (test code = POCTCO2) 21.5 22-29 L POC ARTERIAL BLOOD GAS PO2 (test code = QRMUV6X) 348.8 mmHg 80-100.0 HH POC HCO3 ARTERIAL (test code = IDEESD9N) 20.3 MMOL/L 22.0-26.0 L POC BASE EXCESS (test code = POCBEA) -4.7 MMOL/L See_Comment L [Automated messa ge] The system which generated this result transmitted reference range: 0-+/-4. The reference range was not used to interpret this result as normal/abnormal. POC O2 SATURATION (test code = POCO2S) 99.9 % 90-100 N BASIC METABOLIC [id number] 10:05:00* Test Item Value Reference Range Interpretation [...] = POCGLU) 206 MG/DL 70-110 H HEMOGLOBIN [id number] 10:05:00* Test Item Value Reference Range Interpretation Comme nts HEMOGLOBIN ABG (test code = HGB/ABG) 8.3 G/DL 11.0-15.0 L [id number] 10:05:00* Test Item Value Reference Range Interpretation Comme nts HEMATOCRIT (test code = HCT/ABG) 24 % 33-45 L POC LACTIC [id number] 10:05:00* Test Item Value Reference Range Interpretation Comme nts POC LACTIC ACID (test code = POCLAC) < 0.3 mmol/l 0.9-1.7 L [id number] 09:29:00* Test Item Value Reference Range Interpretation Comme nts ACT-ISTAT (test code = ACTI) 141 SEC 74-137 H Performed by cer tified pumping plant operator at [facility] POC ARTERIAL BLOOD [id number] 09:22:00* Test Item Value Reference Range Interpretation Comme nts POC ARTERIAL BLOOD GAS PH (test code = POCPHA) 7.411 7.35-7.45 N POC ARTERIAL BLOOD GAS PCO2 (test code = MUXLOX4H) 32.9 mmHg 35.0-45 L POC TCO2 ARTERIAL (test code = POCTCO2) 21.9 22-29 L POC ARTERIAL BLOOD GAS PO2 (test code = JSOYO7F) 370.6 mmHg 80-100.0 HH POC HCO3 ARTERIAL (test code = CWLDTD1W) 20.9 MMOL/L 22.0-26.0 L POC BASE EXCESS (test code = POCBEA) -3.3 MMOL/L See_Comment L [Automated messa ge] The system which generated this result transmitted reference range: 0-+/-4. The reference range was not used to interpret this result as normal/abnormal. POC O2 SATURATION (test code = POCO2S) 100.0 % 90-100 N BASIC METABOLIC [id number] 09:22:00* Test Item Value Reference Range Interpretation [...] = POCGLU) 197 MG/DL 70-110 H HEMOGLOBIN [id number] 09:22:00* Test Item Value Reference Range Interpretation Comme nts HEMOGLOBIN ABG (test code = HGB/ABG) 8.3 G/DL 11.0-15.0 L [id number] 09:22:00* Test Item Value Reference Range Interpretation Comme nts HEMATOCRIT (test code = HCT/ABG) 24 % 33-45 L POC LACTIC [id number] 09:22:00* Test Item Value Reference Range Interpretation Comme nts POC LACTIC ACID (test code = POCLAC) < 0.3 mmol/l 0.9-1.7 L [id number] 09:07:00* Test Item Value Reference Range Interpretation Comme nts ACT-ISTAT (test code = ACTI) 153 SEC 74-137 H Performed by cer tified pumping plant operator at [facility] POC ARTERIAL BLOOD [id number] 09:02:00* Test Item Value Reference Range Interpretation Comme nts POC ARTERIAL BLOOD GAS PH (test code = POCPHA) 7.333 7.35-7.45 L POC ARTERIAL BLOOD GAS PCO2 (test code = ZDRSMT5Y) 34.3 mmHg 35.0-45 L POC TCO2 ARTERIAL (test code = POCTCO2) 19.2 22-29 L POC ARTERIAL BLOOD GAS PO2 (test code = WMTZZ4S) 305.5 mmHg 80-100.0 HH POC HCO3 ARTERIAL (test code = OKJQAS5S) 18.2 MMOL/L 22.0-26.0 L POC BASE EXCESS (test code = POCBEA) -7.0 MMOL/L See_Comment L [Automated messa ge] The system which generated this result transmitted reference range: 0-+/-4. The reference range was not used to interpret this result as normal/abnormal. POC O2 SATURATION (test code = POCO2S) 99.9 % 90-100 N BASIC METABOLIC [id number] 09:02:00* Test Item Value Reference Range Interpretation [...] = POCGLU) 198 MG/DL 70-110 H HEMOGLOBIN [id number] 09:02:00* Test Item Value Reference Range Interpretation Comme nts HEMOGLOBIN ABG (test code = HGB/ABG) 7.6 G/DL 11.0-15.0 L [id number] 09:02:00* Test Item Value Reference Range Interpretation Comme nts HEMATOCRIT (test code = HCT/ABG) 22 % 33-45 L POC LACTIC [id number] 09:02:00* Test Item Value Reference Range Interpretation Comme [facility] POC LACTIC ACID (test code = POCLAC) 0.8 mmol/l 0.9-1.7 L PROTHROMBIN [id number] 04:20:00* Test Item Value Reference Range Interpretation Comme [facility] PROTHROMBIN TIME PATIENT (test code = PTP) [...] Infarction (to prevent recurrent infarct). THROMBOPLASTIN TIME [id number] 04:20:00* Test Item Value Reference Range Interpretation Comme nts THROMBOPLASTIN TIME PARTIAL (test code = PTT) 32.4 Seconds 25.0-39.5 N Therapeutic Rang e: 58.8 - 96.0 Seconds Effective 07/16/2024 [id number] 03:57:00* Test Item Value Reference Range Interpretation Comme nts MAGNESIUM (test code = MAG) 1.88 mg/dL 1.6-2.6 N COMPREHENSIVE METABOLIC [id number] 03:40:00* Test Item Value Reference Range Interpretation [...] ALKP) 126 IUnit/L 20-125 H CBC W/AUTO [id number] 03:25:00* Test Item Value Reference Range Interpretation [...] NRBC#) 0.00 x10 3/uL 0.0-0.1 N SERUM [id number] 21:51:00* Test Item Value Reference Range Interpretation Comme nts SERUM IRON (test code = IRON) 16 mcg/dL 35-150 L VITAMIN [id number] 21:51:00* Test Item Value Reference Range Interpretation Comme nts VITAMIN B12 (test code = VITB12) 376 pg/mL 193-986 N FOLIC [id number] 21:51:00* Test Item Value Reference Range Interpretation Comme nts FOLIC ACID (test code = FOL) 11.9 ng/mL 3.1-17.5 N GLUCOSE [id number] 21:21:00* Test Item Value Reference Range Interpretation Comme nts GLUCOSE BEDSIDE (test code = GLUBED) 255 MG/DL 70-110 H Performed by cer tified pumping plant operator at [facility] GLUCOSE [id number] 18:52:00* Test Item Value Reference Range Interpretation Comme nts GLUCOSE BEDSIDE (test code = GLUBED) 146 MG/DL 70-110 H Performed by cer tified pumping plant operator at [facility] GLUCOSE [id number] 12:39:00* Test Item Value Reference Range Interpretation Comme nts GLUCOSE BEDSIDE (test code = GLUBED) 174 MG/DL 70-110 H Performed by cer tified pumping plant operator at [facility] GLUCOSE [id number] 08:54:00* Test Item Value Reference Range Interpretation Comme nts GLUCOSE BEDSIDE (test code = GLUBED) 72 MG/DL 70-110 N Performed by cer dez pumping plant operator at [facility] BASIC METABOLIC [id number] 05:32:00* Test Item Value Reference Range Interpretation [...] code = CA) 8.9 mg/dL 8.0-10.5 N [id number] 05:32:00* Test Item Value Reference Range Interpretation Comme nts MAGNESIUM (test code = MAG) 1.96 mg/dL 1.6-2.6 N CBC W/AUTO [id number] 04:58:00* Test Item Value Reference Range Interpretation [...] NRBC#) 0.00 x10 3/uL 0.0-0.1 N GLUCOSE [id number] 21:16:00* Test Item Value Reference Range Interpretation Comme nts GLUCOSE BEDSIDE (test code = GLUBED) 175 MG/DL 70-110 H Performed by cer tified pumping plant operator at [facility] GLUCOSE [id number] 18:11:00* Test Item Value Reference Range Interpretation Comme nts GLUCOSE BEDSIDE (test code = GLUBED) 169 MG/DL 70-110 H Performed by cer tified pumping plant operator at [facility] GLUCOSE [id number] 13:41:00* Test Item Value Reference Range Interpretation Comme nts GLUCOSE BEDSIDE (test code = GLUBED) 175 MG/DL 70-110 H Performed by cer tified pumping plant operator at [facility] GLUCOSE [id number] 08:46:00* Test Item Value Reference Range Interpretation Comme nts GLUCOSE BEDSIDE (test code = GLUBED) 151 MG/DL 70-110 H Performed by cer tified pumping plant operator at [facility] BASIC METABOLIC [id number] 06:17:00* Test Item Value Reference Range Interpretation [...] code = CA) 8.8 mg/dL 8.0-10.5 N [id number] 06:17:00* Test Item Value Reference Range Interpretation Comme nts MAGNESIUM (test code = MAG) 1.91 mg/dL 1.6-2.6 N CBC W/AUTO [id number] 06:13:00* Test Item Value Reference Range Interpretation [...] 0.0-0.1 N UA RFLX MICR CULT IF [id number] 00:15:00* Test Item Value Reference Range Interpretation [...] Flank Pain Dysuria/FrequencySpecimen Description: CLEAN CATCHB-TYPE NATRIURETIC [id number] 23:01:00* Test Item Value Reference Range Interpretation Comme nts B-TYPE NATRIURETIC PEPTIDE ( test code = BNP) 221.0 PG/ML 0-100 H COMPREHENSIVE METABOLIC [id number] 22:47:00* Test Item Value Reference Range Interpretation [...] = LDL) 43.0 mg/dL 0-100 N <100 NLXYDAL19 0-129 NEAR OPTIMAL/ABOVE [id number] HIGH>DP=990 VERY HIGH*Guidelines provided by the National Cholesterol EducationProgram Adult Treatment Panel III [id number] 22:29:00* Test Item Value Reference Range Interpretation Comme nts HGBA1C% (test code = HGBA1C%) 8.0 %A1C 4.8-6.0 H PROTHROMBIN [id number] 22:29:00* Test Item Value Reference Range Interpretation [...] Infarction (to prevent recurrent infarct). THROMBOPLASTIN TIME [id number] 22:29:00* Test Item Value Reference Range Interpretation Comme nts THROMBOPLASTIN TIME PARTIAL (test code = PTT) 30.8 Seconds 25.0-39.5 N Therapeutic Rang e: 58.8 - 96.0 Seconds Effective 07/16/2024 CBC W/AUTO [id number] 22:10:00* Test Item Value Reference Range Interpretation [...] NRBC#) 0.00 x10 3/uL 0.0-0.1 N GLUCOSE [id number] 21:07:00* Test Item Value Reference Range Interpretation Comme nts GLUCOSE BEDSIDE (test code = GLUBED) 204 MG/DL 70-110 H Performed by patience garces pumping plant operator at [facility]
[2024-09-20 18:44] LABS: Absolute Basophils 0.1 K/uL (0-0.5); Absolute Eosinophils 0.8 K/uL (0-0.5); Absolute Monocytes 0.6 K/uL (0.1-1.3); Absolute Neutrophil 4.4 K/uL (1.8-8.0); Basophils % 0.9 % (0-1.3); Eosinophils % 10.2 % (0-4.4); Hematocrit 29.5 % (36.0-45.0); Hemoglobin 9.3 g/dL (12.0-15.0); Lymphocytes % 25.7 % (15.3-44.8); MCH 23.7 pg (27.0-35.0); MCHC 31.4 g/dL (32.0-36.0); MCV 75.5 fL (80-100); MPV 7.1 fL (7.6-11.3); Neutrophils % 56.2 % (41.7-73.7); Platelets 750 thou/uL (152-406); Red Cell Distribution Width 18.1 % (12.1-15.2)
[2024-09-20 18:48] LABS: PT Prothrombin Time 16.6 SECONDS (9.4-12.5); PTT, Activated Partial Thromb 34.1 SECONDS (24.3-36.9); Protime INR 1.5
[2024-09-20 18:56] LABS: Anion Gap 10.1 mEq/L (5.0-15.0); Potassium 4.1 mEq/L (3.5-5.1)
[2024-09-20] MEDS ORDERED: MORPHINE 4 MG/ML SYR ONE (19:26)
[2024-09-20] MEDS ORDERED: ONDANSETRON 4 MG/2 ML VIAL ONE (19:26)
[2024-09-20] MEDS ORDERED: TRANEXAMIC ACID 1,000 MG/10 ML VIAL IV ONE (19:44)
[2024-09-20] MEDS ORDERED: LORazepam 2 MG/ML VIAL ONE (20:51)
--- NOTE | 2024-09-20 22:04 | EDPHYS ---
Physician Documentation [facility] Name: Rhonda Omalley Age: 64 yrs Sex: Female : 1960 Arrival Date: 09/20/2024 Time: 17:43 Bed 20 Private MD: ED Physician Vashti Chong HPI: 09/20 18:19 This 64 yrs old Female presents to ER via EMS with complaints of Nose Bleed. sb4 18:19 The patient presents with a nose bleed, that is apparently anterior, from the left sb4 nare, occurred while sleeping, that is continuous causative factors include: aspirin therapy, hypertension, eliquis. Onset: The symptoms/episode began/occurred just prior to arrival. Modifying factors: The symptoms are alleviated by nothing. the symptoms are aggravated by nothing. Associated signs and symptoms: The patient has no apparent associated signs or symptoms, Loss of consciousness: the patient experienced no loss of consciousness. Historical: - Allergies: 18:14 Latex; cm10 18:14 PENICILLINS; cm10 - Home Meds: 18:22 dapagliflozin propanediol 5 mg oral tablet 1 tab daily [Active]; ferrous sulfate 325 mg cm10 (65 mg iron) Oral tablet 1 tab daily [Active]; furosemide 20 mg Oral tablet 1 tab daily [Active]; Mucinex 600 mg oral Tablet,Extended Release 12 hr 1 tab 2 times per day [Active]; metoprolol succinate 25 mg oral Tablet, Extended Release 24 hr 1 tab daily [Active]; pantoprazole 40 mg oral tablet, delayed release (enteric coated) 1 tab daily [Active]; sennosides 17.2 mg oral tablet 1 tab every day at bedtime [Active]; spironolactone 25 mg Oral tablet 1 tab daily [Active]; Toujeo SoloStar U-300 Insulin 300 unit/mL (1.5 mL) subcutaneous Insulin Pen 35 units every day at bedtime [Active]; Toujeo SoloStar U-300 Insulin 300 unit/mL (1.5 mL) subcutaneous Insulin Pen 40 units daily [Active]; Eliquis 5 mg oral tablet 1 tab 2 times per day [Active]; amiodarone 100 mg Oral tablet 2 times per day [Active]; aspirin 81 mg oral tablet, delayed release (enteric coated) 1 tab daily [Active]; atorvastatin 40 mg oral tablet 1 tab every day at bedtime [Active]; cyanocobalamin (vitamin B-12) 500 mcg oral tablet daily [Active]; - PMHx: 18:14 CVA; Diabetes - IDDM; Myocardial infarction; neuropathy; cm10 18:22 Deep vein thrombosis; cm10 - PSHx: 18:22 Coronary artery bypass graft; cm10 - Immunization history:: Adult Immunizations up to date. - Infectious Disease History:: Denies. - Social history:: Smoking status: Patient denies any tobacco usage or history of. ROS: 18:20 Constitutional: Negative for fever, chills, and weight loss, sb4 18:20 ENT: Positive for nose bleed, 18:20 All other systems are negative, Exam: 18:20 Constitutional: The patient appears alert, awake, uncomfortable, sb4 18:20 ENT: Nose: bleeding, is seen from the left nare, and is moderate, 18:20 Head/Face: Normocephalic, atraumatic. Eyes: Extra-ocular motions intact. Periorbital sb4 areas with no swelling, redness, or edema. Respiratory: No increased work of breathing, no retractions or nasal flaring. Skin: Warm, dry with normal turgor. Normal color with no rashes, no lesions, and no evidence of cellulitis. Vital Signs: 18:30 BP 115 / 60; Pulse 72; Resp 15; Pulse Ox 98% on R/A; Weight 98.88 kg; Height 5 ft. 2 cm10 in. ; Pain 0/10; 19:12 BP 119 / 62; Pulse 72; Resp 20; Temp 98.2(A); Pulse Ox 98% on R/A; Pain 0/10; mt4 19:35 BP 125 / 62; Pulse 73; Pulse Ox 100% on R/A; mt4 20:00 BP 137 / 64; Pulse 69; Pulse Ox 97% ; mt4 23:00 BP 133 / 65; Pulse 72; Resp 17; Pulse Ox 98% ; Pain 0/10; mt4 18:30 Body Mass Index 39.87 (98.88 kg, 157.48 cm) cm10 18:30 Pain Scale: Adult cm10 19:12 Pain Scale: Adult mt4 23:00 Pain Scale: Adult mt4 [place] Coma Score: 19:55 Eye Response: spontaneous(4). Motor Response: obeys commands(6). Verbal Response: mt4 oriented(5). Total: 15. Procedures: 20:21 Epistaxis treatment: A moderate amount of bleeding noted from left nare. Treated using dr5 Oxymetazoline sprays, rhino rocket, 5.5 cm Rapid Rhino Rocket Inserted. Bleeding stopped. MDM: 17:49 Medical Screening Exam initiated sb4 20:21 Transition of care: Care assumed from Zabrina Hinson PA-C. dr5 22:55 Differential diagnosis: spontaneous epistaxis. Data reviewed: vital signs, nurses dr5 notes. Care significantly affected by the following Social Determinants of Health: Poor access to healthcare and/or lack of insurance, Poor access to transportation, Problems related to employment. Counseling: I had a detailed discussion with the patient and/or guardian regarding the historical points, exam findings, and any diagnostic results supporting the discharge/admit diagnosis, the presence of at least one elevated blood pressure reading (>120/80) during this emergency department visit, the need for outpatient follow up, for definitive care, an ENT specialist, a family practitioner, to return to the emergency department if symptoms worsen or persist or if there are any questions or concerns that arise at home. ED course: Removed 5.5 cm Rhino Rocket and placed TXA topically on 7.5cm Rhino Rocket to left nare with successful resolution of bleeding. Recommended patient follow up with ENT for rhino rocket removal. Patient stayed in ER for an hour without reoccurring bleeding. Return to ER for spontaneous bleeding and recommended patient not take Eliquis until tomorrow morning.. 09/20 17:57 Order name: CBC with Diff; Complete Time: 18:45 sb4 09/20 17:57 Order name: PT-INR; Complete Time: 18:57 sb4 09/20 17:57 Order name: Ptt, Activated; Complete Time: 18:57 sb4 09/20 17:57 Order name: BMP; Complete Time: 18:57 sb4 Administered Medications: 17:50 Drug: Oxymetazoline Intranasal Drops (0.05 %) 1 sprays Intranasal once Route: ss Intranasal; Site: left nare; 22:37 Follow up: Response: No adverse reaction mt4 19:35 Drug: morphine IVP or IV 4 mg IVP once over 4 mins Route: IVP; Infused Over: 4 mins; mt4 Site: left wrist; 20:55 Follow up: Response: No adverse reaction mt4 19:35 Drug: Ondansetron IVP 4 mg IVP once; over 2 minutes Route: IVP; Site: left wrist; mt4 20:55 Follow up: Response: No adverse reaction mt4 20:02 CANCELLED (Physician Discretion): oxymetazolinedrops (0.05 %) 1 sprays Intranasal once sb4 20:44 Drug: tranexamic acid 1000 mg Topical once {Note: administered by Provider in room left mt4 nares topically .} Route: Topical; Site: face; 22:37 Follow up: Response: No adverse reaction mt4 20:55 Drug: Ativan IVP 1 mg IVP once Route: IVP; Site: left wrist; mt4 22:37 Follow up: Response: No adverse reaction mt4 Disposition Summary: 09/20/24 22:04 Discharge Ordered Notes: Location: Home dr5 Condition: Stable dr5 Diagnosis - Epistaxis dr5 Followup: dr5 - With: Emergency Department - When: As needed - Reason: Worsening of condition Followup: dr5 - With: Private Physician - When: 1 - 2 days - Reason: Recheck today's complaints, Continuance of care, Re-evaluation by your physician Followup: dr5 - With: Jeanette Smallwood MD - When: 1 - 2 days - Reason: Recheck today's complaints, Continuance of care, Re-evaluation by your physician Discharge Instructions: - Discharge Summary Sheet dr5 - Nosebleed, Adult dr5 Forms: - Medication Reconciliation Form dr5 - Patient Portal Instructions dr5 - Leadership Thank You Letter dr5 Signatures: Dispatcher [employer] EDMS Teetee Blair, RN Zabrina Julian PA-C PA-C sb4 Eliza Tuttle, RN RN cm10 Sheri Gaviria RN RN mt4 Tyler Salvador FNP-C [employer]ACHINE [employer]ENDER-Cdr5 Corrections: (The following items were deleted from the chart) 17:57 17:57 CBC+H.LAB.BRZ ordered. EDMS EDMS 17:57 17:57 PROTIME (+INR)+COAG.LAB.BRZ ordered. EDMS EDMS 17:57 17:57 PTT, ACTIVATED+COAG.LAB.BRZ ordered. EDMS EDMS 17:57 17:57 BASIC METABOLIC PANEL+C.LAB.BRZ ordered. EDMS EDMS 20:02 19:00 Oxymetazoline Intranasal Drops (0.05 %) 1 sprays Intranasal once ordered. sb4 sb4
--- NOTE | 2024-09-20 22:04 | ER ---
Nurse's Notes [facility] Name: Rhonda Omalley Age: 64 yrs Sex: Female : 1960 Arrival Date: 09/20/2024 Time: 17:43 Bed 20 Private MD: Diagnosis: Epistaxis Presentation: 09/20 18:15 Chief complaint: EMS states: called to patient's home at 1705 due to patient having cm10 nose bleed. Pt states that she woke up from a nap and started bleeding. Coronavirus screen: Client denies travel out of the [place] in the last 14 days. Ebola Screen: Patient denies travel to an Ebola-affected area in the 21 days before illness onset. No symptoms or risks identified at this time. Initial Sepsis Screen: Does the patient meet any 2 criteria? No. Patient's initial sepsis screen is negative. Does the patient have a suspected source of infection? No. Patient's initial sepsis screen is negative. Risk Assessment: Do you want to hurt yourself or someone else? Patient reports no desire to harm self or others. Onset of symptoms was September 20, 2024. 18:15 Method Of Arrival: EMS: [facility] cm10 18:15 Acuity: FRANCIS 3 cm10 Triage Assessment: 18:30 General: Appears in no apparent distress. uncomfortable, Behavior is calm, cooperative. cm10 Pain: Denies pain. EENT: Nares with bleeding noted. Neuro: No deficits noted. Level of Consciousness is awake, alert, obeys commands, Oriented to person, place, time, situation, Appropriate for age. Respiratory: No deficits noted. Airway is patent Respiratory effort is even, unlabored, Respiratory pattern is regular, symmetrical. Historical: - Allergies: 18:14 Latex; cm10 18:14 PENICILLINS; cm10 - Home Meds: 18:22 dapagliflozin propanediol 5 mg oral tablet 1 tab daily [Active]; ferrous sulfate 325 mg cm10 (65 mg iron) Oral tablet 1 tab daily [Active]; furosemide 20 mg Oral tablet 1 tab daily [Active]; Mucinex 600 mg oral Tablet,Extended Release 12 hr 1 tab 2 times per day [Active]; metoprolol succinate 25 mg oral Tablet, Extended Release 24 hr 1 tab daily [Active]; pantoprazole 40 mg oral tablet, delayed release (enteric coated) 1 tab daily [Active]; sennosides 17.2 mg oral tablet 1 tab every day at bedtime [Active]; spironolactone 25 mg Oral tablet 1 tab daily [Active]; Toujeo SoloStar U-300 Insulin 300 unit/mL (1.5 mL) subcutaneous Insulin Pen 35 units every day at bedtime [Active]; Toujeo SoloStar U-300 Insulin 300 unit/mL (1.5 mL) subcutaneous Insulin Pen 40 units daily [Active]; Eliquis 5 mg oral tablet 1 tab 2 times per day [Active]; amiodarone 100 mg Oral tablet 2 times per day [Active]; aspirin 81 mg oral tablet, delayed release (enteric coated) 1 tab daily [Active]; atorvastatin 40 mg oral tablet 1 tab every day at bedtime [Active]; cyanocobalamin (vitamin B-12) 500 mcg oral tablet daily [Active]; - PMHx: 18:14 CVA; Diabetes - IDDM; Myocardial infarction; neuropathy; cm10 18:22 Deep vein thrombosis; cm10 - PSHx: 18:22 Coronary artery bypass graft; cm10 - Immunization history:: Adult Immunizations up to date. - Infectious Disease History:: Denies. - Social history:: Smoking status: Patient denies any tobacco usage or history of. Screenin:30 [facility] ED Fall Risk Assessment (Adult) History of falling in the last 3 months, cm10 including since admission No falls in past 3 months (0 pts) Confusion or Disorientation No (0 pts) Intoxicated or Sedated No (0 pts) Impaired Gait No (0 pts) Mobility Assist Device Used No (0 pt) Altered Elimination No (0 pt) Score/Fall Risk Level 0 - 2 = Low Risk Oriented to surroundings, Maintained a safe environment, Hourly rounding (assess needs \T\ fall precautionary measures) done. Abuse screen: Denies threats or abuse. Denies injuries from another. Nutritional screening: No deficits noted. Tuberculosis screening: No symptoms or risk factors identified. Assessment: 19:58 Reassessment: Patient is alert, oriented x 3, equal unlabored respirations, skin mt4 warm/dry/pink. General: Appears in no apparent distress. comfortable, obese, Behavior is cooperative, agitated, restless. Pain: Denies pain. Neuro: Level of Consciousness is awake, alert, obeys commands, Oriented to person, place, time, situation, Appropriate for age Moves all extremities. Speech is normal. Cardiovascular: Capillary refill < 3 seconds. Respiratory: Airway is patent Respiratory effort is even, unlabored, Respiratory pattern is regular, symmetrical. GI: Abdomen is non-distended, obese. : Denies. EENT: Nares with drainage noted on left Reports nasal discharge that is bloody since 1800. Musculoskeletal: Range of motion: intact in all extremities. 21:00 Reassessment: resting in bed with son at bedside, patient complains of spitting up mt4 blood due to drainage from nosebleed, provider Tyler notified. Patient denies pain. Vital signs stable, no signs of acute distress, patient educated. 23:00 Reassessment: Patient is alert, oriented x 3, equal unlabored respirations, skin mt4 warm/dry/pink. patient educated for discharge Patient states symptoms have improved. Vital Signs: 18:30 BP 115 / 60; Pulse 72; Resp 15; Pulse Ox 98% on R/A; Weight 98.88 kg; Height 5 ft. 2 cm10 in. ; Pain 0/10; 19:12 BP 119 / 62; Pulse 72; Resp 20; Temp 98.2(A); Pulse Ox 98% on R/A; Pain 0/10; mt4 19:35 BP 125 / 62; Pulse 73; Pulse Ox 100% on R/A; mt4 20:00 BP 137 / 64; Pulse 69; Pulse Ox 97% ; mt4 23:00 BP 133 / 65; Pulse 72; Resp 17; Pulse Ox 98% ; Pain 0/10; mt4 18:30 Body Mass Index 39.87 (98.88 kg, 157.48 cm) cm10 18:30 Pain Scale: Adult cm10 19:12 Pain Scale: Adult mt4 23:00 Pain Scale: Adult mt4 [place] Coma Score: 19:55 Eye Response: spontaneous(4). Motor Response: obeys commands(6). Verbal Response: mt4 oriented(5). Total: 15. ED Course: 17:47 Patient arrived in ED. sb4 17:47 [facility]ab[facility] Hinson [facility]. sb4 17:47 Vashti Chong MD is Attending Physician. sb4 18:19 Triage completed. cm10 18:22 Eliza Tuttle, CASANDRA is Primary Nurse. cm10 18:30 Arm band placed on right wrist. Patient placed in an exam room, on a stretcher. cm10 18:31 Patient has correct armband on for positive identification. Bed in low position. Call cm10 light in reach. Side rails up X2. Provided Education on: ER process and procedures.. 18:38 Inserted saline lock: 20 gauge in left forearm, using aseptic technique. Blood am7 collected. Flushed with 10 mL NS. 19:04 Report given to CASANDRA Wade. cm10 19:08 Sheri Gaviria, CASANDRA is Primary Nurse. mt4 19:58 No apparent distress. Appears agitated. Appears restless. mt4 19:58 Patient has correct armband on for positive identification. Bed in low position. Call mt4 light in reach. Side rails up X 1. Client placed on continuous cardiac and pulse oximetry monitoring. NIBP monitoring applied. Door closed. Lights dimmed. Warm blanket given. Pillow given. Verbal reassurance given. 19:58 No provider procedures requiring assistance completed. Patient maintains SpO2 mt4 saturation greater than 95% on room air. 20:14 PHCP role handed off by Zabrina Hinson PA-C dr5 20:14 Tyler Salvador FNP-C is PHCP. dr5 22:47 Jeanette Smallwood MD is Referral Physician. dr5 23:00 IV discontinued, bleeding controlled, No redness/swelling at site. Pressure dressing mt4 applied. Administered Medications: 17:50 Drug: Oxymetazoline Intranasal Drops (0.05 %) 1 sprays Intranasal once Route: ss Intranasal; Site: left nare; 22:37 Follow up: Response: No adverse reaction mt4 19:35 Drug: morphine IVP or IV 4 mg IVP once over 4 mins Route: IVP; Infused Over: 4 mins; mt4 Site: left wrist; 20:55 Follow up: Response: No adverse reaction mt4 19:35 Drug: Ondansetron IVP 4 mg IVP once; over 2 minutes Route: IVP; Site: left wrist; mt4 20:55 Follow up: Response: No adverse reaction mt4 20:02 CANCELLED (Physician Discretion): oxymetazolinedrops (0.05 %) 1 sprays Intranasal once sb4 20:44 Drug: tranexamic acid 1000 mg Topical once {Note: administered by Provider in room left mt4 nares topically .} Route: Topical; Site: face; 22:37 Follow up: Response: No adverse reaction mt4 20:55 Drug: Ativan IVP 1 mg IVP once Route: IVP; Site: left wrist; mt4 22:37 Follow up: Response: No adverse reaction mt4 Medication: 18:30 VIS not applicable for this client. cm10 Outcome: 22:04 Discharge ordered by . dr5 23:15 Condition: stable mt4 23:15 Discharge instructions given to patient, Instructed on discharge instructions, follow up and referral plans. medication usage, Demonstrated understanding of instructions, follow-up care, medications, 23:15 Discharged to home via wheelchair, mt4 23:40 Patient left the ED. mt4 Signatures: Teetee Bliar, RN RN Zabrina Redding, PA-C PAMalissaC ashely4 Eliza Tuttle RN RN cm10 Sheri Gaviria RN RN mt4 Tyler Salvador, [employer]ALL ASSEMBLER-C [employer] AS[employer]BLER-[facility]5 Erin Muller am7
[2024-09-21 07:34] VITALS: TEMP 98.2
[2024-09-21 07:39] VITALS: BP 137/64; O2SAT 97
== END 2024-09-20 23:40 | disposition home or self-care (01) ==
LOC: ER 17:43
DX: R04.0 Epistaxis (principal); E11.9 Type 2 diabetes mellitus without complications; Z79.4 Long term (current) use of insulin; Z95.1 Presence of aortocoronary bypass graft
CPT/HCPCS: 30901 ×2; 85025; 80048; 36415; 85610; 85730; 96375; 96374; 99284; J2405

== ENCOUNTER 2024-09-21 18:43 | Inpatient (IN) | payer OTHER ==
--- OUTSIDE RECORDS SUMMARY | 2024-09-21 18:49 | XMS REPORT | Continuity of Care Document ---
Author Name Unknown Address [address] [facility]. [address] [place] [address] [facility] thconnect Address [address] [facility] [address] [place] [address] Care Team Providers Care Linderman Machine Operator Name Role Phone Mike Christian MD Primary Care Physician Poppy Hernandez Attending Clinician BOBBI Frazier Attending Clinician Bobbi Rolle DPM Attending Clinician [phone] Lis Cardona MA Attending Clinician Clinton Diaz MD Attending Clinician [facility] WOLF Attending Clinician Unavailable Poppy Hernandez Admitting Clinician Obey lopez Payers Payer Name Policy Type Policy Number Effective Date Expirati on Date Source [employer] MEDICARE ADVANTAGE Medicare [id number] 2023 00:00:00 Problems Condition Name Condition Details Condition Category Status Onset Date Resolution Date Last Treatment Date Treating Clinician Comments Source No known active problems No known active problems Disease [facility] Allergies, Adverse Reactions, Alerts Allergy Name Allergy Type Status Severity Reaction(s) Onset Date Inactive Date Treating Clinician Comments Source Penicill ins DA Active SV HIVES 2023-09 00:00: 00 [facility] latex DA Active MO DERMATITIS HIVES 2023-09 2 00:00: 00 [facility] Latex Propensi ty to adverse reaction s Active 2023-09 0 00:00: 00 Lorri Javed Epic Penicill in G Propensi ty to adverse reaction s Active 2023-09 0 00:00: 00 Lorri Javed Epic Latex Propensi ty to adverse reaction s Active Hives 2020-09 0 00:00: 00 [facility] Penicill ins Propensi ty to adverse reaction s Active Hives 2020-09 00:00: 00 [facility] PENICILL INS Drug Class Active Hives 2020-09 00:00: 00 [facility] LATEX DRUG INGREDI Active Hives 2020-09 00:00: 00 [facility] NO KNOWN ALLERGIE S Drug Class Active [facility] Social History Social Habit Start Date Stop Date Quantity Comments Source ASSERTION [facility] Gender identity Olu rose Javed [facility] Sexual orientation [facility] Exposure to SARS-CoV-2 (event) Not sure [facility] Sex Assigned At 1960 00:00:00 1960 00:00:00 [facility] Smoking Status Start Date Stop Date Source Tobacco smoking consumption unknown [facility] Medications Ordered Medication Name Filled Medication Name Start Date Stop Date Current Medication? Ordering Clinician Indication Dosage Frequency Signature (SIG) Comments Components Source HYDROcodone -acetaminop hen (NORCO) 10-325 mg tablet 1 tablet 2020-09 10:45: 00 07-22 09:45 :00 No 1{tbl} 1 tablet, Oral, ONCE NOW, 1 dose, On 07/22/21 at 0545, Routine [facility] doxycycline hyclate 100 mg capsule 2020-09 00:00: 00 Yes [id number] 100mg Take 1 capsule by mouth 2 (two) times daily. [facility] HYDROcodone -acetaminop hen (NORCO) 10-325 mg tablet 2020-09 00:00: 00 07-30 05:59 :00 No [id number] 1{tbl} Take 1 tablet by mouth every 6 (six) hours as needed for Pain (scale 7-10) for up to 7 days. Indication s: acute pain [facility] Vital Signs Vital Name Observation Time Observation Value Comments S ource Systolic blood pressure 2021-07-22 10:00:00 154 mm[Hg] [facility] Diastolic blood pressure 2021-07-22 10:00:00 78 mm[Hg] [facility] Heart rate 2021-07-22 10:00:00 73 /min [facility] acute hospital Respiratory rate 2021-07-22 10:00:00 18 /min [facility] Oxygen saturation in Arterial blood by Pulse oximetry 2021-07-22 10:00:00 94 /min [facility] Body temperature 2021-07-22 08:31:00 36.61 Dannielle [facility] Body height 2021-07-22 08:31:00 157.5 cm [facility] Body weight 2021-07-22 08:31:00 83.915 kg [facility] BMI 2021-07-22 08:31:00 33.84 kg/m2 [facility] Procedures Procedure Date / Time Performed Performing Clinician Source REPLACEMENT OF AORTIC VALVE WITH ZOOPLASTIC, OPEN 2024-08-30 00:00:00 [facility]01 [facility] BYPASS 3 COR ART FROM AORTA WITH AUTOL VN, OPEN AP 2024-08-30 00:00:00 [facility]01 [facility] BYPASS 1 COR ART FROM L INT MAMMARY, OPEN APPROACH 2024-08-30 00:00:00 [facility]01 [facility] EXCISION OF RIGHT SAPHENOUS VEIN, PERC ENDO APPROA 2024-08-30 00:00:00 [facility]01 [facility] EXCISION OF LEFT ATRIAL APPENDAGE, OPEN APPROACH 2024-08-30 00:00:00 [facility].01 [facility] PERFORMANCE OF CARDIAC OUTPUT, CONTINUOUS 2024-08-30 00:00:00 [facility]01 [facility] INSERTION OF MONITORING DEVICE INTO UP ART, PERC A 2024-08-30 00:00:00 [facility]01 [facility] MONITORING OF ARTERIAL PRESSURE, PERIPHERAL, PERC 2024-08-30 00:00:00 [facility].01 [facility] MONITORING OF ARTERIAL PULSE, PERIPHERAL, PERC REBA 2024-08-30 00:00:00 [facility]01 [facility] INSERT INFUSION DEV IN R INT JUGULAR VEIN, PERC 2024-08-30 00:00:00 [facility]01 [facility] Fungal Culture Skin/Hair/Nails w/Smear 2024-07-07 00:00:00 [facility] NOTICE OF PRIVACY PRACTICES 2021-07-22 08:43:23 Doctor Unassigned, [place] [facility] CONSENT/REFUSAL FOR DIAGNOSIS AND TREATMENT 2021-07-22 08:22:55 Doctor Unassigned, [place] [facility] Encounters Start Date/Time End Date/Time Encounter Type Admission Type Attending [facility] Care Department Encounter ID Source 2024-08-27 19:35:00 2024-09-10 19:30:00 Inpatient Poppy Blair [facility] [id number] [facility] 2024-08-04 10:07:45 2024-08-04 10:52:29 Outpatient Elective BOBBI MARTINEZ EOUT [facility] [id number] EOUT 2024-08-04 09:50:00 2024-08-04 10:52:29 Office Visit Bobbi [facility] ..840.114 [id number] Lorri petersen [facility] 2024-07-07 00:00:00 2024-07-07 14:48:56 Telephone Lis Cardona Natalie [facility] 1..840.114 [id number] Lorri Javed [facility] 2024-07-07 10:09:32 2024-07-07 10:58:16 [id number] 2024-07-07 10:00:00 2024-07-07 10:58:16 Consult Bobbi Martinez [facility] [id number] Lorri Javed [facility] 2021-07-22 03:27:00 2021-07-22 05:43:00 Emergency Clinton Wolf [facility] [id number] [facility] 2021-07-22 03:27:00 2021-07-22 05:43:00 Emergency X [facility] W[facility]F [facility] ERT [id number] [facility] Results Test Description Test Time Test Comments Results Result Co mments Source GLUCOSE [id number] 12:24:00* Test Item Value Reference Range Interpretation Comme nts GLUCOSE BEDSIDE (test code = GLUBED) 139 MG/DL 70-110 H Performed by cer tified glove machine operator at [facility] GLUCOSE [id number] 10:13:00* Test Item Value Reference Range Interpretation Comme nts GLUCOSE BEDSIDE (test code = GLUBED) 169 MG/DL 70-110 H Performed by cer tified glove machine operator at [facility] GLUCOSE [id number] 07:52:00* Test Item Value Reference Range Interpretation Comme nts GLUCOSE BEDSIDE (test code = GLUBED) 90 MG/DL 70-110 N Performed by cer tifYnvisible glove machine operator at [facility] BASIC METABOLIC [id number] 07:47:00* Test Item Value Reference Range Interpretation [...] code = CA) 8.2 mg/dL 8.0-10.5 N [id number] 07:47:00* Test Item Value Reference Range Interpretation Comme nts MAGNESIUM (test code = MAG) 2.49 mg/dL 1.6-2.6 N CBC W/AUTO [id number] 07:29:00* Test Item Value Reference Range Interpretation [...] NRBC#) 0.02 x10 3/uL 0.0-0.1 N GLUCOSE [id number] 20:18:00* Test Item Value Reference Range Interpretation Comme [facility] GLUCOSE BEDSIDE (test code = GLUBED) 180 MG/DL 70-110 H Performed by cer tified glove machine operator at [facility] GLUCOSE [id number] 17:42:00* Test Item Value Reference Range Interpretation Comme [facility] GLUCOSE BEDSIDE (test code = GLUBED) 145 MG/DL 70-110 H Performed by cer tified glove machine operator at [facility] GLUCOSE [id number] 11:47:00* Test Item Value Reference Range Interpretation Comme nts GLUCOSE BEDSIDE (test code = GLUBED) 132 MG/DL 70-110 H Performed by cer tified glove machine operator at [facility] BASIC METABOLIC [id number] 03:43:00* Test Item Value Reference Range Interpretation [...] code = CA) 8.1 mg/dL 8.0-10.5 N [id number] 03:43:00* Test Item Value Reference Range Interpretation Comme nts MAGNESIUM (test code = MAG) 2.53 mg/dL 1.6-2.6 N CBC W/AUTO [id number] 03:26:00* Test Item Value Reference Range Interpretation [...] NRBC#) 0.03 x10 3/uL 0.0-0.1 N GLUCOSE [id number] 20:56:00* Test Item Value Reference Range Interpretation Comme nts GLUCOSE BEDSIDE (test code = GLUBED) 176 MG/DL 70-110 H Performed by cer tified glove machine operator at [facility] GLUCOSE [id number] 16:42:00* Test Item Value Reference Range Interpretation Comme nts GLUCOSE BEDSIDE (test code = GLUBED) 175 MG/DL 70-110 H Performed by cer tified glove machine operator at [facility] GLUCOSE [id number] 12:34:00* Test Item Value Reference Range Interpretation Comme nts GLUCOSE BEDSIDE (test code = GLUBED) 155 MG/DL 70-110 H Performed by cer tified glove machine operator at [facility] GLUCOSE [id number] 08:36:00* Test Item Value Reference Range Interpretation Comme nts GLUCOSE BEDSIDE (test code = GLUBED) 84 MG/DL 70-110 N Performed by cer tified glove machine operator at [facility] BASIC METABOLIC [id number] 02:51:00* Test Item Value Reference Range Interpretation [...] code = CA) 8.3 mg/dL 8.0-10.5 N [id number] 02:51:00* Test Item Value Reference Range Interpretation Comme nts MAGNESIUM (test code = MAG) 2.17 mg/dL 1.6-2.6 N CBC W/AUTO [id number] 02:40:00* Test Item Value Reference Range Interpretation [...] NRBC#) 0.03 x10 3/uL 0.0-0.1 N GLUCOSE [id number] 20:07:00* Test Item Value Reference Range Interpretation Comme nts GLUCOSE BEDSIDE (test code = GLUBED) 211 MG/DL 70-110 H Performed by cer everbillied glove machine operator at [facility] GLUCOSE [id number] 16:52:00* Test Item Value Reference Range Interpretation Comme nts GLUCOSE BEDSIDE (test code = GLUBED) 179 MG/DL 70-110 H Performed by Green Earth Technologiesied glove machine operator at [facility] GLUCOSE [id number] 12:33:00* Test Item Value Reference Range Interpretation Comme nts GLUCOSE BEDSIDE (test code = GLUBED) 150 MG/DL 70-110 H Performed by [employer] glove machine operator at [facility] GLUCOSE [id number] 09:29:00* Test Item Value Reference Range Interpretation Comme nts GLUCOSE BEDSIDE (test code = GLUBED) 196 MG/DL 70-110 H Performed by [employer] glove machine operator at [facility] GLUCOSE [id number] 07:51:00* Test Item Value Reference Range Interpretation Comme nts GLUCOSE BEDSIDE (test code = GLUBED) 98 MG/DL 70-110 N Performed by [employer] glove machine operator at [facility] BASIC METABOLIC [id number] 03:19:00* Test Item Value Reference Range Interpretation [...] code = CA) 7.9 mg/dL 8.0-10.5 L [id number] 03:19:00* Test Item Value Reference Range Interpretation Comme nts MAGNESIUM (test code = MAG) 2.20 mg/dL 1.6-2.6 N CBC W/AUTO [id number] 02:58:00* Test Item Value Reference Range Interpretation [...] NRBC#) 0.06 x10 3/uL 0.0-0.1 N GLUCOSE [id number] 20:05:00* Test Item Value Reference Range Interpretation Comme nts GLUCOSE BEDSIDE (test code = GLUBED) 193 MG/DL 70-110 H Performed by cer tified glove machine operator at [facility] BASIC METABOLIC [id number] 18:40:00* Test Item Value Reference Range Interpretation [...] code = CA) 8.1 mg/dL 8.0-10.5 N [id number] 18:40:00* Test Item Value Reference Range Interpretation Comme nts MAGNESIUM (test code = MAG) 2.16 mg/dL 1.6-2.6 GLUCOSE [id number] 17:11:00* Test Item Value Reference Range Interpretation Comme nts GLUCOSE BEDSIDE (test code = GLUBED) 191 MG/DL 70-110 H Performed by cer tified glove machine operator at [facility] GLUCOSE [id number] 11:56:00* Test Item Value Reference Range Interpretation Comme nts GLUCOSE BEDSIDE (test code = GLUBED) 177 MG/DL 70-110 H Performed by [employer] tified glove machine operator at [facility] GLUCOSE [id number] 07:30:00* Test Item Value Reference Range Interpretation Comme nts GLUCOSE BEDSIDE (test code = GLUBED) 117 MG/DL 70-110 H Performed by [facility] tified glove machine operator at [facility] BASIC METABOLIC [id number] 04:11:00* Test Item Value Reference Range Interpretation [...] code = CA) 8.1 mg/dL 8.0-10.5 N [id number] 04:11:00* Test Item Value Reference Range Interpretation Comme nts MAGNESIUM (test code = MAG) 3.51 mg/dL 1.6-2.6 H CBC W/AUTO [id number] 03:47:00* Test Item Value Reference Range Interpretation [...] NRBC#) 0.05 x10 3/uL 0.0-0.1 N GLUCOSE [id number] 20:32:00* Test Item Value Reference Range Interpretation Comme nts GLUCOSE BEDSIDE (test code = GLUBED) 234 MG/DL 70-110 H Performed by cer tified glove machine operator at [facility] BASIC METABOLIC [id number] 16:43:00* Test Item Value Reference Range Interpretation [...] code = CA) 8.0 mg/dL 8.0-10.5 N [id number] 16:43:00* Test Item Value Reference Range Interpretation Comme nts MAGNESIUM (test code = MAG) 2.29 mg/dL 1.6-2.6 N GLUCOSE [id number] 16:42:00* Test Item Value Reference Range Interpretation Comme nts GLUCOSE BEDSIDE (test code = GLUBED) 159 MG/DL 70-110 H Performed by cer tified glove machine operator at [facility] GLUCOSE [id number] 11:59:00* Test Item Value Reference Range Interpretation Comme nts GLUCOSE BEDSIDE (test code = GLUBED) 151 MG/DL 70-110 H Performed by cer tified glove machine operator at [facility] GLUCOSE [id number] 08:16:00* Test Item Value Reference Range Interpretation Comme nts GLUCOSE BEDSIDE (test code = GLUBED) 106 MG/DL 70-110 N Performed by cer tified glove machine operator at [facility] GLUCOSE [id number] 07:00:00* Test Item Value Reference Range Interpretation Comme nts GLUCOSE BEDSIDE (test code = GLUBED) 95 MG/DL 70-110 N Performed by cer dez glove machine operator at [facility] BASIC METABOLIC [id number] 04:34:00* Test Item Value Reference Range Interpretation [...] code = CA) 8.3 mg/dL 8.0-10.5 N [id number] 04:34:00* Test Item Value Reference Range Interpretation Comme nts MAGNESIUM (test code = MAG) 2.45 mg/dL 1.6-2.6 N CBC W/AUTO [id number] 04:13:00* Test Item Value Reference Range Interpretation [...] NRBC#) 0.11 x10 3/uL 0.0-0.1 H GLUCOSE [id number] 00:14:00* Test Item Value Reference Range Interpretation Comme nts GLUCOSE BEDSIDE (test code = GLUBED) 123 MG/DL 70-110 H Performed by cer tified glove machine operator at [facility] BASIC METABOLIC [id number] 19:02:00* Test Item Value Reference Range Interpretation [...] code = CA) 8.2 mg/dL 8.0-10.5 N [id number] 19:02:00* Test Item Value Reference Range Interpretation Comme nts MAGNESIUM (test code = MAG) 2.33 mg/dL 1.6-2.6 N GLUCOSE [id number] 17:32:00* Test Item Value Reference Range Interpretation Comme nts GLUCOSE BEDSIDE (test code = GLUBED) 147 MG/DL 70-110 H Performed by cer tified glove machine operator at [facility] GLUCOSE [id number] 14:31:00* Test Item Value Reference Range Interpretation Comme nts GLUCOSE BEDSIDE (test code = GLUBED) 231 MG/DL 70-110 H Performed by cer tified glove machine operator at [facility] GLUCOSE [id number] 08:01:00* Test Item Value Reference Range Interpretation Comme [facility] GLUCOSE BEDSIDE (test code = GLUBED) 97 MG/DL 70-110 N Performed by cer tified glove machine operator at [facility] BASIC METABOLIC [id number] 07:17:00* Test Item Value Reference Range Interpretation [...] = POCGLU) 102 MG/DL 70-110 N HEMOGLOBIN [id number] 07:17:00* Test Item Value Reference Range Interpretation Comme [facility] HEMOGLOBIN ABG (test code = HGB/ABG) 9.2 G/DL 11.0-15.0 L [id number] 07:17:00* Test Item Value Reference Range Interpretation Comme [facility] HEMATOCRIT (test code = HCT/ABG) 27 % 33-45 L POC LACTIC [id number] 07:17:00* Test Item Value Reference Range Interpretation Comme [facility] POC LACTIC ACID (test code = POCLAC) 0.7 mmol/l 0.9-1.7 L POC VENOUS BLOOD [id number] 07:17:00* Test Item Value Reference Range Interpretation Comme nts YESSY'S TEST (test code = ALLENS) N/A POC VENOUS BLOOD GAS PH (test code = POCPHV) 7.415 7.33-7.45 N POC VENOUS BLOOD GAS PCO2 (test code = GLOOPK3R) 40.2 mmHg 43-47 L POC VENOUS BLOOD GAS PO2 (test code = LUPYN5C) 22.3 mmHG 10-50 N POC TCO2 VENOUS (test code = XLSPNQ0K) 27.0 22-29 N POC HCO3 VENOUS (test code = UMLJKQ7I) 25.7 MMOL/L 22-27 N POC BASE EXCESS VENOUS (test code = POCBEV) 1.2 MMOL/L See_Comment N [Automated messa ge] The system which generated this result transmitted reference range: 0-+/-4. The reference range was not used to interpret this result as normal/abnormal. POC O2 SATURATION VENOUS (test code = KSUZ0PN) 39.0 % 60-80 L VENOUS BLOOD GAS DELIVERY (test code = DELV) Room Air VENOUS BLOOD GAS TEMP (test code = TEMPV) 98 F VENOUS BLOOD GAS SITE (test code = SITEV) PA BASIC METABOLIC [id number] 03:23:00* Test Item Value Reference Range Interpretation [...] code = CA) 8.3 mg/dL 8.0-10.5 N [id number] 03:23:00* Test Item Value Reference Range Interpretation Comme nts MAGNESIUM (test code = MAG) 2.42 mg/dL 1.6-2.6 N CBC W/AUTO [id number] 03:18:00* Test Item Value Reference Range Interpretation [...] NRBC#) 0.13 x10 3/uL 0.0-0.1 H GLUCOSE [id number] 02:06:00* Test Item Value Reference Range Interpretation Comme nts GLUCOSE BEDSIDE (test code = GLUBED) 55 MG/DL 70-110 L Performed by cer tified glove machine operator at [facility] GLUCOSE [id number] 20:11:00* Test Item Value Reference Range Interpretation Comme nts GLUCOSE BEDSIDE (test code = GLUBED) 131 MG/DL 70-110 H Performed by [facility] tified glove machine operator at [facility] GLUCOSE [id number] 18:28:00* Test Item Value Reference Range Interpretation Comme nts GLUCOSE BEDSIDE (test code = GLUBED) 156 MG/DL 70-110 H Performed by [facility] tified glove machine operator at [facility] BASIC METABOLIC [id number] 12:52:00* Test Item Value Reference Range Interpretation [...] code = CA) 7.8 mg/dL 8.0-10.5 L [id number] 12:52:00* Test Item Value Reference Range Interpretation Comme nts MAGNESIUM (test code = MAG) 2.37 mg/dL 1.6-2.6 N [id number] 12:49:00* Test Item Value Reference Range Interpretation Comme nts SURGICAL (test code = SR) -----RUN DATE: 09/03/24 [facility] PAGE 1 RUN TIME: 1249 Specimen Inquiry RUN USER: INTERFACE -----PATIENT: JANNA GILLIAMZABETH LOC: LARRYU U #: [id number] AGE/SX: 64/F [place] [facility] [place]24REG DR: Poppy Hernandez MD : 64 BED: 1 DIS: STATUS: ADM IN TLOC: ----- SPEC #: [id number] RECD: 08/31/24 STATUS: CASEY RUEDA #: [id number] DWAINE: 08/30/24- SUBM DR: Poppy Hernandez MD ENTERED: 08/31/24 SP TYPE: SURGICAL OTHR DR: Rosa Covington MD, Nehme X MD Hyder, Shahistha MDORDERED: 87101, 26935, 94918, ANATOMIC SPEC COPIES TO: Rosa Covington MD [address] [place] [address] Rachna Hall MD [address] [facility] [place] [address] Poppy Hernandez MD [address] [place] [address]. [address] [place] [address] Brooke Gonzáles MD PROCEDURES: 40058 (09/03/24-1231) 55303 (08/31/24-1044) 55058 (08/31/24) TISSUES: A. ATRIUM - LEFT ATRIAL APPENDAGE B. AORTIC VALVE - LEAFLETS CLINICAL HISTORY SAME FINAL DIAGNOSIS #1. Heart, left atrial appendage, excision: -Cardiac tissue with mild ischemic-type changes. #2. Aortic valve leaflets, excision: -Calcifications and myxoid degeneration. CONTINUED ON NEXT PAGE -----RUN DATE: 09/03/24 [facility] PAGE 2 RUN TIME: 1249 Specimen Inquiry RUN USER: INTERFACE -----SPEC #: [id number] PATIENT: RAYSA GILLIAM #[id number] (Continued) GROSS DESCRIPTION 1. Received in formalin labeled "left atrial appendage" is a 4 x 2.2 x 1.4 cm aguilar-redatrial appendage. The specimen is serially sectioned and no gross lesions are identified. Robotics Technician sections are submitted in cassette A. 2. Received in formalin labeled "aortic valve leaflets" is a 2.8 x 2.5 x 0.3 cm irregularto crescent shaped yellow-aguilar white valvular tissues with multiple fenestrations measuringup to 0.3 cm. The specimen is serially sectioned to reveal calcifications measuring up to0.8 cm in thickness. Robotics Technician sections are submitted in cassette B, followingdecalcification. Technical component performed at [address] [address] Unless gross only, the diagnosis is based [...] 09/03/24 1249 ----- END OF REPORT GLUCOSE [id number] 12:31:00* Test Item Value Reference Range Interpretation Comme [facility] GLUCOSE BEDSIDE (test code = GLUBED) 146 MG/DL 70-110 H Performed by cer [employer] glove machine operator at [facility] GLUCOSE [id number] 09:52:00* Test Item Value Reference Range Interpretation Comme [facility] GLUCOSE BEDSIDE (test code = GLUBED) 219 MG/DL 70-110 H Performed by cer [employer] glove machine operator at [facility] BASIC METABOLIC [id number] 09:41:00* Test Item Value Reference Range Interpretation Comme [facility] SODIUM (test code = NA/ABG) 134 mmol/L 134-147 N POTASSIUM (test code = K/ABG) 4.5 mmol/L 3.4-5.0 N CHLORIDE (test code = CL/ABG) 98 mmol/L 100-108 L CREATININE ABG (test code = CREAABG) 1.4 mg/dL 0.6-1.3 H POC IONIZED CALCIUM (test co de = POCCA) 1.12 MMOL/L 1.12-1.32 N POC GLUCOSE (test code = POCGLU) 221 MG/DL 70-110 H HEMOGLOBIN [id number] 09:41:00* Test Item Value Reference Range Interpretation Comme [facility] HEMOGLOBIN ABG (test code = HGB/ABG) 8.0 G/DL 11.0-15.0 L [id number] 09:41:00* Test Item Value Reference Range Interpretation Comme [facility] HEMATOCRIT (test code = HCT/ABG) 24 % 33-45 L POC LACTIC [id number] 09:41:00* Test Item Value Reference Range Interpretation Comme nts POC LACTIC ACID (test code = POCLAC) 2.5 mmol/l 0.9-1.7 H POC VENOUS BLOOD [id number] 09:41:00* Test Item Value Reference Range Interpretation Comme [facility] POC VENOUS BLOOD GAS PH (test code = POCPHV) 7.397 7.33-7.45 N POC VENOUS BLOOD GAS PCO2 (test code = JUANMO3I) 40.2 mmHg 43-47 L POC VENOUS BLOOD GAS PO2 (test code = NJOBH5L) 19.5 mmHG 10-50 N POC TCO2 VENOUS (test code = ZDJHNA3Q) 26.0 22-29 N POC HCO3 VENOUS (test code = ETREVV9Y) 24.7 MMOL/L 22-27 N POC BASE EXCESS VENOUS (test code = POCBEV) -0.1 MMOL/L See_Comment L [Automated messa ge] The system which generated this result transmitted reference range: 0-+/-4. The reference range was not used to interpret this result as normal/abnormal. POC O2 SATURATION VENOUS (test code = VAUL1NX) 30.5 % 60-80 L VENOUS BLOOD GAS DELIVERY (test code = DELV) Cannula VENOUS BLOOD GAS TEMP (test code = TEMPV) 97.8 F VENOUS BLOOD GAS SITE (test code = SITEV) [facility] POC ARTERIAL BLOOD [id number] 07:17:00* Test Item Value Reference Range Interpretation Comme [facility] POC ARTERIAL BLOOD GAS PH (test code = POCPHA) 7.458 7.35-7.45 H POC ARTERIAL BLOOD GAS PCO2 (test code = YCQMXD1Z) 32.9 mmHg 35.0-45 L POC TCO2 ARTERIAL (test code = POCTCO2) 24.3 22-29 N POC ARTERIAL BLOOD GAS PO2 (test code = FICAZ1F) 60.7 mmHg 80-100.0 L POC HCO3 ARTERIAL (test code = IYVNJJ9Y) 23.3 MMOL/L 22.0-26.0 N POC BASE EXCESS [...] (test code = ALLENS) N/A BASIC METABOLIC [id number] 07:17:00* Test Item Value Reference Range Interpretation [...] = POCGLU) 110 MG/DL 70-110 N HEMOGLOBIN [id number] 07:17:00* Test Item Value Reference Range Interpretation Comme nts HEMOGLOBIN ABG (test code = HGB/ABG) 9.4 G/DL 11.0-15.0 L [id number] 07:17:00* Test Item Value Reference Range Interpretation Comme nts HEMATOCRIT (test code = HCT/ABG) 28 % 33-45 L POC LACTIC [id number] 07:17:00* Test Item Value Reference Range Interpretation Comme nts POC LACTIC ACID (test code = POCLAC) 0.8 mmol/l 0.9-1.7 L BASIC METABOLIC [id number] 04:37:00* Test Item Value Reference Range Interpretation [...] code = CA) 8.5 mg/dL 8.0-10.5 N [id number] 04:37:00* Test Item Value Reference Range Interpretation Comme nts MAGNESIUM (test code = MAG) 2.48 mg/dL 1.6-2.6 N CBC W/AUTO [id number] 04:22:00* Test Item Value Reference Range Interpretation [...] NRBC#) 0.03 x10 3/uL 0.0-0.1 N GLUCOSE [id number] 04:20:00* Test Item Value Reference Range Interpretation Comme nts GLUCOSE BEDSIDE (test code = GLUBED) 88 MG/DL 70-110 N Performed by cer emekaied glove machine operator at [facility] BASIC METABOLIC [id number] 00:23:00* Test Item Value Reference Range Interpretation [...] code = CA) 8.4 mg/dL 8.0-10.5 N [id number] 00:23:00* Test Item Value Reference Range Interpretation Comme nts MAGNESIUM (test code = MAG) 2.30 mg/dL 1.6-2.6 N POC ARTERIAL BLOOD [id number] 20:33:00* Test Item Value Reference Range Interpretation Comme nts POC ARTERIAL BLOOD GAS PH (test code = POCPHA) 7.498 7.35-7.45 H POC ARTERIAL BLOOD GAS PCO2 (test code = LENJMO4P) 32.9 mmHg 35.0-45 L POC TCO2 ARTERIAL (test code = POCTCO2) 26.6 22-29 N POC ARTERIAL BLOOD GAS PO2 (test code = FNHKG8G) 64.4 mmHg 80-100.0 L POC HCO3 ARTERIAL (test code = CQVNMD4Y) 25.6 MMOL/L 22.0-26.0 N POC BASE EXCESS [...] (test code = ALLENS) N/A BASIC METABOLIC [id number] 20:33:00* Test Item Value Reference Range Interpretation [...] = POCGLU) 169 MG/DL 70-110 H HEMOGLOBIN [id number] 20:33:00* Test Item Value Reference Range Interpretation Comme nts HEMOGLOBIN ABG (test code = HGB/ABG) 9.0 G/DL 11.0-15.0 L [id number] 20:33:00* Test Item Value Reference Range Interpretation Comme nts HEMATOCRIT (test code = HCT/ABG) 27 % 33-45 L POC LACTIC [id number] 20:33:00* Test Item Value Reference Range Interpretation Comme nts POC LACTIC ACID (test code = POCLAC) 0.9 mmol/l 0.9-1.7 N BASIC METABOLIC [id number] 17:48:00* Test Item Value Reference Range Interpretation [...] code = CA) 8.4 mg/dL 8.0-10.5 N [id number] 17:48:00* Test Item Value Reference Range Interpretation Comme nts MAGNESIUM (test code = MAG) 2.32 mg/dL 1.6-2.6 N CBC W/AUTO [id number] 17:36:00* Test Item Value Reference Range Interpretation [...] 0.03 x10 3/uL 0.0-0.1 N BASIC METABOLIC [id number] 17:33:00* Test Item Value Reference Range Interpretation [...] = POCGLU) 131 MG/DL 70-110 H HEMOGLOBIN [id number] 17:33:00* Test Item Value Reference Range Interpretation Comme nts HEMOGLOBIN ABG (test code = HGB/ABG) 8.6 G/DL 11.0-15.0 L [id number] 17:33:00* Test Item Value Reference Range Interpretation Comme nts HEMATOCRIT (test code = HCT/ABG) 25 % 33-45 L POC LACTIC [id number] 17:33:00* Test Item Value Reference Range Interpretation Comme [facility] POC LACTIC ACID (test code = POCLAC) 1.1 mmol/l 0.9-1.7 N POC VENOUS BLOOD [id number] 17:33:00* Test Item Value Reference Range Interpretation Comme [facility] POC VENOUS BLOOD GAS PH (test code = POCPHV) 7.436 7.33-7.45 N POC VENOUS BLOOD GAS PCO2 (test code = HOAKBP6Z) 39.7 mmHg 43-47 L POC VENOUS BLOOD GAS PO2 (test code = BAJSS3O) 21.7 mmHG 10-50 N POC TCO2 VENOUS (test code = TEUSVV2U) 27.9 22-29 N POC HCO3 VENOUS (test code = WWTADZ4T) 26.7 MMOL/L 22-27 N POC BASE EXCESS VENOUS (test code = POCBEV) 2.5 MMOL/L See_Comment N [Automated messa ge] The system which generated this result transmitted reference range: 0-+/-4. The reference range was not used to interpret this result as normal/abnormal. POC O2 SATURATION VENOUS (test code = RBGZ5AI) 38.6 % 60-80 L VENOUS BLOOD GAS DELIVERY (test code = DELV) Room Air VENOUS BLOOD GAS TEMP (test code = TEMPV) 97.9 F VENOUS BLOOD GAS SITE (test code = SITEV) [place] [facility] GLUCOSE [id number] 16:37:00* Test Item Value Reference Range Interpretation Comme [facility] GLUCOSE BEDSIDE (test code = GLUBED) 95 MG/DL 70-110 N Performed by cer tified glove machine operator at [facility] POC ARTERIAL BLOOD [id number] 12:28:00* Test Item Value Reference Range Interpretation Comme [facility] POC ARTERIAL BLOOD GAS PH (test code = POCPHA) 7.500 7.35-7.45 H POC ARTERIAL BLOOD GAS PCO2 (test code = JIWZRW2U) 32.9 mmHg 35.0-45 L POC TCO2 ARTERIAL (test code = POCTCO2) 26.6 22-29 N POC ARTERIAL BLOOD GAS PO2 (test code = RKOZE2C) 65.8 mmHg 80-100.0 L POC HCO3 ARTERIAL (test code = CITTKU2S) 25.6 MMOL/L 22.0-26.0 N POC BASE EXCESS (test code = POCBEA) 2.5 MMOL/L See_Comment N [Automated messa ge] The system which generated this result transmitted reference range: 0-+/-4. The reference range was not used to interpret this result as normal/abnormal. POC O2 SATURATION (test code = POCO2S) 94.5 % 90-100 N ABG DELIVERY (test code = BENY) Room Air BASIC METABOLIC [id number] 12:28:00* Test Item Value Reference Range Interpretation [...] = POCGLU) 104 MG/DL 70-110 N HEMOGLOBIN [id number] 12:28:00* Test Item Value Reference Range Interpretation Comme nts HEMOGLOBIN ABG (test code = HGB/ABG) 8.4 G/DL 11.0-15.0 L [id number] 12:28:00* Test Item Value Reference Range Interpretation Comme nts HEMATOCRIT (test code = HCT/ABG) 25 % 33-45 L POC LACTIC [id number] 12:28:00* Test Item Value Reference Range Interpretation Comme nts POC LACTIC ACID (test code = POCLAC) 1.1 mmol/l 0.9-1.7 N BASIC METABOLIC [id number] 12:12:00* Test Item Value Reference Range Interpretation [...] code = CA) 8.1 mg/dL 8.0-10.5 N [id number] 12:12:00* Test Item Value Reference Range Interpretation Comme nts MAGNESIUM (test code = MAG) 2.37 mg/dL 1.6-2.6 N BASIC METABOLIC [id number] 09:07:00* Test Item Value Reference Range Interpretation [...] = POCGLU) 142 MG/DL 70-110 H HEMOGLOBIN [id number] 09:07:00* Test Item Value Reference Range Interpretation Comme nts HEMOGLOBIN ABG (test code = HGB/ABG) 8.9 G/DL 11.0-15.0 L [id number] 09:07:00* Test Item Value Reference Range Interpretation Comme nts HEMATOCRIT (test code = HCT/ABG) 26 % 33-45 L POC LACTIC [id number] 09:07:00* Test Item Value Reference Range Interpretation Comme nts POC LACTIC ACID (test code = POCLAC) 2.1 mmol/l 0.9-1.7 H POC VENOUS BLOOD [id number] 09:07:00* Test Item Value Reference Range Interpretation Comme nts POC VENOUS BLOOD GAS PH (test code = POCPHV) 7.399 7.33-7.45 N POC VENOUS BLOOD GAS PCO2 (test code = KSQKFB2Y) 43.5 mmHg 43-47 N POC VENOUS BLOOD GAS PO2 (test code = CVIXW3D) 22.3 mmHG 10-50 N POC TCO2 VENOUS (test code = OTPKKP2Z) 28.2 22-29 N POC HCO3 VENOUS (test code = JMYCZD8B) 26.9 MMOL/L 22-27 N POC BASE EXCESS VENOUS (test code = POCBEV) 2.0 MMOL/L See_Comment N [Automated messa ge] The system which generated this result transmitted reference range: 0-+/-4. The reference range was not used to interpret this result as normal/abnormal. POC O2 SATURATION VENOUS (test code = OOZP0LD) 37.6 % 60-80 L VENOUS BLOOD GAS FIO2 (test code = FIO2V) 28 % VENOUS BLOOD GAS DELIVERY (test code = DELV) Cannula VENOUS BLOOD GAS SITE (test code = SITEV) [place] [facility] GLUCOSE [id number] 08:33:00* Test Item Value Reference Range Interpretation Comme nts GLUCOSE BEDSIDE (test code = GLUBED) 139 MG/DL 70-110 H Performed by cer tified glove machine operator at [facility] BASIC METABOLIC [id number] 05:39:00* Test Item Value Reference Range Interpretation [...] CA) 8.1 mg/dL 8.0-10.5 N HEPATIC FUNCTION [id number] 05:39:00* Test Item Value Reference Range Interpretation [...] code = ALKP) 83 IUnit/L 20-125 N [id number] 05:39:00* Test Item Value Reference Range Interpretation Comme nts MAGNESIUM (test code = MAG) 2.49 mg/dL 1.6-2.6 N CBC W/AUTO [id number] 05:22:00* Test Item Value Reference Range Interpretation [...] x10 3/uL 0.0-0.1 N POC ARTERIAL BLOOD [id number] 05:12:00* Test Item Value Reference Range Interpretation Comme nts POC ARTERIAL BLOOD GAS PH (test code = POCPHA) 7.465 7.35-7.45 H POC ARTERIAL BLOOD GAS PCO2 (test code = BQSBYY4M) 33.9 mmHg 35.0-45 L POC TCO2 ARTERIAL (test code = POCTCO2) 25.4 22-29 N POC ARTERIAL BLOOD GAS PO2 (test code = QCSQZ8F) 88.3 mmHg 80-100.0 N POC HCO3 ARTERIAL (test code = EZZMPW8I) 24.4 MMOL/L 22.0-26.0 N POC BASE EXCESS [...] (test code = ALLENS) Negative BASIC METABOLIC [id number] 05:12:00* Test Item Value Reference Range Interpretation [...] = POCGLU) 127 MG/DL 70-110 H HEMOGLOBIN [id number] 05:12:00* Test Item Value Reference Range Interpretation Comme nts HEMOGLOBIN ABG (test code = HGB/ABG) 9.0 G/DL 11.0-15.0 L [id number] 05:12:00* Test Item Value Reference Range Interpretation Comme nts HEMATOCRIT (test code = HCT/ABG) 26 % 33-45 L POC LACTIC [id number] 05:12:00* Test Item Value Reference Range Interpretation Comme nts POC LACTIC ACID (test code = POCLAC) 0.9 mmol/l 0.9-1.7 N BASIC METABOLIC [id number] 00:51:00* Test Item Value Reference Range Interpretation [...] code = CA) 8.4 mg/dL 8.0-10.5 N [id number] 00:51:00* Test Item Value Reference Range Interpretation Comme nts MAGNESIUM (test code = MAG) 2.44 mg/dL 1.6-2.6 N CALCIUM [id number] 00:51:00* Test Item Value Reference Range Interpretation Comme nts CALCIUM IONIZED (test code = KLYE) 1.10 MMOL/L 1.09-1.30 N GLUCOSE [id number] 18:07:00* Test Item Value Reference Range Interpretation Comme nts GLUCOSE BEDSIDE (test code = GLUBED) 160 MG/DL 70-110 H Performed by cer tified glove machine operator at [facility] BASIC METABOLIC [id number] 16:43:00* Test Item Value Reference Range Interpretation [...] = POCGLU) 166 MG/DL 70-110 H HEMOGLOBIN [id number] 16:43:00* Test Item Value Reference Range Interpretation Comme nts HEMOGLOBIN ABG (test code = HGB/ABG) 8.3 G/DL 11.0-15.0 L [id number] 16:43:00* Test Item Value Reference Range Interpretation Comme nts HEMATOCRIT (test code = HCT/ABG) 25 % 33-45 L POC LACTIC [id number] 16:43:00* Test Item Value Reference Range Interpretation Comme nts POC LACTIC ACID (test code = POCLAC) 1.4 mmol/l 0.9-1.7 N POC VENOUS BLOOD [id number] 16:43:00* Test Item Value Reference Range Interpretation Comme nts POC VENOUS BLOOD GAS PH (test code = POCPHV) 7.430 7.33-7.45 N POC VENOUS BLOOD GAS PCO2 (test code = WSJHGE4U) 38.3 mmHg 43-47 L POC VENOUS BLOOD GAS PO2 (test code = WZRXA3D) 22.1 mmHG 10-50 N POC TCO2 VENOUS (test code = WPVOYM5U) 26.6 22-29 N POC HCO3 VENOUS (test code = USVRFJ1O) 25.5 MMOL/L 22-27 N POC BASE EXCESS VENOUS (test code = POCBEV) 1.1 MMOL/L See_Comment N [Automated messa ge] The system which generated this result transmitted reference range: 0-+/-4. The reference range was not used to interpret this result as normal/abnormal. POC O2 SATURATION VENOUS (test code = SSCJ7AS) 39.6 % 60-80 L VENOUS BLOOD GAS FIO2 (test code = FIO2V) 36 % VENOUS BLOOD GAS DELIVERY (test code = DELV) Cannula VENOUS BLOOD GAS SITE (test code = SITEV) [place] [facility] GLUCOSE [id number] 16:28:00* Test Item Value Reference Range Interpretation Comme nts GLUCOSE BEDSIDE (test code = GLUBED) 152 MG/DL 70-110 H Performed by cer tified glove machine operator at [facility] BASIC METABOLIC [id number] 15:20:00* Test Item Value Reference Range Interpretation [...] code = CA) 8.2 mg/dL 8.0-10.5 N [id number] 15:20:00* Test Item Value Reference Range Interpretation Comme [facility] MAGNESIUM (test code = MAG) 1.98 mg/dL 1.6-2.6 N GLUCOSE [id number] 12:14:00* Test Item Value Reference Range Interpretation Comme [facility] GLUCOSE BEDSIDE (test code = GLUBED) 159 MG/DL 70-110 H Performed by cer tified glove machine operator at [facility] GLUCOSE [id number] 10:17:00* Test Item Value Reference Range Interpretation Comme nts GLUCOSE BEDSIDE (test code = GLUBED) 229 MG/DL 70-110 H Performed by cer tified glove machine operator at [facility] GLUCOSE [id number] 09:02:00* Test Item Value Reference Range Interpretation Comme nts GLUCOSE BEDSIDE (test code = GLUBED) 275 MG/DL 70-110 H Performed by cer tified glove machine operator at [facility] BASIC METABOLIC [id number] 06:28:00* Test Item Value Reference Range Interpretation [...] = POCGLU) 115 MG/DL 70-110 H HEMOGLOBIN [id number] 06:28:00* Test Item Value Reference Range Interpretation Comme nts HEMOGLOBIN ABG (test code = HGB/ABG) 8.7 G/DL 11.0-15.0 L [id number] 06:28:00* Test Item Value Reference Range Interpretation Comme nts HEMATOCRIT (test code = HCT/ABG) 26 % 33-45 L POC LACTIC [id number] 06:28:00* Test Item Value Reference Range Interpretation Comme nts POC LACTIC ACID (test code = POCLAC) 0.7 mmol/l 0.9-1.7 L POC VENOUS BLOOD [id number] 06:28:00* Test Item Value Reference Range Interpretation Comme nts YESSY'S TEST (test code = ALLENS) N/A POC VENOUS BLOOD GAS PH (test code = POCPHV) 7.417 7.33-7.45 N POC VENOUS BLOOD GAS PCO2 (test code = ISLBUV4Z) 38.2 mmHg 43-47 L POC VENOUS BLOOD GAS PO2 (test code = QSTKC5E) 24.7 mmHG 10-50 N POC TCO2 VENOUS (test code = TXCZBA5I) 25.8 22-29 N POC HCO3 VENOUS (test code = FUWBBV6R) 24.6 MMOL/L 22-27 N POC BASE EXCESS VENOUS (test code = POCBEV) 0.1 MMOL/L See_Comment N [Automated messa ge] The system which generated this result transmitted reference range: 0-+/-4. The reference range was not used to interpret this result as normal/abnormal. POC O2 SATURATION VENOUS (test code = OTHG6DZ) 45.9 % 60-80 L VENOUS BLOOD GAS DELIVERY (test code = DELV) Cannula VENOUS BLOOD GAS TEMP (test code = TEMPV) 98 F VENOUS BLOOD GAS SITE (test code = SITEV) [place] POC ARTERIAL BLOOD [id number] 06:15:00* Test Item Value Reference Range Interpretation Comme nts POC ARTERIAL BLOOD GAS PH (test code = POCPHA) 7.501 7.35-7.45 HH POC ARTERIAL BLOOD GAS PCO2 (test code = ZEMRPU1V) 26.5 mmHg 35.0-45 LL POC TCO2 ARTERIAL (test code = POCTCO2) 21.5 22-29 L POC ARTERIAL BLOOD GAS PO2 (test code = IRSLJ6T) 78.2 mmHg 80-100.0 L POC HCO3 ARTERIAL (test code = YVGELS8T) 20.7 MMOL/L 22.0-26.0 L POC BASE EXCESS [...] (test code = ALLENS) N/A BASIC METABOLIC [id number] 06:15:00* Test Item Value Reference Range Interpretation [...] = POCGLU) 108 MG/DL 70-110 N HEMOGLOBIN [id number] 06:15:00* Test Item Value Reference Range Interpretation Comme nts HEMOGLOBIN ABG (test code = HGB/ABG) 8.9 G/DL 11.0-15.0 L [id number] 06:15:00* Test Item Value Reference Range Interpretation Comme nts HEMATOCRIT (test code = HCT/ABG) 26 % 33-45 L POC LACTIC [id number] 06:15:00* Test Item Value Reference Range Interpretation Comme nts POC LACTIC ACID (test code = POCLAC) 0.8 mmol/l 0.9-1.7 L BASIC METABOLIC [id number] 03:21:00* Test Item Value Reference Range Interpretation [...] mg/dL 8.0-10.5 N COMMENTS: POD #1HEPATIC FUNCTION [id number] 03:21:00* Test Item Value Reference Range Interpretation [...] ALKP) 71 IUnit/L 20-125 N COMMENTS: POD #[id number] 03:21:00* Test Item Value Reference Range Interpretation Comme nts MAGNESIUM (test code = MAG) 2.26 mg/dL 1.6-2.6 N COMMENTS: POD #1CBC W/AUTO [id number] 02:30:00* Test Item Value Reference Range Interpretation [...] x10 3/uL 0.0-0.1 N POC ARTERIAL BLOOD [id number] 02:15:00* Test Item Value Reference Range Interpretation Comme nts POC ARTERIAL BLOOD GAS PH (test code = POCPHA) 7.453 7.35-7.45 H POC ARTERIAL BLOOD GAS PCO2 (test code = HRXPDL4D) 35.8 mmHg 35.0-45 N POC TCO2 ARTERIAL (test code = POCTCO2) 26.1 22-29 N POC ARTERIAL BLOOD GAS PO2 (test code = YOZIX5G) 71.4 mmHg 80-100.0 L POC HCO3 ARTERIAL (test code = AMGGHO6M) 25.0 MMOL/L 22.0-26.0 N POC BASE EXCESS [...] (test code = ALLENS) N/A BASIC METABOLIC [id number] 02:15:00* Test Item Value Reference Range Interpretation [...] = POCGLU) 117 MG/DL 70-110 H HEMOGLOBIN [id number] 02:15:00* Test Item Value Reference Range Interpretation Comme nts HEMOGLOBIN ABG (test code = HGB/ABG) 8.9 G/DL 11.0-15.0 L [id number] 02:15:00* Test Item Value Reference Range Interpretation Comme nts HEMATOCRIT (test code = HCT/ABG) 26 % 33-45 L POC LACTIC [id number] 02:15:00* Test Item Value Reference Range Interpretation Comme nts POC LACTIC ACID (test code = POCLAC) 1.1 mmol/l 0.9-1.7 N GLUCOSE [id number] 20:18:00* Test Item Value Reference Range Interpretation Comme nts GLUCOSE BEDSIDE (test code = GLUBED) 125 MG/DL 70-110 H Performed by cer tified glove machine operator at [facility] HGB [id number] 18:52:00* Test Item Value Reference Range Interpretation Comme nts HEMOGLOBIN (test code = HGB) 6.7 g/dL 11.0-15.0 L HEMATOCRIT (test code = HCT) 22.7 % 33.0-45.0 L POC ARTERIAL BLOOD [id number] 18:18:00* Test Item Value Reference Range Interpretation Comme nts POC ARTERIAL BLOOD GAS PH (test code = POCPHA) 7.434 7.35-7.45 N POC ARTERIAL BLOOD GAS PCO2 (test code = AJMOUV3J) 38.7 mmHg 35.0-45 N POC TCO2 ARTERIAL (test code = POCTCO2) 27.1 22-29 N POC ARTERIAL BLOOD GAS PO2 (test code = VVSDP1D) 110.9 mmHg 80-100.0 H POC HCO3 ARTERIAL (test code = OAFPMA1N) 25.9 MMOL/L 22.0-26.0 N POC BASE EXCESS [...] (test code = ALLENS) N/A BASIC METABOLIC [id number] 18:18:00* Test Item Value Reference Range Interpretation [...] = POCGLU) 190 MG/DL 70-110 H HEMOGLOBIN [id number] 18:18:00* Test Item Value Reference Range Interpretation Comme nts HEMOGLOBIN ABG (test code = HGB/ABG) 7.1 G/DL 11.0-15.0 L [id number] 18:18:00* Test Item Value Reference Range Interpretation Comme [facility] HEMATOCRIT (test code = HCT/ABG) 21 % 33-45 L POC LACTIC [id number] 18:18:00* Test Item Value Reference Range Interpretation Comme [facility] POC LACTIC ACID (test code = POCLAC) 1.3 mmol/l 0.9-1.7 N GLUCOSE [id number] 18:15:00* Test Item Value Reference Range Interpretation Comme [facility] GLUCOSE BEDSIDE (test code = GLUBED) 158 MG/DL 70-110 H Performed by cer tified glove machine operator at [facility] GLUCOSE [id number] 16:25:00* Test Item Value Reference Range Interpretation Comme [facility] GLUCOSE BEDSIDE (test code = GLUBED) 225 MG/DL 70-110 H Performed by [facility] tified glove machine operator at [facility] BASIC METABOLIC [id number] 16:07:00* Test Item Value Reference Range Interpretation Comme [facility] SODIUM (test code = NA) 141 [...] 8.6 mg/dL 8.0-10.5 N POC ARTERIAL BLOOD [id number] 15:12:00* Test Item Value Reference Range Interpretation Comme nts POC ARTERIAL BLOOD GAS PH (test code = POCPHA) 7.410 7.35-7.45 N POC ARTERIAL BLOOD GAS PCO2 (test code = XBMMSZ1R) 36.7 mmHg 35.0-45 N POC TCO2 ARTERIAL (test code = POCTCO2) 24.4 22-29 N POC ARTERIAL BLOOD GAS PO2 (test code = NDPOW2R) 75.2 mmHg 80-100.0 L POC HCO3 ARTERIAL (test code = TYLGDT6Z) 23.3 MMOL/L 22.0-26.0 N POC BASE EXCESS [...] (test code = ALLENS) N/A BASIC METABOLIC [id number] 15:12:00* Test Item Value Reference Range Interpretation [...] = POCGLU) 237 MG/DL 70-110 H HEMOGLOBIN [id number] 15:12:00* Test Item Value Reference Range Interpretation Comme nts HEMOGLOBIN ABG (test code = HGB/ABG) 7.1 G/DL 11.0-15.0 L [id number] 15:12:00* Test Item Value Reference Range Interpretation Comme nts HEMATOCRIT (test code = HCT/ABG) 21 % 33-45 L POC LACTIC [id number] 15:12:00* Test Item Value Reference Range Interpretation Comme nts POC LACTIC ACID (test code = POCLAC) 0.9 mmol/l 0.9-1.7 N GLUCOSE [id number] 13:42:00* Test Item Value Reference Range Interpretation Comme nts GLUCOSE BEDSIDE (test code = GLUBED) 271 MG/DL 70-110 H Performed by cer tified glove machine operator at [facility] BASIC METABOLIC [id number] 12:09:00* Test Item Value Reference Range Interpretation [...] = POCGLU) 196 MG/DL 70-110 H HEMOGLOBIN [id number] 12:09:00* Test Item Value Reference Range Interpretation Comme nts HEMOGLOBIN ABG (test code = HGB/ABG) 8.5 G/DL 11.0-15.0 L [id number] 12:09:00* Test Item Value Reference Range Interpretation Comme nts HEMATOCRIT (test code = HCT/ABG) 25 % 33-45 L POC LACTIC [id number] 12:09:00* Test Item Value Reference Range Interpretation Comme nts POC LACTIC ACID (test code = POCLAC) 1.5 mmol/l 0.9-1.7 N POC VENOUS BLOOD [id number] 12:09:00* Test Item Value Reference Range Interpretation Comme nts YESSY'S TEST (test code = ALLENS) N/A POC VENOUS BLOOD GAS PH (test code = POCPHV) 7.353 7.33-7.45 N POC VENOUS BLOOD GAS PCO2 (test code = RMGGBV0P) 40.8 mmHg 43-47 L POC VENOUS BLOOD GAS PO2 (test code = MJLQL6A) 30.0 mmHG 10-50 N POC TCO2 VENOUS (test code = CRBNYQ5S) 23.9 22-29 N POC HCO3 VENOUS (test code = CNGHEU9G) 22.7 MMOL/L 22-27 N POC BASE EXCESS VENOUS (test code = POCBEV) -2.9 MMOL/L See_Comment L [Automated messa ge] The system which generated this result transmitted reference range: 0-+/-4. The reference range was not used to interpret this result as normal/abnormal. POC O2 SATURATION VENOUS (test code = UHUR3RE) 54.4 % 60-80 L VENOUS BLOOD GAS [...] BLOOD GAS SITE (test code = SITEV) [place] She BASIC METABOLIC [id number] 11:52:00* Test Item Value Reference Range Interpretation [...] = POCGLU) 187 MG/DL 70-110 H HEMOGLOBIN [id number] 11:52:00* Test Item Value Reference Range Interpretation Comme nts HEMOGLOBIN ABG (test code = HGB/ABG) 7.1 G/DL 11.0-15.0 L [id number] 11:52:00* Test Item Value Reference Range Interpretation Comme nts HEMATOCRIT (test code = HCT/ABG) 21 % 33-45 L POC LACTIC [id number] 11:52:00* Test Item Value Reference Range Interpretation Comme nts POC LACTIC ACID (test code = POCLAC) 1.6 mmol/l 0.9-1.7 N POC VENOUS BLOOD [id number] 11:52:00* Test Item Value Reference Range Interpretation Comme nts YESSY'S TEST (test code = ALLENS) N/A POC VENOUS BLOOD GAS PH (test code = POCPHV) 7.386 7.33-7.45 N POC VENOUS BLOOD GAS PCO2 (test code = EGUJUU6S) 35.8 mmHg 43-47 L POC VENOUS BLOOD GAS PO2 (test code = SADKC4P) 76.7 mmHG 10-50 H POC TCO2 VENOUS (test code = UNOXUO9W) 22.6 22-29 N POC HCO3 VENOUS (test code = EGZQBD1Y) 21.5 MMOL/L 22-27 L POC BASE EXCESS VENOUS (test code = POCBEV) -3.5 MMOL/L See_Comment L [Automated messa ge] The system which generated this result transmitted reference range: 0-+/-4. The reference range was not used to interpret this result as normal/abnormal. POC O2 SATURATION VENOUS (test code = IVSF7WU) 95.1 % 60-80 H VENOUS BLOOD GAS [...] BLOOD GAS SITE (test code = SITEV) [facility] BASIC METABOLIC [id number] 11:49:00* Test Item Value Reference Range Interpretation [...] code = CA) 8.8 mg/dL 8.0-10.5 N [id number] 11:49:00* Test Item Value Reference Range Interpretation Comme [facility] MAGNESIUM (test code = MAG) 2.24 mg/dL 1.6-2.6 N GLUCOSE [id number] 11:11:00* Test Item Value Reference Range Interpretation Comme [facility] GLUCOSE BEDSIDE (test code = GLUBED) 167 MG/DL 70-110 H Performed by cer tified glove machine operator at [facility] GLUCOSE [id number] 11:11:00* Test Item Value Reference Range Interpretation Comme [facility] GLUCOSE BEDSIDE (test code = GLUBED) 124 MG/DL 70-110 H Performed by cer tified glove machine operator at [facility] POC ARTERIAL BLOOD [id number] 10:54:00* Test Item Value Reference Range Interpretation Comme nts POC ARTERIAL BLOOD GAS PH (test code = POCPHA) 7.343 7.35-7.45 L POC ARTERIAL BLOOD GAS PCO2 (test code = HKSPYR0E) 37.6 mmHg 35.0-45 N POC TCO2 ARTERIAL (test code = POCTCO2) 21.6 22-29 L POC ARTERIAL BLOOD GAS PO2 (test code = TZGOE4O) 64.6 mmHg 80-100.0 L POC HCO3 ARTERIAL (test code = LAVWUT8U) 20.4 MMOL/L 22.0-26.0 L POC BASE EXCESS [...] (test code = ALLENS) N/A BASIC METABOLIC [id number] 10:54:00* Test Item Value Reference Range Interpretation [...] = POCGLU) 201 MG/DL 70-110 H HEMOGLOBIN [id number] 10:54:00* Test Item Value Reference Range Interpretation Comme nts HEMOGLOBIN ABG (test code = HGB/ABG) 7.5 G/DL 11.0-15.0 L [id number] 10:54:00* Test Item Value Reference Range Interpretation Comme nts HEMATOCRIT (test code = HCT/ABG) 22 % 33-45 L POC LACTIC [id number] 10:54:00* Test Item Value Reference Range Interpretation Comme nts POC LACTIC ACID (test code = POCLAC) 4.2 mmol/l 0.9-1.7 HH POC ARTERIAL BLOOD [id number] 10:38:00* Test Item Value Reference Range Interpretation Comme nts POC ARTERIAL BLOOD GAS PH (test code = POCPHA) 7.341 7.35-7.45 L POC ARTERIAL BLOOD GAS PCO2 (test code = YYUUBE7L) 34.4 mmHg 35.0-45 L POC TCO2 ARTERIAL (test code = POCTCO2) 19.7 22-29 L POC ARTERIAL BLOOD GAS PO2 (test code = LBOAY3C) 124.9 mmHg 80-100.0 H POC HCO3 ARTERIAL (test code = IAXADJ6H) 18.6 MMOL/L 22.0-26.0 L POC BASE EXCESS [...] (test code = ALLENS) N/A BASIC METABOLIC [id number] 10:38:00* Test Item Value Reference Range Interpretation [...] = POCGLU) 236 MG/DL 70-110 H HEMOGLOBIN [id number] 10:38:00* Test Item Value Reference Range Interpretation Comme nts HEMOGLOBIN ABG (test code = HGB/ABG) 7.7 G/DL 11.0-15.0 L [id number] 10:38:00* Test Item Value Reference Range Interpretation Comme nts HEMATOCRIT (test code = HCT/ABG) 23 % 33-45 L POC LACTIC [id number] 10:38:00* Test Item Value Reference Range Interpretation Comme nts POC LACTIC ACID (test code = POCLAC) 2.6 mmol/l 0.9-1.7 H BASIC METABOLIC [id number] 09:53:00* Test Item Value Reference Range Interpretation Comme nts SODIUM (test code = NA) 138 mEq/L 134-147 N POTASSIUM (test code = K) 6.4 mEq/L 3.4-5.0 HH Critical result called to Taiwo DUNLAP at 0952 08/31/24Nurse read back result and [...] 8.1 mg/dL 8.0-10.5 N POC ARTERIAL BLOOD [id number] 09:02:00* Test Item Value Reference Range Interpretation Comme nts POC ARTERIAL BLOOD GAS PH (test code = POCPHA) 7.351 7.35-7.45 N POC ARTERIAL BLOOD GAS PCO2 (test code = CLJIXS7D) 33.5 mmHg 35.0-45 L POC TCO2 ARTERIAL (test code = POCTCO2) 19.6 22-29 L POC ARTERIAL BLOOD GAS PO2 (test code = BRBHL0M) 152.3 mmHg 80-100.0 H POC HCO3 ARTERIAL (test code = UUXIJZ3Q) 18.5 MMOL/L 22.0-26.0 L POC BASE EXCESS (test code = POCBEA) -7.1 MMOL/L See_Comment L [Automated message] The system which generated this result transmitted reference range: 0-+/-4. The reference range was not used to interpret this result as normal/abnormal. POC O2 SATURATION (test code = POCO2S) 99.3 % 90-100 N FIO2 (test code = FIO2A) 60 % PaO2/FiO2 (test code = GBJ0FTL5) 253.83 mm/Hg ABG DELIVERY (test code = BENY) Cannula ABG SITE (test code = SITEA) Art Line YESSY'S TEST (test code = ALLENS) Positive BASIC METABOLIC [id number] 09:02:00* Test Item Value Reference Range Interpretation [...] = POCGLU) 148 MG/DL 70-110 H HEMOGLOBIN [id number] 09:02:00* Test Item Value Reference Range Interpretation Comme nts HEMOGLOBIN ABG (test code = HGB/ABG) 7.4 G/DL 11.0-15.0 L [id number] 09:02:00* Test Item Value Reference Range Interpretation Comme nts HEMATOCRIT (test code = HCT/ABG) 22 % 33-45 L POC LACTIC [id number] 09:02:00* Test Item Value Reference Range Interpretation Comme nts POC LACTIC ACID (test code = POCLAC) 1.5 mmol/l 0.9-1.7 N POC ARTERIAL BLOOD [id number] 07:39:00* Test Item Value Reference Range Interpretation Comme nts POC ARTERIAL BLOOD GAS PH (test code = POCPHA) 7.325 7.35-7.45 L POC ARTERIAL BLOOD GAS PCO2 (test code = YVSFMR4T) 46.5 mmHg 35.0-45 H POC TCO2 ARTERIAL (test code = POCTCO2) 25.7 22-29 N POC ARTERIAL BLOOD GAS PO2 (test code = YSKFV6Y) 24.2 mmHg 80-100.0 LL POC HCO3 ARTERIAL (test code = UVMSMH1B) 24.3 MMOL/L 22.0-26.0 N POC BASE EXCESS [...] (test code = ALLENS) N/A BASIC METABOLIC [id number] 07:39:00* Test Item Value Reference Range Interpretation [...] = POCGLU) 89 MG/DL 70-110 N HEMOGLOBIN [id number] 07:39:00* Test Item Value Reference Range Interpretation Comme nts HEMOGLOBIN ABG (test code = HGB/ABG) 8.9 G/DL 11.0-15.0 L [id number] 07:39:00* Test Item Value Reference Range Interpretation Comme nts HEMATOCRIT (test code = HCT/ABG) 26 % 33-45 L POC LACTIC [id number] 07:39:00* Test Item Value Reference Range Interpretation Comme nts POC LACTIC ACID (test code = POCLAC) 1.2 mmol/l 0.9-1.7 N POC ARTERIAL BLOOD [id number] 06:51:00* Test Item Value Reference Range Interpretation Comme nts POC ARTERIAL BLOOD GAS PH (test code = POCPHA) 7.384 7.35-7.45 N POC ARTERIAL BLOOD GAS PCO2 (test code = GKCGXS4N) 35.0 mmHg 35.0-45 N POC TCO2 ARTERIAL (test code = POCTCO2) 21.9 22-29 L POC ARTERIAL BLOOD GAS PO2 (test code = GTVHG0I) 130.3 mmHg 80-100.0 H POC HCO3 ARTERIAL (test code = OFPSHQ1C) 20.9 MMOL/L 22.0-26.0 L POC BASE EXCESS [...] (test code = ALLENS) N/A BASIC METABOLIC [id number] 06:51:00* Test Item Value Reference Range Interpretation [...] = POCGLU) 94 MG/DL 70-110 N HEMOGLOBIN [id number] 06:51:00* Test Item Value Reference Range Interpretation Comme nts HEMOGLOBIN ABG (test code = HGB/ABG) 8.7 G/DL 11.0-15.0 L [id number] 06:51:00* Test Item Value Reference Range Interpretation Comme nts HEMATOCRIT (test code = HCT/ABG) 26 % 33-45 L POC LACTIC [id number] 06:51:00* Test Item Value Reference Range Interpretation Comme nts POC LACTIC ACID (test code = POCLAC) 1.3 mmol/l 0.9-1.7 N BASIC METABOLIC [id number] 04:41:00* Test Item Value Reference Range Interpretation [...] = POCGLU) 169 MG/DL 70-110 H HEMOGLOBIN [id number] 04:41:00* Test Item Value Reference Range Interpretation Comme nts HEMOGLOBIN ABG (test code = HGB/ABG) 6.7 G/DL 11.0-15.0 L [id number] 04:41:00* Test Item Value Reference Range Interpretation Comme nts HEMATOCRIT (test code = HCT/ABG) 20 % 33-45 L POC LACTIC [id number] 04:41:00* Test Item Value Reference Range Interpretation Comme nts POC LACTIC ACID (test code = POCLAC) 1.5 mmol/l 0.9-1.7 N POC VENOUS BLOOD [id number] 04:41:00* Test Item Value Reference Range Interpretation Comme nts YESSY'S TEST (test code = ALLENS) N/A POC VENOUS BLOOD GAS PH (test code = POCPHV) 7.285 7.33-7.45 L POC VENOUS BLOOD GAS PCO2 (test code = CFZFTB1M) 37.9 mmHg 43-47 L POC VENOUS BLOOD GAS PO2 (test code = LLJXQ1B) 28.7 mmHG 10-50 N POC TCO2 VENOUS (test code = ZFHAWL9H) 19.1 22-29 L POC HCO3 VENOUS (test code = XDTPJJ7O) 18.0 MMOL/L 22-27 L POC BASE EXCESS VENOUS (test code = POCBEV) -8.7 MMOL/L See_Comment L [Automated messa ge] The system which generated this result transmitted reference range: 0-+/-4. The reference range was not used to interpret this result as normal/abnormal. POC O2 SATURATION VENOUS (test code = AWIY0JP) 47.0 % 60-80 L VENOUS BLOOD GAS DELIVERY (test code = DELV) Cannula VENOUS BLOOD GAS TEMP (test code = TEMPV) 98.8 F VENOUS BLOOD GAS SITE (test code = SITEV) PA BASIC METABOLIC [id number] 03:05:00* Test Item Value Reference Range Interpretation [...] mg/dL 8.0-10.5 N COMMENTS: POD #1HEPATIC FUNCTION [id number] 03:05:00* Test Item Value Reference Range Interpretation [...] ALKP) 74 IUnit/L 20-125 N COMMENTS: POD #[id number] 03:05:00* Test Item Value Reference Range Interpretation Comme nts MAGNESIUM (test code = MAG) 2.37 mg/dL 1.6-2.6 N COMMENTS: POD #1CBC W/AUTO [id number] 02:29:00* Test Item Value Reference Range Interpretation [...] x10 3/uL 0.0-0.1 N POC ARTERIAL BLOOD [id number] 02:19:00* Test Item Value Reference Range Interpretation Comme nts POC ARTERIAL BLOOD GAS PH (test code = POCPHA) 7.349 7.35-7.45 L POC ARTERIAL BLOOD GAS PCO2 (test code = VXGNZC0B) 39.9 mmHg 35.0-45 N POC TCO2 ARTERIAL (test code = POCTCO2) 23.3 22-29 N POC ARTERIAL BLOOD GAS PO2 (test code = XPMJR4Y) 81.9 mmHg 80-100.0 N POC HCO3 ARTERIAL (test code = NCEJJP5E) 22.1 MMOL/L 22.0-26.0 N POC BASE EXCESS [...] (test code = ALLENS) N/A BASIC METABOLIC [id number] 02:19:00* Test Item Value Reference Range Interpretation [...] = POCGLU) 142 MG/DL 70-110 H HEMOGLOBIN [id number] 02:19:00* Test Item Value Reference Range Interpretation Comme nts HEMOGLOBIN ABG (test code = HGB/ABG) 7.6 G/DL 11.0-15.0 L [id number] 02:19:00* Test Item Value Reference Range Interpretation Comme nts HEMATOCRIT (test code = HCT/ABG) 22 % 33-45 L POC LACTIC [id number] 02:19:00* Test Item Value Reference Range Interpretation Comme nts POC LACTIC ACID (test code = POCLAC) 1.3 mmol/l 0.9-1.7 N POC ARTERIAL BLOOD [id number] 22:42:00* Test Item Value Reference Range Interpretation Comme nts POC ARTERIAL BLOOD GAS PH (test code = POCPHA) 7.282 7.35-7.45 LL POC ARTERIAL BLOOD GAS PCO2 (test code = IUGHTL7H) 47.1 mmHg 35.0-45 H POC TCO2 ARTERIAL (test code = POCTCO2) 23.8 22-29 N POC ARTERIAL BLOOD GAS PO2 (test code = ANSZJ3P) 97.7 mmHg 80-100.0 N POC HCO3 ARTERIAL (test code = IQQWCT5U) 22.4 MMOL/L 22.0-26.0 N POC BASE EXCESS [...] (test code = ALLENS) N/A BASIC METABOLIC [id number] 22:42:00* Test Item Value Reference Range Interpretation [...] = POCGLU) 130 MG/DL 70-110 H HEMOGLOBIN [id number] 22:42:00* Test Item Value Reference Range Interpretation Comme nts HEMOGLOBIN ABG (test code = HGB/ABG) 7.7 G/DL 11.0-15.0 L [id number] 22:42:00* Test Item Value Reference Range Interpretation Comme nts HEMATOCRIT (test code = HCT/ABG) 23 % 33-45 L POC LACTIC [id number] 22:42:00* Test Item Value Reference Range Interpretation Comme nts POC LACTIC ACID (test code = POCLAC) 1.6 mmol/l 0.9-1.7 N BASIC METABOLIC [id number] 21:35:00* Test Item Value Reference Range Interpretation [...] = POCGLU) 123 MG/DL 70-110 H HEMOGLOBIN [id number] 21:35:00* Test Item Value Reference Range Interpretation Comme [facility] HEMOGLOBIN ABG (test code = HGB/ABG) 8.1 G/DL 11.0-15.0 L [id number] 21:35:00* Test Item Value Reference Range Interpretation Comme [facility] HEMATOCRIT (test code = HCT/ABG) 24 % 33-45 L POC LACTIC [id number] 21:35:00* Test Item Value Reference Range Interpretation Comme [facility] POC LACTIC ACID (test code = POCLAC) 1.8 mmol/l 0.9-1.7 H POC VENOUS BLOOD [id number] 21:35:00* Test Item Value Reference Range Interpretation Comme nts YESSY'S TEST (test code = ALLENS) N/A POC VENOUS BLOOD GAS PH (test code = POCPHV) 7.328 7.33-7.45 L POC VENOUS BLOOD GAS PCO2 (test code = GTINVQ4T) 43.6 mmHg 43-47 N POC VENOUS BLOOD GAS PO2 (test code = KPEZH9H) 26.2 mmHG 10-50 N POC TCO2 VENOUS (test code = LKWHPR1V) 24.4 22-29 N POC HCO3 VENOUS (test code = ZZCWNR8J) 23.0 MMOL/L 22-27 N POC BASE EXCESS VENOUS (test code = POCBEV) -3.0 MMOL/L See_Comment L [Automated messa ge] The system which generated this result transmitted reference range: 0-+/-4. The reference range was not used to interpret this result as normal/abnormal. POC O2 SATURATION VENOUS (test code = YDKZ5IO) 45.2 % 60-80 L VENOUS BLOOD GAS DELIVERY (test code = DELV) Cannula VENOUS BLOOD GAS TEMP (test code = TEMPV) 97.8 F VENOUS BLOOD GAS SITE (test code = SITEV) an GLUCOSE [id number] 20:22:00* Test Item Value Reference Range Interpretation Comme [facility] GLUCOSE BEDSIDE (test code = GLUBED) 112 MG/DL 70-110 H Performed by cer tified glove machine operator at [facility] GLUCOSE [id number] 18:47:00* Test Item Value Reference Range Interpretation Comme [facility] GLUCOSE BEDSIDE (test code = GLUBED) 148 MG/DL 70-110 H Performed by cer tified glove machine operator at [facility] GLUCOSE [id number] 18:47:00* Test Item Value Reference Range Interpretation Comme nts GLUCOSE BEDSIDE (test code = GLUBED) 162 MG/DL 70-110 H Performed by cer tified glove machine operator at [facility] POC ARTERIAL BLOOD [id number] 18:36:00* Test Item Value Reference Range Interpretation Comme nts POC ARTERIAL BLOOD GAS PH (test code = POCPHA) 7.328 7.35-7.45 L POC ARTERIAL BLOOD GAS PCO2 (test code = GBFDWJ4A) 39.8 mmHg 35.0-45 N POC TCO2 ARTERIAL (test code = POCTCO2) 22.1 22-29 N POC ARTERIAL BLOOD GAS PO2 (test code = HPLLL8X) 109.9 mmHg 80-100.0 H POC HCO3 ARTERIAL (test code = VOPKQQ2W) 20.9 MMOL/L 22.0-26.0 L POC BASE EXCESS (test code = POCBEA) -5.1 MMOL/L See_Comment L [Automated messa ge] The system which generated this result transmitted reference range: 0-+/-4. The reference range was not used to interpret this result as normal/abnormal. POC O2 SATURATION (test code = POCO2S) 97.9 % 90-100 N FIO2 (test code = FIO2A) 50 % PaO2/FiO2 (test code = IJJ0MRG1) 219.80 mm/Hg ABG DELIVERY (test code = BENY) BiPAP ABG PEEP (test code = PEEPA) 8 cmH2O ABG TEMPERATURE (test code = TEMPA) 97.2 F ABG SITE (test code = SITEA) Art Line BASIC METABOLIC [id number] 18:36:00* Test Item Value Reference Range Interpretation [...] = POCGLU) 153 MG/DL 70-110 H HEMOGLOBIN [id number] 18:36:00* Test Item Value Reference Range Interpretation Comme nts HEMOGLOBIN ABG (test code = HGB/ABG) 10.0 G/DL 11.0-15.0 L [id number] 18:36:00* Test Item Value Reference Range Interpretation Comme nts HEMATOCRIT (test code = HCT/ABG) 29 % 33-45 L POC LACTIC [id number] 18:36:00* Test Item Value Reference Range Interpretation Comme nts POC LACTIC ACID (test code = POCLAC) 3.1 mmol/l 0.9-1.7 H BASIC METABOLIC [id number] 18:02:00* Test Item Value Reference Range Interpretation [...] mg/dL 8.0-10.5 N COMMENTS: On arrivalComment: On [id number] 18:02:00* Test Item Value Reference Range Interpretation Comme nts MAGNESIUM (test code = MAG) 3.04 mg/dL 1.6-2.6 H COMMENTS: On arrivalComment: On arrivalPO ARTERIAL BLOOD [id number] 17:51:00 * Test Item Value Reference Range Interpretation Comme nts POC ARTERIAL BLOOD GAS PH (test code = POCPHA) 7.313 7.35-7.45 L POC ARTERIAL BLOOD GAS PCO2 (test code = NAJSUW6X) 43.7 mmHg 35.0-45 N POC TCO2 ARTERIAL (test code = POCTCO2) 23.5 22-29 N POC ARTERIAL BLOOD GAS PO2 (test code = YDREF6D) 101.3 mmHg 80-100.0 H POC HCO3 ARTERIAL (test code = SWVTEU2S) 22.2 MMOL/L 22.0-26.0 N POC BASE EXCESS (test code = POCBEA) -4.0 MMOL/L See_Comment L [Automated message] The system which generated this result transmitted reference range: 0-+/-4. The reference range was not used to interpret this result as normal/abnormal. POC O2 SATURATION (test code = POCO2S) 97.2 % 90-100 N FIO2 (test code = FIO2A) 50 % PaO2/FiO2 (test code = ROU0SDR9) 202.60 mm/Hg ABG DELIVERY (test code = BENY) BiPAP ABG VENT MODE (test code = MODEA) PC/PS ABG VENT RESP RATE (test code = RRA) 16 /MIN ABG PEEP (test code = PEEPA) 8 cmH2O ABG PRESSURE SUPPORT (test code = PSABG) 14 cmH2O ABG SITE (test code = SITEA) Art Line BASIC METABOLIC [id number] 17:51:00* Test Item Value Reference Range Interpretation [...] = POCGLU) 224 MG/DL 70-110 H HEMOGLOBIN [id number] 17:51:00* Test Item Value Reference Range Interpretation Comme nts HEMOGLOBIN ABG (test code = HGB/ABG) 8.9 G/DL 11.0-15.0 L [id number] 17:51:00* Test Item Value Reference Range Interpretation Comme nts HEMATOCRIT (test code = HCT/ABG) 26 % 33-45 L POC LACTIC [id number] 17:51:00* Test Item Value Reference Range Interpretation Comme nts POC LACTIC ACID (test code = POCLAC) 4.0 mmol/l 0.9-1.7 H CBC W/AUTO [id number] 16:19:00* Test Item Value Reference Range Interpretation [...] ED, CONSISTENT WITH AUTO DIFF. [facility] [id number] 16:01:00* Test Item Value Reference Range Interpretation Comme nts POC ARTERIAL BLOOD GAS PH (test code = POCPHA) 7.290 7.35-7.45 LL POC ARTERIAL BLOOD GAS PCO2 (test code = IEGVKY7O) 41.4 mmHg 35.0-45 N POC TCO2 ARTERIAL (test code = POCTCO2) 21.2 22-29 L POC ARTERIAL BLOOD GAS PO2 (test code = YMWZD5W) 127.7 mmHg 80-100.0 H POC HCO3 ARTERIAL (test code = BVGWHV3G) 19.9 MMOL/L 22.0-26.0 L POC BASE EXCESS (test code = POCBEA) -6.7 MMOL/L See_Comment L [Automated messa ge] The system which generated this result transmitted reference range: 0-+/-4. The reference range was not used to interpret this result as normal/abnormal. POC O2 SATURATION (test code = POCO2S) 98.5 % 90-100 N FIO2 (test code = FIO2A) 60 % PaO2/FiO2 (test code = JON9IUI1) 212.83 mm/Hg ABG DELIVERY (test code = BENY) Adult Vent ABG VENT MODE (test code = MODEA) CPAP/PS ABG PEEP (test code = PEEPA) 8 cmH2O ABG PRESSURE SUPPORT (test code = PSABG) 10 cmH2O ABG TEMPERATURE (test code = TEMPA) 97.3 F ABG SITE (test code = SITEA) Art Line BASIC METABOLIC [id number] 16:01:00* Test Item Value Reference Range Interpretation [...] = POCGLU) 230 MG/DL 70-110 H HEMOGLOBIN [id number] 16:01:00* Test Item Value Reference Range Interpretation Comme nts HEMOGLOBIN ABG (test code = HGB/ABG) 9.4 G/DL 11.0-15.0 L [id number] 16:01:00* Test Item Value Reference Range Interpretation Comme nts HEMATOCRIT (test code = HCT/ABG) 28 % 33-45 L POC LACTIC [id number] 16:01:00* Test Item Value Reference Range Interpretation Comme nts POC LACTIC ACID (test code = POCLAC) 3.8 mmol/l 0.9-1.7 H BASIC METABOLIC [id number] 15:34:00* Test Item Value Reference Range Interpretation [...] = POCGLU) 249 MG/DL 70-110 H HEMOGLOBIN [id number] 15:34:00* Test Item Value Reference Range Interpretation Comme nts HEMOGLOBIN ABG (test code = HGB/ABG) 8.8 G/DL 11.0-15.0 L [id number] 15:34:00* Test Item Value Reference Range Interpretation Comme nts HEMATOCRIT (test code = HCT/ABG) 26 % 33-45 L POC LACTIC [id number] 15:34:00* Test Item Value Reference Range Interpretation Comme nts POC LACTIC ACID (test code = POCLAC) 3.8 mmol/l 0.9-1.7 H POC VENOUS BLOOD [id number] 15:34:00* Test Item Value Reference Range Interpretation Comme nts POC VENOUS BLOOD GAS PH (test code = POCPHV) 7.248 7.33-7.45 L POC VENOUS BLOOD GAS PCO2 (test code = EQTXFR1W) 48.9 mmHg 43-47 H POC VENOUS BLOOD GAS PO2 (test code = KXTYD2V) 36.0 mmHG 10-50 N POC TCO2 VENOUS (test code = VMBVHD6S) 22.8 22-29 N POC HCO3 VENOUS (test code = BLGPLE4Q) 21.3 MMOL/L 22-27 L POC BASE EXCESS VENOUS (test code = POCBEV) -5.9 MMOL/L See_Comment L [Automated messa ge] The system which generated this result transmitted reference range: 0-+/-4. The reference range was not used to interpret this result as normal/abnormal. POC O2 SATURATION VENOUS (test code = JLHB4GS) 59.0 % 60-80 L VENOUS BLOOD GAS [...] BLOOD GAS SITE (test code = SITEV) [place] She PROTHROMBIN [id number] 15:11:00* Test Item Value Reference [facility]ation [facility] (test code = [...] prevent recurrent infarct). COMMENTS: On arrivalTHROMBOPLASTIN TIME [id number] 15:11:00* Test Item Value Reference Range Interpretation [facility] THROMBOPLASTIN TIME PARTIAL (test code = PTT) 32.3 Seconds 25.0-39.5 N Therapeutic Rang e: 58.8 - 96.0 Seconds Effective 07/16/2024 COMMENTS: [facility] [id number] 14:19:00* Test Item Value Reference Range Interpretation Comme [facility] POC ARTERIAL BLOOD GAS PH (test code = POCPHA) 7.223 7.35-7.45 LL POC ARTERIAL BLOOD GAS PCO2 (test code = VSJEYN6J) 49.7 mmHg 35.0-45 H POC TCO2 ARTERIAL (test code = POCTCO2) 22.0 22-29 N POC ARTERIAL BLOOD GAS PO2 (test code = GQCMV2O) 77.6 mmHg 80-100.0 L POC HCO3 ARTERIAL (test code = SYISDZ7U) 20.5 MMOL/L 22.0-26.0 L POC BASE EXCESS (test code = POCBEA) -7.2 MMOL/L See_Comment L [Automated message] The system which generated this result transmitted reference range: 0-+/-4. The reference range was not used to interpret this result as normal/abnormal. POC O2 SATURATION (test code = POCO2S) 92.3 % 90-100 N FIO2 (test code = FIO2A) 50 % PaO2/FiO2 (test code = [id number]) 155.20 mm/Hg ABG DELIVERY (test code = BENY) Adult Vent ABG VENT MODE (test code = MODEA) AC ABG VENT RESP RATE (test code = RRA) 20 /MIN ABG TIDAL VOLUME (test code = TVA) 450 ml ABG PEEP (test code = PEEPA) 5 cmH2O ABG SITE (test code = SITEA) L Radial BASIC METABOLIC [id number] 14:19:00* Test Item Value Reference Range Interpretation [...] = POCGLU) 290 MG/DL 70-110 H HEMOGLOBIN [id number] 14:19:00* Test Item Value Reference Range Interpretation Comme nts HEMOGLOBIN ABG (test code = HGB/ABG) 10.2 G/DL 11.0-15.0 L [id number] 14:19:00* Test Item Value Reference Range Interpretation Comme nts HEMATOCRIT (test code = HCT/ABG) 30 % 33-45 L POC ARTERIAL BLOOD [id number] 13:55:00* Test Item Value Reference Range Interpretation Comme nts POC ARTERIAL BLOOD GAS PH (test code = POCPHA) 7.219 7.35-7.45 LL POC ARTERIAL BLOOD GAS PCO2 (test code = [id number]) 43.0 mmHg 35.0-45 N POC TCO2 ARTERIAL (test code = POCTCO2) 18.9 22-29 L POC ARTERIAL BLOOD GAS PO2 (test code = FCKWF8P) 80.1 mmHg 80-100.0 N POC HCO3 ARTERIAL (test code = [id number]) 17.6 MMOL/L 22.0-26.0 LL POC BASE EXCESS (test code = POCBEA) -9.6 MMOL/L See_Comment L [Automated messa ge] The system which generated this result transmitted reference range: 0-+/-4. The reference range was not used to interpret this result as normal/abnormal. POC O2 SATURATION (test code = POCO2S) 93.0 % 90-100 N BASIC METABOLIC [id number] 13:55:00* Test Item Value Reference Range Interpretation [...] = POCGLU) 300 MG/DL 70-110 H HEMOGLOBIN [id number] 13:55:00* Test Item Value Reference Range Interpretation Comme nts HEMOGLOBIN ABG (test code = HGB/ABG) 8.8 G/DL 11.0-15.0 L [id number] 13:55:00* Test Item Value Reference Range Interpretation Comme nts HEMATOCRIT (test code = HCT/ABG) 26 % 33-45 L POC LACTIC [id number] 13:55:00* Test Item Value Reference Range Interpretation Comme nts POC LACTIC ACID (test code = POCLAC) 4.1 mmol/l 0.9-1.7 HH [id number] 13:46:00* Test Item Value Reference Range Interpretation Comme nts ACT-ISTAT (test code = ACTI) 129 SEC 74-137 N Performed by cer tified glove machine operator at [facility] POC ARTERIAL BLOOD [id number] 13:39:00* Test Item Value Reference Range Interpretation Comme nts POC ARTERIAL BLOOD GAS PH (test code = POCPHA) 7.219 7.35-7.45 LL POC ARTERIAL BLOOD GAS PCO2 (test code = [id number]) 39.3 mmHg 35.0-45 N POC TCO2 ARTERIAL (test code = POCTCO2) 17.3 22-29 L POC ARTERIAL BLOOD GAS PO2 (test code = PRPCF5W) 60.5 mmHg 80-100.0 L POC HCO3 ARTERIAL (test code = ISTLEI9S) 16.1 MMOL/L 22.0-26.0 LL POC BASE EXCESS (test code = POCBEA) -10.7 MMOL/L See_Comment L [Automated message] The system which generated this result transmitted reference range: 0-+/-4. The reference range was not used to interpret this result as normal/abnormal. POC O2 SATURATION (test code = POCO2S) 85.6 % 90-100 L BASIC METABOLIC [id number] 13:39:00* Test Item Value Reference Range Interpretation [...] = POCGLU) 322 MG/DL 70-110 H HEMOGLOBIN [id number] 13:39:00* Test Item Value Reference Range Interpretation Comme nts HEMOGLOBIN ABG (test code = HGB/ABG) 6.5 G/DL 11.0-15.0 L [id number] 13:39:00* Test Item Value Reference Range Interpretation Comme nts HEMATOCRIT (test code = HCT/ABG) 19 % 33-45 L POC LACTIC [id number] 13:39:00* Test Item Value Reference Range Interpretation Comme nts POC LACTIC ACID (test code = POCLAC) 5.1 mmol/l 0.9-1.7 HH [id number] 12:46:00* Test Item Value Reference Range Interpretation Comme nts ACT-ISTAT (test code = ACTI) 504 SEC 74-137 H Performed by cer tified glove machine operator at [facility] POC ARTERIAL BLOOD [id number] 12:35:00* Test Item Value Reference Range Interpretation Comme nts POC ARTERIAL BLOOD GAS PH (test code = POCPHA) 7.394 7.35-7.45 N POC ARTERIAL BLOOD GAS PCO2 (test code = YASKKX9A) 41.2 mmHg 35.0-45 N POC TCO2 ARTERIAL (test code = POCTCO2) 26.4 22-29 N POC ARTERIAL BLOOD GAS PO2 (test code = EUPHB0E) 366.5 mmHg 80-100.0 HH POC HCO3 ARTERIAL (test code = VHGTGN8V) 25.2 MMOL/L 22.0-26.0 N POC BASE EXCESS (test code = POCBEA) 0.2 MMOL/L See_Comment N [Automated messa ge] The system which generated this result transmitted reference range: 0-+/-4. The reference range was not used to interpret this result as normal/abnormal. POC O2 SATURATION (test code = POCO2S) 100.0 % 90-100 N BASIC METABOLIC [id number] 12:35:00* Test Item Value Reference Range Interpretation [...] = POCGLU) 179 MG/DL 70-110 H HEMOGLOBIN [id number] 12:35:00* Test Item Value Reference Range Interpretation Comme nts HEMOGLOBIN ABG (test code = HGB/ABG) 7.1 G/DL 11.0-15.0 L [id number] 12:35:00* Test Item Value Reference Range Interpretation Comme nts HEMATOCRIT (test code = HCT/ABG) 21 % 33-45 L POC LACTIC [id number] 12:35:00* Test Item Value Reference Range Interpretation Comme nts POC LACTIC ACID (test code = POCLAC) 1.2 mmol/l 0.9-1.7 N [id number] 12:15:00* Test Item Value Reference Range Interpretation Comme nts ACT-ISTAT (test code = ACTI) 579 SEC 74-137 H Performed by cer dez glove machine operator at [facility] POC ARTERIAL BLOOD [id number] 12:02:00* Test Item Value Reference Range Interpretation Comme nts POC ARTERIAL BLOOD GAS PH (test code = POCPHA) 7.428 7.35-7.45 N POC ARTERIAL BLOOD GAS PCO2 (test code = BZZIKY5O) 36.7 mmHg 35.0-45 N POC TCO2 ARTERIAL (test code = POCTCO2) 25.4 22-29 N POC ARTERIAL BLOOD GAS PO2 (test code = YNAPT3K) 359.2 mmHg 80-100.0 HH POC HCO3 ARTERIAL (test code = YBZBUA0N) 24.2 MMOL/L 22.0-26.0 N POC BASE EXCESS (test code = POCBEA) -0.1 MMOL/L See_Comment L [Automated messa ge] The system which generated this result transmitted reference range: 0-+/-4. The reference range was not used to interpret this result as normal/abnormal. POC O2 SATURATION (test code = POCO2S) 100.0 % 90-100 N BASIC METABOLIC [id number] 12:02:00* Test Item Value Reference Range Interpretation [...] = POCGLU) 161 MG/DL 70-110 H HEMOGLOBIN [id number] 12:02:00* Test Item Value Reference Range Interpretation Comme nts HEMOGLOBIN ABG (test code = HGB/ABG) 7.2 G/DL 11.0-15.0 L [id number] 12:02:00* Test Item Value Reference Range Interpretation Comme nts HEMATOCRIT (test code = HCT/ABG) 21 % 33-45 L POC LACTIC [id number] 12:02:00* Test Item Value Reference Range Interpretation Comme nts POC LACTIC ACID (test code = POCLAC) < 0.3 mmol/l 0.9-1.7 L [id number] 11:38:00* Test Item Value Reference Range Interpretation Comme nts ACT-ISTAT (test code = ACTI) 700 SEC 74-137 H Performed by cer tified glove machine operator at [facility] POC ARTERIAL BLOOD [id number] 11:22:00* Test Item Value Reference Range Interpretation Comme nts POC ARTERIAL BLOOD GAS PH (test code = POCPHA) 7.439 7.35-7.45 N POC ARTERIAL BLOOD GAS PCO2 (test code = UZXVNP4Y) 36.2 mmHg 35.0-45 N POC TCO2 ARTERIAL (test code = POCTCO2) 25.6 22-29 N POC ARTERIAL BLOOD GAS PO2 (test code = SSWXO1M) 351.2 mmHg 80-100.0 HH POC HCO3 ARTERIAL (test code = TDFGWN4G) 24.5 MMOL/L 22.0-26.0 N POC BASE EXCESS (test code = POCBEA) 0.4 MMOL/L See_Comment N [Automated messa ge] The system which generated this result transmitted reference range: 0-+/-4. The reference range was not used to interpret this result as normal/abnormal. POC O2 SATURATION (test code = POCO2S) 100.0 % 90-100 N BASIC METABOLIC [id number] 11:22:00* Test Item Value Reference Range Interpretation [...] = POCGLU) 179 MG/DL 70-110 H HEMOGLOBIN [id number] 11:22:00* Test Item Value Reference Range Interpretation Comme nts HEMOGLOBIN ABG (test code = HGB/ABG) 7.6 G/DL 11.0-15.0 L [id number] 11:22:00* Test Item Value Reference Range Interpretation Comme nts HEMATOCRIT (test code = HCT/ABG) 22 % 33-45 L POC LACTIC [id number] 11:22:00* Test Item Value Reference Range Interpretation Comme nts POC LACTIC ACID (test code = POCLAC) 0.9 mmol/l 0.9-1.7 N [id number] 11:05:00* Test Item Value Reference Range Interpretation Comme nts ACT-ISTAT (test code = ACTI) 510 SEC 74-137 H Performed by cer tified glove machine operator at [facility] POC ARTERIAL BLOOD [id number] 10:54:00* Test Item Value Reference Range Interpretation Comme nts POC ARTERIAL BLOOD GAS PH (test code = POCPHA) 7.390 7.35-7.45 N POC ARTERIAL BLOOD GAS PCO2 (test code = QXDULY3B) 41.5 mmHg 35.0-45 N POC TCO2 ARTERIAL (test code = POCTCO2) 26.4 22-29 N POC ARTERIAL BLOOD GAS PO2 (test code = LDSNZ7R) 522.2 mmHg 80-100.0 HH POC HCO3 ARTERIAL (test code = QSENNE8F) 25.1 MMOL/L 22.0-26.0 N POC BASE EXCESS (test code = POCBEA) 0.1 MMOL/L See_Comment N [Automated messa ge] The system which generated this result transmitted reference range: 0-+/-4. The reference range was not used to interpret this result as normal/abnormal. POC O2 SATURATION (test code = POCO2S) 100.0 % 90-100 N BASIC METABOLIC [id number] 10:54:00* Test Item Value Reference Range Interpretation [...] = POCGLU) 196 MG/DL 70-110 H HEMOGLOBIN [id number] 10:54:00* Test Item Value Reference Range Interpretation Comme nts HEMOGLOBIN ABG (test code = HGB/ABG) 7.7 G/DL 11.0-15.0 L [id number] 10:54:00* Test Item Value Reference Range Interpretation Comme nts HEMATOCRIT (test code = HCT/ABG) 23 % 33-45 L POC LACTIC [id number] 10:54:00* Test Item Value Reference Range Interpretation Comme nts POC LACTIC ACID (test code = POCLAC) 1.1 mmol/l 0.9-1.7 N [id number] 10:14:00* Test Item Value Reference Range Interpretation Comme nts ACT-ISTAT (test code = ACTI) 590 SEC 74-137 H Performed by cer tified glove machine operator at [facility] POC ARTERIAL BLOOD [id number] 10:05:00* Test Item Value Reference Range Interpretation Comme nts POC ARTERIAL BLOOD GAS PH (test code = POCPHA) 7.357 7.35-7.45 N POC ARTERIAL BLOOD GAS PCO2 (test code = YOYDIX2B) 36.3 mmHg 35.0-45 N POC TCO2 ARTERIAL (test code = POCTCO2) 21.5 22-29 L POC ARTERIAL BLOOD GAS PO2 (test code = LKDAQ9Y) 348.8 mmHg 80-100.0 HH POC HCO3 ARTERIAL (test code = EGFSZZ5P) 20.3 MMOL/L 22.0-26.0 L POC BASE EXCESS (test code = POCBEA) -4.7 MMOL/L See_Comment L [Automated messa ge] The system which generated this result transmitted reference range: 0-+/-4. The reference range was not used to interpret this result as normal/abnormal. POC O2 SATURATION (test code = POCO2S) 99.9 % 90-100 N BASIC METABOLIC [id number] 10:05:00* Test Item Value Reference Range Interpretation [...] = POCGLU) 206 MG/DL 70-110 H HEMOGLOBIN [id number] 10:05:00* Test Item Value Reference Range Interpretation Comme nts HEMOGLOBIN ABG (test code = HGB/ABG) 8.3 G/DL 11.0-15.0 L [id number] 10:05:00* Test Item Value Reference Range Interpretation Comme nts HEMATOCRIT (test code = HCT/ABG) 24 % 33-45 L POC LACTIC [id number] 10:05:00* Test Item Value Reference Range Interpretation Comme nts POC LACTIC ACID (test code = POCLAC) < 0.3 mmol/l 0.9-1.7 L [id number] 09:29:00* Test Item Value Reference Range Interpretation Comme nts ACT-ISTAT (test code = ACTI) 141 SEC 74-137 H Performed by cer tified glove machine operator at [facility] POC ARTERIAL BLOOD [id number] 09:22:00* Test Item Value Reference Range Interpretation Comme nts POC ARTERIAL BLOOD GAS PH (test code = POCPHA) 7.411 7.35-7.45 N POC ARTERIAL BLOOD GAS PCO2 (test code = ISDARG1N) 32.9 mmHg 35.0-45 L POC TCO2 ARTERIAL (test code = POCTCO2) 21.9 22-29 L POC ARTERIAL BLOOD GAS PO2 (test code = WZKRT3N) 370.6 mmHg 80-100.0 HH POC HCO3 ARTERIAL (test code = LOWVGM5M) 20.9 MMOL/L 22.0-26.0 L POC BASE EXCESS (test code = POCBEA) -3.3 MMOL/L See_Comment L [Automated messa ge] The system which generated this result transmitted reference range: 0-+/-4. The reference range was not used to interpret this result as normal/abnormal. POC O2 SATURATION (test code = POCO2S) 100.0 % 90-100 N BASIC METABOLIC [id number] 09:22:00* Test Item Value Reference Range Interpretation [...] = POCGLU) 197 MG/DL 70-110 H HEMOGLOBIN [id number] 09:22:00* Test Item Value Reference Range Interpretation Comme nts HEMOGLOBIN ABG (test code = HGB/ABG) 8.3 G/DL 11.0-15.0 L [id number] 09:22:00* Test Item Value Reference Range Interpretation Comme nts HEMATOCRIT (test code = HCT/ABG) 24 % 33-45 L POC LACTIC [id number] 09:22:00* Test Item Value Reference Range Interpretation Comme nts POC LACTIC ACID (test code = POCLAC) < 0.3 mmol/l 0.9-1.7 L [id number] 09:07:00* Test Item Value Reference Range Interpretation Comme nts ACT-ISTAT (test code = ACTI) 153 SEC 74-137 H Performed by cer tified glove machine operator at [facility] POC ARTERIAL BLOOD [id number] 09:02:00* Test Item Value Reference Range Interpretation Comme nts POC ARTERIAL BLOOD GAS PH (test code = POCPHA) 7.333 7.35-7.45 L POC ARTERIAL BLOOD GAS PCO2 (test code = QUCPHC6R) 34.3 mmHg 35.0-45 L POC TCO2 ARTERIAL (test code = POCTCO2) 19.2 22-29 L POC ARTERIAL BLOOD GAS PO2 (test code = AJJWE7X) 305.5 mmHg 80-100.0 HH POC HCO3 ARTERIAL (test code = FANKGB4L) 18.2 MMOL/L 22.0-26.0 L POC BASE EXCESS (test code = POCBEA) -7.0 MMOL/L See_Comment L [Automated messa ge] The system which generated this result transmitted reference range: 0-+/-4. The reference range was not used to interpret this result as normal/abnormal. POC O2 SATURATION (test code = POCO2S) 99.9 % 90-100 N BASIC METABOLIC [id number] 09:02:00* Test Item Value Reference Range Interpretation [...] = POCGLU) 198 MG/DL 70-110 H HEMOGLOBIN [id number] 09:02:00* Test Item Value Reference Range Interpretation Comme nts HEMOGLOBIN ABG (test code = HGB/ABG) 7.6 G/DL 11.0-15.0 L [id number] 09:02:00* Test Item Value Reference Range Interpretation Comme nts HEMATOCRIT (test code = HCT/ABG) 22 % 33-45 L POC LACTIC [id number] 09:02:00* Test Item Value Reference Range Interpretation Comme nts POC LACTIC ACID (test code = POCLAC) 0.8 mmol/l 0.9-1.7 L PROTHROMBIN [id number] 04:20:00* Test Item Value Reference Range Interpretation [...] Infarction (to prevent recurrent infarct). THROMBOPLASTIN TIME [id number] 04:20:00* Test Item Value Reference Range Interpretation Comme nts THROMBOPLASTIN TIME PARTIAL (test code = PTT) 32.4 Seconds 25.0-39.5 N Therapeutic Rang e: 58.8 - 96.0 Seconds Effective 07/16/2024 [id number] 03:57:00* Test Item Value Reference Range Interpretation Comme nts MAGNESIUM (test code = MAG) 1.88 mg/dL 1.6-2.6 N COMPREHENSIVE METABOLIC [id number] 03:40:00* Test Item Value Reference Range Interpretation [...] ALKP) 126 IUnit/L 20-125 H CBC W/AUTO [id number] 03:25:00* Test Item Value Reference Range Interpretation [...] NRBC#) 0.00 x10 3/uL 0.0-0.1 N SERUM [id number] 21:51:00* Test Item Value Reference Range Interpretation Comme nts SERUM IRON (test code = IRON) 16 mcg/dL 35-150 L VITAMIN [id number] 21:51:00* Test Item Value Reference Range Interpretation Comme nts VITAMIN B12 (test code = VITB12) 376 pg/mL 193-986 N FOLIC [id number] 21:51:00* Test Item Value Reference Range Interpretation Comme nts FOLIC ACID (test code = FOL) 11.9 ng/mL 3.1-17.5 N GLUCOSE [id number] 21:21:00* Test Item Value Reference Range Interpretation Comme nts GLUCOSE BEDSIDE (test code = GLUBED) 255 MG/DL 70-110 H Performed by cer tified glove machine operator at [facility] GLUCOSE [id number] 18:52:00* Test Item Value Reference Range Interpretation Comme nts GLUCOSE BEDSIDE (test code = GLUBED) 146 MG/DL 70-110 H Performed by cer tified glove machine operator at [facility] GLUCOSE [id number] 12:39:00* Test Item Value Reference Range Interpretation Comme nts GLUCOSE BEDSIDE (test code = GLUBED) 174 MG/DL 70-110 H Performed by cer tified glove machine operator at [facility] GLUCOSE [id number] 08:54:00* Test Item Value Reference Range Interpretation Comme nts GLUCOSE BEDSIDE (test code = GLUBED) 72 MG/DL 70-110 N Performed by cer dez glove machine operator at [facility] BASIC METABOLIC [id number] 05:32:00* Test Item Value Reference Range Interpretation [...] code = CA) 8.9 mg/dL 8.0-10.5 N [id number] 05:32:00* Test Item Value Reference Range Interpretation Comme nts MAGNESIUM (test code = MAG) 1.96 mg/dL 1.6-2.6 N CBC W/AUTO [id number] 04:58:00* Test Item Value Reference Range Interpretation [...] NRBC#) 0.00 x10 3/uL 0.0-0.1 N GLUCOSE [id number] 21:16:00* Test Item Value Reference Range Interpretation Comme nts GLUCOSE BEDSIDE (test code = GLUBED) 175 MG/DL 70-110 H Performed by cer tified glove machine operator at [facility] GLUCOSE [id number] 18:11:00* Test Item Value Reference Range Interpretation Comme nts GLUCOSE BEDSIDE (test code = GLUBED) 169 MG/DL 70-110 H Performed by cer tified glove machine operator at [facility] GLUCOSE [id number] 13:41:00* Test Item Value Reference Range Interpretation Comme nts GLUCOSE BEDSIDE (test code = GLUBED) 175 MG/DL 70-110 H Performed by [facility] tified glove machine operator at [facility] GLUCOSE [id number] 08:46:00* Test Item Value Reference Range Interpretation Comme nts GLUCOSE BEDSIDE (test code = GLUBED) 151 MG/DL 70-110 H Performed by [facility] tified glove machine operator at [facility] BASIC METABOLIC [id number] 06:17:00* Test Item Value Reference Range Interpretation [...] code = CA) 8.8 mg/dL 8.0-10.5 N [id number] 06:17:00* Test Item Value Reference Range Interpretation Comme nts MAGNESIUM (test code = MAG) 1.91 mg/dL 1.6-2.6 N CBC W/AUTO [id number] 06:13:00* Test Item Value Reference Range Interpretation [...] 0.0-0.1 N UA RFLX MICR CULT IF [id number] 00:15:00* Test Item Value Reference Range Interpretation [...] Flank Pain Dysuria/FrequencySpecimen Description: CLEAN CATCHB-TYPE NATRIURETIC [id number] 23:01:00* Test Item Value Reference Range Interpretation Comme nts B-TYPE NATRIURETIC PEPTIDE ( test code = BNP) 221.0 PG/ML 0-100 H COMPREHENSIVE METABOLIC [id number] 22:47:00* Test Item Value Reference Range Interpretation [...] = LDL) 43.0 mg/dL 0-100 N <100 HHRRNMA14 0-129 NEAR OPTIMAL/ABOVE [id number] HIGH>CS=823 VERY HIGH*Guidelines provided by the National Cholesterol EducationProgram Adult Treatment Panel III [id number] 22:29:00* Test Item Value Reference Range Interpretation Comme nts HGBA1C% (test code = HGBA1C%) 8.0 %A1C 4.8-6.0 H PROTHROMBIN [id number] 22:29:00* Test Item Value Reference Range Interpretation [...] Infarction (to prevent recurrent infarct). THROMBOPLASTIN TIME [id number] 22:29:00* Test Item Value Reference Range Interpretation Comme nts THROMBOPLASTIN TIME PARTIAL (test code = PTT) 30.8 Seconds 25.0-39.5 N Therapeutic Rang e: 58.8 - 96.0 Seconds Effective 07/16/2024 CBC W/AUTO [id number] 22:10:00* Test Item Value Reference Range Interpretation [...] NRBC#) 0.00 x10 3/uL 0.0-0.1 N GLUCOSE [id number] 21:07:00* Test Item Value Reference Range Interpretation Comme nts GLUCOSE BEDSIDE (test code = GLUBED) 204 MG/DL 70-110 H Performed by patience garces glove machine operator at [facility]
[2024-09-21] MEDS ORDERED: NA CHLORIDE 0.9% 100 ML ONE (19:28)
[2024-09-21] MEDS ORDERED: TRANEXAMIC ACID 1,000 MG/10 ML VIAL IV ONE (19:28)
[2024-09-21 19:39] LABS: Absolute Basophils 0.1 K/uL (0-0.5); Absolute Eosinophils 0.8 K/uL (0-0.5); Absolute Lymphocytes (CBC) 2.3 K/uL (0.7-4.9); Absolute Monocytes 0.7 K/uL (0.1-1.3); Absolute Neutrophil 6.5 K/uL (1.8-8.0); Basophils % 0.9 % (0-1.3); Eosinophils % 7.7 % (0-4.4); Hematocrit 29.1 % (36.0-45.0); Lymphocytes % 22.3 % (15.3-44.8); MCH 23.8 pg (27.0-35.0); MCHC 31.1 g/dL (32.0-36.0); MCV 76.5 fL (80-100); MPV 7.3 fL (7.6-11.3); Monocytes % 6.3 % (3.3-12.3); Neutrophils % 62.8 % (41.7-73.7); Nucleated Red Blood Cells % 0.1 % (0-0); PT Prothrombin Time 14.3 SECONDS (9.4-12.5); Platelets 740 thou/uL (152-406); Protime INR 1.29; Red Cell Distribution Width 18.4 % (12.1-15.2)
[2024-09-21 19:47] LABS: Anion Gap 11.4 mEq/L (5.0-15.0); Potassium 4.4 mEq/L (3.5-5.1)
--- NOTE | 2024-09-21 20:16 | EDPHYS ---
Physician Documentation [facility] Name: Rhonda Omalley Age: 64 yrs Sex: Female : 1960 Arrival Date: 09/21/2024 Time: 18:43 Bed 16 Private MD: ED Physician Stas Carter HPI: 09/21 20:21 This 64 yrs old Female presents to ER via EMS with complaints of Nose Bleed. bo1 20:23 The patient presents with a nose bleed. Onset: The symptoms/episode began/occurred bo1 suddenly, yesterday. The patient has been recently seen at the [facility] Emergency Department. Pt was discharged after a two rhino rockets . Historical: - Allergies: 18:50 Latex; iw 18:50 PENICILLINS; iw - Home Meds: 19:07 amiodarone 100 mg Oral tablet 2 times per day [Active]; aspirin 81 mg Oral tablet 1 tab al5 daily [Active]; atorvastatin 40 mg Oral tablet 1 tab every day at bedtime [Active]; cyanocobalamin (vitamin B-12) 500 mcg Oral tablet daily [Active]; dapagliflozin propanediol 5 mg Oral tablet 1 tab daily [Active]; ferrous sulfate 325 mg (65 mg iron) Oral tablet 1 tab daily [Active]; furosemide 20 mg Oral tablet 1 tab daily [Active]; metoprolol succinate 25 mg Oral Tablet 1 tab daily [Active]; Eliquis 5 mg Oral tablet 1 tab 2 times per day [Active]; Mucinex 600 mg Oral Tablet 1 tab 2 times per day [Active]; pantoprazole 40 mg Oral tablet 1 tab daily [Active]; sennosides 17.2 mg Oral tablet 1 tab every day at bedtime [Active]; spironolactone 25 mg Oral tablet 1 tab daily [Active]; Toujeo SoloStar U-300 Insulin 300 unit/mL (1.5 mL) subcutaneous Insulin Pen 35 units every day at bedtime [Active]; Novolin 70/30 Innolet 30 units Sub-Q nightly [Active]; - PMHx: 18:50 Deep vein thrombosis; neuropathy; Myocardial infarction; CVA; Diabetes - IDDM; iw - PSHx: 18:50 Coronary artery bypass graft; iw - Immunization history:: Adult Immunizations up to date. - Infectious Disease History:: Denies. - Social history:: Smoking status: unknown. ROS: 20:21 Constitutional: Negative for fever, chills, and weight loss bo1 20:21 ENT: Positive for of the nose, Bleeding from the left nare, 20:21 Neck: Negative for pain with movement, pain at rest, 20:21 Cardiovascular: Negative for chest pain, 20:21 Respiratory: Negative for shortness of breath, 20:21 All other systems are negative, Exam: 20:18 Constitutional: This is a well developed, well nourished patient who is awake, alert, bo1 and in moderate acute distress. 20:18 Constitutional: The patient appears alert, awake, in obvious distress, moderately distressed, From the nausea and gagging (nasal epistaxis). 20:18 ENT: Nose: bleeding, clotted blood, in left nare, Missing rhino rocket, Posterior pharynx: Small blood clot, fairly fresh causing nausea and gagging, 20:18 Chest/axilla: Midline sternal scar - CABG recently done. 20:18 Abdomen/GI: Palpation: abdomen is soft and non-tender, 20:18 Neuro: Orientation: is normal, appropriate for stated age, Mentation: is normal, appropriate for stated age, 20:23 Musculoskeletal/extremity: DVT Exam: no pain, no swelling, no tenderness, bo1 Vital Signs: 18:51 BP 137 / 64; iw 19:37 BP 119 / 50; Pulse 87; Resp 19; Pulse Ox 97% on R/A; Weight 98.88 kg; Height 5 ft. 2 al5 in. ; 20:45 BP 111 / 57; Pulse 84; Resp 18; Pulse Ox 99% on R/A; al5 23:18 BP 127 / 49; Pulse 82; Resp 18; Temp 98(O); Pulse Ox 95% on R/A; Pain 0/10; rg5 19:37 Body Mass Index 39.87 (98.88 kg, 157.48 cm) al5 23:18 Pain Scale: Adult rg5 Procedures: 21:55 Epistaxis treatment: Treated using rhino rocket, Bleeding decreased. Taped in place - bo1 6.0 mL NS placed . MDM: 19:01 Medical Screening Exam initiated bo1 20:15 Differential diagnosis: spontaneous epistaxis, Anticoagulation by ASA and Eliquis. Data bo1 reviewed: vital signs, lab test result(s). Consideration of Admission/Observation Patient was admitted/placed on observation. Discussed with Dr Peyton SIMON. Management of patient was discussed with the following: Hospitalist: Dr Peyton SIMON. Rigger: Dr Denise SIMON. Medication response: TXA, bleeding has slowed. ED course: Pt was seen yesterday and returned today with loss of the nasal rhino rocket and rebleeding started. 09/21 18:58 Order name: Basic Metabolic Panel; Complete Time: 19:48 bo1 09/21 18:58 Order name: CBC with Diff; Complete Time: 19:48 bo1 09/21 18:58 Order name: PT-INR; Complete Time: 19:48 bo 09/21 21:44 Order name: Fresh Frozen Plasma EDVA 09/21 21:44 Order name: Protime (+INR) EDVA 09/21 21:44 Order name: PTT, Activated Partial Thromb EDVA 09/21 21:45 Order name: ABO/RH typing EDVA 09/21 21:49 Order name: Urinalysis w/ reflexes EDVA 09/21 21:49 Order name: Basic Metabolic Panel EDVA 09/21 21:49 Order name: Basic Metabolic Panel; Complete Time: 08:55 EDMS 09/21 21:49 Order name: CBC with Automated Diff EDMS 09/21 21:49 Order name: CBC with Automated Diff; Complete Time: 08:55 EDMS 09/21 21:49 Order name: Magnesium EDVA 09/21 21:49 Order name: Magnesium; Complete Time: 08:55 EDMS 09/21 21:49 Order name: Phosphorus EDVA 09/21 21:49 Order name: Phosphorus; Complete Time: 08:55 EDMS 09/21 21:49 Order name: Protime (+INR) EDVA 09/21 21:49 Order name: Protime (+INR); Complete Time: 08:55 EDMS 09/21 23:37 Order name: Glucose, Ancillary Testing; Complete Time: 08:55 EDVA 09/21 23:42 Order name: ABO/RH no charge; Complete Time: 08:55 EDMS 09/22 09:06 Order name: Glucose, Ancillary Testing EDVA 09/21 21:47 Order name: CONS Physician Consult EDVA 09/21 18:58 Order name: IV Saline Lock; Complete Time: 19:36 bo1 09/21 18:58 Order name: Labs collected and sent; Complete Time: 19:36 bo1 Administered Medications: 19:36 Drug: tranexamic acid 1000 mg IV at bolus once; administer at a rate not to exceed 100 al5 mg per min Route: IV; Rate: bolus; Site: left forearm; 19:43 Follow up: Response: No adverse reaction; IV Status: Completed infusion; IV Intake: al5 100ml 21:59 Drug: metoCLOPramide IVP 10 mg IVP once; over 1 to 2 minutes Route: IVP; Site: left al5 forearm; 23:27 Follow up: Response: No adverse reaction rg5 21:59 Drug: Ondansetron IVP 4 mg IVP once; over 2 minutes Route: IVP; Site: left forearm; al5 23:27 Follow up: Response: No adverse reaction rg5 21:59 Drug: morphine IVP or IV 4 mg IVP once over 4 mins Route: IVP; Infused Over: 4 mins; al5 Site: right forearm; 23:27 Follow up: Response: No adverse reaction; Pain is decreased rg5 22:00 Not Given (per Dr Todd, other interventions to be usedd): kcentra1,000 unit 1000 al5 units IV at 1000 units/hr once 23:25 Drug: ceFAZolin IVPB 1 grams 50 ml IVPB once over 30 mins Volume: 50 ml; Route: IVPB; rg5 Infused Over: 30 mins; Site: left antecubital; 09/22 00:00 Follow up: IV Status: Completed infusion; IV Intake: 50ml rg5 09:10 Drug: ceFAZolin IVPB 1 grams 50 ml IVPB once over 30 mins Volume: 50 ml; Route: IVPB; rs5 Infused Over: 30 mins; Site: left forearm; Disposition Summary: 09/21/24 20:15 Hospitalization Ordered Notes: Hospitalization Status: Observation bo1 Provider: Iván Todd Condition: Fair bo1 Problem: an acute exacerbation bo1 Symptoms: are unchanged bo1 Bed/Room Type: Standard bo1 Location: Telemetry/MedSurg (observation)(09/22/24 12:12) Room Assignment: 403(09/22/24 12:12) Diagnosis - Anemia, unspecified bo1 - Epistaxis bo1 Forms: - Medication Reconciliation Form bo1 - SBAR form bo1 - Leadership Thank You Letter bo1 Signatures: Dispatcher [employer] Yoselin Bartlett, RN RN Teetee Blair RN RN ss Kristie Chambers RN RN cg Marcelo Ovalle RN RN rs5 Stas Crater MD MD bo1 Khoi Perry RN RN rg5 Acacia Dyer RN RN al5 Corrections: (The following items were deleted from the chart) 09/21 21:16 20:15 Telemetry/MedSurg (observation) bo1 cg :16 20:15 bo1 cg 09/22 12:12 09/21 21:16 BR ER HOLD ss 09/22 12:12 09/21 21:16 ERHOLD- [facility]
--- NOTE | 2024-09-21 20:16 | ER ---
Nurse's Notes [facility] Name: Rhonda Omalley Age: 64 yrs Sex: Female : 1960 Arrival Date: 09/21/2024 Time: 18:43 Bed 16 Private MD: Diagnosis: Anemia, unspecified;Epistaxis Presentation: 09/21 18:49 Chief complaint: EMS states: nose bleed since last night, was seen here and had rhino iw rocket placed but they became saturated and fell out, on blood thinners but did not take them today. Coronavirus screen: At this time, the client does not indicate any symptoms associated with coronavirus-19. Ebola Screen: No symptoms or risks identified at this time. Initial Sepsis Screen: Does the patient meet any 2 criteria? No. Patient's initial sepsis screen is negative. Does the patient have a suspected source of infection? No. Patient's initial sepsis screen is negative. Risk Assessment: Do you want to hurt yourself or someone else? Patient reports no desire to harm self or others. Onset of symptoms was September 20, 2024. 18:49 Method Of Arrival: EMS: [facility] iw 18:49 Acuity: FRANCIS 3 iw Historical: - Allergies: 18:50 Latex; iw 18:50 PENICILLINS; iw - Home Meds: 19:07 amiodarone 100 mg Oral tablet 2 times per day [Active]; aspirin 81 mg Oral tablet 1 tab al5 daily [Active]; atorvastatin 40 mg Oral tablet 1 tab every day at bedtime [Active]; cyanocobalamin (vitamin B-12) 500 mcg Oral tablet daily [Active]; dapagliflozin propanediol 5 mg Oral tablet 1 tab daily [Active]; ferrous sulfate 325 mg (65 mg iron) Oral tablet 1 tab daily [Active]; furosemide 20 mg Oral tablet 1 tab daily [Active]; metoprolol succinate 25 mg Oral Tablet 1 tab daily [Active]; Eliquis 5 mg Oral tablet 1 tab 2 times per day [Active]; Mucinex 600 mg Oral Tablet 1 tab 2 times per day [Active]; pantoprazole 40 mg Oral tablet 1 tab daily [Active]; sennosides 17.2 mg Oral tablet 1 tab every day at bedtime [Active]; spironolactone 25 mg Oral tablet 1 tab daily [Active]; Toujeo SoloStar U-300 Insulin 300 unit/mL (1.5 mL) subcutaneous Insulin Pen 35 units every day at bedtime [Active]; Novolin 70/30 Innolet 30 units Sub-Q nightly [Active]; - PMHx: 18:50 Deep vein thrombosis; neuropathy; Myocardial infarction; CVA; Diabetes - IDDM; iw - PSHx: 18:50 Coronary artery bypass graft; iw - Immunization history:: Adult Immunizations up to date. - Infectious Disease History:: Denies. - Social history:: Smoking status: unknown. Screenin:[address] [facility] ED Fall Risk Assessment (Adult) History of falling in the last 3 months, al5 including since admission No falls in past 3 months (0 pts) Confusion or Disorientation No (0 pts) Intoxicated or Sedated No (0 pts) Impaired Gait No (0 pts) Mobility Assist Device Used No (0 pt) Altered Elimination No (0 pt) Score/Fall Risk Level 0 - 2 = Low Risk Oriented to surroundings, Maintained a safe environment, Hourly rounding (assess needs \T\ fall precautionary measures) done. Abuse screen: Denies threats or abuse. Denies injuries from another. Nutritional screening: No deficits noted. Tuberculosis screening: No symptoms or risk factors identified. Assessment: 19:15 General: Appears in no apparent distress. uncomfortable, ill, Behavior is calm, al5 cooperative. Pain: Denies pain. Neuro: Level of Consciousness is awake, alert, obeys commands, Oriented to person, place, time, situation. Cardiovascular: Capillary refill < 3 seconds Patient's skin is warm and dry. Respiratory: Airway is patent Respiratory effort is even, unlabored, Respiratory pattern is regular, symmetrical. GI: No signs and/or symptoms were reported involving the gastrointestinal system. : No signs and/or symptoms were reported regarding the genitourinary system. EENT: Nares with bleeding noted bilaterally. Derm: Skin is intact, is healthy with good turgor, Skin is pink, warm \T\ dry. normal. Musculoskeletal: No signs and/or symptoms reported regarding the musculoskeletal system. 20:26 Reassessment: Patient appears in no apparent distress at this time. No changes from al5 previously documented assessment. Patient and/or family updated on plan of care and expected duration. Pain level reassessed. Patient is alert, oriented x 3, equal unlabored respirations, skin warm/dry/pink. attempted to reach out to pharmacist occupational medicine officer via tractor operator helper for kcentra order, when transferred call did not reach the pharmacist. called tractor operator helper again to retry getting isaiahold of the pharmacist occupational medicine officer, tractor operator helper states that she did not know why the calls were not reaching out, gave this nurse the phone number to reach them at, called the number and had no answer, charge nurse notified and aware. [phone]. Vital Signs: 18:51 BP 137 / 64; iw 19:37 BP 119 / 50; Pulse 87; Resp 19; Pulse Ox 97% on R/A; Weight 98.88 kg; Height 5 ft. 2 al5 in. ; 20:45 BP 111 / 57; Pulse 84; Resp 18; Pulse Ox 99% on R/A; al5 23:18 BP 127 / 49; Pulse 82; Resp 18; Temp 98(O); Pulse Ox 95% on R/A; Pain 0/10; rg5 19:37 Body Mass Index 39.87 (98.88 kg, 157.48 cm) al5 23:18 Pain Scale: Adult rg5 ED Course: 18:49 Patient arrived in ED. iw 18:50 Triage completed. iw 18:58 Stas Carter MD is Attending Physician. bo1 19:00 Arm band placed on right wrist. Patient placed in the treatment room, on a stretcher. al5 19:06 Acacia Dyer, CASANDRA is Primary Nurse. al5 19:06 Patient has correct armband on for positive identification. Bed in low position. Call al5 light in reach. Side rails up X 1. Provided Education on: plan of care. 19:24 Inserted saline lock: 22 gauge in left forearm, using aseptic technique. Blood al5 collected. Flushed with 10 mL NS. 20:14 Iván Todd is Hospitalizing Provider. bo1 20:55 No provider procedures requiring assistance completed. Patient admitted, IV remains in al5 place. 09/22 12:03 Primary Nurse role handed off by Acacia Dyer, RN le1 12:03 Tigre Ingram, CASANDRA is Primary Nurse. le1 Administered Medications: 09/21 19:36 Drug: tranexamic acid 1000 mg IV at bolus once; administer at a rate not to exceed 100 al5 mg per min Route: IV; Rate: bolus; Site: left forearm; 19:43 Follow up: Response: No adverse reaction; IV Status: Completed infusion; IV Intake: al5 100ml 21:59 Drug: metoCLOPramide IVP 10 mg IVP once; over 1 to 2 minutes Route: IVP; Site: left al5 forearm; 23:27 Follow up: Response: No adverse reaction rg5 21:59 Drug: Ondansetron IVP 4 mg IVP once; over 2 minutes Route: IVP; Site: left forearm; al5 23:27 Follow up: Response: No adverse reaction rg5 21:59 Drug: morphine IVP or IV 4 mg IVP once over 4 mins Route: IVP; Infused Over: 4 mins; al5 Site: right forearm; 23:27 Follow up: Response: No adverse reaction; Pain is decreased rg5 22:00 Not Given (per Dr Todd, other interventions to be usedd): kcentra1,000 unit 1000 al5 units IV at 1000 units/hr once 23:25 Drug: ceFAZolin IVPB 1 grams 50 ml IVPB once over 30 mins Volume: 50 ml; Route: IVPB; rg5 Infused Over: 30 mins; Site: left antecubital; 09/22 00:00 Follow up: IV Status: Completed infusion; IV Intake: 50ml rg5 09:10 Drug: ceFAZolin IVPB 1 grams 50 ml IVPB once over 30 mins Volume: 50 ml; Route: IVPB; rs5 Infused Over: 30 mins; Site: left forearm; Medication: 09/21 19:07 VIS not applicable for this client. al5 Intake: 19:43 IV: 100ml; Total: 100ml. al5 09/22 00:00 IV: 50ml; Total: 150ml. rg5 Outcome: 09/21 20:15 Decision to Hospitalize by Provider. bo1 20:55 Admitted to ER Hold. Please see [facility] for further documentation. al5 20:55 Condition: stable 20:55 Instructed on the need for admit, 09/22 14:13 Patient left the ED. le1 Signatures: Yoselin Carroll RN RN iw Sotelo, Ricky, RN RN rs5 Stas Carter MD MD bo1 Khoi Perry RN RN rg5 Langhorst, Amanda, RN RN al5 Tigre Ingram RN RN le1 Corrections: (The following items were deleted from the chart) 09/21 20:29 20:26 Reassessment: Patient appears in no apparent distress at this time. No changes al5 from previously documented assessment. Patient and/or family updated on plan of care and expected duration. Pain level reassessed. Patient is alert, oriented x 3, equal unlabored respirations, skin warm/dry/pink. attempted to reach out to pharmacist occupational medicine officer via tractor operator helper for kcentra order, when transferred call did not reach the pharmacist. called tractor operator helper again to retry getting ahold of the pharmacist occupational medicine officer, tractor operator helper states that she did not know why the calls were not reaching out, gave this nurse the phone number to reach them at, called the number and had no answer, charge nurse notified and aware. al5
--- NOTE | 2024-09-21 20:50 | P.HP ---
Certification for Inpatient Patient admitted to: Observation With expected LOS: <2 Midnights Practitioner: I am a practitioner with admitting privileges, knowledge of patient current condition, hospital course, and medical plan of care. Services: Services provided to patient in accordance with Admission requirements found in Title 42 Section 412.3 of the Code of Federal Regulations Patient History Date of Service: 09/21/24 Reason for admission: Nosebleed History of Present Illness: 64-year-old man with a history of coronary to disease, history of CVA on Eliquis anticoagulation, recent CABG and aortic valve replacement about 3 weeks ago, followed by inpatient rehab, and discharged 3 days ago presented to the emergency department yesterday due to sudden onset epistaxis. Nasal balloon tamponade was inserted which stopped the bleeding. Patient stated balloon tamponade slipped off a few hours after discharge from the ER yesterday in the evening, had no nosebleed overnight until around 4 PM today, she started bleeding again. She therefore presented to the emergency department. Patient reports associated nausea, denies any pain. Her last dose of Eliquis was yesterday in the morning (about [address] Walker was contacted who recommended repacking with nasal tamponade, and hospitalization overnight with antibiotics with plans to evaluate in the morning. [facility] ordered to reverse Eliquis in the ER. Nasal balloon tamponade placed. Patient is hospitalized for further management. Allergies Latex, Natural Rubber Adverse Reaction (Verified 09/11/24 11:35) Itching/Hives/Rash Penicillins Adverse Reaction (Verified 09/11/24 11:35) Itching/Hives/Rash Home Medications: Aspirin [Aspirin EC] 81 mg PO DAILY 09/11/24 Atorvastatin Calcium [Lipitor] 40 mg PO BEDTIME 09/11/24 Cyanocobalamin (Vitamin B-12) [Vitamin B-12] 500 mcg PO DAILY 09/11/24 Dapagliflozin Propanediol [Farxiga] 5 mg PO DAILY 09/11/24 Ferrous Sulfate [Feosol] 325 mg PO DAILY 09/11/24 Guaifenesin [Mucinex] 600 mg PO BID 09/11/24 Metoprolol Succinate [Toprol Xl*] 25 mg PO DAILY 09/11/24 Pantoprazole [Protonix Tab*] 40 mg PO DAILY 09/11/24 Sennosides [Senokot] 17.2 mg PO BEDTIME 09/11/24 Spironolactone [Aldactone*] 25 mg PO DAILY 09/11/24 Teujeo 35 Units 35 units SQ BEDTIME 09/11/24 Toejeo 40 units SQ DAILY 09/11/24 Apixaban [Eliquis] 5 mg PO BID #60 09/17/24 Glucerna Shake [Glucerna*] 237 ml PO BID can 09/17/24 Lidocaine 4% Patch [Lidoderm 5% Patch*] 1 patch TOP DAILY pat 09/17/24 Multivit,Ther Iron,Ca,FA & Min [Centrum Tablet*] 1 tab PO DAILY tab 09/17/24 Senosides [Senokot*] 17.2 mg PO DAILY PRN tab 09/17/24 Amiodarone HCl 100 mg PO BID #30 09/18/24 Furosemide [Lasix] 20 mg PO DAILY #30 09/18/24 - Past Medical/Surgical History Diabetic: Yes -: diabetes -: bronchitis -: neuropathy -: carpal tunnel syndrome -: acute stroke -: Gastric bypass -: retinal detachment-bilateral vitrectomy -: choleycystectomy -: hysterectomy -: viterectomy -: CABG -: Aortic valve replacement - Family History Father -: Hypertension, Diabetes, Cancer Mother -: Hypertension, Diabetes - Social History Alcohol use: No CD- Drugs: No Caffeine use: Yes Review of Systems Other: Patient denies any chest pain or palpitation. She denies any shortness of breath. She denies any headache. She denies any fever or chills. She denies any abdominal pain, or vomiting or diarrhea. Except as documented, all other systems reviewed and negative. Physical Examination - Physical Exam General: Alert, In no apparent distress, Oriented x3 HEENT: PERRLA, Other (Epistaxis), Sclerae nonicteric Neck: Supple, JVD not distended Respiratory: Clear to auscultation bilaterally, Normal air movement Cardiovascular: No edema, Regular rate/rhythm, Normal S1 S2, No murmurs Capillary refill: <2 Seconds Gastrointestinal: Normal bowel sounds, Soft and benign, Non-distended, No tenderness Musculoskeletal: No swelling, No tenderness, Other (Healed sternal surgical wound.) Integumentary: No rashes, No cyanosis Neurological: Normal speech, Normal strength at 5/5 x4 extr, Cranial nerves 3-12 intact Lymphatics: No axilla or inguinal lymphadenopathy - Studies Laboratory Data (last 24 hrs) 09/21/24 09/21/24 09/21/24 19:25 19:25 19:25 WBC 10.40 Hgb 9.0 L Hct 29.1 L Plt Count 740 H PT 14.3 H INR 1.29 Sodium 137 Potassium 4.4 BUN 28 H Creatinine 1.02 Glucose 230 H Assessment and Plan - Problems (Diagnosis) (1) Epistaxis Current Visit: Yes Status: Acute - Plan Diagnosis Epistaxis Chronic anticoagulation with Eliquis Microcytic anemia CABG Aortic valve replacement Diabetes mellitus type 2 Plan: Epistaxis Chronic anticoagulation with Eliquis Microcytic anemia Placed on observation on the medical floor. Hold all anticoagulation-Eliquis and aspirin Patient given Kcentra in the ED, diagnosed packed with nasal tamponade. Recheck PT/INR in a.m. ENT consult Monitor H&H and transfuse as needed for hemoglobin less than 8. CABG Aortic valve replacement Hold aspirin Continue other home medications Chronic atrial fibrillation Resume home dose amiodarone Anticoagulation on hold. DM type II Insulin sliding scale Resume home dose Farxiga DVT prophylaxis: SCD Advanced directive: full code - Advance Directives Does patient have a Living Will: No Does patient have a Durable POA for Healthcare: No
[2024-09-21] MEDS ORDERED: MORPHINE 4 MG/ML SYR ONE (21:36)
[2024-09-21] MEDS ORDERED: METOCLOPRAMIDE 10 MG/2mL INJ ONE (21:36)
[2024-09-21] MEDS ORDERED: ONDANSETRON 4 MG/2 ML VIAL ONE (21:36)
[2024-09-21] MEDS ORDERED: ONDANSETRON 4 MG/2 ML VIAL IV PRN (21:45)
[2024-09-21] MEDS: PROTHROMBIN COMPLEX CONCENTRATE (HUMAN) 500 UNIT VIAL IV ONE (21:51)
[2024-09-21] MEDS ORDERED: WATER FOR INJECTION STERILE IV ONE (22:00)
[2024-09-21] MEDS ORDERED: [UNRECOGNIZED DRUG - OTHER] IV ONE (22:00)
[2024-09-21] MEDS ORDERED: NA CHLORIDE 0.9% 250 ML IV SCH (22:00)
[2024-09-21] MEDS ORDERED: HUM PROTHROMBIN CPLX IV ONE (22:00)
[2024-09-21] MEDS ORDERED: D10W 125 ML IV PRN (22:10)
[2024-09-21] MEDS ORDERED: GLUCAGON 1 MG/VIAL IM PRN (22:10)
[2024-09-21] MEDS: INSULIN REGULAR (HUMAN) 100 UNIT/ML SQ SCH (23:00)
[2024-09-21] MEDS ORDERED: NA CHLORIDE 0.9% 50 ML ONE (23:21)
[2024-09-21] MEDS ORDERED: CEFAZOLIN SODIUM 1 GM/VIAL ONE (23:21)
[2024-09-21] MEDS ORDERED: INSULIN REGULAR (HUMAN) 100 UNIT/ML ONE (23:35)
[2024-09-22] MEDS ORDERED: NA CHLORIDE 0.9% 250 ML ONE (00:53)
[2024-09-22 06:04] LABS: Absolute Basophils 0.1 K/uL (0-0.5); Absolute Eosinophils 0.7 K/uL (0-0.5); Absolute Lymphocytes (CBC) 1.4 K/uL (0.7-4.9); Absolute Monocytes 0.7 K/uL (0.1-1.3); Absolute Neutrophil 5.4 K/uL (1.8-8.0); Hematocrit 24.2 % (36.0-45.0); Hemoglobin 7.7 g/dL (12.0-15.0); Lymphocytes % 17.4 % (15.3-44.8); MCH 24.1 pg (27.0-35.0); MCHC 31.8 g/dL (32.0-36.0); MCV 75.7 fL (80-100); MPV 7.2 fL (7.6-11.3); Monocytes % 8.5 % (3.3-12.3); Neutrophils % 65.1 % (41.7-73.7); Platelets 581 thou/uL (152-406); Red Cell Distribution Width 17.4 % (12.1-15.2)
[2024-09-22 06:05] LABS: PT Prothrombin Time 14.1 SECONDS (9.4-12.5); Protime INR 1.27
[2024-09-22 06:17] LABS: Anion Gap 11.3 mEq/L (5.0-15.0); Magnesium 2.4 mg/dL (1.6-2.4); Phosphorus 3.2 mg/dL (2.5-4.9); Potassium 4.3 mEq/L (3.5-5.1)
--- NOTE | 2024-09-22 07:15 | P.PN ---
Date of Service: 09/22/24 Subjective: feels discomfort and nasal/sinus congestion otherwise feeling ok ROS: 10 point ROS as noted above, otherwise negative Physical Exam: GEN: Alert, NAD, left eye closed CV: Regular rate and rhythm, trace b/l edema, R>L Pulm: Nonlabored respirations on room air, clear bilaterally ABD: soft, nontender, nondistended Integumentary: No rashes Neuro: Normal speech, normal affect Problem List: Epistaxis Microcytic anemia right cephalic vein thrombus (09/12/24) Severe aortic stenosis s/p Aortic valve replacement (08/30/24) Hx CAD s/p CABG (08/30/24) IDDM2 Chronic systolic CHF Hypertension Hx Isamar-en-Y gastric bypass Hx CVA Epistaxis Microcytic anemia on admission, presents with sudden onset epistaxis. Had nasal balloon tamponade inserted in ED 09/20 however it fell out after discharge and she started to bleed again 09/21 so she came back. given Kcentra and Nasal balloon tamponade placed in ED. Dr. Walker, ENT consulted to eval held aspirin, eliquis on admission, discussed risks of holding vs bleeding with patient today Daily labs, PT/INR Monitor H&H. right cephalic vein thrombus (09/12/24) Severe aortic stenosis s/p Aortic valve replacement (08/30/24) Hx CAD s/p CABG (08/30/24) RUE u/s (09/12): + thrombus in right cephalic vein unclear given lack of records, but seems patient arrived to rehab on DAPT, and plavix switched to eliquis due to thrombus in cephalic vein held aspirin, eliquis on admission due to bleeding and anemia consult cardio IDDM2 accu-cheks, SSI confirm home insulin regimen Chronic systolic CHF Hypertension Hx Isamar-en-Y gastric bypass Hx CVA confirm home meds, restart as appropriate VTE: held due to bleed Code: full Dispo: home ~fri/sat Time Spent Managing Pts Care (In Minutes): 55
[2024-09-22] MEDS: MORPHINE 2 MG/ML SYR IV PRN (08:55)
[2024-09-22] MEDS ORDERED: CEFEPIME 1 GM/VIAL ONE (09:12)
[2024-09-22] MEDS ORDERED: NA CHLORIDE 0.9% 100 ML ONE (09:12)
[2024-09-22 10:00] LABS: PT Prothrombin Time 13.7 SECONDS (9.4-12.5); PTT, Activated Partial Thromb 32.4 SECONDS (24.3-36.9); Protime INR 1.23
[2024-09-22] MEDS ORDERED: CODEINE 30MG/APAP 300MG TAB ONE (13:07)
[2024-09-22] MEDS: CODEINE 30MG/APAP 300MG TAB PO PRN (13:09)
--- NOTE | 2024-09-22 13:17 | CON ---
Please see detailed dictated H and P. Impression: Acute left nasal cavity epistaxis-posterior bleeding, stable. Plan: 1.Keep posterior nasal pack intact and continue to hold Eliquis. 2.Recommend oral antibiotics for left nasal cavity foreign body. 3.Recommend the patient may restart diet and be n.p.o. after midnight. 4.Plan is to cold pack on Friday, September 24, 2023, either inpatient or outpatient in my clinic. 5.Internal Medicine recommendations per Dr. Todd. KD/MODL Voice ID: [id number] Report ID: [id number]
[2024-09-22 17:03] LABS: Hematocrit 24.8 % (36.0-45.0); Hemoglobin 7.9 g/dL (12.0-15.0)
[2024-09-22] MEDS: ATORVASTATIN 40 MG TAB PO SCH (20:50)
[2024-09-23 06:22] LABS: Absolute Basophils 0.1 K/uL (0-0.5); Absolute Eosinophils 0.7 K/uL (0-0.5); Absolute Lymphocytes (CBC) 1.5 K/uL (0.7-4.9); Absolute Monocytes 0.8 K/uL (0.1-1.3); Absolute Neutrophil 5.1 K/uL (1.8-8.0); Basophils % 1.1 % (0-1.3); Eosinophils % 8.8 % (0-4.4); Hematocrit 24.9 % (36.0-45.0); Lymphocytes % 18.7 % (15.3-44.8); MCH 24.5 pg (27.0-35.0); MCHC 32.4 g/dL (32.0-36.0); MCV 75.8 fL (80-100); MPV 7.3 fL (7.6-11.3); Monocytes % 9.5 % (3.3-12.3); Neutrophils % 61.9 % (41.7-73.7); Nucleated Red Blood Cells % 0.1 % (0-0); Platelets 579 thou/uL (152-406); RBC Red Blood Cell Count 3.28 M/uL (3.86-4.86); Red Cell Distribution Width 18.2 % (12.1-15.2)
[2024-09-23 06:33] LABS: Anion Gap 6.7 mEq/L (5.0-15.0); Magnesium 2.2 mg/dL (1.6-2.4); Potassium 4.7 mEq/L (3.5-5.1)
[2024-09-23] MEDS: METOPROLOL XL 25 MG TAB PO SCH (08:08)
[2024-09-23] MEDS: PANTOPRAZOLE 40MG TABLET PO SCH (08:09)
[2024-09-23 09:14] LABS: Specific Gravity 1.019 (1.005-1.030); Sqamous Epithelial <5 /HPF (None Seen); Transitional Epithelial <5 /HPF (None Seen); Urine Bacteria None Seen /HPF (<20); Urine Bilirubin NEGATIVE (Negative); Urine Blood Negative (Negative); Urine Clarity Clear (Clear); Urine Color Light-Yellow (Yellow); Urine Culture Reflex Order REFLEXED; Urine Glucose 3+ (Negative); Urine Ketones 1+ (Negative); Urine Microscopic Reflex YN ORDER UMIC; Urine Mucus Slight /HPF (None Seen); Urine Nitrite NEGATIVE (Negative); Urine Protein TRACE (Negative); Urine Urobilinogen Normal (Normal); Urine Yeast (Budding) Trace /HPF (None Seen); Urine pH 5.5 (5.0-7.0)
--- NOTE | 2024-09-23 09:24 | P.PN ---
Date of Service: 09/23/24 Subjective: feels slightly more rundown/weak today some blood tinged sputum noted from suction nose not as painful/uncomfortable today afebrile ROS: 10 point ROS as noted above, otherwise negative Physical Exam: GEN: Alert, NAD, left eye closed CV: Regular rate and rhythm, trace b/l edema, R>L Pulm: Nonlabored respirations on room air, clear bilaterally ABD: soft, nontender, nondistended Neuro: Normal speech, normal affect Problem List: Epistaxis Microcytic anemia right cephalic vein thrombus (09/12/24) Severe aortic stenosis s/p Aortic valve replacement (08/30/24) Hx CAD s/p CABG (08/30/24) IDDM2 Chronic systolic CHF Hypertension Hx Isamar-en-Y gastric bypass Hx CVA Epistaxis Microcytic anemia on admission, presents with sudden onset epistaxis. Had nasal balloon tamponade inserted in ED 09/20 however it fell out after discharge and she started to bleed again 09/21 so she came back. Nasal balloon tamponade placed in ED. Kcentra ordered in ED, but noted as not given Dr. Walker, ENT consulted held aspirin, eliquis since admission Monitor H&H NPO at midnight per ENT tylenol #3 as needed for pain continue IV fluids while NPO Start prophylactic antibiotics check UA. Follow repeat urine culture; urine culture previously grew Klebsiella Pneumoniae in rehab 09/11. She did report having some urinary symptoms ~1-2 weeks ago at the time of culture although shes been asymptomatic last few days. Patient did not receive any antibiotics in last ~month or so right cephalic vein thrombus (09/12/24) Severe aortic stenosis s/p Aortic valve replacement (08/30/24) Hx CAD s/p CABG (08/30/24) RUE u/s (09/12): +thrombus in right cephalic vein unclear given lack of records, but seems patient arrived to rehab on DAPT, and plavix switched to eliquis due to thrombus in cephalic vein held aspirin, eliquis on admission due to bleeding and anemia Cardiology consulted - recommending continuing on only aspirin 81 mg. Resume once appropriate. recomend to stop plavix as well Stop eliquis as cephalic vein is superficial IDDM2 accu-cheks, SSI confirm home insulin regimen Chronic systolic CHF Hypertension Hx Isamar-en-Y gastric bypass Hx CVA confirm home meds, restart as appropriate continue home metoprolol, statin, PPI VTE: held due to bleed Code: full Dispo: home ~fri/sat Pending ENT recs / bleeding resolved Time Spent Managing Pts Care (In Minutes): 55
--- NOTE | 2024-09-23 11:23 | P.CNS ---
Date of Consult: 09/23/24 Chief Complaint: Nosebleed History of Present Illness: Patient with PMH of CAD s/p recent CABG and AV replacement, presented with nasal bleeding, patient is on Eliquis secondary to cephalic vein thrombosis, feel weak but denies chest pain, no palpitations, no sob. Allergies Latex, Natural Rubber Adverse Reaction (Verified 09/11/24 11:35) Itching/Hives/Rash Penicillins Adverse Reaction (Verified 09/11/24 11:35) Itching/Hives/Rash Home medications list reviewed: Yes Home Medications: Aspirin [Aspirin EC] 81 mg PO DAILY 09/11/24 Atorvastatin Calcium [Lipitor] 40 mg PO BEDTIME 09/11/24 Cyanocobalamin (Vitamin B-12) [Vitamin B-12] 500 mcg PO DAILY 09/11/24 Dapagliflozin Propanediol [Farxiga] 5 mg PO DAILY 09/11/24 Ferrous Sulfate [Feosol] 325 mg PO DAILY 09/11/24 Guaifenesin [Mucinex] 600 mg PO BID 09/11/24 Metoprolol Succinate [Toprol Xl*] 25 mg PO DAILY 09/11/24 Pantoprazole [Protonix Tab*] 40 mg PO DAILY 09/11/24 Spironolactone [Aldactone*] 25 mg PO DAILY 09/11/24 Teujeo 35 Units 35 units SQ BEDTIME 09/11/24 Toejeo 40 units SQ DAILY 09/11/24 Apixaban [Eliquis] 5 mg PO BID #60 09/17/24 Glucerna Shake [Glucerna*] 237 ml PO BID can 09/17/24 Lidocaine 4% Patch [Lidoderm 5% Patch*] 1 patch TOP DAILY pat 09/17/24 Multivit,Ther Iron,Ca,FA & Min [Centrum Tablet*] 1 tab PO DAILY tab 09/17/24 Senosides [Senokot*] 17.2 mg PO DAILY PRN tab 09/17/24 Amiodarone HCl 200 mg PO BID 09/22/24 Furosemide [Lasix] 60 mg PO DAILY 09/22/24 - Past Medical/Surgical History Diabetic: Yes -: diabetes -: bronchitis -: neuropathy -: carpal tunnel syndrome -: acute stroke -: Gastric bypass -: retinal detachment-bilateral vitrectomy -: choleycystectomy -: hysterectomy -: viterectomy -: CABG -: Aortic valve replacement - Family History Father Medical History: Hypertension, Diabetes, Cancer Mother Medical History: Hypertension, Diabetes - Social History Smoking Status: Unknown if ever smoked Alcohol use: No CD- Drugs: No Caffeine use: Yes Review of Systems 10-point ROS is otherwise unremarkable Physical Examination Temp Pulse Resp BP Pulse Ox 97.6 F 81 16 175/73 H 95 09/23/24 04:00 09/23/24 08:08 09/23/24 09:08 09/23/24 08:08 09/23/24 09:08 General: Alert, In no apparent distress HEENT: Atraumatic, PERRLA, Mucous membr. moist/pink, EOMI, Sclerae nonicteric Neck: Supple, 2+ carotid pulse no bruit, No LAD, Without JVD or thyroid abnormality Respiratory: Clear to auscultation bilaterally, Normal air movement Cardiovascular: Regular rate/rhythm, Normal S1 S2 Gastrointestinal: Normal bowel sounds, No tenderness Musculoskeletal: No tenderness Integumentary: No rashes Neurological: Normal gait, Normal speech, Normal tone, Normal affect Lymphatics: No axilla or inguinal lymphadenopathy Laboratory Data (last 24 hrs) 09/22/24 16:56 Hgb 7.9 L Hct 24.8 L - Problems (1) CAD (coronary artery disease) of artery bypass graft Current Visit: Yes Status: Acute Plan: Patient is stable, denies having chest pain, no troponin leak continue ASA 81 mg daily continue lipitor 40 mg daily (2) Epistaxis Current Visit: Yes Status: Acute Plan: ok to stop Eliquis since DVT is in superficial vein, also stop plavix and continue ASA 81 mg daily ENT following
[2024-09-23] MEDS: FLUCONAZOLE 100 MG TAB PO SCH (13:15)
[2024-09-23] MEDS: CEFAZOLIN SODIUM 2 GM in NA CHLORIDE 0.9% 100 ML IVPB SCH (13:15)
--- NOTE | 2024-09-23 15:50 | PN ---
Date of Progress Note: 09/23/2024 Subjective: Patient seen and examined at bedside. She denies any active bleeding or coughing up blo od clots since the last visit. She is having difficulty swallowing and nasal pain, which is expected considering that the nasal pack cuff is inflated. She has decreased appetite despite regular diet. Objective: Nose: Left nasal Epistat intact with cuff inflated. I removed approximately 7 cc of paresh ine from the balloon cuff. She tolerated it well. Should no posterior oropharyngeal bleeding. She had slight oozing of blood because her blood pressure increased to 171/72 with a heart rate of 104 pr obably from anxiety. A mustache dressing was placed. Diagnosis: Acute left nasal epistaxis, status post posterior balloon packing, balloon deflated today . Recommendations: Keep mustache dressing intact. Reinforce as necessary. We will monitor overnight. If no bleeding in the morning, then we will remove the pack. KD/MODL Voice ID: [id number] Report ID: [id number]
[2024-09-23] MEDS: SPIRONOLACTONE 25 MG TABLET PO SCH (16:39)
[2024-09-23] MEDS: AMIODARONE HCL 200 MG TAB PO SCH (20:40)
[2024-09-23] MEDS ORDERED: HOME MED 1 EA UNK (Amiodarone Hcl [Amiodarone Hcl] 100 MG Tablet) PO SCH (21:00)
[2024-09-24 06:35] LABS: Absolute Basophils 0.1 K/uL (0-0.5); Absolute Eosinophils 0.9 K/uL (0-0.5); Absolute Lymphocytes (CBC) 1.5 K/uL (0.7-4.9); Absolute Monocytes 0.7 K/uL (0.1-1.3); Absolute Neutrophil 6.2 K/uL (1.8-8.0); Basophils % 1.3 % (0-1.3); Hematocrit 23.9 % (36.0-45.0); Hemoglobin 7.8 g/dL (12.0-15.0); Lymphocytes % 16.2 % (15.3-44.8); MCH 24.7 pg (27.0-35.0); MCHC 32.8 g/dL (32.0-36.0); MCV 75.3 fL (80-100); MPV 7.1 fL (7.6-11.3); Monocytes % 7.8 % (3.3-12.3); Neutrophils % 65.7 % (41.7-73.7); Nucleated Red Blood Cells % 0.2 % (0-0); Platelets 512 thou/uL (152-406); RBC Red Blood Cell Count 3.17 M/uL (3.86-4.86); Red Cell Distribution Width 17.4 % (12.1-15.2)
[2024-09-24 06:49] LABS: Anion Gap 9.8 mEq/L (5.0-15.0); Magnesium 2.1 mg/dL (1.6-2.4); Potassium 4.8 mEq/L (3.5-5.1)
--- NOTE | 2024-09-24 08:29 | P.PN ---
Date of Service: 09/24/24 Subjective: No issues overnight no active bleeding noted doesn't feel worse minimal appetite last few days ROS: 10 point ROS as noted above, otherwise negative Physical Exam: GEN: Alert, NAD, left eye closed CV: Regular rate and rhythm, trace b/l edema, R>L Pulm: Nonlabored respirations on room air, clear bilaterally ABD: soft, nontender, nondistended Neuro: Normal speech, normal affect Problem List: Epistaxis Severe iron deficiency anemia right cephalic vein thrombus (09/12/24) Severe aortic stenosis s/p Aortic valve replacement (08/30/24) Hx CAD s/p CABG (08/30/24) IDDM2 Chronic systolic CHF Hypertension Hx Isamar-en-Y gastric bypass Hx CVA Epistaxis Severe iron deficiency anemia on admission, presents with sudden onset epistaxis. Had nasal balloon tamponade inserted in ED 09/20 however it fell out after discharge and she started to bleed again 09/21 so she came back. Nasal balloon tamponade placed in ED. Kcentra ordered in ED, but noted as not given Reports history of iron deficiency in past, states shes previously taken oral iron supplementation. Dr. Walker, ENT consulted held aspirin, eliquis since admission tylenol #3 as needed for pain NPO for now per ENT; possible packing removal later today iron studies consistent with severe iron deficiency anemia (iron 15, tsat% 3.6%) Start IV iron Continue diflucan for 5 days (1/2-) continue prophylactic ancef (1/2-) Follow repeat urine culture; urine culture previously grew Klebsiella Pneumoniae in rehab 09/11. She did report having some urinary symptoms ~1-2 weeks ago at the time of culture although shes been asymptomatic last few days. Patient did not receive any antibiotics in last ~month or so right cephalic vein thrombus (09/12/24) Severe aortic stenosis s/p Aortic valve replacement (08/30/24) Hx CAD s/p CABG (08/30/24) RUE u/s (09/12): +thrombus in right cephalic vein unclear given lack of records, but seems patient arrived to rehab on DAPT, and plavix switched to eliquis due to thrombus in cephalic vein held aspirin, eliquis on admission due to bleeding and anemia Cardiology consulted - recommending continuing on only aspirin 81 mg. Resume once appropriate. recommend to stop plavix as well Stop eliquis as cephalic vein is superficial IDDM2 accu-cheks, SSI confirm home insulin regimen Chronic systolic CHF Hypertension Hx Isamar-en-Y gastric bypass Hx CVA confirm home meds, restart as appropriate continue home metoprolol, statin, PPI VTE: held due to bleed Code: full Dispo: home with HH vs cardiac rehab, ~1 day Pending ENT recs / bleeding resolved, packing removal, IV iron infusions Time Spent Managing Pts Care (In Minutes): 55
[2024-09-24 08:59] LABS: Ferritin 22.5 ng/mL (8-252)
[2024-09-24] MEDS: SOD FERRIC GLUC COMPLX/SUCROSE 125 MG in NA CHLORIDE 0.9% 100 ML IV SCH (10:30)
--- NOTE | 2024-09-24 10:38 | CON ---
Date of Consultation: 09/22/2024 Emergency Room Physician: Dr. Iván Todd. Chief Complaint: Acute left nasal epistaxis/nosebleed. History Of Present Illness: The patient is a 64-year-old female with history of coronary artery disease, CVA, on Eliquis anticoagulation, recent CABG, and aortic valve replacement approximately 3 weeks ago followed by inpatient rehab and then discharged 72 hours ago, who presented to the emergency department acutely after sudden left nasal epistaxis. Initial nasal balloon tamponade was inserted which stopped the bleeding, but the catheter came out few hours after discharge and of course she had some recurrent bleeding. I suspect the balloon catheters were inflated with air instead of saline, thus I had the ER physician reinsert the balloon and instead inflate the catheter with sterile saline and then tape securely to the nose. I then saw the patient at bedside. With the exception of moderate left intranasal pain extending to the left cheek and eye, she did report that bleeding had stopped. Currently, she has no other complaints except for the intranasal pain. Home Medications: Aspirin, atorvastatin, calcium, cyanocobalamin, dapagliflozin, propanediol, ferrous sulphate, guaifenesin, metoprolol succinate, pantoprazole, spironolactone, Toujeo, apixaban, Glucerna shake, lidocaine 4% patch, multivitamin, amiodarone, furosemide. Allergies: LATEX AND PENICILLIN. Past Medical History And Surgical History: Diabetes, bronchitis, neuropathy, carpal tunnel syndrome, recent CVA, gastric fibroids, retinal detachment, bilateral vitrectomy, cholecystectomy, hysterectomy, fibroidectomy, CABG, aortic valve replacement. Social History: The patient denies alcohol, tobacco, illicit drugs. Review of Systems: Head: Negative for headache. Constitutional: Negative for fever, chills, lethargy. Eyes: Positive for left eye pain and negative for eye drainage. Ears: Negative for ear pain or drainage. Nose: Positive for left nasal pain and congestion from packing. Negative for active bleeding. Oral Cavity: Mild difficulty swallowing. Negative for airway difficulty, sore throat, painful swallowing. Physical Examination: General: The patient is awake, alert, oriented, no apparent distress. She is oriented x3. Head: Atraumatic, normocephalic. Eyes: Positive for left blind eye. Positive left eye pain with palpation, most likely secondary to intranasal balloon. Epistat is intact with no active bleeding or blood clot seen at anterior nares. Right nasal cavity patent. No bleeding. Oral Cavity: A very small amount of old blood streaking in the posterior oropharynx, which was removed with suction. No active bleeding. Neck: Supple. Trachea midline. Laboratory Studies: Reviewed. The patient has initially had hemoglobin of 9.0 and hematocrit of 29.1, which within 24 hours has decreased to 7.9 and 24.8. Platelets are 581. Diagnosis: Acute left nasal epistaxis, currently stable. Recommendations: Recommend keeping the nasal pack intact and the goal was to deflate the balloon in 24 to 48 hours to assess for rebleeding. If there is rebleeding, then the patient may need cauterization at that time or possibly repacking. This was discussed in detail with the patient. We will continue to follow. Thank you for this interesting consultation. KELLY/BRIANNA Voice ID: [id number] Report ID: [id number] SAIRA
--- NOTE | 2024-09-24 20:46 | PN ---
Date of Progress Note: 09/24/2024 Chief Complaint: Left nasal bleeding, improved. History Of Present Illness: The patient was admitted for acute left nasal epistaxis and an Epistat was placed into the left nasal cavity. The cuff was deflated 24 hours ago and the plan for today is to remove the pack with possible silver nitrate cautery. She states that there was slight oozing of blood through the left anterior naris overnight, but no posterior oropharyngeal bleeding or blood clots expectorated since initial onset. No other complaints today. Physical Examination: Nose: Left nasal Epistat intact with mild fresh bleeding from the left anterior naris. After obtaining written consent, the pack was removed and there was some oozing blood vessels located at the left anterior Kiesselbach's plexus. Silver nitrate cauterization was needed for hemostasis. The patient tolerated well. Surgicel pakcing and a mustache dressing was placed. Diagnosis: Acute left nasal epistaxis, resolved, status post nasal pack and simple left anterior nasal cauterization today. Recommendations: May discharge back to Internal Medicine. The patient will follow up in 1 to 2 weeks for recheck in outpatient setting. From the standpoint, I will follow as needed. KELLY/BRIANNA Voice ID: [id number] Report ID: [id number] SAIRA
[2024-09-24 22:59] VITALS: BMI 39.9
[2024-09-25 08:09] LABS: Hemoglobin 7.5 g/dL (12.0-15.0); MCH 23.4 pg (27.0-35.0); MCHC 31.1 g/dL (32.0-36.0); MCV 75.2 fL (80-100); MPV 7.5 fL (7.6-11.3); Platelets 532 thou/uL (152-406); RBC Red Blood Cell Count 3.19 M/uL (3.86-4.86); Red Cell Distribution Width 17.7 % (12.1-15.2)
[2024-09-25 08:20] LABS: Anion Gap 6.9 mEq/L (5.0-15.0); Magnesium 2.1 mg/dL (1.6-2.4); Potassium 4.9 mEq/L (3.5-5.1)
--- NOTE | 2024-09-25 09:42 | P.PN ---
Date of Service: 09/25/24 Subjective: Feels slightly better today packing removed yesterday. no bleeding noted no events overnight ROS: 10 point ROS as noted above, otherwise negative Physical Exam: GEN: Alert, NAD, left eye closed CV: Regular rate and rhythm, trace b/l edema, R>L Pulm: Nonlabored respirations on room air, clear bilaterally ABD: soft, nontender, nondistended Neuro: Normal speech, normal affect Problem List: Epistaxis Severe iron deficiency anemia right cephalic vein thrombus (09/12/24) Severe aortic stenosis s/p Aortic valve replacement (08/30/24) Hx CAD s/p CABG (08/30/24) IDDM2 Chronic systolic CHF Hypertension Hx Isamar-en-Y gastric bypass Hx CVA Epistaxis Severe iron deficiency anemia on admission, presents with sudden onset epistaxis. Had nasal balloon tamponade inserted in ED 09/20 however it fell out after discharge and she started to bleed again 09/21 so she came back. Nasal balloon tamponade placed in ED. Reports history of iron deficiency in past, states shes previously taken oral iron supplementation. iron studies consistent with severe iron deficiency anemia (iron 15, tsat% 3.6%) continue IV iron; s/p 2 bags so far urine cx 09/23 with mixed millicent; <10k CFU/ml. urine cx previously grew Klebsiella Pneumoniae @rehab 09/11. s/p short course prophylactic ancef (09/23-09/24) no further antibiotics warranted. Continue diflucan for 5 days (/2-) Dr. Walker, ENT consulted packing removed 09/24. s/p silver nitrate cauterization f/u in office in 1-2 weeks for further management. right cephalic vein thrombus (09/12/24) Severe aortic stenosis s/p Aortic valve replacement (08/30/24) Hx CAD s/p CABG (08/30/24) RUE u/s (09/12): +thrombus in right cephalic vein unclear given lack of records, but seems patient arrived to rehab on DAPT, and plavix switched to eliquis due to thrombus in cephalic vein held aspirin, eliquis on admission due to bleeding and anemia Cardiology consulted - recommending continuing on only aspirin 81 mg. Resume once appropriate. recommend to stop plavix as well Stop eliquis as cephalic vein is superficial resume aspirin 81 mg IDDM2 accu-cheks, SSI confirm home insulin regimen Chronic systolic CHF Hypertension Hx Isamar-en-Y gastric bypass Hx CVA confirm home meds, restart as appropriate continue home metoprolol, statin, PPI VTE: held due to bleed Code: full Dispo: home with HH vs cardiac rehab, ~1 day pending IV iron, repeat labs Time Spent Managing Pts Care (In Minutes): 55
[2024-09-25] MEDS: ASPIRIN EC 81 MG TAB PO SCH (11:24)
[2024-09-25 20:20] VITALS: O2SAT 98
[2024-09-26 08:19] VITALS: BP 120/57; TEMP 97.7
--- NOTE | 2024-09-26 08:51 | P.DS ---
Admission Date: 09/22/24 Discharge Date: 09/26/24 Disposition: ROUTINE DISCHARGE Discharge Condition: GOOD Reason for Admission: Nosebleed Consultations: Cardiology - Dr. Olivo ENT - Dr. Walker Brief History of Present Illness: 64yo F, PMH: coronary to disease, history of CVA on Eliquis anticoagulation, recent CABG and aortic valve replacement about 3 weeks ago, followed by inpatient rehab, and discharged 3 days ago Patient presented to the emergency department yesterday due to sudden onset epistaxis. Nasal balloon tamponade was inserted which stopped the bleeding. Patient stated balloon tamponade slipped off a few hours after discharge from the ER yesterday in the evening, had no nosebleed overnight until around 4 PM today, she started bleeding again. [facility] Patient reports associated nausea, denies any pain. Her last dose of Eliquis was yesterday in the morning (about [address] ago[address] Walker was contacted who recommended repacking with nasal tamponade, and hospitalization overnight with antibiotics with plans to evaluate in the morning. [facility] ordered to reverse Eliquis in the ER. Nasal balloon tamponade placed. Patient is hospitalized for further management. Hospital Course: Problem List: Epistaxis Severe iron deficiency anemia right cephalic vein thrombus (09/12/24) Severe aortic stenosis s/p Aortic valve replacement (08/30/24) Hx CAD s/p CABG (08/30/24) IDDM2 Chronic systolic CHF Hypertension Hx Isamar-en-Y gastric bypass Hx CVA Physician discharge instructions: Patient presented with sudden onset epistaxis. She had nasal balloon tamponade inserted in ED 09/20 however it fell out after discharge and she started to bleed again 09/21 so she came back. Dr. Walker (ENT) was consulted to evaluate. Patient had Nasal balloon tamponade reinserted in ED and bleeding slowed down. Dr. Walker removed packing on 09/24. Eliquis and aspirin were held. There was some mild bleeding noted after packing removal which resolved after silver nitrate cauterization and had dressing placed. No further bleeding noted. Patient is to leave dressing in place until follow up appointment with Dr. Walker in office. Hemoglobin was 9 on admission, and 7.7-8.0 during hospitalization. While in rehab 1-2 weeks ago Hgb ranged in high 7s to low 8s, so stable. Iron studies were consistent with severe iron deficiency anemia (iron 15, tsat% 3.6%). She received 3 bags of IV iron (125mg) while hospitalized and advised patient to continue oral iron supplementation on discharge. Repeat iron studies in ~3 months. Patient was feeling better, afebrile without leukocytosis, bleeding improved, and was deemed stable for discharge. Follow up with ENT in next 1-2 weeks for further management. The night before discharge she coughed up a dark red clot, but there was no active bleeding and continued to do well. She received short course of prophylactic ancef (09/23-09/24) due to the nose bleed. Patient was also started on oral diflucan as a precaution as patient reported she typically gets yeast infections when she is given antibiotics. Patient is to complete 1 more day of oral diflucan for 5 day total course. She was noted to have a upper extremity ultrasound at rehab on 09/12/24 which noted thrombus in right cephalic vein. Unclear acuity given lack of records but assumed to be acute, since she arrived to rehab on DAPT from the hospital, and plavix was switched to eliquis at rehab after doppler results. Cardiology was consulted and recommended to only continue on aspirin 81mg. Dr. Olivo advised to stop eliquis given superficial thrombus, and did not need to restart plavix at this time (was taking prior to eliquis) No further cardiac work up warranted. Advised to follow up with cardiology in next 2-4 weeks for further management. She also has a follow up appointment scheduled in ~10 days with her cardiothoracic surgeon. While at rehab, her urine culture grew Klebsiella Pneumoniae on 09/11/24. She did report having some urinary symptoms ~1-2 weeks ago at the time of culture, drank cranberry juice, and has resolution of her symptoms. Denies having any urinary symptoms in the last few days. Repeat Urine culture was without growth, noted mixed millicent (<10k CFU/ml). No indication for antibiotic at this time. Medications: Diflucan for 1 more day (take 09/27 morning) Stop Eliquis, do not restart plavix Continue aspirin 81 mg daily Continue other home medications not listed as previously prescribed. Follow up: PCP 3-5 days ENT in 1-2 weeks Please call to schedule / confirm appointments Physical Exam: GEN: Alert, NAD, left eye closed CV: Regular rate and rhythm, no edema Pulm: Nonlabored respirations on room air, clear bilaterally ABD: soft, nontender, nondistended Neuro: Normal speech, normal affect Vital Signs/Physical Exam: Temp Pulse Resp BP Pulse Ox 97.7 F 70 20 120/57 L 97 09/26/24 08:00 09/26/24 08:34 09/26/24 08:00 09/26/24 08:34 09/26/24 08:00 Laboratory Data at Discharge: WBC 7.80 thou/uL (4.3-10.9) 09/25/24 07:53 Hgb 7.5 g/dL (12.0-15.0) L 09/25/24 07:53 Hct 24.0 % (36.0-45.0) L 09/25/24 07:53 Plt Count 532 thou/uL (152-406) H 09/25/24 07:53 PT 13.7 SECONDS (9.4-12.5) H 09/22/24 09:43 INR 1.23 09/22/24 09:43 APTT 32.4 SECONDS (24.3-36.9) 09/22/24 09:43 Sodium 136 mEq/L (136-145) 09/25/24 07:53 Potassium 4.9 mEq/L (3.5-5.1) 09/25/24 07:53 BUN 15 mg/dL (7-18) 09/25/24 07:53 Creatinine 0.70 mg/dL (0.55-1.02) 09/25/24 07:53 Glucose 136 mg/dL (74-106) H 09/25/24 07:53 Phosphorus 3.2 mg/dL (2.5-4.9) 09/22/24 05:51 Magnesium 2.1 mg/dL (1.6-2.4) 09/25/24 07:53 Home Medications: Aspirin [Aspirin EC] 81 mg PO DAILY 09/11/24 Atorvastatin Calcium [Lipitor] 40 mg PO BEDTIME 09/11/24 Cyanocobalamin (Vitamin B-12) [Vitamin B-12] 500 mcg PO DAILY 09/11/24 Dapagliflozin Propanediol [Farxiga] 5 mg PO DAILY 09/11/24 Ferrous Sulfate [Feosol] 325 mg PO DAILY 09/11/24 Guaifenesin [Mucinex] 600 mg PO BID 09/11/24 Metoprolol Succinate [Toprol Xl*] 25 mg PO DAILY 09/11/24 Pantoprazole [Protonix Tab*] 40 mg PO DAILY 09/11/24 Spironolactone [Aldactone*] 25 mg PO DAILY 09/11/24 Teujeo 35 Units 35 units SQ BEDTIME 09/11/24 Toejeo 40 units SQ DAILY 09/11/24 Apixaban [Eliquis] 5 mg PO BID #60 09/17/24 Glucerna Shake [Glucerna*] 237 ml PO BID can 09/17/24 Lidocaine 4% Patch [Lidoderm 5% Patch*] 1 patch TOP DAILY pat 09/17/24 Multivit,Ther Iron,Ca,FA & Min [Centrum Tablet*] 1 tab PO DAILY tab 09/17/24 Senosides [Senokot*] 17.2 mg PO DAILY PRN tab 09/17/24 Amiodarone HCl 200 mg PO BID 09/22/24 Furosemide [Lasix] 60 mg PO DAILY 09/22/24 Physician Discharge Instructions: Physician discharge instructions: Patient presented with sudden onset epistaxis. She had nasal balloon tamponade inserted in ED 09/20 however it fell out after discharge and she started to bleed again 09/21 so she came back. Dr. Walker (ENT) was consulted to evaluate. Patient had Nasal balloon tamponade reinserted in ED and bleeding slowed down. Dr. Walker removed packing on 09/24. Eliquis and aspirin were held. There was some mild bleeding noted after packing removal which resolved after silver nitrate cauterization and had dressing placed. No further bleeding noted. Patient is to leave dressing in place until follow up appointment with Dr. Walker in office. Hemoglobin was 9 on admission, and 7.7-8.0 during hospitalization. While in rehab 1-2 weeks ago Hgb ranged in high 7s to low 8s, so stable. Iron studies were consistent with severe iron deficiency anemia (iron 15, tsat% 3.6%). She received 3 bags of IV iron (125mg) while hospitalized and advised patient to continue oral iron supplementation on discharge. Repeat iron studies in ~3 months. Patient was feeling better, afebrile without leukocytosis, bleeding improved, and was deemed stable for discharge. Follow up with ENT in next 1-2 weeks for further management. The night before discharge she coughed up a dark red clot, but there was no active bleeding and continued to do well. She received short course of prophylactic ancef (09/23-09/24) due to the nose bleed. Patient was also started on oral diflucan as a precaution as patient reported she typically gets yeast infections when she is given antibiotics. Patient is to complete 1 more day of oral diflucan for 5 day total course. She was noted to have a upper extremity ultrasound at rehab on 09/12/24 which noted thrombus in right cephalic vein. Unclear acuity given lack of records but assumed to be acute, since she arrived to rehab on DAPT from the hospital, and plavix was switched to eliquis at rehab after doppler results. Cardiology was consulted and recommended to only continue on aspirin 81mg. Dr. Olivo advised to stop eliquis given superficial thrombus, and did not need to restart plavix at this time (was taking prior to eliquis) No further cardiac work up warranted. Advised to follow up with cardiology in next 2-4 weeks for further management. She also has a follow up appointment scheduled in ~10 days with her cardiothoracic surgeon. While at rehab, her urine culture grew Klebsiella Pneumoniae on 09/11/24. She did report having some urinary symptoms ~1-2 weeks ago at the time of culture, drank cranberry juice, and has resolution of her symptoms. Denies having any urinary symptoms in the last few days. Repeat Urine culture was without growth, noted mixed millicent (<10k CFU/ml). No indication for antibiotic at this time. Medications: Diflucan for 1 more day (take 09/27 morning) Stop Eliquis, do not restart plavix Continue aspirin 81 mg daily Continue other home medications not listed as previously prescribed. Follow up: PCP 3-5 days ENT in 1-2 weeks Please call to schedule / confirm appointments Followup: Mike Christian MD [Primary Care Provider] - Time spent managing pt's care (in minutes): 45
[2024-09-26] MEDS: SOD FERRIC GLUC COMPLX/SUCROSE 125 MG in NA CHLORIDE 0.9% 100 ML IV SCH (09:20)
== END 2024-09-26 10:55 | disposition home or self-care (01) | DRG 812 ==
LOC: ER 18:43 → ERHOLD 21:44 → 4TH 09-22 12:40 → OBSVTOIN 09-22 18:01
PROVIDERS: ADMIT Internal Medicine; ATTEND Hospitalist
PROC: 30233K1 Transfusion of Nonautologous Frozen Plasma into Peripheral Vein, Percutaneous Approach (ICD-10-PCS; principal; 2024-09-22)
PROC: 2Y41X5Z Packing of Nasal Region using Packing Material (ICD-10-PCS; 2024-09-22)
DX: D50.9 Iron deficiency anemia, unspecified (principal); I48.20 Chronic atrial fibrillation, unspecified; I50.22 Chronic systolic (congestive) heart failure; R04.0 Epistaxis; E11.40 Type 2 diabetes mellitus with diabetic neuropathy, unspecified; I25.2 Old myocardial infarction; I25.10 Atherosclerotic heart disease of native coronary artery without angina pectoris; Z88.0 Allergy status to penicillin; Z91.040 Latex allergy status; Z79.82 Long term (current) use of aspirin; Z79.01 Long term (current) use of anticoagulants; Z79.899 Other long term (current) drug therapy; Z86.73 Personal history of transient ischemic attack (TIA), and cerebral infarction without residual deficits; Z95.1 Presence of aortocoronary bypass graft; Z95.2 Presence of prosthetic heart valve; Z98.84 Bariatric surgery status; Z90.49 Acquired absence of other specified parts of digestive tract; Z90.710 Acquired absence of both cervix and uterus
CPT/HCPCS: 30901; 36415; 80048; 81001; 82728; 82947; 83540; 83735; 84100; 84466; 85014; 85018; 85025; 85027; 85610; 85730; 86900; 86901; 86927; 87086; 87088; 94760; 99285; G0378; J0690; J0692; J2270; J2405; J2765; J2916; J7050; J7168; P9017; P9059